=== PATIENT | female | born 1950 | race Caucasian/White ===

== ENCOUNTER 2016-03-03 14:35 | Inpatient (IN) | payer MEDICARE, OTHER ==
[~2016-03-03] VITALS: Ht 165.1 cm; Wt 52.2 kg
[~2016-03-03 14:35] MED LIST: ALLA266C2 TP; AMLO5TAB2 PO; APIX5TAB PO; ASPI81TA2 PO; ESCI10TA PO; FURO20TA4 PO; LOSA100T15 PO; OMEP20CA10 PO; OMEP20TA68 PO; PANT40TA4 PO; SUCR1ORA PO; SUCR1TAB PO
[2016-03-03] MEDS ORDERED: ASPIRIN 325 MG TABLET PO ONE (15:00)
[2016-03-03 15:13] LABS: BASOPHILS # (AUTO) 0.2 /CMM (0.0-0.2); BASOPHILS % (AUTO) 2.5 % (0.0-2.0); DIFF TOTAL % 100 %; EOSINOPHILS % (AUTO) 0.4 % (0.0-6.0); HEMATOCRIT 48 % (33-45); HEMOGLOBIN 15.7 g/dL (11.5-14.8); LYMPHOCYTES # (AUTO) 1.3 /CMM (0.8-4.8); LYMPHOCYTES % (AUTO) 17.4 % (20.0-44.0); MEAN CORPUSCULAR HEMOGLOBIN 30 PG (26.0-33.0); MEAN CORPUSCULAR HGB CONC 33 g/dl (31.0-36.0); MEAN CORPUSCULAR VOLUME 91 fL (82-100); MONOCYTES # (AUTO) 0.6 /CMM (0.1-1.30); MONOCYTES % (AUTO) 7.5 % (2.0-12.0); NEUTROPHILS # (AUTO) 5.7 /CMM (1.8-8.9); NEUTROPHILS % (AUTO) 72.2 % (43.0-81.0); PLATELET COUNT (AUTO) 430 /CMM (150-450); WHITE BLOOD COUNT (AUTO) 7.8 K/uL (4.3-11.0)
[2016-03-03 15:27] LABS: INR 1.77 (0.87-1.13); PROTHROMBIN TIME 18.6 SECS (9.5-12.7)
[2016-03-03] MEDS ORDERED: ASPIRIN 325 MG TABLET ONE (15:27)
[2016-03-03 15:33] LABS: TROPONIN I 0.058 ng/mL (0.00-0.056)
[2016-03-03] MEDS ORDERED: LOSA100T15 PO (15:48)
[2016-03-03] MEDS ORDERED: ESCI10TA PO (15:48)
[2016-03-03] MEDS ORDERED: APIX5TAB PO (15:48)
[2016-03-03] MEDS ORDERED: TRAZ-144 PO (15:48)
[2016-03-03] MEDS ORDERED: SUCR1ORA6 PO (15:48)
[2016-03-03] MEDS ORDERED: FLUT1BLS IH (15:48)
[2016-03-03] MEDS ORDERED: METO25TA6 PO (15:48)
[2016-03-03] MEDS ORDERED: PANT40TA4 PO (15:48)
[2016-03-03] MEDS ORDERED: MONT10TA22 PO (15:48)
[2016-03-03] MEDS ORDERED: FURO20TA4 PO (15:48)
[2016-03-03] MEDS ORDERED: IV NS 0.9% 1,000 ML BAG IV ONE (16:00)
[2016-03-03] MEDS ORDERED: POTASSIUM CHLORIDE 20 MEQ TAB.PRT.SR PO ONE ×2 (16:00→16:42)
[2016-03-03] MEDS ORDERED: POTASSIUM CL. PREMIX PERIPHER. 50 ML IV SCH (16:00)
[2016-03-03] MEDS ORDERED: IV SET PRIMARY PUMP SET 1 EA INFUS.SET MC ONE (16:42)
[2016-03-03] MEDS ORDERED: IV NS 0.9% 1,000 ML ONE (16:42)
[2016-03-03] MEDS ORDERED: POTASSIUM CL. PREMIX PERIPHER. 50 ML ONE (16:42)
[2016-03-03 16:54] LABS: KETONES,URINE Negative (NEGATIVE); LEUKOCYTE ESTERASE ,URINE Trace (NEGATIVE); PH,URINE 5.5 (5.0-8.0)
[2016-03-03 17:00] LABS: ADD UA MICROSCOPIC YES
[2016-03-03 17:13] LABS: ADD URINE CULTURE YES
[2016-03-03 18:00] VITALS: BP 128/84
[2016-03-03] MEDS ORDERED: ONDANSETRON HCL/PF 4 MG/2 ML VIAL IVP PRN (18:00)
[2016-03-03] MEDS: NITROGLYCERIN 30 GM TUBE TP SCH (18:00)
[2016-03-03] MEDS: POTASSIUM CL. PREMIX PERIPHER. 50 ML IV SCH ×3 (18:31→22:04)
[2016-03-03] MEDS: MAG HYDROX/AL HYDROX/SIMETH 30 ML UDC PO PRN (19:12)
[2016-03-03] MEDS: ACETAMINOPHEN 325 MG TABLET PO PRN ×2 (19:18→19:23)
[2016-03-03 20:00] VITALS: BP 100/69
[2016-03-03] MEDS: TRAZODONE 50 MG TABLET PO PRN (21:04)
[2016-03-03] MEDS: APIXABAN 2.5 MG TABLET PO SCH (21:04)
[2016-03-03 21:19] VITALS: BP 100/69
[2016-03-03] MEDS ORDERED: NITROGLYCERIN PACKET 1 GM PACKET ONE (23:44)
[2016-03-04] VITALS (7 sets, daily range): BP systolic 100–137; BP diastolic 53–87
[2016-03-04] MEDS: NITROGLYCERIN 30 GM TUBE TP SCH ×4 (00:02→17:33)
[2016-03-04] MEDS ORDERED: DILTIAZEM HCL 30 MG TABLET ONE ×2 (01:37→01:41)
[2016-03-04] MEDS ORDERED: METOPROLOL TARTRATE 50 MG TABLET ONE (01:38)
[2016-03-04] MEDS: DILTIAZEM HCL 30 MG TABLET PO PRN ×2 (01:45→09:23)
[2016-03-04] MEDS: METOPROLOL TARTRATE 50 MG TABLET PO SCH ×4 (01:51→21:01)
[2016-03-04 03:44] LABS: BASOPHILS % (AUTO) 0.4 % (0.0-2.0); DIFF TOTAL % 100 %; EOSINOPHILS % (AUTO) 0.5 % (0.0-6.0); HEMATOCRIT 38 % (33-45); HEMOGLOBIN 12.5 g/dL (11.5-14.8); LYMPHOCYTES # (AUTO) 2.2 /CMM (0.8-4.8); LYMPHOCYTES % (AUTO) 33.9 % (20.0-44.0); MEAN CORPUSCULAR HEMOGLOBIN 30 PG (26.0-33.0); MEAN CORPUSCULAR HGB CONC 33 g/dl (31.0-36.0); MEAN CORPUSCULAR VOLUME 91 fL (82-100); MONOCYTES # (AUTO) 0.6 /CMM (0.1-1.30); NEUTROPHILS # (AUTO) 3.6 /CMM (1.8-8.9); NEUTROPHILS % (AUTO) 55.2 % (43.0-81.0); PLATELET COUNT (AUTO) 251 /CMM (150-450); RED BLOOD CELL COUNT(AUTO) 4.19 MIL/uL (4.0-5.2); WHITE BLOOD COUNT (AUTO) 6.5 K/uL (4.3-11.0)
[2016-03-04 03:58] LABS: CALCIUM, SERUM 8.3 mg/dL (8.5-10.1); CREATININE 1.6 mg/dL (0.6-1.3); PHOSPHORUS 2.6 mg/dL (2.5-4.9); URIC ACID 5.3 mg/dL (2.6-7.2)
[2016-03-04 04:30] LABS: POTASSIUM 2.8 mmol/L (3.5-5.1)
[2016-03-04] MEDS ORDERED: METOPROLOL TARTRATE 50 MG TABLET PO SCH ×2 (06:00→15:00)
[2016-03-04] MEDS: IV NS W/30MEQ KCL 1L IV PRN ×2 (07:08)
[2016-03-04] MEDS: APIXABAN 2.5 MG TABLET PO SCH ×2 (08:39→16:39)
[2016-03-04] MEDS: PANTOPRAZOLE 40 MG TABLET.DR PO SCH (08:39)
[2016-03-04] MEDS: ASPIRIN 81 MG TAB.CHEW PO SCH (08:39)
[2016-03-04] MEDS ORDERED: POTASSIUM CHLORIDE 20 MEQ POWDER PACKET PO ONE (10:30)
[2016-03-04 10:50] LABS: CALCIUM, SERUM 8.4 mg/dL (8.5-10.1); CREATININE 1.6 mg/dL (0.6-1.3)
[2016-03-04] MEDS ORDERED: SECONDARY IV SET 1 EA INFUS.SET MC ONE ×2 (10:52→15:10)
[2016-03-04 10:53] LABS: POTASSIUM 2.5 mmol/L (3.5-5.1)
[2016-03-04] MEDS: Magnesium 1GM/D5W 100ML PREMIX 100 ML IV SCH ×4 (10:55→14:07)
[2016-03-04] MEDS ORDERED: IV SET PRIMARY PUMP SET 1 EA INFUS.SET MC ONE (11:03)
[2016-03-04] MEDS: POTASSIUM CL. PREMIX PERIPHER. 50 ML IV SCH ×3 (11:09→13:06)
[2016-03-04] MEDS: DILTIAZEM HCL CD 180 MG PO SCH (11:17)
[2016-03-04] MEDS: ACETAMINOPHEN 325 MG TABLET PO PRN (12:00)
[2016-03-04] MEDS ORDERED: LEVOFLOXACIN 500 MG /D5W 100ML 500 MG in PREMIX 1 EA IV ONE (13:00)
[2016-03-04] MEDS ORDERED: LEVOFLOXACIN 500 MG /D5W 100ML 500 MG in PREMIX 1 EA IV SCH (13:00)
[2016-03-04] MEDS ORDERED: TRAZODONE 50 MG TABLET PO SCH (22:00)
[2016-03-05] VITALS (9 sets, daily range): BP systolic 105–130; BP diastolic 61–90
[2016-03-05] MEDS: METOPROLOL TARTRATE 50 MG TABLET PO SCH ×4 (03:20→19:29)
[2016-03-05] MEDS: IV NS W/30MEQ KCL 1L IV PRN ×2 (04:57)
[2016-03-05] MEDS: NITROGLYCERIN 30 GM TUBE TP SCH ×4 (06:00→18:00)
[2016-03-05] MEDS: ASPIRIN 81 MG TAB.CHEW PO SCH (08:38)
[2016-03-05] MEDS: PANTOPRAZOLE 40 MG TABLET.DR PO SCH (08:38)
[2016-03-05] MEDS: APIXABAN 2.5 MG TABLET PO SCH ×2 (08:38→17:36)
[2016-03-05] MEDS: DILTIAZEM HCL CD 180 MG PO SCH ×2 (09:00→20:22)
[2016-03-05] MEDS ORDERED: Potassium Chloride 40 MEQ in IV NS 0.9% 1,000 ML IV PRN (10:05)
[2016-03-05] MEDS ORDERED: POTASSIUM CHLORIDE 20 MEQ TAB.PRT.SR PO ONE (10:30)
[2016-03-05 11:21] LABS: CALCIUM, SERUM 8.3 mg/dL (8.5-10.1); CREATININE 1.1 mg/dL (0.6-1.3); POTASSIUM 4.9 mmol/L (3.5-5.1)
[2016-03-05] MEDS ORDERED: SECONDARY IV SET 1 EA INFUS.SET MC ONE (12:19)
[2016-03-05] MEDS: LEVOFLOXACIN 250 MG /D5W 50 ML 250 MG in PREMIX 1 EA IV SCH (12:25)
[2016-03-05] MEDS: ACETAMINOPHEN 325 MG TABLET PO PRN ×2 (15:13→20:31)
[2016-03-05] MEDS: GUAIFENESIN/D-METHORPHAN HB 5 ML UDC PO PRN ×2 (15:16→21:17)
[2016-03-05] MEDS: TRAZODONE 50 MG TABLET PO SCH (21:18)
[2016-03-05] MEDS: MAG HYDROX/AL HYDROX/SIMETH 30 ML UDC PO PRN (23:14)
[2016-03-06] VITALS (7 sets, daily range): BP systolic 109–135; BP diastolic 50–84
[2016-03-06] MEDS: ACETAMINOPHEN 325 MG TABLET PO PRN ×2 (02:26→17:35)
[2016-03-06] MEDS: GUAIFENESIN/D-METHORPHAN HB 5 ML UDC PO PRN ×2 (03:35→21:44)
[2016-03-06] MEDS: NITROGLYCERIN 30 GM TUBE TP SCH ×4 (06:00→18:00)
[2016-03-06] MEDS: DILTIAZEM HCL CD 180 MG PO SCH (07:01)
[2016-03-06] MEDS: METOPROLOL TARTRATE 50 MG TABLET PO SCH ×2 (07:02→16:59)
[2016-03-06] MEDS: PANTOPRAZOLE 40 MG TABLET.DR PO SCH (08:48)
[2016-03-06] MEDS: ASPIRIN 81 MG TAB.CHEW PO SCH (08:48)
[2016-03-06] MEDS: APIXABAN 2.5 MG TABLET PO SCH ×2 (08:49→16:57)
[2016-03-06] MEDS ORDERED: METOPROLOL TARTRATE 25 MG TABLET PO ONE (11:30)
[2016-03-06] MEDS: LEVOFLOXACIN 250 MG /D5W 50 ML 250 MG in PREMIX 1 EA IV SCH (12:47)
[2016-03-06] MEDS: FUROSEMIDE 20 MG TABLET PO SCH (13:41)
[2016-03-06 13:59] LABS: BASOPHILS % (AUTO) 0.4 % (0.0-2.0); DIFF TOTAL % 100 %; EOSINOPHILS % (AUTO) 0.5 % (0.0-6.0); HEMATOCRIT 35 % (33-45); HEMOGLOBIN 11.4 g/dL (11.5-14.8); LYMPHOCYTES # (AUTO) 0.8 /CMM (0.8-4.8); LYMPHOCYTES % (AUTO) 21.4 % (20.0-44.0); MEAN CORPUSCULAR HEMOGLOBIN 30 PG (26.0-33.0); MEAN CORPUSCULAR HGB CONC 32 g/dl (31.0-36.0); MEAN CORPUSCULAR VOLUME 94 fL (82-100); MONOCYTES # (AUTO) 0.2 /CMM (0.1-1.30); MONOCYTES % (AUTO) 5.9 % (2.0-12.0); NEUTROPHILS # (AUTO) 2.7 /CMM (1.8-8.9); NEUTROPHILS % (AUTO) 71.8 % (43.0-81.0); PLATELET COUNT (AUTO) 165 /CMM (150-450); RED BLOOD CELL COUNT(AUTO) 3.76 MIL/uL (4.0-5.2); WHITE BLOOD COUNT (AUTO) 3.7 K/uL (4.3-11.0)
[2016-03-06 14:09] LABS: CALCIUM, SERUM 9.2 mg/dL (8.5-10.1); CREATININE 1.1 mg/dL (0.6-1.3); POTASSIUM 5.3 mmol/L (3.5-5.1)
[2016-03-06 18:42] LABS: BASOPHILS % (AUTO) 0.4 % (0.0-2.0); DIFF TOTAL % 100 %; EOSINOPHILS % (AUTO) 0.3 % (0.0-6.0); HEMATOCRIT 32 % (33-45); HEMOGLOBIN 10.4 g/dL (11.5-14.8); LYMPHOCYTES # (AUTO) 0.3 /CMM (0.8-4.8); LYMPHOCYTES % (AUTO) 10.8 % (20.0-44.0); MEAN CORPUSCULAR HEMOGLOBIN 30 PG (26.0-33.0); MEAN CORPUSCULAR HGB CONC 33 g/dl (31.0-36.0); MEAN CORPUSCULAR VOLUME 92 fL (82-100); MONOCYTES # (AUTO) 0.2 /CMM (0.1-1.30); MONOCYTES % (AUTO) 7.1 % (2.0-12.0); NEUTROPHILS # (AUTO) 2.1 /CMM (1.8-8.9); NEUTROPHILS % (AUTO) 81.4 % (43.0-81.0); PLATELET COUNT (AUTO) 172 /CMM (150-450); RED BLOOD CELL COUNT(AUTO) 3.46 MIL/uL (4.0-5.2); WHITE BLOOD COUNT (AUTO) 2.6 K/uL (4.3-11.0)
[2016-03-06 18:56] LABS: CALCIUM, SERUM 8.4 mg/dL (8.5-10.1); CREATININE 1.2 mg/dL (0.6-1.3); POTASSIUM 4.9 mmol/L (3.5-5.1)
[2016-03-06] MEDS ORDERED: LEVALBUTEROL HCL NEB 1.25 MG/0.5 ML VIAL.NEB NEB PRN (21:00)
[2016-03-06] MEDS ORDERED: ALBUTEROL FS 2.5 MG/0.5 ML VIAL.NEB NEB PRN (21:00)
[2016-03-06] MEDS: OSELTAMIVIR PHOSPHATE 75 MG CAPSULE PO SCH (21:44)
[2016-03-06] MEDS: TRAZODONE 50 MG TABLET PO SCH (22:00)
[2016-03-07] VITALS (9 sets, daily range): BP systolic 97–143; BP diastolic 61–76
[2016-03-07] MEDS: TRAZODONE 50 MG TABLET PO PRN (02:11)
[2016-03-07] MEDS: ACETAMINOPHEN 325 MG TABLET PO PRN (05:25)
[2016-03-07] MEDS: DILTIAZEM HCL CD 180 MG PO SCH (05:25)
[2016-03-07] MEDS: METOPROLOL TARTRATE 50 MG TABLET PO SCH ×2 (05:25→17:37)
[2016-03-07] MEDS: NITROGLYCERIN 30 GM TUBE TP SCH ×4 (06:00→17:36)
[2016-03-07] MEDS: FUROSEMIDE 20 MG TABLET PO SCH (09:00)
[2016-03-07] MEDS: PANTOPRAZOLE 40 MG TABLET.DR PO SCH (09:28)
[2016-03-07] MEDS: OSELTAMIVIR PHOSPHATE 75 MG CAPSULE PO SCH ×2 (09:28→17:36)
[2016-03-07] MEDS: APIXABAN 2.5 MG TABLET PO SCH ×2 (09:28→17:35)
[2016-03-07] MEDS: FUROSEMIDE 20 MG/2 ML VIAL IV SCH ×2 (11:18→17:34)
[2016-03-07] MEDS: LEVOFLOXACIN 250 MG /D5W 50 ML 250 MG in PREMIX 1 EA IV SCH (13:17)
[2016-03-07] MEDS: TRAZODONE 50 MG TABLET PO SCH (22:49)
[2016-03-08] MEDS: NITROGLYCERIN 30 GM TUBE TP SCH ×5 (06:00→17:01)
[2016-03-08 08:00] VITALS: BP 118/78
[2016-03-08] MEDS: APIXABAN 2.5 MG TABLET PO SCH ×2 (08:17→16:26)
[2016-03-08] MEDS: OSELTAMIVIR PHOSPHATE 75 MG CAPSULE PO SCH ×2 (08:20→16:26)
[2016-03-08] MEDS: DILTIAZEM HCL CD 180 MG PO SCH (08:20)
[2016-03-08] MEDS: PANTOPRAZOLE 40 MG TABLET.DR PO SCH (08:20)
[2016-03-08] MEDS: LEVOFLOXACIN (250MG) 250 MG TABLET PO SCH (08:20)
[2016-03-08] MEDS: FUROSEMIDE 20 MG/2 ML VIAL IV SCH ×2 (08:21→16:27)
[2016-03-08] MEDS: METOPROLOL TARTRATE 50 MG TABLET PO SCH ×2 (08:21→16:27)
[2016-03-08 16:00] VITALS: BP 90/70
[2016-03-08 20:00] VITALS: BP 79/43
[2016-03-08] MEDS: TRAZODONE 50 MG TABLET PO SCH (22:00)
[2016-03-09] MEDS: NITROGLYCERIN 30 GM TUBE TP SCH ×4 (06:41→18:00)
[2016-03-09 08:00] VITALS: BP 120/65
[2016-03-09] MEDS: OSELTAMIVIR PHOSPHATE 75 MG CAPSULE PO SCH ×2 (09:27→16:32)
[2016-03-09] MEDS: LEVOFLOXACIN (250MG) 250 MG TABLET PO SCH (09:27)
[2016-03-09] MEDS: APIXABAN 2.5 MG TABLET PO SCH ×2 (09:27→16:32)
[2016-03-09] MEDS: PANTOPRAZOLE 40 MG TABLET.DR PO SCH (09:27)
[2016-03-09 10:02] LABS: BASOPHILS % (AUTO) 0.4 % (0.0-2.0); DIFF TOTAL % 100 %; EOSINOPHILS # (AUTO) 0.1 /CMM (0.0-0.7); EOSINOPHILS % (AUTO) 5.3 % (0.0-6.0); HEMATOCRIT 34 % (33-45); HEMOGLOBIN 11.2 g/dL (11.5-14.8); LYMPHOCYTES # (AUTO) 0.7 /CMM (0.8-4.8); LYMPHOCYTES % (AUTO) 29.7 % (20.0-44.0); MEAN CORPUSCULAR HEMOGLOBIN 30 PG (26.0-33.0); MEAN CORPUSCULAR HGB CONC 33 g/dl (31.0-36.0); MEAN CORPUSCULAR VOLUME 92 fL (82-100); MONOCYTES # (AUTO) 0.2 /CMM (0.1-1.30); MONOCYTES % (AUTO) 6.5 % (2.0-12.0); NEUTROPHILS # (AUTO) 1.5 /CMM (1.8-8.9); NEUTROPHILS % (AUTO) 58.1 % (43.0-81.0); PLATELET COUNT (AUTO) 129 /CMM (150-450); RED BLOOD CELL COUNT(AUTO) 3.71 MIL/uL (4.0-5.2); WHITE BLOOD COUNT (AUTO) 2.5 K/uL (4.3-11.0)
[2016-03-09 10:14] LABS: CALCIUM, SERUM 8.6 mg/dL (8.5-10.1); POTASSIUM 3.3 mmol/L (3.5-5.1)
[2016-03-09 10:33] LABS: BILIRUBIN,TOTAL 0.4 mg/dL (0.2-1.0); PHOSPHORUS 2.8 mg/dL (2.5-4.9); TOTAL PROTEIN, SERUM 6.3 g/dL (6.4-8.2)
[2016-03-09 10:35] LABS: BAND % (MANUAL) 4 % (0.0-5.0); EOSINOPHILS % (MANUAL) 5 % (0-4); LYMPHOCYTES % (MANUAL) 31 % (16-48); PLATELET ESTIMATE DECREASED
[2016-03-09] MEDS: METOPROLOL TARTRATE 50 MG TABLET PO SCH ×2 (10:35→16:32)
[2016-03-09] MEDS ORDERED: POTASSIUM CHLORIDE 20 MEQ TAB.PRT.SR PO SCH (12:30)
[2016-03-09 16:00] VITALS: BP 114/81
[2016-03-09 20:00] VITALS: BP 107/87
[2016-03-09 22:00] VITALS: BP 107/87
[2016-03-09] MEDS: TRAZODONE 50 MG TABLET PO SCH (23:00)
[2016-03-09] MEDS: GUAIFENESIN/D-METHORPHAN HB 5 ML UDC PO PRN (23:02)
[2016-03-10 04:51] VITALS: BP 114/79
[2016-03-10] MEDS: NITROGLYCERIN 30 GM TUBE TP SCH ×4 (06:00→17:19)
[2016-03-10 08:00] VITALS: BP 102/70
[2016-03-10 08:27] LABS: CREATININE 0.9 mg/dL (0.6-1.3); POTASSIUM 4.6 mmol/L (3.5-5.1)
[2016-03-10 08:38] VITALS: BP 102/70
[2016-03-10] MEDS: PANTOPRAZOLE 40 MG TABLET.DR PO SCH (09:22)
[2016-03-10] MEDS: LEVOFLOXACIN (250MG) 250 MG TABLET PO SCH (09:22)
[2016-03-10] MEDS: OSELTAMIVIR PHOSPHATE 75 MG CAPSULE PO SCH ×2 (09:22→17:17)
[2016-03-10] MEDS: METOPROLOL TARTRATE 50 MG TABLET PO SCH ×2 (09:23→17:19)
[2016-03-10] MEDS: APIXABAN 2.5 MG TABLET PO SCH ×2 (11:37→17:17)
[2016-03-10] MEDS: GUAIFENESIN LA 600 MG TABLET.SA PO SCH ×2 (12:33→21:20)
[2016-03-10] MEDS: DILTIAZEM HCL CD 180 MG PO SCH (13:49)
[2016-03-10 16:00] VITALS: BP 126/83
[2016-03-10 20:00] VITALS: BP 122/66
[2016-03-10] MEDS: TRAZODONE 50 MG TABLET PO SCH (21:20)
[2016-03-11] MEDS: NITROGLYCERIN 30 GM TUBE TP SCH ×2 (05:49)
[2016-03-11 08:00] VITALS: BP 123/59
[2016-03-11] MEDS: OSELTAMIVIR PHOSPHATE 75 MG CAPSULE PO SCH (08:33)
[2016-03-11] MEDS: PANTOPRAZOLE 40 MG TABLET.DR PO SCH (08:33)
[2016-03-11] MEDS: APIXABAN 2.5 MG TABLET PO SCH (08:33)
[2016-03-11] MEDS: METOPROLOL TARTRATE 50 MG TABLET PO SCH (08:34)
[2016-03-11] MEDS: LEVOFLOXACIN (250MG) 250 MG TABLET PO SCH (08:34)
[2016-03-11] MEDS: GUAIFENESIN LA 600 MG TABLET.SA PO SCH (08:34)
[2016-03-11 08:35] VITALS: BP 123/59
[2016-03-11] MEDS: DILTIAZEM HCL CD 180 MG PO SCH (08:35)
== END 2016-03-11 13:58 | disposition home or self-care (01) | DRG 682 ==
LOC: MERGE 14:38 → ER 14:38 → TELE 17:06 → MED 03-07 08:55
PROVIDERS: ADMIT Legal Medicine; ATTEND Legal Medicine
DX: N17.0 Acute kidney failure with tubular necrosis (principal); I50.33 Acute on chronic diastolic (congestive) heart failure; N39.0 Urinary tract infection, site not specified; D68.59 Other primary thrombophilia; J44.1 Chronic obstructive pulmonary disease with (acute) exacerbation; I11.0 Hypertensive heart disease with heart failure; E87.6 Hypokalemia; J45.909 Unspecified asthma, uncomplicated; M81.0 Age-related osteoporosis without current pathological fracture; E86.0 Dehydration; I48.2 Chronic atrial fibrillation; K27.9 Peptic ulcer, site unspecified, unspecified as acute or chronic, without hemorrhage or perforation; E78.00 Pure hypercholesterolemia, unspecified; E78.1 Pure hyperglyceridemia; E86.1 Hypovolemia; G47.00 Insomnia, unspecified; Z87.891 Personal history of nicotine dependence; Z90.49 Acquired absence of other specified parts of digestive tract; R78.89 Finding of other specified substances, not normally found in blood; J11.1 Influenza due to unidentified influenza virus with other respiratory manifestations
CPT/HCPCS: 36415; 71010-TC; 80048-TC; 80053-TC; 80061-TC; 81000-TC; 83735-TC; 84100-TC; 84484-TC; 84550-TC; 85025-TC; 85730-TC; 87081-TC; 87086-TC; 87186-TC; 87400; 94799-TC; A4216; A4606; J1940; J1956; J2405; J3475; J3480; J7030; Z7610

== ENCOUNTER 2016-03-18 10:03 | Inpatient (IN) | payer MEDICARE, OTHER ==
[~2016-03-18] VITALS: Ht 160 cm; Wt 56.2 kg
[~2016-03-18 10:03] MED LIST changes: +FLUT1BLS IH; +METO25TA6 PO; +MONT10TA22 PO; +SUCR1ORA6 PO; +TRAZ-144 PO
[2016-03-18] MEDS ORDERED: IV NS 0.9% 1,000 ML ONE ×2 (11:27→12:23)
[2016-03-18] MEDS ORDERED: ONDANSETRON HCL/PF 4 MG/2 ML VIAL ONE (11:27)
[2016-03-18] MEDS ORDERED: IV SET PRIMARY PUMP SET 1 EA INFUS.SET MC ONE ×4 (11:27→14:36)
[2016-03-18] MEDS ORDERED: ONDANSETRON HCL/PF 4 MG/2 ML VIAL IVP ONE (11:30)
[2016-03-18] MEDS ORDERED: IV NS 0.9% 1,000 ML BAG IV ONE ×2 (11:30→12:30)
[2016-03-18 11:42] LABS: BASOPHILS # (AUTO) 0.1 /CMM (0.0-0.2); BASOPHILS % (AUTO) 0.7 % (0.0-2.0); DIFF TOTAL % 100 %; EOSINOPHILS # (AUTO) 0.1 /CMM (0.0-0.7); EOSINOPHILS % (AUTO) 0.7 % (0.0-6.0); HEMATOCRIT 49 % (33-45); HEMOGLOBIN 15.3 g/dL (11.5-14.8); LYMPHOCYTES # (AUTO) 2.8 /CMM (0.8-4.8); MEAN CORPUSCULAR HEMOGLOBIN 29 PG (26.0-33.0); MEAN CORPUSCULAR HGB CONC 31 g/dl (31.0-36.0); MEAN CORPUSCULAR VOLUME 94 fL (82-100); MONOCYTES # (AUTO) 0.4 /CMM (0.1-1.30); NEUTROPHILS # (AUTO) 7.5 /CMM (1.8-8.9); NEUTROPHILS % (AUTO) 68.6 % (43.0-81.0); PLATELET COUNT (AUTO) 507 /CMM (150-450); RED BLOOD CELL COUNT(AUTO) 5.21 MIL/uL (4.0-5.2); WHITE BLOOD COUNT (AUTO) 10.9 K/uL (4.3-11.0)
[2016-03-18] MEDS ORDERED: METO25TA6 PO (11:53)
[2016-03-18] MEDS ORDERED: DILT180C66 PO (11:53)
[2016-03-18 11:55] LABS: ANION GAP 20 (5-14); CALCIUM, SERUM 9.8 mg/dL (8.5-10.1); CARBON DIOXIDE 22 mmol/L (21-32); CHLORIDE 101 mmol/L (98-107); CREATININE 1.8 mg/dL (0.6-1.3); GFR 28 mL/min (>60); GLUCOSE 161 mg/dL (74-106); POTASSIUM 3.6 mmol/L (3.5-5.1); SODIUM SERUM 139 mmol/L (136-145); UREA NITROGEN, BLOOD 32 mg/dL (7-18)
[2016-03-18 11:59] LABS: INR 1.22 (0.87-1.13); PROTHROMBIN TIME 12.8 SECS (9.5-12.7)
[2016-03-18 12:01] LABS: ALANINE AMINOTRANSFERASE 20 U/L (12-78); ALBUMIN 4.3 g/dL (3.4-5.0); ASPARTATE AMINOTRANSFERASE 17 U/L (15-37); BILIRUBIN,DIRECT 0.2 mg/dL (0.0-0.2); INDIRECT BILIRUBIN 0.8 mg/dL (0.0-1.1); TOTAL PROTEIN, SERUM 8.5 g/dL (6.4-8.2)
[2016-03-18 12:03] LABS: TROPONIN I 0.021 ng/mL (0.00-0.056)
[2016-03-18 12:24] LABS: LACTIC ACID 5.1 mmol/L (0.4-2.0)
[2016-03-18] MEDS ORDERED: LEVOFLOXACIN 750 MG /D5W 150ML 150 ML IV ONE ×2 (12:29→12:30)
[2016-03-18 12:38] LABS: *LACTIC ACID REFLEX FLAG YES
[2016-03-18] MEDS ORDERED: IV NS 0.9% 1,000 ML IV PRN (14:00)
[2016-03-18] MEDS ORDERED: FEE PK DOSING 1 MIN EA MC ONE (14:28)
[2016-03-18 14:30] VITALS: BP 137/53
[2016-03-18] MEDS ORDERED: ONDANSETRON HCL/PF 4 MG/2 ML VIAL IV PRN (14:30)
[2016-03-18] MEDS ORDERED: SECONDARY IV SET 1 EA INFUS.SET MC ONE (14:37)
[2016-03-18 14:46] VITALS: BP 137/53
[2016-03-18] MEDS ORDERED: VANCOMYCIN 1 GM in IV D5W 250 ML IV SCH (15:00)
[2016-03-18] MEDS: DILTIAZEM HCL CD 180 MG PO SCH (15:14)
[2016-03-18 16:00] VITALS: BP 105/29
[2016-03-18] MEDS: METOPROLOL TARTRATE 25 MG TABLET PO SCH (17:37)
[2016-03-18] MEDS: APIXABAN 5 MG TABLET PO SCH (17:45)
[2016-03-18 20:00] VITALS: BP 100/49
[2016-03-18] MEDS: TRAZODONE 50 MG TABLET PO PRN (22:15)
[2016-03-18] MEDS ORDERED: TRAZODONE 50 MG TABLET PO PRN (23:30)
[2016-03-18] MEDS ORDERED: TRAZODONE 50 MG TABLET ONE (23:32)
[2016-03-19] VITALS (7 sets, daily range): BP systolic 91–112; BP diastolic 32–55
[2016-03-19 07:12] LABS: BASOPHILS % (AUTO) 0.6 % (0.0-2.0); DIFF TOTAL % 100 %; EOSINOPHILS # (AUTO) 0.1 /CMM (0.0-0.7); EOSINOPHILS % (AUTO) 1.6 % (0.0-6.0); HEMATOCRIT 34 % (33-45); HEMOGLOBIN 10.9 g/dL (11.5-14.8); LYMPHOCYTES # (AUTO) 1.5 /CMM (0.8-4.8); LYMPHOCYTES % (AUTO) 25.8 % (20.0-44.0); MEAN CORPUSCULAR HEMOGLOBIN 30 PG (26.0-33.0); MEAN CORPUSCULAR HGB CONC 33 g/dl (31.0-36.0); MEAN CORPUSCULAR VOLUME 93 fL (82-100); MONOCYTES # (AUTO) 0.5 /CMM (0.1-1.30); MONOCYTES % (AUTO) 7.8 % (2.0-12.0); NEUTROPHILS # (AUTO) 3.8 /CMM (1.8-8.9); NEUTROPHILS % (AUTO) 64.2 % (43.0-81.0); PLATELET COUNT (AUTO) 284 /CMM (150-450); RED BLOOD CELL COUNT(AUTO) 3.61 MIL/uL (4.0-5.2); WHITE BLOOD COUNT (AUTO) 5.9 K/uL (4.3-11.0)
[2016-03-19 07:20] LABS: CALCIUM, SERUM 8.5 mg/dL (8.5-10.1); CREATININE 1.1 mg/dL (0.6-1.3); PHOSPHORUS 3.1 mg/dL (2.5-4.9); POTASSIUM 3.9 mmol/L (3.5-5.1)
[2016-03-19] MEDS ORDERED: PANTOPRAZOLE 40 MG TABLET.DR PO SCH (07:30)
[2016-03-19] MEDS: DILTIAZEM HCL CD 180 MG PO SCH (08:04)
[2016-03-19] MEDS: APIXABAN 5 MG TABLET PO SCH (08:05)
[2016-03-19] MEDS: METOPROLOL TARTRATE 25 MG TABLET PO SCH ×2 (08:05→16:14)
[2016-03-19] MEDS ORDERED: SECONDARY IV SET 1 EA INFUS.SET MC ONE (09:11)
[2016-03-19] MEDS: Magnesium 1GM/D5W 100ML PREMIX 100 ML IV SCH ×5 (09:14→13:30)
[2016-03-19] MEDS: PANTOPRAZOLE 40 MG TABLET.DR PO SCH ×2 (13:08→21:30)
[2016-03-19] MEDS: VANCOMYCIN 1 GM in IV D5W 250 ML IV SCH (15:12)
[2016-03-19] MEDS: ELIQUIS 5MG PO SCH (16:14)
[2016-03-19] MEDS: ACETAMINOPHEN 325 MG TABLET PO PRN (19:25)
[2016-03-19] MEDS: TRAZODONE 50 MG TABLET PO PRN (22:22)
[2016-03-20] VITALS: BP 94/43
[2016-03-20 04:00] VITALS: BP 99/43
[2016-03-20 06:57] LABS: BASOPHILS % (AUTO) 0.3 % (0.0-2.0); DIFF TOTAL % 100 %; EOSINOPHILS # (AUTO) 0.1 /CMM (0.0-0.7); EOSINOPHILS % (AUTO) 1.3 % (0.0-6.0); HEMATOCRIT 35 % (33-45); HEMOGLOBIN 11.1 g/dL (11.5-14.8); LYMPHOCYTES # (AUTO) 1.3 /CMM (0.8-4.8); LYMPHOCYTES % (AUTO) 20.1 % (20.0-44.0); MEAN CORPUSCULAR HEMOGLOBIN 30 PG (26.0-33.0); MEAN CORPUSCULAR HGB CONC 32 g/dl (31.0-36.0); MEAN CORPUSCULAR VOLUME 94 fL (82-100); MONOCYTES # (AUTO) 0.5 /CMM (0.1-1.30); MONOCYTES % (AUTO) 7.9 % (2.0-12.0); NEUTROPHILS # (AUTO) 4.6 /CMM (1.8-8.9); NEUTROPHILS % (AUTO) 70.4 % (43.0-81.0); PLATELET COUNT (AUTO) 286 /CMM (150-450); RED BLOOD CELL COUNT(AUTO) 3.72 MIL/uL (4.0-5.2); WHITE BLOOD COUNT (AUTO) 6.6 K/uL (4.3-11.0)
[2016-03-20 07:18] LABS: CALCIUM, SERUM 8.7 mg/dL (8.5-10.1); POTASSIUM 3.8 mmol/L (3.5-5.1)
[2016-03-20 08:00] VITALS: BP 123/76
[2016-03-20] MEDS: VANCOMYCIN 1 GM in IV D5W 250 ML IV SCH (08:59)
[2016-03-20] MEDS: ELIQUIS 5MG PO SCH (08:59)
[2016-03-20] MEDS: METOPROLOL TARTRATE 25 MG TABLET PO SCH ×2 (09:00→17:42)
[2016-03-20] MEDS: DILTIAZEM HCL CD 180 MG PO SCH (09:00)
[2016-03-20] MEDS: PANTOPRAZOLE 40 MG TABLET.DR PO SCH ×2 (09:00→21:43)
[2016-03-20 12:00] VITALS: BP 105/61
[2016-03-20] MEDS ORDERED: SECONDARY IV SET 1 EA INFUS.SET MC ONE (12:43)
[2016-03-20] MEDS ORDERED: LEVOFLOXACIN 750 MG /D5W 150ML 750 MG in PREMIX 1 EA IV SCH (13:30)
[2016-03-20] MEDS: ACETAMINOPHEN 325 MG TABLET PO PRN (15:37)
[2016-03-20 16:00] VITALS: BP 118/84
[2016-03-20] MEDS: LACTOBACILLUS RHAMNOSUS GG 1 EACH CAP.SPRINK PO SCH (17:41)
[2016-03-20] MEDS: APIXABAN 2.5 MG TABLET PO SCH (18:05)
[2016-03-20 20:00] VITALS: BP 100/59
[2016-03-20] MEDS: TRAZODONE 50 MG TABLET PO PRN (21:44)
[2016-03-21] VITALS: BP 100/45
[2016-03-21] MEDS: VANCOMYCIN 1 GM in IV D5W 250 ML IV SCH (03:09)
[2016-03-21] MEDS ORDERED: IV SET PRIMARY PUMP SET 1 EA INFUS.SET MC ONE (03:09)
[2016-03-21 04:00] VITALS: BP_SYST 104; BP_SYST 109; BP_DIAS 41
[2016-03-21 07:32] LABS: BASOPHILS % (AUTO) 0.3 % (0.0-2.0); DIFF TOTAL % 100 %; EOSINOPHILS # (AUTO) 0.1 /CMM (0.0-0.7); EOSINOPHILS % (AUTO) 1.1 % (0.0-6.0); HEMATOCRIT 31 % (33-45); HEMOGLOBIN 10.3 g/dL (11.5-14.8); LYMPHOCYTES # (AUTO) 1.3 /CMM (0.8-4.8); LYMPHOCYTES % (AUTO) 18.4 % (20.0-44.0); MEAN CORPUSCULAR HEMOGLOBIN 31 PG (26.0-33.0); MEAN CORPUSCULAR HGB CONC 33 g/dl (31.0-36.0); MEAN CORPUSCULAR VOLUME 93 fL (82-100); MONOCYTES # (AUTO) 0.5 /CMM (0.1-1.30); MONOCYTES % (AUTO) 7.5 % (2.0-12.0); NEUTROPHILS % (AUTO) 72.7 % (43.0-81.0); PLATELET COUNT (AUTO) 206 /CMM (150-450); RED BLOOD CELL COUNT(AUTO) 3.36 MIL/uL (4.0-5.2); WHITE BLOOD COUNT (AUTO) 6.9 K/uL (4.3-11.0)
[2016-03-21 07:44] LABS: CALCIUM, SERUM 8.9 mg/dL (8.5-10.1); CREATININE 0.8 mg/dL (0.6-1.3); POTASSIUM 4.1 mmol/L (3.5-5.1)
[2016-03-21 08:00] VITALS: BP_SYST 109; BP_SYST 113; BP_DIAS 40; BP_DIAS 41
[2016-03-21] MEDS: PANTOPRAZOLE 40 MG TABLET.DR PO SCH (08:30)
[2016-03-21] MEDS: LACTOBACILLUS RHAMNOSUS GG 1 EACH CAP.SPRINK PO SCH (08:30)
[2016-03-21] MEDS: DILTIAZEM HCL CD 180 MG PO SCH (08:31)
[2016-03-21] MEDS: APIXABAN 2.5 MG TABLET PO SCH (08:36)
[2016-03-21] MEDS: METOPROLOL TARTRATE 25 MG TABLET PO SCH (08:36)
[2016-03-21 12:00] VITALS: BP 110/72
== END 2016-03-21 14:35 | disposition home or self-care (01) | DRG 871 ==
LOC: ER 10:07 → MEDSG2 12:43 → TELE-TD 12:55 → TELE1 03-19 10:26 → MEDSG1 03-21 10:34
PROVIDERS: ADMIT Legal Medicine; ATTEND Legal Medicine
DX: A41.9 Sepsis, unspecified organism (principal); I50.23 Acute on chronic systolic (congestive) heart failure; N17.0 Acute kidney failure with tubular necrosis; E87.2 Acidosis; E86.0 Dehydration; G89.4 Chronic pain syndrome; J44.9 Chronic obstructive pulmonary disease, unspecified; Z87.11 Personal history of peptic ulcer disease; Z87.891 Personal history of nicotine dependence; F41.9 Anxiety disorder, unspecified; I11.0 Hypertensive heart disease with heart failure; I48.2 Chronic atrial fibrillation; Z88.0 Allergy status to penicillin; Z88.2 Allergy status to sulfonamides; R65.20 Severe sepsis without septic shock
CPT/HCPCS: 36415; 71010-TC; 80048-TC; 80076-TC; 80202-TC; 83605-TC; 83735-TC; 84100-TC; 84484-TC; 85025-TC; 85730-TC; 87040-TC; 87081-TC; 97001-TC; 97116-TC; 97530-TC; A4216; A4606; J1956; J2405; J3370; J3475; J7030; J7060; Z7610

== ENCOUNTER 2016-04-01 11:25 | Outpatient (CLI) | payer MEDICARE, OTHER ==
[~2016-04-01 11:25] MED LIST changes: -ALLA266C2 TP; -AMLO5TAB2 PO; -ASPI81TA2 PO; +DILT180C66 PO; -ESCI10TA PO; -FLUT1BLS IH; -FURO20TA4 PO; -LOSA100T15 PO; -MONT10TA22 PO; -OMEP20CA10 PO; -OMEP20TA68 PO; -PANT40TA4 PO; -SUCR1ORA PO; -SUCR1ORA6 PO; -SUCR1TAB PO; -TRAZ-144 PO
[2016-04-01 13:15] LABS: CALCIUM, SERUM 9.3 mg/dL (8.5-10.1); CREATININE 1.4 mg/dL (0.6-1.3)
[2016-04-01 13:27] LABS: POTASSIUM 2.5 mmol/L (3.5-5.1)
== END 2016-04-01 23:59 | disposition home or self-care (01) ==
LOC: LAB 11:25
PROVIDERS: ATTEND Internal Medicine Interventional Cardiology
DX: E86.0 Dehydration (principal)
CPT/HCPCS: 36415; 80048-TC

== ENCOUNTER 2016-04-03 10:23 | Outpatient (CLI) | payer MEDICARE, OTHER ==
[2016-04-03 11:05] LABS: CALCIUM, SERUM 9.7 mg/dL (8.5-10.1); POTASSIUM 3.1 mmol/L (3.5-5.1)
== END 2016-04-03 23:59 | disposition home or self-care (01) ==
LOC: LAB 10:23
PROVIDERS: ATTEND Internal Medicine Interventional Cardiology
DX: I10 Essential (primary) hypertension (principal); R79.9 Abnormal finding of blood chemistry, unspecified
CPT/HCPCS: 36415; 80048-TC

== ENCOUNTER 2017-03-03 20:06 | Inpatient (IN) | payer MEDICARE, OTHER ==
[~2017-03-03] VITALS: Ht 175.3 cm; Wt 62.1 kg
--- NOTE | 2017-03-03 20:30 | NUR ---
67 YO FEMALE BB FAMILY. PATIENT IS A/O X 3, STATES SHE FEELS LIKE HER HEART IS RACING. PATIENT ASSISTED TO ER BED, SKIN WARM AND DRY, RESP EVEN AND UNLABORED. PATIENT STATES SHE HAS NOT TAKEN HER MEDICATION FOR A FIB TODAY. AWAITING ORDERS FROM PROVIDER, WILL CONTINUE TO MONITOR
--- NOTE | 2017-03-03 20:51 | NUR ---
18G LEFT AC IV STARTED, BLOOD SAMPLE OBTAINED AND SENT TO LAB
[2017-03-03 20:57] LABS: BASOPHILS % (AUTO) 0.3 % (0.0-2.0); EOSINOPHILS % (AUTO) 0.1 % (0.0-6.0); HEMATOCRIT 32 % (33-45); HEMOGLOBIN 10.6 g/dL (11.5-14.8); LYMPHOCYTES # (AUTO) 1.2 /CMM (0.8-4.8); MEAN CORPUSCULAR HEMOGLOBIN 33 PG (26.0-33.0); MEAN CORPUSCULAR HGB CONC 33 g/dl (31.0-36.0); MEAN CORPUSCULAR VOLUME 100 fL (82-100); MONOCYTES # (AUTO) 0.5 /CMM (0.1-1.30); MONOCYTES % (AUTO) 7.2 % (2.0-12.0); NEUTROPHILS # (AUTO) 5.2 /CMM (1.8-8.9); NEUTROPHILS % (AUTO) 75.4 % (43.0-81.0); PLATELET COUNT (AUTO) 244 /CMM (150-450); RDW COEFFICIENT OF VARIATION 15.6 (11.5-15.0); RED BLOOD CELL COUNT(AUTO) 3.21 MIL/uL (4.0-5.2); WHITE BLOOD COUNT (AUTO) 6.9 K/uL (4.3-11.0)
[2017-03-03 21:08] LABS: CALCIUM, SERUM 9.2 mg/dL (8.5-10.1); CREATININE 1.3 mg/dL (0.6-1.3); POTASSIUM 4.6 mmol/L (3.5-5.1)
--- NOTE | 2017-03-03 21:13 | NUR ---
CXR IN PROGRESS AT THE BEDSIDE.
[2017-03-03 21:16] LABS: TROPONIN I 0.02 ng/mL (0.00-0.056)
[2017-03-03 21:20] LABS: ALBUMIN 3.3 g/dL (3.4-5.0); BILIRUBIN,DIRECT 0.6 mg/dL (0.0-0.2); BILIRUBIN,TOTAL 1.7 mg/dL (0.2-1.0)
[2017-03-03 21:27] LABS: INR 2.09 (0.87-1.13); PROTHROMBIN TIME 21.7 SECS (9.5-12.7)
[2017-03-03] MEDS ORDERED: IV NS 0.9% 500 ML BAG IV ONE (21:30)
[2017-03-03] MEDS ORDERED: DILTIAZEM HCL 50 MG IV IV ONE ×3 (21:30→22:30)
[2017-03-03] MEDS ORDERED: DILTIAZEM HCL 25 MG IV ONE ×2 (21:34→22:27)
--- NOTE | 2017-03-03 21:36 | NUR ---
CALLED DR ANTON LEFT A VOICEMAIL.
--- NOTE | 2017-03-03 21:41 | NUR ---
CARDIZEM 10MG SLOW IVP GIVEN. HELD NS BOLUS AT THIS TIME PER DR BURNS'S ORDERS. ONGOING CARDIAC AND VS MONITORING.
[2017-03-03] MEDS ORDERED: FUROSEMIDE 20 MG/2 ML VIAL ONE (22:00)
[2017-03-03] MEDS ORDERED: FUROSEMIDE 20 MG/2 ML VIAL IV ONE (22:00)
[2017-03-04] VITALS (7 sets, daily range): BP systolic 110–142; BP diastolic 50–90
--- NOTE | 2017-03-04 00:09 | NUR ---
CALLED REPORT FOR ADMISSION, GRIFFIN JORDAN TOOK REPORT. PATIENT IS GOING TO TELE BED 114.2
--- NOTE | 2017-03-04 00:37 | NUR ---
TRANSPORTED PT TP TELE BED WITHOUT INCIDENT
[2017-03-04] MEDS ORDERED: ONDANSETRON HCL/PF 4 MG/2 ML VIAL IV PRN (01:00)
[2017-03-04] MEDS ORDERED: APIXABAN 5 MG TABLET PO SCH ×3 (01:00→17:00)
[2017-03-04] MEDS ORDERED: IV NS 0.9% 250 ML IV PRN (01:00)
--- NOTE | 2017-03-04 01:00 | NUR ---
RUPESH RN INITIAL NOTE PT RECEIVED VIA GURNEY AND TRANSFERRED SAFELY TO BED 114-2. A/O X4 AND ABLE TO VERBALIZE NEEDS. INFORMED BY PATIENT SHE WANTED TO BE DNI (DO NOT INTUBATE) BUT DOES WANT COMPRESSIONS. ON ROOM AIR AND SATURATING 92%. BREATHING REGULAR, EVEN AND UNLABORED. AUSCULTATED HEART AND LUNG SOUNDS. NO C/O PAIN OR DISCOMFORT NOTED. TELE- AFIB 137 UNCONTROLLED. IV LAC #18 CLEAN, PATENT AND FLUSHING WELL. BED COMMODE PROVIDED AT BEDSIDE. ALL ORDERS NOTED AND CARRIED OUT.
[2017-03-04] MEDS ORDERED: NITROGLYCERIN PACKET 1 GM PACKET ONE ×2 (01:39→05:54)
[2017-03-04] MEDS ORDERED: PANTOPRAZOLE 40 MG VIAL ONE (01:39)
[2017-03-04] MEDS ORDERED: DILTIAZEM HCL 25 MG IV ONE ×2 (01:40→02:48)
[2017-03-04] MEDS: NITROGLYCERIN PACKET 1 GM PACKET TOP SCH ×5 (01:49→23:45)
[2017-03-04] MEDS: PANTOPRAZOLE 40 MG VIAL IV SCH (01:49)
[2017-03-04] MEDS: DILTIAZEM HCL IV 125 MG in IV D5W 100 ML IV PRN ×2 (03:16→15:33)
--- NOTE | 2017-03-04 03:30 | NUR ---
RUPESH RN NOTE STARTED PT ON CARDIZEM 125MG/ 10MG/10ML DRIP. VITAL SIGNS TAKEN. TELE- AFIB 139. IV LAC #18 CLEAN AND PATENT.WILL CONTINUE TO MONITOR.
[2017-03-04] MEDS ORDERED: ACETAMINOPHEN 325 MG TABLET ONE (06:03)
[2017-03-04] MEDS: ACETAMINOPHEN 325 MG TABLET PO PRN ×2 (06:04→13:08)
--- NOTE | 2017-03-04 07:30 | NUR ---
TD RN OPENING RECEIVED PATIENT A/OX4 DENIES SOB, DIFFICULTY BREATHING. STATES HEADACHE WHICH TYLENOL WAS GIVEN AND HELPED. PATIENT NEEDS IN REACH. BED LOWERED AND LOCKED, RAILS UPX3 FOR SAFETY BED ALARM ON AND BSC NEAR BED. TELE UNCONTROLLED AFIB 115. PATIENT APPEARS STABLE AT THIS TIME. WILL ROUND PRN
--- NOTE | 2017-03-04 08:08 | NUR ---
RUPESH RN CLOSING NOTE PT REMAINED STABLE DURING SHIFT. NO ACUTE DISTRESS NOTED. CURRENTLY ON CARDIZEM DRIP AND TOLERATING WELL. TELE- AFIB 112 UNCONTROLLED. ALL NEEDS ATTENDED TO PROMPTLY. HOB ELEVATED. CALL LIGHT WITHIN REACH. WILL ENDORSE TO NEXT SHIFT FOR CONTINUITY OF CARE.
[2017-03-04] MEDS ORDERED: ESCI10TA PO (08:57)
[2017-03-04] MEDS ORDERED: FLUO-120 PO (08:57)
[2017-03-04] MEDS ORDERED: TRAM50TA2 PO (08:57)
[2017-03-04] MEDS ORDERED: BUSP5TAB3 PO (08:57)
[2017-03-04] MEDS ORDERED: OMEP20CA10 PO (08:57)
[2017-03-04] MEDS ORDERED: METO100T14 PO (08:57)
[2017-03-04] MEDS ORDERED: CHOL50002 PO (08:57)
[2017-03-04] MEDS ORDERED: BUDE10.22 INH (08:57)
[2017-03-04] MEDS ORDERED: POTA10TA15 PO (08:57)
[2017-03-04] MEDS ORDERED: FURO40TA5 PO (08:57)
--- NOTE | 2017-03-04 08:58 | NUR ---
TD RN NOTES DR ANTON AT BEDSIDE. PER MD DR GODDARD TO CONSULT
[2017-03-04] MEDS ORDERED: BUMETANIDE INJ 0.25 MG/ML VIAL IV SCH (09:00)
[2017-03-04] MEDS ORDERED: FUROSEMIDE 40 MG/4 ML VIAL IV SCH (10:00)
--- NOTE | 2017-03-04 10:22 | NUR ---
GERMAIN RN NOTES SPOKE WITH PARESH. PENDING ELIQUIS DELIVERY. WILL GIVE ONCE PROVIDED
[2017-03-04] MEDS ORDERED: LEVALBUTEROL HCL NEB 1.25 MG/0.5 ML VIAL.NEB NEB SCH (11:00)
[2017-03-04] MEDS ORDERED: busPIRone 5 MG TABLET PO PRN (11:00)
[2017-03-04 11:25] LABS: BILIRUBIN,TOTAL 1.4 mg/dL (0.2-1.0); CALCIUM, SERUM 8.6 mg/dL (8.5-10.1)
[2017-03-04 11:26] LABS: TOTAL PROTEIN, SERUM 6.2 g/dL (6.4-8.2)
[2017-03-04 11:27] LABS: TROPONIN I 0.043 ng/mL (0.00-0.056)
[2017-03-04] MEDS: APIXABAN 5 MG TABLET PO SCH ×2 (11:35→17:02)
[2017-03-04] MEDS: DILTIAZEM HCL CD 180 MG PO SCH (11:58)
[2017-03-04] MEDS: ESCITALOPRAM OXALATE (10 MG) 10 MG TABLET PO SCH (13:19)
[2017-03-04] MEDS: METOPROLOL TARTRATE 50 MG TABLET PO SCH ×2 (13:23→21:31)
[2017-03-04] MEDS: ALBUTEROL FS 2.5 MG/3 ML VIAL.NEB NEB SCH ×3 (13:30→23:43)
--- NOTE | 2017-03-04 15:38 | NUR ---
TD RN NOTES PER DR GODDARD ORDER TITRATED CARDIZEM DRIP TO 5MG/HOUR. NEW ORDER ADDED FOR TITRATABLE DOSE. PATIENT AFIB 88-95 CONTROLLED AT THIS TIME
[2017-03-04] MEDS ORDERED: DILTIAZEM HCL IV 125 MG in IV D5W 100 ML IV PRN (16:00)
[2017-03-04] MEDS: TRAMADOL HCL 50 MG TABLET PO PRN ×2 (16:10→23:42)
[2017-03-04] MEDS ORDERED: BUDESONIDE INH SCH (17:00)
[2017-03-04] MEDS ORDERED: FORMOTEROL FUMARATE INH SCH (17:00)
--- NOTE | 2017-03-04 19:01 | NUR ---
TD RN CLOSING PATIENT STABLE AT THIS TIME. CARDIZEM DRIP RUNNING ORDERED. TELE AFIB 96. PATIENT PAIN CONTROLLED WITH PRN MEDICATIONS AND NON PHARM MEASURES. ALL DUE MEDS GIVEN AND ALL NEEDS MET. BED LOWERED AND LOCKED, RAILS UPX3 FOR SAFETY AND WILL ENDORSE CARE TO RN FOR AYE
--- NOTE | 2017-03-04 19:30 | NUR ---
RUPESH RN INITIAL NOTE PT RECEIVED AWAKE AND ALERT IN BED. A/O X4 AND ABLE TO MAKE NEEDS KNOWN. ON 2L OF O2 AND SATURATING 93%. BREATHING EVEN AND UNLABORED. TELE- AFIB 74 CONTROLLED. IV LAC #18 INTACT AND PATENT WITH CARDIZEM DRIP INFUSING CURRENTLY. CALL LIGHT WITHIN REACH. WILL CONTINUE TO MONITOR.
[2017-03-04 20:22] LABS: BASOPHILS # (AUTO) 0.1 /CMM (0.0-0.2); BASOPHILS % (AUTO) 0.8 % (0.0-2.0); EOSINOPHILS % (AUTO) 0.1 % (0.0-6.0); HEMATOCRIT 29 % (33-45); HEMOGLOBIN 9.5 g/dL (11.5-14.8); LYMPHOCYTES # (AUTO) 1.2 /CMM (0.8-4.8); LYMPHOCYTES % (AUTO) 16.9 % (20.0-44.0); MEAN CORPUSCULAR HEMOGLOBIN 33 PG (26.0-33.0); MEAN CORPUSCULAR HGB CONC 33 g/dl (31.0-36.0); MEAN CORPUSCULAR VOLUME 98 fL (82-100); MONOCYTES # (AUTO) 0.5 /CMM (0.1-1.30); MONOCYTES % (AUTO) 6.5 % (2.0-12.0); NEUTROPHILS # (AUTO) 5.4 /CMM (1.8-8.9); NEUTROPHILS % (AUTO) 75.7 % (43.0-81.0); PLATELET COUNT (AUTO) 218 /CMM (150-450); RDW COEFFICIENT OF VARIATION 15.5 (11.5-15.0); WHITE BLOOD COUNT (AUTO) 7.2 K/uL (4.3-11.0)
[2017-03-05] VITALS: BP 124/68
[2017-03-05] MEDS: PANTOPRAZOLE 40 MG VIAL IV SCH (00:20)
[2017-03-05 04:00] VITALS: BP 138/67
[2017-03-05] MEDS: TRAMADOL HCL 50 MG TABLET PO PRN ×3 (05:48→20:01)
[2017-03-05] MEDS: NITROGLYCERIN PACKET 1 GM PACKET TOP SCH ×3 (05:50→17:02)
--- NOTE | 2017-03-05 07:25 | NUR ---
RUPESH RN CLOSING NOTE NO S/SX OF RESPIRATORY DISTRESS NOTED. ALL NEEDS ATTENDED TO PROMPTLY. ASSISTED TO THE BEDSIDE COMMODE AND SAFELY BACK TO BED. CALL LIGHT WITHIN REACH. WILL ENDORSE TO NEXT SHIFT FOR CONTINUITY OF CARE.
--- NOTE | 2017-03-05 07:37 | NUR ---
TD RN OPENING RECEIVED PATIENT A/OX4 SLEEPING. NO S/S SOB, DIFFICULTY BREATHING OR PAIN. PATIENT ON 2LPM NC. ROOM AIR LABILE 88-93% DEPENDING ON ACTIVITY. STABLE ON 1-2 LPM NC. PATIENT NEEDS IN REACH, BED LOWERED AND LOCKED, RAILS UPX3 FOR SAFETY BED ALARM ON. WILL ROUND PRN PER NEEDS Addendum: 03/05/17 at 0743 by ROB BAPTISTE RN [facility] AFIB 74-88 AT THIS TIME
[2017-03-05 08:00] VITALS: BP 122/50
[2017-03-05] MEDS: DILTIAZEM HCL CD 180 MG PO SCH (08:17)
[2017-03-05] MEDS: ESCITALOPRAM OXALATE (10 MG) 10 MG TABLET PO SCH (08:17)
[2017-03-05] MEDS: APIXABAN 5 MG TABLET PO SCH ×2 (08:18→16:36)
[2017-03-05] MEDS: METOPROLOL TARTRATE 50 MG TABLET PO SCH ×2 (08:18→20:01)
[2017-03-05 08:24] LABS: ALBUMIN 2.9 g/dL (3.4-5.0); BILIRUBIN,DIRECT 0.4 mg/dL (0.0-0.2); BILIRUBIN,TOTAL 1.1 mg/dL (0.2-1.0)
[2017-03-05 08:26] LABS: CALCIUM, SERUM 8.2 mg/dL (8.5-10.1); CREATININE 0.7 mg/dL (0.6-1.3); MAGNESIUM 1.8 mg/dL (1.8-2.4); POTASSIUM 3.4 mmol/L (3.5-5.1)
[2017-03-05] MEDS: ALBUTEROL FS 2.5 MG/3 ML VIAL.NEB NEB SCH ×3 (08:31→22:50)
[2017-03-05] MEDS ORDERED: METOPROLOL TARTRATE 50 MG TABLET PO SCH (09:00)
[2017-03-05] MEDS: ACETAMINOPHEN 325 MG TABLET PO PRN (10:12)
[2017-03-05] MEDS ORDERED: ERGOCALCIFEROL (VITAMIN D 2) 50,000 UNIT CAPSULE PO SCH (11:00)
[2017-03-05] MEDS ORDERED: POTASSIUM CHLORIDE 20 MEQ TAB.PRT.SR PO SCH (11:30)
[2017-03-05 12:00] VITALS: BP 123/46
[2017-03-05] MEDS: FUROSEMIDE 40 MG TABLET PO SCH (14:57)
[2017-03-05 16:00] VITALS: BP 113/47
--- NOTE | 2017-03-05 17:13 | NUR ---
TRACK HELPER NOTES PATIENT STABLE. ALL DUE MEDS GIVEN AND ALL NEEDS MET. TELE AFIB CONTROLLED 78-88. PATIENT NEEDS IN REACH, BED LOWERED AND LOCKED, RAILS UPX3 FOR SAFETY, BED ALARM ON, CALL LIGHT IN REACH. CARE ENDORSED TO GRIFFIN DALTON FOR AYE.
--- NOTE | 2017-03-05 17:15 | NUR ---
PRESERVATIVE FILLER MACHINE OPERATOR NOTE RECEIVED REPORT FROM GRIFFIN RIVAS. PATIENT IS STABLE AT THIS TIME, WILL CONTINUE CARE FOR PATIENT.
--- NOTE | 2017-03-05 18:42 | NUR ---
SENIOR SOFTWARE QUALITY ENGINEER CLOSING NOTE RECEIVED PATIENT A/OX4 AWAKE. NO S/S SOB, DIFFICULTY BREATHING OR PAIN. PATIENT ON 2LPM NC. ROOM AIR LABILE 88-93% DEPENDING ON ACTIVITY. STABLE ON 1-2 LPM NC. PATIENT NEEDS IN REACH, BED LOWERED AND LOCKED, RAILS UPX3 FOR SAFETY BED ALARM ON. ALL DUE MEDICATIONS GIVEN ORDERED. ALL NURSING CARE NEEDS ATTENDED TO NEEDED. WILL ENDORSE TO GENERATOR OPERATOR STRAIGHT BEVEL GEAR NURSE FOR AYE. TELE -AFIB 90.
[2017-03-05 21:37] VITALS: BP 121/64
[2017-03-06] VITALS: BP 112/47
--- NOTE | 2017-03-06 | NUR ---
REFINERY OPERATOR GAS PLANT NOTES REFUSED NITRO PATCH. OFFERED 3X. EXPLAINED RISKS AND BENEFITS. BLOOD PRESSURE WITHIN NORMAL LIMITS
[2017-03-06] MEDS: PANTOPRAZOLE 40 MG VIAL IV SCH (00:05)
[2017-03-06] MEDS ORDERED: TRAZODONE 50 MG TABLET ONE (00:28)
[2017-03-06] MEDS ORDERED: TRAZODONE 50 MG TABLET PO PRN ×2 (00:30→09:00)
[2017-03-06 04:00] VITALS: BP 132/64
[2017-03-06] MEDS: NITROGLYCERIN PACKET 1 GM PACKET TOP SCH ×2 (06:00)
--- NOTE | 2017-03-06 06:00 | NUR ---
VARYING EXCEPTIONALITIES TEACHER NOTES PATIENT REFUSED NITROBID PATCH AGAIN. OFFERED 3 TIMES, EXPLAINED RISKS AND BENEFITS AND STILL REFUSED. PATIENT VERBALIZED IT GIVES HER HEAD ACHES.
[2017-03-06] MEDS: ALBUTEROL FS 2.5 MG/3 ML VIAL.NEB NEB SCH ×3 (07:45→23:12)
[2017-03-06 08:00] VITALS: BP 115/68
--- NOTE | 2017-03-06 08:00 | NUR ---
FAMILY SERVICE COUNSELOR NOTES PATIENT IN BED RESTING NO SOB OR ACUTE DISTRESS NOTED. PATIENT ALERT, ORIENTED X3. PERIPHERAL IV INTACT PATENT. BED IN LOW LOCKED POSITION CALL LIGHT WITHIN REACH. PATIENT A-FIB ON TELE MONITOR. WILL CONTINUE TO MONITOR.
[2017-03-06] MEDS: FUROSEMIDE 40 MG TABLET PO SCH (09:34)
[2017-03-06] MEDS: METOPROLOL TARTRATE 50 MG TABLET PO SCH ×2 (09:34→21:00)
[2017-03-06] MEDS: APIXABAN 5 MG TABLET PO SCH ×2 (09:35→16:58)
[2017-03-06] MEDS: DILTIAZEM HCL CD 180 MG PO SCH (09:37)
[2017-03-06] MEDS: ESCITALOPRAM OXALATE (10 MG) 10 MG TABLET PO SCH (09:39)
[2017-03-06 10:00] LABS: CALCIUM, SERUM 8.6 mg/dL (8.5-10.1); POTASSIUM 3.1 mmol/L (3.5-5.1); TOTAL PROTEIN, SERUM 6.5 g/dL (6.4-8.2)
--- NOTE | 2017-03-06 10:00 | NUR ---
GORE SEAMER NOTES PATIENT SEEN AND EVALUATED BY DR. ANTON ORDERS NOTED AND CARRIED OUT.
[2017-03-06] MEDS: ACETAMINOPHEN 325 MG TABLET PO PRN (10:50)
[2017-03-06] MEDS ORDERED: POTASSIUM CHLORIDE 20 MEQ POWDER PACKET PO ONE (11:30)
[2017-03-06 12:00] VITALS: BP 110/54
[2017-03-06] MEDS: TRAMADOL HCL 50 MG TABLET PO PRN ×2 (15:32→23:23)
[2017-03-06 16:00] VITALS: BP 110/42
--- NOTE | 2017-03-06 18:28 | NUR ---
VENEER MATCHER NOTES PATIENT IN BED RESTING NO SOB OR ACUTE DISTRESS NOTED. ALL DUE MEDICATIONS ADMINISTERED. ALL NEEDS MET. PERIPHERAL IV INTACT PATENT. WILL ENDORSE [place] TO PM SHIFT.
--- NOTE | 2017-03-06 19:30 | NUR ---
Received patient in the bed.No unusual signs or symptoms observed or reported,except that that the HL was leaking.Made a mental note to change it later.
--- NOTE | 2017-03-06 23:00 | NUR ---
No problems,no unusual signs or symptoms observed or reported
--- NOTE | 2017-03-07 00:30 | NUR ---
Accounting Office Manager a new HL on patient left arm,tolerated well
--- NOTE | 2017-03-07 03:00 | NUR ---
Patient also received HS meds and pain medication,no at same time-no problems
[2017-03-07 04:00] VITALS: BP 113/45
--- NOTE | 2017-03-07 06:19 | NUR ---
still resting,no problems
[2017-03-07] MEDS: ALBUTEROL FS 2.5 MG/3 ML VIAL.NEB NEB SCH (07:34)
[2017-03-07 08:00] VITALS: BP 95/44
[2017-03-07] MEDS: APIXABAN 5 MG TABLET PO SCH (08:20)
[2017-03-07] MEDS: ESCITALOPRAM OXALATE (10 MG) 10 MG TABLET PO SCH (08:20)
[2017-03-07 08:25] VITALS: BP 95/44
[2017-03-07] MEDS: METOPROLOL TARTRATE 50 MG TABLET PO SCH (08:25)
[2017-03-07] MEDS: DILTIAZEM HCL CD 180 MG PO SCH (08:25)
[2017-03-07 09:08] LABS: BASOPHILS % (AUTO) 0.4 % (0.0-2.0); EOSINOPHILS # (AUTO) 0.1 /CMM (0.0-0.7); HEMATOCRIT 28 % (33-45); HEMOGLOBIN 9.5 g/dL (11.5-14.8); LYMPHOCYTES # (AUTO) 0.8 /CMM (0.8-4.8); LYMPHOCYTES % (AUTO) 23.5 % (20.0-44.0); MEAN CORPUSCULAR HEMOGLOBIN 33 PG (26.0-33.0); MEAN CORPUSCULAR HGB CONC 34 g/dl (31.0-36.0); MEAN CORPUSCULAR VOLUME 100 fL (82-100); MONOCYTES # (AUTO) 0.5 /CMM (0.1-1.30); MONOCYTES % (AUTO) 13.3 % (2.0-12.0); NEUTROPHILS # (AUTO) 2.1 /CMM (1.8-8.9); NEUTROPHILS % (AUTO) 59.8 % (43.0-81.0); PLATELET COUNT (AUTO) 116 /CMM (150-450); RDW COEFFICIENT OF VARIATION 16.3 (11.5-15.0); RED BLOOD CELL COUNT(AUTO) 2.83 MIL/uL (4.0-5.2); WHITE BLOOD COUNT (AUTO) 3.5 K/uL (4.3-11.0)
[2017-03-07 09:14] LABS: ALBUMIN 2.7 g/dL (3.4-5.0); BILIRUBIN,TOTAL 0.8 mg/dL (0.2-1.0); CALCIUM, SERUM 8.5 mg/dL (8.5-10.1); CREATININE 0.8 mg/dL (0.6-1.3); POTASSIUM 3.4 mmol/L (3.5-5.1)
--- NOTE | 2017-03-07 12:19 | NUR ---
PER DR. To TITRATED O2 NC TO ROOM AIR. ON ROOM AIR PATIENT SPO2 86%. PATIENT PUT ON NC @ 2 L SPO2 94%.
--- NOTE | 2017-03-07 14:53 | NUR ---
DO ALL OPERATOR NOTE PT DC HOME WITH DAUGHTER VIA PRIVATE CAR. PT STABLE EXIT CARE DONE. EDUCATED PT ON IMPORTANCE OF F/U APPT WITH BEADER. PT LEFT WITH O2. REMOVED IV AND ID BAND. ALL DC INSTRUCTIONS SIGNED AND GIVEN TO PT. ALL ORDERS CARRIED OUT. PT CLEAN AND DRY. SKIN INTACT NO PHOTOS TAKEN. PT WHEELED OUT BY KALLIE GARCAI.
[2017-03-08] MEDS ORDERED: FUROSEMIDE 40 MG TABLET PO SCH (09:00)
== END 2017-03-07 15:11 | disposition home or self-care (01) | DRG 441 ==
LOC: ER 20:07 → TELE1 03-04 00:09 → MEDSG1 03-04 00:19 → TELE1 03-04 00:35 → TELE-TD 03-04 00:37 → TELE1 03-05 11:41 → MEDSG1 03-07 10:39
PROVIDERS: ADMIT Legal Medicine; ATTEND Legal Medicine
DX: B17.9 Acute viral hepatitis, unspecified (principal); I50.43 Acute on chronic combined systolic (congestive) and diastolic (congestive) heart failure; I48.91 Unspecified atrial fibrillation; J44.9 Chronic obstructive pulmonary disease, unspecified; I11.0 Hypertensive heart disease with heart failure; Z79.01 Long term (current) use of anticoagulants; Z87.11 Personal history of peptic ulcer disease; Z87.891 Personal history of nicotine dependence; F41.9 Anxiety disorder, unspecified; Z88.1 Allergy status to other antibiotic agents; Z88.0 Allergy status to penicillin; Z88.2 Allergy status to sulfonamides; Z88.8 Allergy status to other drugs, medicaments and biological substances; K21.9 Gastro-esophageal reflux disease without esophagitis; M19.90 Unspecified osteoarthritis, unspecified site; G47.9 Sleep disorder, unspecified; Z79.899 Other long term (current) drug therapy
CPT/HCPCS: 36415; 71045-TC; 76705-TC; 80048-TC; 80053-TC; 80076-TC; 83735-TC; 83880; 84443-TC; 84484-TC; 85025-TC; 85730-TC; 87081-TC; 93307-TC; 94799-TC; A4606; C9113; J1940; J3490; J7040; J7050; J7060; Z7610

== ENCOUNTER 2017-03-13 10:00 | Inpatient (IN) | payer MEDICARE, OTHER ==
[2017-03-13] VITALS: BP 99/47
[~2017-03-13] VITALS: Ht 175.3 cm; Wt 60.9 kg
[~2017-03-13 10:00] MED LIST changes: +BUDE10.22 INH; +BUSP5TAB3 PO; +CHOL50002 PO; +ESCI10TA PO; +FLUO-120 PO; +FURO40TA5 PO; +METO100T14 PO; -METO25TA6 PO; +OMEP20CA10 PO; +POTA10TA15 PO; +TRAM50TA2 PO
--- NOTE | 2017-03-13 10:25 | NUR ---
PATIENT TO ED DT CHEST PALPITATION X 2 DAYS, FEELING WEAK AND DEHYDRATED. PT IS AAO4. APPEARS IN NO DISTRESS. HOWEVER PT IS TACHY ON TELE MONITOR. PATIENT IS AFEBRILE. OTHER VSS.
[2017-03-13] MEDS ORDERED: IV NS 0.9% 1,000 ML BAG IV ONE (11:00)
[2017-03-13 11:06] LABS: BASOPHILS % (AUTO) 0.5 % (0.0-2.0); EOSINOPHILS % (AUTO) 0.5 % (0.0-6.0); HEMATOCRIT 30 % (33-45); HEMOGLOBIN 9.9 g/dL (11.5-14.8); LYMPHOCYTES # (AUTO) 1.2 /CMM (0.8-4.8); LYMPHOCYTES % (AUTO) 22.6 % (20.0-44.0); MEAN CORPUSCULAR HEMOGLOBIN 33 PG (26.0-33.0); MEAN CORPUSCULAR HGB CONC 34 g/dl (31.0-36.0); MEAN CORPUSCULAR VOLUME 98 fL (82-100); MONOCYTES # (AUTO) 0.5 /CMM (0.1-1.30); MONOCYTES % (AUTO) 9.6 % (2.0-12.0); NEUTROPHILS # (AUTO) 3.7 /CMM (1.8-8.9); NEUTROPHILS % (AUTO) 66.8 % (43.0-81.0); RDW COEFFICIENT OF VARIATION 15.4 (11.5-15.0); RED BLOOD CELL COUNT(AUTO) 3.02 MIL/uL (4.0-5.2); WHITE BLOOD COUNT (AUTO) 5.4 K/uL (4.3-11.0)
[2017-03-13] MEDS ORDERED: ACETAMINOPHEN 325 MG TABLET ONE ×2 (11:06→12:47)
[2017-03-13] MEDS ORDERED: IBUPROFEN 400 MG TABLET ONE (11:06)
[2017-03-13 11:08] LABS: PLATELET COUNT (AUTO) 229 /CMM (150-450)
[2017-03-13 11:09] LABS: CARBON DIOXIDE 24 mmol/L (21-32); CHLORIDE 103 mmol/L (98-107); CREATININE 1.1 mg/dL (0.6-1.3); GLUCOSE 125 mg/dL (74-106); POTASSIUM 3.9 mmol/L (3.5-5.1); SODIUM SERUM 137 mmol/L (136-145); UREA NITROGEN, BLOOD 17 mg/dL (7-18)
[2017-03-13 11:14] LABS: INR 1.46 (0.87-1.13)
[2017-03-13 11:17] LABS: TROPONIN I < 0.017 ng/mL (0.00-0.056)
[2017-03-13 11:22] LABS: ALANINE AMINOTRANSFERASE 76 U/L (12-78); ALBUMIN 3.4 g/dL (3.4-5.0); ALKALINE PHOSPHATASE 122 U/L (46-116); ASPARTATE AMINOTRANSFERASE 27 U/L (15-37); B-TYPE NATRIURETIC PEPTIDE 26309 PG/ML (0-125); BILIRUBIN,DIRECT 0.5 mg/dL (0.0-0.2); BILIRUBIN,TOTAL 1.5 mg/dL (0.2-1.0); TOTAL PROTEIN, SERUM 7.1 g/dL (6.4-8.2)
[2017-03-13] MEDS ORDERED: METOPROLOL TARTRATE INJ 5 MG/5 ML AMPUL ONE ×2 (11:23→12:10)
[2017-03-13] MEDS ORDERED: METOPROLOL TARTRATE INJ 5 MG/5 ML AMPUL IVP ONE ×2 (11:30→12:30)
[2017-03-13] MEDS ORDERED: NS 0.9% IV ONE (11:33)
--- NOTE | 2017-03-13 11:57 | NUR ---
PAGED DR CHIOMA ANTON
--- NOTE | 2017-03-13 12:21 | NUR ---
REPAGED DR CHIOMA ANTON
--- NOTE | 2017-03-13 12:41 | NUR ---
ON THE PHONE WITH PSYCHOLOGICAL ASSISTANT DR MERLOS
[2017-03-13] MEDS ORDERED: ONDANSETRON HCL/PF 4 MG/2 ML VIAL ONE (12:47)
[2017-03-13] MEDS ORDERED: ONDANSETRON HCL/PF - ER 4 MG/2 ML VIAL IV ONE (13:00)
[2017-03-13] MEDS ORDERED: DILTIAZEM HCL IV 125 MG in IV D5W 100 ML IV ONE (13:00)
[2017-03-13] MEDS ORDERED: ACETAMINOPHEN 325 MG TABLET PO ONE (13:00)
--- NOTE | 2017-03-13 13:26 | NUR ---
DR. BUNDY AT BEDSIDE
--- NOTE | 2017-03-13 13:32 | NUR ---
PATIENT ASSIGNED TO RUPESH 116-2, DX RAPID AFIB ADMITTING PHYSICIAN DR ANTON
--- NOTE | 2017-03-13 13:40 | NUR ---
REPORT GIVEN TO GRIFFIN KINGSTON FOR AYE
--- NOTE | 2017-03-13 13:56 | NUR ---
PT TRANSPORTE TO RUPESH. VSS
--- NOTE | 2017-03-13 14:02 | NUR ---
CRITICAL LAB RESULT GIVEN BY KATHRYN, LACTIC ACID 3.2. NOTIFIED
[2017-03-13] MEDS ORDERED: LEVOFLOXACIN 500 MG /D5W 100ML 500 MG in PREMIX 1 EA IV SCH (14:30)
[2017-03-13] MEDS ORDERED: TRAZODONE 50 MG TABLET PO SCH (14:30)
[2017-03-13] MEDS ORDERED: LEVOFLOXACIN 500 MG /D5W 100ML 500 MG in PREMIX 1 EA IV ONE (15:00)
[2017-03-13] MEDS ORDERED: busPIRone 5 MG TABLET PO PRN (15:00)
[2017-03-13] MEDS ORDERED: APIXABAN 5 MG TABLET PO ONE (15:00)
[2017-03-13] MEDS ORDERED: ONDANSETRON HCL/PF 4 MG/2 ML VIAL IVP PRN (15:30)
--- NOTE | 2017-03-13 15:30 | NUR ---
RN INITIAL NOTE PATIENT RECEIVED ALERT AND ORIENTATED COMPLAINING OF INTENSE HEADACHE CURRENTLY ON A CARDIZEM DRIP GOING AT 10MG/HR PATIENT VITALS WITHIN NORMAL LIMITS PATIENT ABLE TO MAKE NEEDS KNOWN AND PATIENT ORIENTED TO THE UNIT PATIENT PICTURES TAKEN AND PLACED IN PATIENT CHART RN WILL CONTINUE TO FOLLOW
[2017-03-13] MEDS: ACETAMINOPHEN 325 MG TABLET PO PRN (15:43)
[2017-03-13] MEDS ORDERED: Budesonide/Formoterol Fumarate (Symbicort 80-4.5 Mcg Inh INH SCH (17:00)
[2017-03-13] MEDS ORDERED: APIXABAN 5 MG TABLET PO SCH (17:00)
[2017-03-13] MEDS: FUROSEMIDE 20 MG/2 ML VIAL IV SCH (17:35)
[2017-03-13] MEDS: DILTIAZEM HCL CD 180 MG PO SCH (17:36)
[2017-03-13] MEDS: METOPROLOL TARTRATE 50 MG TABLET PO SCH (17:36)
[2017-03-13] MEDS: ESCITALOPRAM OXALATE (10 MG) 10 MG TABLET PO SCH (17:36)
[2017-03-13] MEDS: POTASSIUM CHLORIDE 10 MEQ TABLET.SA PO SCH (17:36)
[2017-03-13] MEDS: TRAMADOL HCL 50 MG TABLET PO PRN (17:39)
[2017-03-13] MEDS: NITROGLYCERIN 30 GM TUBE TP SCH (18:00)
--- NOTE | 2017-03-13 19:07 | NUR ---
RN CLOSING NOTE PATIENT STABLE AT THIS TIME, PATIENT GIVEN MEDICATION FOR STATED HEADACHE PATIENT IN BED ORIENTED TO THE ROOM , PATIENT STABLE NO ISSUES PRESENT RN WILL ENDORSE CONTINUED CARE TO PM RN , RN INFORMED PER CHARGE NURSE TO ORDER CARDAIC DIET FOR THE PATIENT FOR PM SHIFT PATIENT STATES HUNGER. AND HEADACHE
[2017-03-13] MEDS: ELIQUIS 5 MG PO SCH (19:54)
[2017-03-13 20:00] VITALS: BP 97/51
--- NOTE | 2017-03-13 20:00 | NUR ---
RN INITIAL NOTE PATIENT RECEIVED ALERT AND ORIENTATED. COMPLAINING OF N & V. PATIENT ABLE TO MAKE NEEDS KNOWN. BED IN THE LOWEST AND LOCK POSITION. CALL LIGHT WITHIN REACH. WILL CONTINUE TO MONITOR.
[2017-03-13] MEDS: TRAZODONE 50 MG TABLET PO SCH (21:16)
[2017-03-14] VITALS: BP 99/47
[2017-03-14 04:00] VITALS: BP 112/68
[2017-03-14] MEDS: NITROGLYCERIN 30 GM TUBE TP SCH ×5 (06:00→23:17)
--- NOTE | 2017-03-14 06:00 | NUR ---
RN NOTES PT REFUSED NITROL OINTMENT X2, PT STATES IT GIVES HER A HEAD ACH
[2017-03-14 06:09] LABS: APPEARANCE,URINE CLEAR (CLEAR); BILIRUBIN,URINE NEGATIVE (NEGATIVE); BLOOD, URINE TRACE-INTA Ery/uL (NEGATIVE); COLOR,URINE YELLOW (YELLOW); KETONES,URINE NEGATIVE (NEGATIVE); LEUKOCYTE ESTERASE ,URINE TRACE (NEGATIVE); NITRITE, URINE NEGATIVE (NEGATIVE); PH,URINE 5.5 (5.0-8.0); PROTEIN,URINE NEGATIVE (NEGATIVE); UGLUCOSE NEGATIVE (NEGATIVE); UROBILINOGEN,URINE 0.2 EU/dL (0.2)
--- NOTE | 2017-03-14 06:30 | NUR ---
RN CLOSING NOTE PATIENT ALERT AND ORIENTATED. PATIENT ABLE TO MAKE NEEDS KNOWN. ALL NEEDS ATTENDED. BED IN THE LOWEST AND LOCK POSITION. CALL LIGHT WITHIN REACH.ALL MEDS GIVEN, WILL ENDORSE TO AM RN.
--- NOTE | 2017-03-14 07:15 | NUR ---
RN NOTES RECEIVED PT ON BED, A/Ox3, RESPIRATION EVEN AND UNLABORED, ON 02 2L N/C, NO SOB NOTED, AB ANY DISTRESS , ON TELE CONTROLLED A.FIB, R ARM IV SITE G 20 CDI, SR UPx3, CALL LIGHTS WITHIN EASY REACH, BED LOCKED AND IN LOWEST POSITION , CONTINUE TO MONITOR PT CLSOELY
[2017-03-14 08:00] VITALS: BP 128/57
[2017-03-14] MEDS: ESCITALOPRAM OXALATE (10 MG) 10 MG TABLET PO SCH (08:52)
[2017-03-14] MEDS: POTASSIUM CHLORIDE 10 MEQ TABLET.SA PO SCH (08:52)
[2017-03-14] MEDS: METOPROLOL TARTRATE 50 MG TABLET PO SCH ×2 (08:53→21:06)
[2017-03-14] MEDS: FLUTICASONE/VILANTEROL 1 EACH BLST.W.DEV IH SCH (08:53)
[2017-03-14] MEDS: PANTOPRAZOLE 40 MG TABLET.DR PO SCH (08:53)
[2017-03-14] MEDS: ELIQUIS 5 MG PO SCH ×2 (08:53→16:47)
[2017-03-14] MEDS: FUROSEMIDE 20 MG/2 ML VIAL IV SCH (08:53)
[2017-03-14] MEDS: DILTIAZEM HCL CD 180 MG PO SCH (08:56)
[2017-03-14] MEDS ORDERED: APIXABAN 5 MG TABLET PO SCH (09:00)
[2017-03-14 09:43] LABS: BACTERIA,URINE None seen /HPF (None Seen); RBC,URINE 0-2 /HPF (0-2); SQUAMOUS EPITHELIAL CELL,UR Few /HPF (None Seen)
[2017-03-14] MEDS: FUROSEMIDE 40 MG/4 ML VIAL IV SCH ×3 (10:35→17:42)
--- NOTE | 2017-03-14 12:00 | NUR ---
RN NOTES PT STABLE , VSS STABLE , CONTINUE TO MONITOR
[2017-03-14] MEDS: LEVOFLOXACIN 250 MG /D5W 50 ML 250 MG in PREMIX 1 EA IV SCH (14:04)
[2017-03-14 16:00] VITALS: BP 111/57
[2017-03-14] MEDS: TRAMADOL HCL 50 MG TABLET PO PRN (16:47)
--- NOTE | 2017-03-14 18:50 | NUR ---
RN NOTES PT RESTING WELL ,VSS STABLE , RESPIRATION EVEN AND UNLABORED, SR UP x3, CALL LIGHTS WITHIN EASY REACH, WILL ENDORSE TO ROOM SERVICE WAITER NURSE FOR AYE.
[2017-03-14 20:00] VITALS: BP 109/71
--- NOTE | 2017-03-14 20:00 | NUR ---
RN INITIAL NOTES RECEIVED PT RESTING WELL ,VSS STABLE , RESPIRATION EVEN AND UNLABORED, SR UP x3, CALL LIGHTS WITHIN EASY REACH, WILL CONT TO MONITOR.
[2017-03-14] MEDS: TRAZODONE 50 MG TABLET PO SCH (21:07)
[2017-03-15] VITALS: BP 107/71
[2017-03-15 04:00] VITALS: BP 93/64
[2017-03-15] MEDS: NITROGLYCERIN 30 GM TUBE TP SCH ×3 (05:22→17:11)
--- NOTE | 2017-03-15 06:57 | NUR ---
RN CLOSING NOTES PT RESTING WELL ,VSS STABLE , RESPIRATION EVEN AND UNLABORED, SR UP x3, CALL LIGHTS WITHIN EASY REACH,PT REFUSED NITROL OINTMENT X2 PT STATES IT GIVES HER A HEAD ACH. WILL ENDORSE TO AM RN.
--- NOTE | 2017-03-15 07:30 | NUR ---
ms rn initial notes received patient in bed, awake, head of bed elevated, no SOB or distress noted, on room air tolerated well, 02 sat of 98%. No complaint of pain or discomfort at this time, nor chest pain. IV in placed and intact, patent. On a strict I and O. Kept patient clean and comfortable in bed, call light with in patient reach, will continue to monitor accordingly.
[2017-03-15 07:40] LABS: BASOPHILS % (AUTO) 0.2 % (0.0-2.0); EOSINOPHILS # (AUTO) 0.1 /CMM (0.0-0.7); EOSINOPHILS % (AUTO) 1.4 % (0.0-6.0); HEMATOCRIT 28 % (33-45); HEMOGLOBIN 9.2 g/dL (11.5-14.8); LYMPHOCYTES # (AUTO) 1.2 /CMM (0.8-4.8); LYMPHOCYTES % (AUTO) 25.8 % (20.0-44.0); MEAN CORPUSCULAR HEMOGLOBIN 32 PG (26.0-33.0); MEAN CORPUSCULAR HGB CONC 33 g/dl (31.0-36.0); MEAN CORPUSCULAR VOLUME 98 fL (82-100); MONOCYTES # (AUTO) 0.6 /CMM (0.1-1.30); MONOCYTES % (AUTO) 13.8 % (2.0-12.0); NEUTROPHILS # (AUTO) 2.6 /CMM (1.8-8.9); NEUTROPHILS % (AUTO) 58.8 % (43.0-81.0); PLATELET COUNT (AUTO) 178 /CMM (150-450); RDW COEFFICIENT OF VARIATION 15.6 (11.5-15.0); RED BLOOD CELL COUNT(AUTO) 2.84 MIL/uL (4.0-5.2); WHITE BLOOD COUNT (AUTO) 4.5 K/uL (4.3-11.0)
[2017-03-15 07:52] LABS: ALBUMIN 2.7 g/dL (3.4-5.0); BILIRUBIN,TOTAL 0.6 mg/dL (0.2-1.0); CALCIUM, SERUM 8.7 mg/dL (8.5-10.1); CREATININE 1.1 mg/dL (0.6-1.3); MAGNESIUM 1.8 mg/dL (1.8-2.4); PHOSPHORUS 3.3 mg/dL (2.5-4.9); POTASSIUM 3.6 mmol/L (3.5-5.1)
[2017-03-15 08:00] VITALS: BP 129/51
[2017-03-15] MEDS: ESCITALOPRAM OXALATE (10 MG) 10 MG TABLET PO SCH (08:44)
[2017-03-15] MEDS: PANTOPRAZOLE 40 MG TABLET.DR PO SCH (08:44)
[2017-03-15] MEDS: DILTIAZEM HCL CD 180 MG PO SCH (08:44)
[2017-03-15] MEDS: POTASSIUM CHLORIDE 10 MEQ TABLET.SA PO SCH (08:44)
[2017-03-15] MEDS: METOPROLOL TARTRATE 50 MG TABLET PO SCH ×2 (08:45→21:40)
[2017-03-15] MEDS: ELIQUIS 5 MG PO SCH ×2 (08:48→16:16)
[2017-03-15] MEDS: FLUTICASONE/VILANTEROL 1 EACH BLST.W.DEV IH SCH (08:48)
[2017-03-15] MEDS: TRAMADOL HCL 50 MG TABLET PO PRN (10:47)
--- NOTE | 2017-03-15 12:27 | NUR ---
MS RN NOTES Patient refused nitro per patient she is not in pain. Explained the risk and benefits x 3, and still refused. Informed MD and made aware.
[2017-03-15] MEDS: LEVOFLOXACIN 250 MG /D5W 50 ML 250 MG in PREMIX 1 EA IV SCH (14:48)
[2017-03-15 16:00] VITALS: BP 100/36
[2017-03-15] MEDS: ACETAMINOPHEN 325 MG TABLET PO PRN (16:23)
--- NOTE | 2017-03-15 19:15 | NUR ---
ms rn closing notes All needs provided, attended, and anticipated. Kept patient clean and comfortable in bed, call light with in patient reach, endorsed to next shift RN to continue care.
--- NOTE | 2017-03-15 19:30 | NUR ---
ms rn initial notes received patient in bed, awake, head of bed elevated, no SOB or distress noted, on room air tolerated well, 02 sat of 97%. No complaint of pain or discomfort at this time, nor chest pain. IV in place and intact, patent. On a strict I and O. Kept patient clean and comfortable in bed, call light with in patient reach, will continue to monitor accordingly.
[2017-03-15 20:00] VITALS: BP 129/51
[2017-03-15] MEDS: TRAZODONE 50 MG TABLET PO SCH (21:40)
[2017-03-16] MEDS: NITROGLYCERIN 30 GM TUBE TP SCH ×4 (06:00→17:30)
--- NOTE | 2017-03-16 06:27 | NUR ---
RN CLOSING NOTES PT RESTING WELL ,VSS STABLE , RESPIRATION EVEN AND UNLABORED, SR UP x3, CALL LIGHTS WITHIN EASY REACH, WILL ENDORSE TO AM RN.
--- NOTE | 2017-03-16 07:20 | NUR ---
RN OPENING NOTES RECEIVED PATIENT IN BED, AWAKE, A/OX4. NO ACUTE DISTRESS, NO SOB NOTED. DENIES PAIN OR DISCOMFORT. IV SITE INTACT AND PATENT. ON STRICT I & O. KEPT PATIENT CLEAN AND COMFORTABLE. BED IN LOCKED LOW POSITION, SIDERAILS UP X2, CALL LIGHT IN REACH. WILL CONTINUE TO MONITOR ACCORDINGLY.
[2017-03-16 07:58] VITALS: BP 106/53
[2017-03-16 08:00] VITALS: BP 106/53
[2017-03-16] MEDS: PANTOPRAZOLE 40 MG TABLET.DR PO SCH (08:44)
[2017-03-16] MEDS: ESCITALOPRAM OXALATE (10 MG) 10 MG TABLET PO SCH (08:44)
[2017-03-16] MEDS: ELIQUIS 5 MG PO SCH ×2 (08:44→17:29)
[2017-03-16] MEDS: FLUTICASONE/VILANTEROL 1 EACH BLST.W.DEV IH SCH (08:46)
[2017-03-16] MEDS: METOPROLOL TARTRATE 50 MG TABLET PO SCH ×2 (08:49→20:47)
[2017-03-16] MEDS: DILTIAZEM HCL CD 180 MG PO SCH (08:50)
--- NOTE | 2017-03-16 12:00 | NUR ---
MS RN NOTES PATIENT REFUSED NITRO, PER PATIENT, SHE IS NOT IN PAIN AND IT GIVES HER HEADACHE. EXPLAINED THE RISK AND BENEFITS X3, AND STILL REFUSED. WILL INFORM MD.
[2017-03-16] MEDS: LEVOFLOXACIN 250 MG /D5W 50 ML 250 MG in PREMIX 1 EA IV SCH (15:17)
[2017-03-16] MEDS: ACETAMINOPHEN 325 MG TABLET PO PRN (15:19)
[2017-03-16 16:00] VITALS: BP 105/74
--- NOTE | 2017-03-16 16:00 | NUR ---
RN NOTES NO=[id number], NOTIFIED DR ANTON. WAITING FOR MD'S RESPONSE. WILL MONITOR ACCORDINGLY.
--- NOTE | 2017-03-16 16:45 | NUR ---
RN NOTES STILL WAITING FOR MD'S RESPONSE REGARDING INCREASE HR. MG=557 NOW. WILL MONITOR ACCORDINGLY.
--- NOTE | 2017-03-16 17:30 | NUR ---
RN NOTES HR=91
--- NOTE | 2017-03-16 19:20 | NUR ---
RN CLOSING NOTES PATIENT IN BED RESTING. NO ACUTE DISTRESS, NO SOB NOTED. ALL NEEDS ATTENDED AND PROVIDED. KEPT PATIENT CLEAN AND COMFORTABLE IN BED. SAFETY MEASURES IN PLACE. BED IN LOW LOCKED POSITION, SIDERAILS UPX2, CALL LIGHT IN REACH. ENDORSED TO NIGHT RN FOR AYE.
--- NOTE | 2017-03-16 19:30 | NUR ---
MS RN OPENING NOTES: PATIENT IN BED, AOX4, ON O2 AT 2 LPM VIA NC, BREATHING EVEN AND UNLABORED, BREATH SOUNDS CLEAR TO AUSCULTATION. PATIENT APPEARS CALM AND IN NO DISTRESS, DENIES SOB OR CHEST PAIN, BUT DOES COMPLAIN OF WORSENING HEADACHE SCALED AT 6/10. PIV OVER RFA G 20 INTACT AND PATENT. APICAL HEART RATE CHECKED AT 93 BPM, LEFT BRACHIAL PULSE CHECKED AT 91 BPM. PROVIDED FOR COMFORT AND SAFETY. BED IN LOWEST AND LOCKED POSITION, SIDERAILS UP X 2. WILL CONT TO MONITOR.
[2017-03-16 20:00] VITALS: BP 136/91
[2017-03-16] MEDS: TRAMADOL HCL 50 MG TABLET PO PRN (20:26)
--- NOTE | 2017-03-16 20:34 | NUR ---
RN NOTES: PATIENT COMPLAINED OF HEADACHE 08/02. ADMINISTERED TRAMADOL 50 MG PO FOR NOW. WILL CONT TO MONITOR.
--- NOTE | 2017-03-16 21:50 | NUR ---
RN NOTES: EKG TAKEN, AFIB WITH RVR RATE OF 130 BPM. PATIENT DENIES SOB, PALPITATIONS OR CHEST PAIN. CALLED DR ANTON, WAITING FOR CALL BACK. ATTACHED TO RN OR LVN.
--- NOTE | 2017-03-16 22:23 | NUR ---
RN NOTES: PAGED DR ANTON AGAIN, WAITING FOR CALL BACK.
--- NOTE | 2017-03-16 22:24 | NUR ---
RN NOTES: TELE MONITOR READING NOW AFIB AT 105. PATIENT DENIES CHEST PAIN/ SOB/ PALPITATIONS.
[2017-03-16] MEDS: TRAZODONE 50 MG TABLET PO SCH (22:27)
[2017-03-16 23:00] VITALS: BP 107/71
--- NOTE | 2017-03-17 00:05 | NUR ---
RN NOTES: PATIENT'S BP IS DECREASED AT 107/71. PATIENT ALSO REFUSING MEDICATION, SAYING IT IS GIVING HER HEADACHES.
[2017-03-17 04:00] VITALS: BP 121/75
--- NOTE | 2017-03-17 05:00 | NUR ---
RN NOTES: PATIENT ABLE TO SLEEP WELL AFTER MIDNIGHT, RECHECKED VS, STABLE, HR NOW AT 90S. PATIENT DENIES CHEST PAIN/ PALPITATIONS/ SOB. NO CHANGES IN LOC.
[2017-03-17] MEDS: NITROGLYCERIN 30 GM TUBE TP SCH ×4 (06:00→18:00)
[2017-03-17] MEDS: ACETAMINOPHEN 325 MG TABLET PO PRN ×2 (06:09→19:51)
--- NOTE | 2017-03-17 06:15 | NUR ---
RN NOTES: CALLED DR AU TO INFORM RE PATIENT'S AFIB WITH RVR AT RATE OF 130S LAST NIGHT, BUT HAS THEN TRENDED DOWN, NOW AT AFIB 90S. NO NEW ORDER GIVEN. DR AU ONLY INSTRUCTED FOR NURSING METAL CUT OFF SAW OPERATOR TO BE CALLED REGARDING THIS SITUATION. NURSING SUP, HEATHER, INFORMED.
--- NOTE | 2017-03-17 06:38 | NUR ---
RN NOTES: CALLED XRAY FOR STAT CXR ORDERED BY .
--- NOTE | 2017-03-17 06:44 | NUR ---
MS RN CLOSING NOTES: PATIENT IN BED, AOX4, ON O2 AT 2 LPM VIA NC, BREATHING EVEN AND UNLABORED. APPEARS CALM AND IN NO DISTRESS. DENIES CHEST PAIN OR SOB AT THIS TIME. STATES HEADACHE FEELS BETTER. PIV OVER RFA G 20 INTACT AND PATENT TO FLUSH. DUE MEDS GIVEN. HR MONITORED THROUGH NIGHT, NOW AT RATE OF 90S. PROVIDED FOR COMFORT AND SAFETY. BED IN LOWEST AND LOCKED POSITION, SIDERAILS UP X 2. WILL ENDORSE TO AM RN FOR AYE.
[2017-03-17 07:16] LABS: BASOPHILS % (AUTO) 0.3 % (0.0-2.0); EOSINOPHILS # (AUTO) 0.1 /CMM (0.0-0.7); HEMATOCRIT 30 % (33-45); HEMOGLOBIN 9.7 g/dL (11.5-14.8); LYMPHOCYTES # (AUTO) 1.1 /CMM (0.8-4.8); LYMPHOCYTES % (AUTO) 23.8 % (20.0-44.0); MEAN CORPUSCULAR HEMOGLOBIN 32 PG (26.0-33.0); MEAN CORPUSCULAR HGB CONC 33 g/dl (31.0-36.0); MEAN CORPUSCULAR VOLUME 99 fL (82-100); MONOCYTES # (AUTO) 0.5 /CMM (0.1-1.30); MONOCYTES % (AUTO) 10.6 % (2.0-12.0); NEUTROPHILS % (AUTO) 63.3 % (43.0-81.0); PLATELET COUNT (AUTO) 191 /CMM (150-450); RDW COEFFICIENT OF VARIATION 16.2 (11.5-15.0); RED BLOOD CELL COUNT(AUTO) 3.01 MIL/uL (4.0-5.2); WHITE BLOOD COUNT (AUTO) 4.8 K/uL (4.3-11.0)
--- NOTE | 2017-03-17 07:30 | NUR ---
PT RECEIVED RESTING COMFORTABLY IN BED WITH EYES CLOSED. NO S/S OR C/O PAIN OR DISTRESS NOTED. SIDE RAILS UP X2, CALL LIGHT LEFT WITHIN REACH. WILL CONTINUE PLAN OF CARE.
[2017-03-17 07:34] LABS: CALCIUM, SERUM 8.4 mg/dL (8.5-10.1); CREATININE 0.8 mg/dL (0.6-1.3); MAGNESIUM 2.1 mg/dL (1.8-2.4); POTASSIUM 4.2 mmol/L (3.5-5.1)
[2017-03-17 08:00] VITALS: BP 103/38
[2017-03-17] MEDS: ESCITALOPRAM OXALATE (10 MG) 10 MG TABLET PO SCH (10:09)
[2017-03-17] MEDS: DILTIAZEM HCL CD 180 MG PO SCH (10:10)
[2017-03-17] MEDS: PANTOPRAZOLE 40 MG TABLET.DR PO SCH (10:10)
[2017-03-17] MEDS: METOPROLOL TARTRATE 50 MG TABLET PO SCH ×2 (10:10→21:42)
[2017-03-17] MEDS: ELIQUIS 5 MG PO SCH ×2 (10:11→18:38)
[2017-03-17] MEDS: IPRATROPIUM NEB FS 0.5 MG/2.5 ML AMPUL.NEB NEB SCH ×4 (10:30→19:39)
[2017-03-17 12:00] VITALS: BP 105/60
[2017-03-17] MEDS: LEVOFLOXACIN 750 MG /D5W 150ML 150 ML IV SCH (13:23)
[2017-03-17] MEDS: TRAMADOL HCL 50 MG TABLET PO PRN (13:30)
--- NOTE | 2017-03-17 15:57 | NUR ---
RT NOTE TXS NOT GIVEN RT NOT MADE AWARE, PT STABLE NO SOB NOTED WILL MONITOR
[2017-03-17 16:00] VITALS: BP 95/30
--- NOTE | 2017-03-17 18:25 | NUR ---
CHANGE OF SHIFT REPORT PT RESTING COMFORTABLY IN BED. NO S/S OR C/O PAIN OR DISTRESS NOTED. SIDE RAILS UP X2, CALL LIGHT LEFT WITHIN REACH. PT KEPT CLEAN, DRY, AND COMFORTABLE. NO SIGNIFICANT CHANGES SINCE PREVIOUS SHIFT. WILL GIVE REPORT TO BALJEET MOYA.
--- NOTE | 2017-03-17 20:00 | NUR ---
MS CORRECTIONAL SUBSTANCE ABUSE COUNSELOR INITIAL NOTES SEEN PT IN BED WHILE WE GETTING REPORT FROM AM NURSE, AWAKE AND ALERT ORIENTED ABLE TO USED THE BEDSIDE COMMODE BY HERSELF. NO SOB NOTED AT THIS TIME. SHE 'S COMPLAINING OF HEADACHE AT THIS TIME, NO N/V NOTED. KEPT HER WARM AND COMFORTABLE AT ALL TIMES. SAFETY PRECAUTION IMPLEMENTED AND OBSERVED. PLACE CALL LIGHT AT REACH. WILL CONTINUE TO MONITOR.
[2017-03-17] MEDS: TRAZODONE 50 MG TABLET PO SCH (21:41)
[2017-03-18] MEDS: IPRATROPIUM NEB FS 0.5 MG/2.5 ML AMPUL.NEB NEB SCH ×4 (00:33→19:52)
--- NOTE | 2017-03-18 01:00 | NUR ---
MS WOLF HUNTER NOTES PT SLEEPING COMFORTABLY IN BED WITHOUT DUSTIN ACUTE DISTRESS NOTED. RESPIRATION EVEN AND NONLABORED. KEPT HER WARM AND COMFORTABLE AT ALL TIMES. PLACE CALL LIGHT AT REACH. WILL CONTINUE TO MONITOR
[2017-03-18] MEDS: NITROGLYCERIN 30 GM TUBE TP SCH ×4 (06:00→17:28)
--- NOTE | 2017-03-18 06:52 | NUR ---
MS MANGLE PRESS CATCHER CLOSING NOTES' PT REMAINS SLEEPING , BUT AROUSES TO TOUCH, DENIES ANY PAIN OR ANY DISCOMFORT. RESPIRATION EVEN AND NON-LABORED, STABLE EDIN THE NIGHT AND SLEPT WELL. ALL DUE MEDS GIVEN AND ALL NEEDS MET. KEPT HER WARM AND COMFORTABLE AT ALL TIMES. ON SEMI FOWLERS POSITION WITH SIDE RAILS X3 UP AND BED IN LOW AND LOCK IN POSITION. PLACE CALL LIGHT AT REACH. BED ALARM SET FOR SAFETY. WILL ENDORSE TO AM NURSE FOR CONTINUITY OF CARE.
--- NOTE | 2017-03-18 07:15 | NUR ---
RN INITIAL NOTES: REC'D PT AWAKE ON BED, A/O X 3, NOT IN ANY DISTRESS, ABLE TO MAKE NEEDS KNOWN, DENIES ANY PAIN/DISCOMFORT AT THIS TIME. ON O2 AT 2LPM/NC, NO SOB. HAS LFA G22, SL, PATENT & INTACT W/ NO S/SX OF INFECTION/INFILTRATION NOTED. PROVIDED COMFORT & SAFETY MEASURES. BED KEPT LOW & IN LOCKED POS. CALL LIGHT PLACED W/IN REACH. WILL CONTINUE TO MONITOR & ATTEND PT NEEDS.
[2017-03-18 08:00] VITALS: BP 95/63
[2017-03-18] MEDS: DILTIAZEM HCL CD 180 MG PO SCH (08:57)
[2017-03-18] MEDS: METOPROLOL TARTRATE 50 MG TABLET PO SCH ×2 (08:58→21:15)
[2017-03-18] MEDS: ESCITALOPRAM OXALATE (10 MG) 10 MG TABLET PO SCH (08:59)
[2017-03-18] MEDS: ELIQUIS 5 MG PO SCH ×2 (08:59→16:04)
[2017-03-18] MEDS: PANTOPRAZOLE 40 MG TABLET.DR PO SCH (09:04)
[2017-03-18] MEDS: TRAMADOL HCL 50 MG TABLET PO PRN ×2 (09:53→16:04)
[2017-03-18] MEDS: LEVOFLOXACIN 750 MG /D5W 150ML 150 ML IV SCH (11:31)
[2017-03-18 16:00] VITALS: BP 125/67
--- NOTE | 2017-03-18 19:00 | NUR ---
RN CLOSING NOTES: NO ACUTE CHANGES NOTED W/IN SHIFT. PT TOLERATED ROOM AIR, NO SOB, SATING AT 95%. LFA G22, SL, KEPT PATENT & INTACT W/ NO S/SX OF INFECTION/INFILTRATION NOTED. KEPT WELL RESTED. NEEDS ATTENDED. BED KEPT LOW & IN LOCKED POS. CALL LIGHT PLACED W/IN REACH. ENDORSED TO PM RN FOR AYE.
--- NOTE | 2017-03-18 19:10 | NUR ---
RN NOTES RECEIVED PT AWAKE, ALERT AND ORIENTED X4. HOB ELEVATED, ON 2LPM O2 VIA NC AND TOLERATED WELL. PT DENIES ANY PAIN AND DISCOMFORT. IV ACCESS ON LEFT UPPER ARM PATENT AND INTACT. SAFETY MEASURES AND FALL PRECAUTION OBSERVED. PLAN OF CARE DISCUSSED WITH THE PT. WILL CONTINUE TO MONITOR.
[2017-03-18] MEDS: TRAZODONE 50 MG TABLET PO SCH (21:15)
[2017-03-19] VITALS: BP 107/71
[2017-03-19] MEDS: IPRATROPIUM NEB FS 0.5 MG/2.5 ML AMPUL.NEB NEB SCH ×4 (01:35→20:23)
[2017-03-19] MEDS: NITROGLYCERIN 30 GM TUBE TP SCH ×4 (06:00→17:05)
--- NOTE | 2017-03-19 07:25 | NUR ---
MS RN OPENING NOTES RECEIVED PT FROM NIGHTSHIFT NURSE IN STABLE CONDITION. PT IS A/O X4. NO SOB OR SIGNS OF DISTRESS NOTED. BREATHING IS EVEN AND UNLABORED. PT DENIES ANY CHEST PAIN AT THIS TIME. STATES SHE HAS A HEADACHE RATED 8/10. WILL ADMINISTER PRN PAIN MEDICATION. IV NOTED TO BE PATENT AND INTACT. NO REDNESS OR SIGNS OF INFILTRATION NOTED. BED IN LOW LOCKED POSITION, SIDE RAILS UP X2, CALL LIGHT WITHIN REACH. WILL CONTINUE TO MONITOR
--- NOTE | 2017-03-19 07:28 | NUR ---
RN NOTES PT SLEPT WELL OVERNIGHT, DENIES ANY PAIN AND DISCOMFORT. VITAL SIGNS STABLE, WITH FLUCTUATING HEART RATE NOTED. NO EPISODE OF NAUSEA AND VOMITING. VOIDING WELL, ABLE TO TRANSFER FROM BED TO COMMODE SAFELY. ALL NEEDS ATTENDED. FALL PRECAUTION OBSERVED. ENDORSED TO MORNING RN FOR CONTINUITY OF CARE.
[2017-03-19 08:00] VITALS: BP 121/88
[2017-03-19] MEDS: ACETAMINOPHEN 325 MG TABLET PO PRN (08:41)
[2017-03-19] MEDS: DILTIAZEM HCL CD 180 MG PO SCH (08:42)
[2017-03-19] MEDS: PANTOPRAZOLE 40 MG TABLET.DR PO SCH (08:43)
[2017-03-19] MEDS: METOPROLOL TARTRATE 50 MG TABLET PO SCH ×2 (08:43→22:03)
[2017-03-19] MEDS: ESCITALOPRAM OXALATE (10 MG) 10 MG TABLET PO SCH (08:43)
[2017-03-19] MEDS: ELIQUIS 5 MG PO SCH ×2 (08:44→17:05)
[2017-03-19] MEDS ORDERED: ERGOCALCIFEROL (VITAMIN D 2) 50,000 UNIT CAPSULE PO SCH (09:00)
[2017-03-19] MEDS: LEVOFLOXACIN 750 MG /D5W 150ML 150 ML IV SCH (11:40)
[2017-03-19 16:00] VITALS: BP 102/69
[2017-03-19] MEDS: TRAMADOL HCL 50 MG TABLET PO PRN (17:05)
--- NOTE | 2017-03-19 18:40 | NUR ---
MS CLOSING NOTES PT REMAINS STABLE. NO SCUTE CHANGES IN CONDITION DURING SHIFT. ALL NEEDS MET AND CARRIED OUT ACCORDINGLY. ALL DUE MEDS GIVEN. WILL ENDORSE TO NIGHTSHIFT NURSE FOR AYE
--- NOTE | 2017-03-19 20:00 | NUR ---
RN NOTES RECEIVED PATIENT AWAKE IN BED WITH DISTRESS NOTED. BREATHING EVEN AND UNLABORED. NO PHYSICAL MANIFESTATION OF PAIN OR DISCOMFORT. VITAL SIGNS WNL. ALERT AND RESPONSIVE WITH CONFUSION. VERBALLY ABLE TO COMMUNICATE NEEDS. KEPT CLEAN AND DRY.
[2017-03-19] MEDS: TRAZODONE 50 MG TABLET PO SCH (21:40)
[2017-03-20] MEDS: IPRATROPIUM NEB FS 0.5 MG/2.5 ML AMPUL.NEB NEB SCH ×4 (03:07→19:30)
[2017-03-20 04:00] VITALS: BP 104/46
[2017-03-20] MEDS: NITROGLYCERIN 30 GM TUBE TP SCH ×4 (06:00→18:00)
--- NOTE | 2017-03-20 06:41 | NUR ---
RN CLOSING NOTES PATIENT IN NO DISTRESS, BREATHING EVEN AND UNLABORED. NO COMPLAINT OF PAIN OR DISCOMFORT. NO SIGNIFICANT CHANGE OF CONDITION. WILL ENDORSE TO AM SHIFT FOR CONTINUITY OF CARE
--- NOTE | 2017-03-20 07:20 | NUR ---
RN OPENING NOTES RECEIVED PT. IN BED A&OX4. BREATHING UNLABORED, AND EVENLY ON OXYGEN AT 2L/MIN VIA NASAL CANNULA. NO S/S OF ACUTE DISTRESS. BED IS IN LOWEST, AND LOCKED POSITION. 2 SIDE RAILS UP, AND INSTRUCTED PT. TO USE CALL LIGHT FOR ASSISTANCE. ALL NEEDS MET. WILL CONTINUE TO ASSESS AND MONITOR.
[2017-03-20 07:30] LABS: BASOPHILS % (AUTO) 0.4 % (0.0-2.0); EOSINOPHILS # (AUTO) 0.1 /CMM (0.0-0.7); EOSINOPHILS % (AUTO) 1.7 % (0.0-6.0); HEMATOCRIT 27 % (33-45); HEMOGLOBIN 9.1 g/dL (11.5-14.8); LYMPHOCYTES % (AUTO) 25.9 % (20.0-44.0); MEAN CORPUSCULAR HEMOGLOBIN 32 PG (26.0-33.0); MEAN CORPUSCULAR HGB CONC 33 g/dl (31.0-36.0); MEAN CORPUSCULAR VOLUME 97 fL (82-100); MONOCYTES # (AUTO) 0.5 /CMM (0.1-1.30); NEUTROPHILS # (AUTO) 2.4 /CMM (1.8-8.9); PLATELET COUNT (AUTO) 140 /CMM (150-450); RDW COEFFICIENT OF VARIATION 16.2 (11.5-15.0); RED BLOOD CELL COUNT(AUTO) 2.82 MIL/uL (4.0-5.2)
[2017-03-20 07:33] LABS: CALCIUM, SERUM 8.4 mg/dL (8.5-10.1); CREATININE 0.9 mg/dL (0.6-1.3); MAGNESIUM 2.2 mg/dL (1.8-2.4); POTASSIUM 4.5 mmol/L (3.5-5.1)
[2017-03-20 08:00] VITALS: BP 105/61
[2017-03-20] MEDS: PANTOPRAZOLE 40 MG TABLET.DR PO SCH (08:28)
[2017-03-20] MEDS: ESCITALOPRAM OXALATE (10 MG) 10 MG TABLET PO SCH (08:28)
[2017-03-20] MEDS: ELIQUIS 5 MG PO SCH ×2 (08:30→16:06)
[2017-03-20] MEDS: DILTIAZEM HCL CD 240 MG PO SCH (08:30)
[2017-03-20] MEDS: METOPROLOL TARTRATE 50 MG TABLET PO SCH ×2 (08:30→20:48)
[2017-03-20] MEDS: LEVOFLOXACIN (750 MG) 750 MG TABLET PO SCH (11:13)
[2017-03-20 12:00] VITALS: BP 123/62
[2017-03-20 16:00] VITALS: BP 99/53
[2017-03-20] MEDS: ACETAMINOPHEN 325 MG TABLET PO PRN (18:56)
--- NOTE | 2017-03-20 19:18 | NUR ---
RN CLOSING NOTES PT. IN BED A&OX4. BREATHING UNLABORED, AND EVENLY ON OXYGEN AT 2L/MIN VIA NASAL CANNULA. NO S/S OF ACUTE DISTRESS. IV ON LEFT FOREARM IS INTACT AND PATENT. BED IS IN LOWEST, AND LOCKED POSITION. 2 SIDE RAILS UP, AND INSTRUCTED PT. TO USE CALL LIGHT FOR ASSISTANCE. ALL NEEDS MET. WILL ENDORSE REPORT TO NURSE.
--- NOTE | 2017-03-20 19:30 | NUR ---
RN/ MS NOTES: RECEIVED PT. IN BED A&OX4. W/ O2 @ 2LPM VIA N/C SAT. 96%. NO S/S OF RESPIRATORY DISTRESS NOTED. CONTINENT OF B/B . HAS A BEDSIDE COMMODE. INSTRUCTED TO CALL USING THE CALL LIGHT FOR STAND BY ASSIST. DENIES ANY C/O SOB OR CHEST PAIN AT THIS TIME. BED IS IN LOWEST, AND LOCKED POSITION. 2 SIDE RAILS UP. ALL NEEDS MEET AND ATTENDED. CALL LIGHT W/ REACH. WILL CONTINUE TO ASSESS AND MONITOR.
[2017-03-20 20:00] VITALS: BP 103/52
[2017-03-20] MEDS: TRAZODONE 50 MG TABLET PO SCH (21:14)
--- NOTE | 2017-03-21 00:12 | NUR ---
RN/MS NOTES: PT. REFUSED NITRO STATED THAT SHE GETS HEADACHES.
[2017-03-21] MEDS: IPRATROPIUM NEB FS 0.5 MG/2.5 ML AMPUL.NEB NEB SCH ×3 (01:40→13:30)
[2017-03-21 04:00] VITALS: BP 107/42
[2017-03-21] MEDS: NITROGLYCERIN 30 GM TUBE TP SCH ×3 (05:01→12:00)
--- NOTE | 2017-03-21 07:14 | NUR ---
RN/MS NOTES: NO ACUTE DISTRESS NOTED DURING THIS SHIFT. REPORT GIVEN TO AM SHIFT NURSE FOR AYE.
--- NOTE | 2017-03-21 07:21 | NUR ---
RN NOTES: PATIENT RESTING IN BED, NONLABORED BREATHING ON ROOM AIR. PATIENT AOX4, DENIES PAIN. IV ON LEFT FOREARM PATENT AND INTACT. BED IN LOWEST LOCKED POSITION. CALL LIGHT WITHIN REACH. WILL CONTINUE TO MONITOR
[2017-03-21 08:00] VITALS: BP_SYST 109; BP_SYST 98; BP_DIAS 35; BP_DIAS 49
--- NOTE | 2017-03-21 08:16 | NUR ---
RN NOTES: BP NOTED TO BE 109/49, PATIENT DENIES DIZZINESS, IS PERRLA, DENIES PAIN, STATES SHE WANTS TO REST AND WILL TAKE HER MEDICATIONS LATER. PATIENT REEDUCATED REAL ESTATE TRANSACTION COORDINATOR LIGHT USAGE. BED IN LOWEST LOCKED POSITION. CALL LIGHT WITHIN REACH, ALARM ON
[2017-03-21] MEDS: DILTIAZEM HCL CD 240 MG PO SCH (09:00)
[2017-03-21] MEDS: METOPROLOL TARTRATE 50 MG TABLET PO SCH (09:00)
[2017-03-21] MEDS: ESCITALOPRAM OXALATE (10 MG) 10 MG TABLET PO SCH (09:34)
[2017-03-21] MEDS: PANTOPRAZOLE 40 MG TABLET.DR PO SCH (09:34)
[2017-03-21] MEDS: ELIQUIS 5 MG PO SCH (09:36)
[2017-03-21 12:00] VITALS: BP 124/66
[2017-03-21] MEDS: LEVOFLOXACIN (750 MG) 750 MG TABLET PO SCH ×2 (12:00→13:17)
--- NOTE | 2017-03-21 12:32 | NUR ---
RN NOTES: LEVAQUIN DISCONTINUED PER DR ANTON. PATIENT TO LEAVE TO HOME TODAY. PATIENT REFUSING NITRO, BENEFITS AND RISKS EXPLAINED MULITPLE TIMES. BP WNL SPO2 AT 97% ON ROOM AIR
--- NOTE | 2017-03-21 13:18 | NUR ---
RN NOTES: CLARIFIED LEVAQUIN ORDER WITH DR ANTON. LAST DOSE TO BE GIVEN BEFORE DISCHARGE HOME
--- NOTE | 2017-03-21 15:15 | NUR ---
RN NOTES PATIENT DISCHARGED HOME PER MD ORDERS. PATIENT STABLE. VS WNL. PATIENT DENIES PAIN. PATIENT EDUCATED ON EXISTCARE, GIVEN PRESCRIPTION, PATIENT VERBALIZED UNDERSTANDING. PATIENT REFUSED SKIN PICTURES WELL VACCINES. BENEFITS AND RISKS EXPLINED MULTIPLE TIMES. PATIENT LEFT WITH DAUGHTER, ACCOMPNIED WITH INTERNATIONAL STUDENT COUNSELOR TO CAR. \ ALL VALUABLES GIVEN TO PATIENT
--- NOTE | 2017-03-21 15:16 | NUR ---
RN NOTES IV LINE REMOVED WELL
== END 2017-03-21 15:53 | disposition home or self-care (01) | DRG 193 ==
LOC: ER 10:03 → TELE-TD 13:35 → MEDSG1 03-14 11:08
PROVIDERS: ADMIT Legal Medicine; ATTEND Legal Medicine
DX: J15.9 Unspecified bacterial pneumonia (principal); I50.23 Acute on chronic systolic (congestive) heart failure; E46 Unspecified protein-calorie malnutrition; E87.2 Acidosis; I48.91 Unspecified atrial fibrillation; K57.92 Diverticulitis of intestine, part unspecified, without perforation or abscess without bleeding; I08.1 Rheumatic disorders of both mitral and tricuspid valves; J20.9 Acute bronchitis, unspecified; F41.9 Anxiety disorder, unspecified; I11.0 Hypertensive heart disease with heart failure; Z79.01 Long term (current) use of anticoagulants; Z79.51 Long term (current) use of inhaled steroids; Z79.899 Other long term (current) drug therapy; Z87.11 Personal history of peptic ulcer disease; Z88.0 Allergy status to penicillin; Z88.1 Allergy status to other antibiotic agents; Z88.2 Allergy status to sulfonamides; Z88.8 Allergy status to other drugs, medicaments and biological substances; Z87.891 Personal history of nicotine dependence; Z87.01 Personal history of pneumonia (recurrent); Y95 Nosocomial condition; K21.9 Gastro-esophageal reflux disease without esophagitis
CPT/HCPCS: 36415; 71045-TC; 80048-TC; 80053-TC; 80076-TC; 81000-TC; 83605-TC; 83735-TC; 83880; 84100-TC; 84484-TC; 85025-TC; 85730-TC; 87040-TC; 87081-TC; 87086-TC; 94799-TC; A4216; A4606; J1940; J1956; J2405; J3490; J7050; J7060; Z7610

== ENCOUNTER 2017-11-27 13:30 | Inpatient (IN) | payer MEDICARE, OTHER ==
[~2017-11-27] VITALS: Ht 170.2 cm; Wt 57.6 kg
[~2017-11-27 13:30] MED LIST changes: -BUDE10.22 INH; -CHOL50002 PO; -DILT180C66 PO; +DILT240C88 PO; -METO100T14 PO; +METO50TA16 PO; -TRAM50TA2 PO
[2017-11-27 15:16] LABS: BASOPHILS # (AUTO) 0.1 /CMM (0.0-0.2); BASOPHILS % (AUTO) 2.4 % (0.0-2.0); EOSINOPHILS % (AUTO) 1.2 % (0.0-6.0); HEMATOCRIT 37 % (33-45); HEMOGLOBIN 12.1 g/dL (11.5-14.8); LYMPHOCYTES # (AUTO) 0.9 /CMM (0.8-4.8); LYMPHOCYTES % (AUTO) 16.3 % (20.0-44.0); MEAN CORPUSCULAR HGB CONC 33 g/dl (31.0-36.0); MEAN CORPUSCULAR VOLUME 101 fL (82-100); MONOCYTES # (AUTO) 0.4 /CMM (0.1-1.30); MONOCYTES % (AUTO) 6.9 % (2.0-12.0); NEUTROPHILS # (AUTO) 4.1 /CMM (1.8-8.9); NEUTROPHILS % (AUTO) 73.2 % (43.0-81.0); PLATELET COUNT (AUTO) 199 /CMM (150-450); RDW COEFFICIENT OF VARIATION 13.4 (11.5-15.0); RED BLOOD CELL COUNT(AUTO) 3.63 MIL/uL (4.0-5.2); WHITE BLOOD COUNT (AUTO) 5.6 K/uL (4.3-11.0)
[2017-11-27 15:26] LABS: CALCIUM, SERUM 9.1 mg/dL (8.5-10.1); CARBON DIOXIDE 30 mmol/L (21-32); CHLORIDE 105 mmol/L (98-107); CREATININE 0.9 mg/dL (0.6-1.3); GLUCOSE 108 mg/dL (74-106); SODIUM SERUM 142 mmol/L (136-145); UREA NITROGEN, BLOOD 8 mg/dL (7-18)
--- NOTE | 2017-11-27 15:29 | NUR ---
REPORT RECEIVED FROM MANASA RN. CARE OF PT ASSUMED BY THIS RN. PT WHEELED TO RESTROOM. URINE CUP PROVIDED. PT STATES SHE HAS A HX OF HYPERTENSION AND COPD. PT IS SATTING 85 ON RA. STATES SHE WAS HYPERTENSIVE THIS AM CALLED HER DR AND WAS TOLD TO TAKE HER MEDICATION IF IT DIDNT IMPROVE TO GO TO THE ED. DENIES VISUAL CHANGES, HARLEY DENSON, HER ONLY SYMPOTOM IS SOB.
[2017-11-27 15:30] LABS: INR 1.28 (0.85-1.15)
[2017-11-27 15:31] LABS: ALANINE AMINOTRANSFERASE 20 U/L (12-78); ALBUMIN 3.4 g/dL (3.4-5.0); ALKALINE PHOSPHATASE 138 U/L (46-116); ASPARTATE AMINOTRANSFERASE 25 U/L (15-37); BILIRUBIN,DIRECT 0.1 mg/dL (0.0-0.2); BILIRUBIN,TOTAL 0.8 mg/dL (0.2-1.0); TOTAL PROTEIN, SERUM 6.8 g/dL (6.4-8.2)
--- NOTE | 2017-11-27 15:33 | NUR ---
PT RETURNED TO HER ROOM AND PLACED ON 2LNC. ON MONITOR. DAUGHTER AT BEDSIDE.
[2017-11-27 15:34] LABS: TROPONIN I < 0.017 ng/mL (0.00-0.056)
[2017-11-27] MEDS ORDERED: TRAZ-213 PO (15:52)
--- NOTE | 2017-11-27 16:00 | NUR ---
PT STATES SHE IS FEELING BETTER. DAUGHTER LEFT.
[2017-11-27] MEDS ORDERED: FUROSEMIDE 40 MG/4 ML VIAL IV ONE (16:30)
--- NOTE | 2017-11-27 17:00 | NUR ---
ASSISTANCE OFFERED TO PT. NO NEEDS AT THIS TIME. EDUCATED PT ON USE OF HER HOME O2. VERBALIZED UNDERSTANDING.
[2017-11-27] MEDS ORDERED: FUROSEMIDE 40 MG/4 ML VIAL ONE (17:05)
--- NOTE | 2017-11-27 17:20 | NUR ---
REPORT CALLED TO JUANITA MOYA.
[2017-11-27] MEDS ORDERED: Z GUARD REMEDY 2 OZ OINT TP PRN (17:30)
[2017-11-27] MEDS ORDERED: MAGNESIUM HYDROXIDE 30 ML UDC PO PRN (17:30)
[2017-11-27] MEDS ORDERED: ZOLPIDEM TARTRATE 5 MG TABLET PO PRN (17:30)
[2017-11-27] MEDS ORDERED: ONDANSETRON HCL/PF 4 MG/2 ML VIAL IVP PRN (17:30)
--- NOTE | 2017-11-27 17:39 | NUR ---
TRANSFERRED TO [facility]- WITH GALILEO EMT,MONITORED, MET BY DR ALVARADO AT BEDSIDE FOR EVAL
[2017-11-27] MEDS ORDERED: busPIRone 5 MG TABLET PO PRN (19:00)
--- NOTE | 2017-11-27 19:20 | NUR ---
A&P TECHNICIAN NOTE RECEIVED PATIENT FROM DAY SHIFT, PATIENT IS ALERT AND ORIENTEDX4, NO S/S OF RESPIRATORY DISTRESS AND DENIES PAIN AT THIS TIME. IV ON LEFT WRIST IS PATENT AND INTACT, SL ONLY. TELE AFIB 69. SRX2, BED IN LOW POSITION, CALL LIGHT WITHIN REACH, WILL CONTINUE TO MONITOR PATIENT.
[2017-11-27] MEDS: ACETAMINOPHEN 325 MG TABLET PO PRN (19:49)
[2017-11-27 20:00] VITALS: BP 111/50
[2017-11-27] MEDS: APIXABAN 5 MG TABLET PO SCH (21:30)
[2017-11-27] MEDS: HYDROCODONE/APAP 5/325MG 1 EACH TABLET PO PRN (22:29)
[2017-11-27 22:37] LABS: TROPONIN I < 0.017 ng/mL (0.00-0.056)
[2017-11-27 22:42] LABS: B-TYPE NATRIURETIC PEPTIDE 12518 PG/ML (0-125)
[2017-11-28] VITALS (8 sets, daily range): BP systolic 102–121; BP diastolic 47–71
[2017-11-28] MEDS: ACETAMINOPHEN 325 MG TABLET PO PRN ×2 (01:54→09:36)
[2017-11-28] MEDS: TRAZODONE 50 MG TABLET PO PRN (02:00)
--- NOTE | 2017-11-28 06:53 | NUR ---
MATERIAL PREPARATION WORKER NOTE PATIENT IS RESTING IN BED COMFORTABLY, NO ACUTE DISTRESS NOTED THROUGHOUT THE SHIFT. IV ON LEFT WRIST IS PATENT AND INTACT, SL ONLY. TELE AFIB 62. WILL ENDORSE TO DAY SHIFT NURSE FOR AYE.
--- NOTE | 2017-11-28 07:00 | NUR ---
EMERGENCY VETERINARIAN OPENING NOTE RECEIVED PT IN BED SLEEPING. BREATHING IS EVEN AND UNLABORED ON 2L NC, NO SIGNS OF ACUTE DISTRESS NOTED AT THIS TIME. PT IS ON ADAPTED PHYSICAL EDUCATION AIDE WITH A-FIB, HR: 60. L WRIST 20g IV IS SALINE LOCKED, CLEAN, DRY AND INTACT. BED IS LOCKED AND IN LOWEST POSITION, SIDE RAILS UP X2, BED ALARM IS ON, CALL LIGHT IS WITHIN REACH.
[2017-11-28 07:28] LABS: BASOPHILS % (AUTO) 0.5 % (0.0-2.0); EOSINOPHILS % (AUTO) 1.4 % (0.0-6.0); HEMATOCRIT 33 % (33-45); HEMOGLOBIN 10.6 g/dL (11.5-14.8); LYMPHOCYTES # (AUTO) 1.2 /CMM (0.8-4.8); MEAN CORPUSCULAR HGB CONC 33 g/dl (31.0-36.0); MEAN CORPUSCULAR VOLUME 103 fL (82-100); MONOCYTES # (AUTO) 0.4 /CMM (0.1-1.30); MONOCYTES % (AUTO) 9.6 % (2.0-12.0); NEUTROPHILS # (AUTO) 2.5 /CMM (1.8-8.9); NEUTROPHILS % (AUTO) 60.5 % (43.0-81.0); PLATELET COUNT (AUTO) 164 /CMM (150-450); RDW COEFFICIENT OF VARIATION 13.8 (11.5-15.0); RED BLOOD CELL COUNT(AUTO) 3.17 MIL/uL (4.0-5.2); WHITE BLOOD COUNT (AUTO) 4.2 K/uL (4.3-11.0)
[2017-11-28 07:49] LABS: CALCIUM, SERUM 8.5 mg/dL (8.5-10.1); CREATININE 0.9 mg/dL (0.6-1.3); MAGNESIUM 1.8 mg/dL (1.8-2.4); PHOSPHORUS 4.6 mg/dL (2.5-4.9); POTASSIUM 2.9 mmol/L (3.5-5.1)
[2017-11-28] MEDS ORDERED: FUROSEMIDE 40 MG/4 ML VIAL IV SCH (09:00)
[2017-11-28] MEDS: APIXABAN 5 MG TABLET PO SCH ×2 (09:13→17:07)
[2017-11-28] MEDS: ESCITALOPRAM OXALATE (10 MG) 10 MG TABLET PO SCH (09:14)
[2017-11-28] MEDS: FLUOXETINE HCL 20 MG CAPSULE PO SCH (09:14)
[2017-11-28] MEDS: DILTIAZEM HCL CD 240 MG PO SCH (09:14)
[2017-11-28] MEDS: METOPROLOL TARTRATE 50 MG TABLET PO SCH ×2 (09:57→17:00)
[2017-11-28] MEDS ORDERED: POTASSIUM CHLORIDE 20 MEQ TAB.PRT.SR PO SCH (10:30)
[2017-11-28] MEDS ORDERED: POTASSIUM CHLORIDE 20 MEQ TAB.PRT.SR PO ONE (10:30)
[2017-11-28] MEDS: MAG HYDROX/AL HYDROX/SIMETH 30 ML UDC PO PRN ×2 (11:26→17:53)
[2017-11-28] MEDS: HYDROCODONE/APAP 5/325MG 1 EACH TABLET PO PRN ×2 (11:27→17:07)
--- NOTE | 2017-11-28 18:01 | NUR ---
MS RN CLOSING NOTE PT IN BED, ALERT AND ORIENTED X 4, DENIES N/V, CHEST PAIN, SOB. BREATHING IS EVEN AND UNLABORED ON 2 LC NC. L WRIST 20G IV IS SALINE LOCKED, CLEAN, DRY AND INTACT. PT ASSISTED TO TURN AND REPOSITION Q2H DURING THE SHIFT, ENCOURAGED FLUID INTAKE. ALL NEEDS ATTENDED TO. BED IS LOCKED AND IN LOWEST POSITION, SIDE RAILS UP X2, CALL LIGHT IS WITHIN REACH. WILL ENDORSE TO FOLLOW UP CLERK FOR FOR CONTINUITY OF CARE
--- NOTE | 2017-11-28 19:30 | NUR ---
MS RN OPENING NOTES: RECEIVED PT 2LPM VIA NC AND IS TOLERATING WELL. PT IS SITTING UP IN BED AT THIS TIME WATCHING TELEVISION. NO SOB NOTED. NO S/S OF DISTRESS. PT HAS IV ON L WRIST #20G AND IS PATENT AND INTACT. CURRENTLY H/LC. CALL LIGHT WITHIN PT'S REACH. BED KEPT IN LOW, LOCKED POSITION, AND SIDE RAILS X 2UP. INSTRUCTED PT TO USE CALL LIGHT FOR ASSISTANCE. WILL CONTINUE TO MONITOR PT.
[2017-11-29] MEDS: ACETAMINOPHEN 325 MG TABLET PO PRN ×2 (00:42→15:48)
[2017-11-29] MEDS: TRAZODONE 50 MG TABLET PO PRN (00:42)
--- NOTE | 2017-11-29 02:17 | NUR ---
MS RN NOTES: PT ANXIOUS THAT SHE IS NOT ABLE TO GO TO SLEEP. PT WAS ADMINISTERED BUSPAR 5MG PO. WILL CONTINUE TO MONITOR PT.
--- NOTE | 2017-11-29 06:41 | NUR ---
MS RN CLOSING NOTES: ALL NEEDS WERE ATTENDED AND ANTICIPATED FOR. PT REMAINS ON 2LPM VIA NC AND IS TOLERATING WELL. PT IN SEMI-HOLGUIN'S POSITION. PT HAS IV ON L WRIST AND REMAINS PATENT AND INTACT. CURRENTLY H/L. INSTRUCTED PT TO USE CALL LIGHT FOR ASSISTANCE. CALL LIGHT WITHIN PT'S REACH. BED KEPT IN LOW, LOCKED POSITION, AND SIDE RAILS X 2UP. WILL ENDORSE TO AM NURSE FOR AYE.
--- NOTE | 2017-11-29 07:14 | NUR ---
MS RN OPENING NOTES PATIENT RECEIVED ASLEEP IN BED. EASILY AROUSABLE. HOB ELEVATED. ON O2 VIA N/C @ 2LPM, TOLERATING WELL WITH NO SOB NOTED. IV ACCESS ON LEFT WRIST INTACT AND PATENT, SL ONLY AND FLUSHES EASILY. SAFETY MEASURES IN PLACE. BED IN LOW LOCKED POSITION WITH SR UP X2. CALL LIGHTS WITHIN REACH. WILL CONTINUE TO MONITOR PT ACCORDINGLY.
[2017-11-29 07:17] LABS: BASOPHILS % (AUTO) 0.6 % (0.0-2.0); EOSINOPHILS % (AUTO) 1.6 % (0.0-6.0); HEMATOCRIT 34 % (33-45); HEMOGLOBIN 10.9 g/dL (11.5-14.8); LYMPHOCYTES # (AUTO) 1.1 /CMM (0.8-4.8); LYMPHOCYTES % (AUTO) 28.7 % (20.0-44.0); MEAN CORPUSCULAR HGB CONC 32 g/dl (31.0-36.0); MEAN CORPUSCULAR VOLUME 104 fL (82-100); MONOCYTES # (AUTO) 0.4 /CMM (0.1-1.30); MONOCYTES % (AUTO) 9.9 % (2.0-12.0); NEUTROPHILS # (AUTO) 2.3 /CMM (1.8-8.9); NEUTROPHILS % (AUTO) 59.2 % (43.0-81.0); PLATELET COUNT (AUTO) 165 /CMM (150-450); RDW COEFFICIENT OF VARIATION 14.6 (11.5-15.0); WHITE BLOOD COUNT (AUTO) 3.9 K/uL (4.3-11.0)
[2017-11-29 07:33] LABS: CALCIUM, SERUM 8.8 mg/dL (8.5-10.1); CREATININE 0.8 mg/dL (0.6-1.3); PHOSPHORUS 3.4 mg/dL (2.5-4.9); POTASSIUM 4.4 mmol/L (3.5-5.1)
[2017-11-29 08:00] VITALS: BP 99/59
[2017-11-29] MEDS: FLUOXETINE HCL 20 MG CAPSULE PO SCH (08:22)
[2017-11-29] MEDS: ESCITALOPRAM OXALATE (10 MG) 10 MG TABLET PO SCH (08:22)
[2017-11-29] MEDS: APIXABAN 5 MG TABLET PO SCH ×2 (08:22→16:31)
[2017-11-29] MEDS: DILTIAZEM HCL CD 240 MG PO SCH (08:23)
[2017-11-29] MEDS: METOPROLOL TARTRATE 50 MG TABLET PO SCH ×2 (08:23→16:31)
[2017-11-29] MEDS ORDERED: FUROSEMIDE 40 MG TABLET PO SCH (09:00)
--- NOTE | 2017-11-29 09:33 | NUR ---
RN NOTES/PNA VACCINE PATIENT SEEN BY DR ALVARADO WITH ORDER TO DISCHARGE PT TODAY. PATIENT WANTS TO RECEIVE PNEUMOCOCCAL VACCINE. INFORMED DR CHRISTIANO PEREZ SAID IT'S OK.
[2017-11-29] MEDS ORDERED: FURO40TA5 PO (09:49)
--- NOTE | 2017-11-29 11:15 | NUR ---
RN NOTES PNEUMOVAX 23 0.5ML ADMINISTERED SUB Q TO PT'S RIGHT DELTOID. WILL MONITOR FOR ANY SIDE-EFFECTS OR ADVERSE REACTIONS.
[2017-11-29] MEDS ORDERED: PNEUMOCOCCAL 23-VAL P-SAC VAC 0.5 ML VIAL SQ ONE (12:00)
--- NOTE | 2017-11-29 15:49 | NUR ---
RN NOTES / PAIN MANAGEMENT PATIENT COMPLAINED OF MILD HEADACHE AND REQUESTED FOR TYLENOL. PRN TYLENOL 650MG PO GIVEN ORDERED. WILL CONTINUE TO MONITOR.
[2017-11-29 16:00] VITALS: BP 120/75
[2017-11-29 16:31] VITALS: BP 120/75
--- NOTE | 2017-11-29 18:28 | NUR ---
RN DISCHARGED NOTES PATIENT DISCHARGED HOME IN STABLE CONDITION. A/O X4, SAME ABLE TO MAKE NEEDS KNOWN. ALL NEEDS AND CARE ATTENDED WELL. V/S TAKEN AND RECORDED. PHOTOS OF SKIN TAKEN AND FILED ON CHART. IV ACCESS REMOVED WITH NO BLEEDING NOTED. BELONGINGS CHECKED, COUNTED AND SIGNED FORM. HEALTH TEACHINGS/DISCHARGED INSTRUCTIONS GIVEN TO PT AND VERBALIZED UNDERSTANDING. PNEUMOCOCCAL VACCINE GIVEN BUT REFUSED THE FLU VACCINE STATED THAT SHE GOT SICK AND WAS HOSPITALIZED AFTER GETTING THE FLU VAC BEFORE. PRESCRIPTION FOR LASIX 40MG TAB HANDED TO PT. PT LEFT UNIT @ 1820 VIA WHEELCHAIR IN NO ACUTE SIGNS OF DISTRESS ACCOMPANIED BY LIGHTING DIRECTOR AND PT'S DAUGHTER RUKHSANA . MD AND CHARGE NURSE AWARE OF PT'S DISCHARGE.
[2017-11-30] MEDS ORDERED: POTASSIUM CHLORIDE 10 MEQ TABLET.SA PO SCH (09:00)
== END 2017-11-29 19:00 | disposition home health service (06) | DRG 291 ==
LOC: ER 13:36 → TELE 16:49 → MED 11-28 08:59
PROVIDERS: ADMIT Student in an Organized Health Care Education/Training Program; ATTEND Student in an Organized Health Care Education/Training Program
DX: I11.0 Hypertensive heart disease with heart failure (principal); J96.00 Acute respiratory failure, unspecified whether with hypoxia or hypercapnia; I48.91 Unspecified atrial fibrillation; I50.33 Acute on chronic diastolic (congestive) heart failure; I27.20 Pulmonary hypertension, unspecified; I25.10 Atherosclerotic heart disease of native coronary artery without angina pectoris; E87.6 Hypokalemia; K21.9 Gastro-esophageal reflux disease without esophagitis; Z87.11 Personal history of peptic ulcer disease; Z79.01 Long term (current) use of anticoagulants; Z87.891 Personal history of nicotine dependence; Z99.81 Dependence on supplemental oxygen; F41.9 Anxiety disorder, unspecified; I05.9 Rheumatic mitral valve disease, unspecified; I35.1 Nonrheumatic aortic (valve) insufficiency
CPT/HCPCS: 36415; 71045-TC; 80048-TC; 80061-TC; 80076-TC; 83735-TC; 83880; 84100-TC; 84484-TC; 85025-TC; 85730-TC; 87081-TC; 90732; 93307-TC; A4606; J1940; Z7610

== ENCOUNTER 2018-04-19 10:58 | Inpatient (IN) | payer MEDICARE, OTHER ==
[~2018-04-19] VITALS: Ht 175.3 cm; Wt 61.2 kg
[~2018-04-19 10:58] MED LIST changes: +FURO-145 PO; -FURO40TA5 PO; +Levofloxacin (250MG) PO; +TRAZ-213 PO
--- NOTE | 2018-04-19 11:30 | NUR ---
patient presented to the ER via ambulatory, accompanied by daughter, c/o sob. patient is alert and oriented x 4, verbally responsive and able to make needs known. on 02 @ 2lpm via nc, connected to the monitor and pulse ox. Denies any pain at this time. Kept comfortable, will continue to monitor accordingly.
[2018-04-19 11:35] LABS: BASOPHILS % (AUTO) 0.7 % (0.0-2.0); EOSINOPHILS % (AUTO) 2.1 % (0.0-6.0); HEMATOCRIT 31 % (33-45); HEMOGLOBIN 9.6 g/dL (11.5-14.8); LYMPHOCYTES # (AUTO) 0.9 /CMM (0.8-4.8); LYMPHOCYTES % (AUTO) 19.6 % (20.0-44.0); MEAN CORPUSCULAR HGB CONC 31 g/dl (31.0-36.0); MEAN CORPUSCULAR VOLUME 101 fL (82-100); MONOCYTES # (AUTO) 0.3 /CMM (0.1-1.30); MONOCYTES % (AUTO) 6.4 % (2.0-12.0); NEUTROPHILS # (AUTO) 3.1 /CMM (1.8-8.9); NEUTROPHILS % (AUTO) 71.2 % (43.0-81.0); PLATELET COUNT (AUTO) 247 /CMM (150-450); RED BLOOD CELL COUNT(AUTO) 3.08 MIL/uL (4.0-5.2); WHITE BLOOD COUNT (AUTO) 4.4 K/uL (4.3-11.0)
[2018-04-19 11:47] LABS: CALCIUM, SERUM 8.8 mg/dL (8.5-10.1); CARBON DIOXIDE 25 mmol/L (21-32); CHLORIDE 107 mmol/L (98-107); CREATININE 0.9 mg/dL (0.6-1.3); GLUCOSE 132 mg/dL (74-106); POTASSIUM 4.1 mmol/L (3.5-5.1); SODIUM SERUM 141 mmol/L (136-145); UREA NITROGEN, BLOOD 21 mg/dL (7-18)
[2018-04-19 12:00] LABS: ALANINE AMINOTRANSFERASE 16 U/L (12-78); ALBUMIN 3.2 g/dL (3.4-5.0); ALKALINE PHOSPHATASE 127 U/L (46-116); ASPARTATE AMINOTRANSFERASE 19 U/L (15-37); B-TYPE NATRIURETIC PEPTIDE 6111 PG/ML (0-125); BILIRUBIN,DIRECT 0.1 mg/dL (0.0-0.2); BILIRUBIN,TOTAL 0.5 mg/dL (0.2-1.0); TOTAL PROTEIN, SERUM 7.2 g/dL (6.4-8.2)
[2018-04-19] MEDS ORDERED: FURO-145 PO (12:19)
[2018-04-19] MEDS ORDERED: NITROGLYCERIN PACKET 1 GM PACKET TD ONE (12:30)
[2018-04-19] MEDS ORDERED: FUROSEMIDE 40 MG/4 ML VIAL IV ONE (12:30)
[2018-04-19] MEDS ORDERED: FUROSEMIDE 20 MG/2 ML VIAL ONE ×2 (12:48→22:59)
[2018-04-19] MEDS ORDERED: NITROGLYCERIN PACKET 1 GM PACKET ONE (12:48)
[2018-04-19] MEDS ORDERED: TRAZODONE 50 MG TABLET PO PRN (13:00)
[2018-04-19] MEDS ORDERED: busPIRone 5 MG TABLET PO PRN (13:00)
--- NOTE | 2018-04-19 14:00 | NUR ---
transferred to [facility] via acls protocol in no aparent distress.
[2018-04-19] MEDS ORDERED: ONDANSETRON HCL/PF 4 MG/2 ML VIAL IVP PRN (14:30)
[2018-04-19] MEDS ORDERED: FUROSEMIDE 20 MG/2 ML VIAL IV SCH (14:30)
--- NOTE | 2018-04-19 14:30 | NUR ---
Received patient in stable condition from ED via gurney. Vital signs stable.
[2018-04-19 15:00] VITALS: BP 131/85
--- NOTE | 2018-04-19 15:00 | NUR ---
MS child advocate Notes Patient awake, resting in bed. Alert and oriented x4, able to verbalize needs. No complaints of shortness of breath or pain at this time. Respirations even and unlabored on 2 L oxygen vai nasal cannula, no acute distress noted. Peripheral IV to the right AC 20 gauge, intact, patent and saline locked. Patient ambulates with steady gait and standby assist to bedside commode. Skin assessment completed, no skin issues noted. Orders received and placed per Dr. Sanon, medications faxed to pharmacy. Personal belongings accounted for upon arrival on unit, verified via form and placed in chart. Updated patient on current plan of care and safety measures. Patient verbalized understanding. Oriented patient to unit and room features, returned demonstration. Safety and fall precautions in place: bed in lowest and locked position, side rails up x2, bed alarm on, call light and personal possessions within reach. Patient verbalized understanding. Will continue to monitor and intervene as needed. Addendum: 04/19/18 at 2046 by BRITTANY ROGERS RN Correction: Jared MOYA Addendum: 04/19/18 at 2048 by BRITTANY ROGERS RN External spinning frame tender in place, rhythm uncontrolled a-fib at 101 bpm.
[2018-04-19 16:00] VITALS: BP 123/56
--- NOTE | 2018-04-19 18:00 | NUR ---
Dr. Cruz at bedside for evaluation of patient. Adjusted Lasix and other cardiac medications per plan of care. Verified with pharmacy. See physician note.
--- NOTE | 2018-04-19 19:00 | NUR ---
twisting department end finder Closing Notes Patient awake, resting in bed. Alert and oriented x4, able to verbalize needs. No complaints of shortness of breath or pain at this time. Respirations even and unlabored on 2 L oxygen vai nasal cannula, no acute distress noted. Peripheral IV to the right AC 20 gauge, intact, patent and saline locked. Patient ambulates with steady gait and standby assist to bedside commode. Updated patient on current plan of care and safety measures. Patient verbalized understanding. Safety and fall precautions in place: bed in lowest and locked position, side rails up x2, bed alarm on, call light and personal possessions within reach. Patient verbalized understanding. Will endorse to steward/stewardess night RN for continuity of care. Addendum: 04/19/18 at 2048 by BRITTANY ROGERS RN External cardiac nurse specialist in place, rhythm uncontrolled a-fib at 95 bpm.
--- NOTE | 2018-04-19 19:15 | NUR ---
TELE/RN NOTES RECEIVED PT. LYING IN BED. PT. IS AWAKE, ALERT AND ORIENTED X4. BREATHING EVEN AND UNLABORED ON 2LPM O2 VIA NC. NO SOB, RESPIRATORY DISTRESS OR COMPLAINTS OF PAIN NOTED AT THIS TIME. PT. WITH EXTERNAL OIL EXPLORATION ENGINEER PRESENT AND INTACT. CURRENT RHYTHM = AFIB HR 123. PT. WITH RIGHT AC 20 GAUGE IV SALINE LOCK PRESENT, PATENT AND INTACT. BED LOCKED AND IN LOWEST POSITION, SIDE RAILS UP X2, BED ALARM ON, CALL LIGHT WITHIN REACH, WILL CONTINUE TO MONITOR.
[2018-04-19 20:00] VITALS: BP 135/73
[2018-04-19] MEDS ORDERED: FUROSEMIDE 20 MG/2 ML VIAL IV ONE (20:00)
[2018-04-19] MEDS: METOPROLOL TARTRATE 50 MG TABLET PO SCH (20:57)
[2018-04-19] MEDS: APIXABAN 5 MG TABLET PO SCH (21:05)
[2018-04-19] MEDS: ACETAMINOPHEN 325 MG TABLET PO PRN (23:44)
[2018-04-20 04:00] VITALS: BP 123/54
--- NOTE | 2018-04-20 06:06 | NUR ---
TELE/RN NOTES PT. IS LYING IN BED RESTING. BREATHING EVEN AND UNLABORED ON 2LPM O2 VIA NC. NO SOB, RESPIRATORY DISTRESS OR COMPLAINTS OF PAIN NOTED AT THIS TIME. PT. WITH EXTERNAL STRAIGHT EDGER PRESENT AND INTACT. CURRENT RHYTHM = AFIB HR 103. PT. WITH RIGHT AC 20 GAUGE IV SALINE LOCK PRESENT, PATENT AND INTACT. ALL PT. NEEDS MET. BED LOCKED AND IN LOWEST POSITION, SIDE RAILS UP X2, BED ALARM ON, CALL LIGHT WITHIN REACH, WILL ENDORSE TO DAYSHIFT NURSE FOR CONTINUITY OF CARE.
[2018-04-20 07:33] LABS: BASOPHILS % (AUTO) 0.6 % (0.0-2.0); EOSINOPHILS % (AUTO) 1.7 % (0.0-6.0); HEMATOCRIT 30 % (33-45); HEMOGLOBIN 9.7 g/dL (11.5-14.8); LYMPHOCYTES # (AUTO) 1.2 /CMM (0.8-4.8); LYMPHOCYTES % (AUTO) 25.1 % (20.0-44.0); MEAN CORPUSCULAR HGB CONC 32 g/dl (31.0-36.0); MEAN CORPUSCULAR VOLUME 97 fL (82-100); MONOCYTES # (AUTO) 0.4 /CMM (0.1-1.30); MONOCYTES % (AUTO) 8.3 % (2.0-12.0); NEUTROPHILS # (AUTO) 2.9 /CMM (1.8-8.9); NEUTROPHILS % (AUTO) 64.3 % (43.0-81.0); PLATELET COUNT (AUTO) 242 /CMM (150-450); RED BLOOD CELL COUNT(AUTO) 3.13 MIL/uL (4.0-5.2); WHITE BLOOD COUNT (AUTO) 4.6 K/uL (4.3-11.0)
--- NOTE | 2018-04-20 07:52 | NUR ---
TELE/RN OPENING NOTE PATIENT IN BED IN STABLE CONDITION. A/O X 4. NO SIGNS OF ACUTE DISTRESS. NO COMPLAIN OF PAIN OR DISCOMFORT. ON TELE MONITOR NOTED WITH SINUS TACHY 105. ALL NEEDS ATTENDED TO. CALL LIGHT WITHIN REACH. WILL CONTINUE TO MONITOR TO ENSURE SAFETY.
[2018-04-20 07:56] LABS: CALCIUM, SERUM 8.9 mg/dL (8.5-10.1); CREATININE 0.9 mg/dL (0.6-1.3); MAGNESIUM 1.9 mg/dL (1.8-2.4); POTASSIUM 3.8 mmol/L (3.5-5.1)
[2018-04-20 08:00] VITALS: BP 113/73
[2018-04-20] MEDS: ESCITALOPRAM OXALATE (10 MG) 10 MG TABLET PO SCH (08:55)
[2018-04-20] MEDS: PANTOPRAZOLE 40 MG TABLET.DR PO SCH (08:55)
[2018-04-20] MEDS: POTASSIUM CHLORIDE 10 MEQ TABLET.SA PO SCH (08:55)
[2018-04-20] MEDS: METOPROLOL TARTRATE 50 MG TABLET PO SCH ×2 (08:55→16:43)
[2018-04-20] MEDS: DILTIAZEM HCL CD 240 MG PO SCH (08:56)
[2018-04-20] MEDS ORDERED: FUROSEMIDE 20 MG TABLET PO SCH (09:00)
--- NOTE | 2018-04-20 09:00 | NUR ---
TELE/RN SPOKE WITH KATEY FROM PHARM AND MADE AWARE PATIENT'S ELIQUIS DUE AT 9AM AND NOT AVAILABLE IN [place] PER KATEY THEY WILL SEND IT.
--- NOTE | 2018-04-20 10:20 | NUR ---
MS/RN SPOKE WITH KEN FROM PHARM AND NOTIFIED PATIENT'S ELIQUIS STILL NOT AVAILABLE AND SPOKE WITH KATEY EARLIER. PER KEN WILL SEND IT UP.
[2018-04-20] MEDS: APIXABAN 5 MG TABLET PO SCH ×2 (10:28→16:43)
[2018-04-20] MEDS: ACETAMINOPHEN 325 MG TABLET PO PRN (12:28)
[2018-04-20 16:00] VITALS: BP 114/74
--- NOTE | 2018-04-20 18:25 | NUR ---
MS/RN CLOSING NOTE PATIENT IN BED IN STABLE CONDITION. A/O X 4. NO SIGNS OF ACUTE DISTRESS. NO COMPLAIN OF PAIN OR DISCOMFORT. ON TELE MONITOR NOTED WITH AFIB 109. ALL NEEDS ATTENDED TO. CALL LIGHT WITHIN REACH. WILL ENDORSE TO NEXT SHIFT FOR CONTINUITY OF CARE.
--- NOTE | 2018-04-20 19:10 | NUR ---
TELE/MS RN NOTE RECEIVED PT IN BED IN STABLE CONDITION. PT IS A/O X 4. BREATHING EVEN AND UNLABORED WITH NO SIGNS OF ACUTE DISTRESS OR SOB NOTED. NO COMPLAINTS OF PAIN OR DISCOMFORT AT THIS TIME. PT ON TELE MONITOR NOTED WITH AFIB 100. CALL LIGHT WITHIN REACH. WILL CONTINUE TO MONITOR.
[2018-04-20 20:00] VITALS: BP 95/53
--- NOTE | 2018-04-20 21:15 | NUR ---
TELE/MS RN NOTE CALLED DR. ANTON'S OFF TO INFORM ABOUT PATIENT'S BLOOD CULTURE RESULT GRAM + COCCI , AND LEFT MESSAGE. AWAITING CALL BACK FROM
[2018-04-21] VITALS: BP 105/60
[2018-04-21 04:00] VITALS: BP 111/69
--- NOTE | 2018-04-21 06:23 | NUR ---
TELE/MS RN NOTE PT IN BED IN STABLE CONDITION WITH BREATHING EVEN AND UNLABORED WITH NO S/S OF ACUTE DISTRESS OR SOB NOTED. PT IS A/O X 4 AND ABLE TO MAKE NEEDS KNOWN. NO COMPLAINTS OF PAIN OR DISCOMFORT AT THIS TIME. PT ON TELE MONITOR NOTED WITH AFIB 108. POSSIBLE D/C HOME IF HR OK PER DR. GODDARD. CALL LIGHT WITHIN REACH. WILL ENDORSE TO ON COMING NURSE FOR CONTINUATION OF CARE.
[2018-04-21 06:25] LABS: BASOPHILS % (AUTO) 0.7 % (0.0-2.0); EOSINOPHILS % (AUTO) 1.2 % (0.0-6.0); HEMATOCRIT 30 % (33-45); HEMOGLOBIN 9.8 g/dL (11.5-14.8); LYMPHOCYTES # (AUTO) 1.1 /CMM (0.8-4.8); LYMPHOCYTES % (AUTO) 25.4 % (20.0-44.0); MEAN CORPUSCULAR HGB CONC 32 g/dl (31.0-36.0); MEAN CORPUSCULAR VOLUME 97 fL (82-100); MONOCYTES # (AUTO) 0.5 /CMM (0.1-1.30); MONOCYTES % (AUTO) 11.9 % (2.0-12.0); NEUTROPHILS # (AUTO) 2.6 /CMM (1.8-8.9); NEUTROPHILS % (AUTO) 60.8 % (43.0-81.0); PLATELET COUNT (AUTO) 213 /CMM (150-450); RED BLOOD CELL COUNT(AUTO) 3.13 MIL/uL (4.0-5.2); WHITE BLOOD COUNT (AUTO) 4.2 K/uL (4.3-11.0)
[2018-04-21 06:46] LABS: CALCIUM, SERUM 9.2 mg/dL (8.5-10.1); CREATININE 0.9 mg/dL (0.6-1.3); POTASSIUM 3.8 mmol/L (3.5-5.1)
--- NOTE | 2018-04-21 07:48 | NUR ---
SHELLFISH HARVESTER OPENING NOTES RECEIVED PATIENT IN STABLE CONDITION. IN NO APPARENT DISTRESS. BEDSIDE RAILS ARE UPX2. BED IS LOCKED AND LOWERED. CALL LIGHT IS WITHIN REACH. IV LINE IS INTACT AND PATENT. WILL CONTINUE TO MONITOR PATIENT.
[2018-04-21] MEDS: PANTOPRAZOLE 40 MG TABLET.DR PO SCH (08:10)
[2018-04-21] MEDS: POTASSIUM CHLORIDE 10 MEQ TABLET.SA PO SCH (08:10)
[2018-04-21] MEDS: ESCITALOPRAM OXALATE (10 MG) 10 MG TABLET PO SCH (08:11)
[2018-04-21] MEDS: DILTIAZEM HCL CD 240 MG PO SCH (08:11)
[2018-04-21] MEDS: METOPROLOL TARTRATE 50 MG TABLET PO SCH ×2 (08:11→16:36)
[2018-04-21] MEDS: APIXABAN 5 MG TABLET PO SCH ×2 (08:13→16:31)
[2018-04-21 08:31] VITALS: BP 113/56
[2018-04-21 12:00] VITALS: BP 102/53
--- NOTE | 2018-04-21 12:55 | NUR ---
INFORMED DR. ANTON THAT PATIENT'S BLOOD CULTURE CAME BACK WITH GRAM POSITIVE COCCI. AWAITING ORDERS.
[2018-04-21] MEDS ORDERED: FEE PK DOSING 1 MIN EA MC ONE (13:29)
[2018-04-21] MEDS: VANCOMYCIN 0.75 GM in IV D5W 250 ML IV SCH (14:21)
[2018-04-21] MEDS: ACETAMINOPHEN 325 MG TABLET PO PRN ×2 (14:28→23:15)
[2018-04-21 16:00] VITALS: BP 103/68
--- NOTE | 2018-04-21 18:41 | NUR ---
MS RN CLOSING NOTES PATIENT IS IN STABLE CONDITION. IN NO APPARENT DISTRESS. BEDSIDE RAILS ARE UPX2. BED IS LOCKED AND LOWERED. CALL LIGHT IS WITHIN REACH. IV LINE IS INTACT AND PATENT. ALL NEEDS WERE MET. WILL ENDORSE CARE TO HOSPITAL PLAN ADMINISTRATOR NURSE FOR AYE.
--- NOTE | 2018-04-21 19:10 | NUR ---
TELE/MS RN NOTE RECEIVED PT IN BED IN STABLE CONDITION. PT IS A/O X 4 AND ABLE TO MAKE NEEDS KNOWN. BREATHING EVEN AND UNLABORED WITH NO SIGNS OF ACUTE DISTRESS OR SOB NOTED. NO COMPLAINTS OF PAIN OR DISCOMFORT AT THIS TIME. RAC #20G PATENT AND INTACT. CALL LIGHT WITHIN REACH. WILL CONTINUE TO MONITOR.
[2018-04-21 20:00] VITALS: BP 114/53
[2018-04-22] MEDS: VANCOMYCIN 0.75 GM in IV D5W 250 ML IV SCH ×2 (01:26→15:18)
--- NOTE | 2018-04-22 07:01 | NUR ---
MS RN NOTE PT IN BED SLEEPING, IN STABLE CONDITION, EASILY AWOKEN VERBALLY OR BY TOUCH. PT IS A/O X 4 AND ABLE TO MAKE NEEDS KNOWN. BREATHING EVEN AND UNLABORED WITH NO SIGNS OF ACUTE DISTRESS OR SOB NOTED. NO COMPLAINTS OF PAIN OR DISCOMFORT AT THIS TIME. CALL LIGHT WITHIN REACH. WILL ENDORSE TO ONCOMING NURSE FOR CONTINUATION OF CARE.
[2018-04-22 07:05] LABS: BASOPHILS % (AUTO) 0.5 % (0.0-2.0); EOSINOPHILS % (AUTO) 1.8 % (0.0-6.0); HEMATOCRIT 29 % (33-45); HEMOGLOBIN 9.1 g/dL (11.5-14.8); LYMPHOCYTES # (AUTO) 1.1 /CMM (0.8-4.8); LYMPHOCYTES % (AUTO) 28.3 % (20.0-44.0); MEAN CORPUSCULAR HGB CONC 32 g/dl (31.0-36.0); MEAN CORPUSCULAR VOLUME 98 fL (82-100); MONOCYTES # (AUTO) 0.5 /CMM (0.1-1.30); MONOCYTES % (AUTO) 12.5 % (2.0-12.0); NEUTROPHILS # (AUTO) 2.3 /CMM (1.8-8.9); NEUTROPHILS % (AUTO) 56.9 % (43.0-81.0); PLATELET COUNT (AUTO) 208 /CMM (150-450); RED BLOOD CELL COUNT(AUTO) 2.92 MIL/uL (4.0-5.2)
[2018-04-22 07:11] LABS: CALCIUM, SERUM 8.7 mg/dL (8.5-10.1); CREATININE 1.1 mg/dL (0.6-1.3); MAGNESIUM 2.1 mg/dL (1.8-2.4)
--- NOTE | 2018-04-22 07:20 | NUR ---
rn opening notes patient in stable condition. not in any form of distress, no sob. denied pain or discomfort at this time. kept patient safe and comfortable. bed in low/locked position, siderails upx2, call light inreach. will continue to monitor accordingly
[2018-04-22 08:00] VITALS: BP 121/64
[2018-04-22] MEDS: METOPROLOL TARTRATE 50 MG TABLET PO SCH ×2 (08:35→17:00)
[2018-04-22] MEDS: POTASSIUM CHLORIDE 10 MEQ TABLET.SA PO SCH (08:36)
[2018-04-22] MEDS: DILTIAZEM HCL CD 240 MG PO SCH (08:36)
[2018-04-22] MEDS: ESCITALOPRAM OXALATE (10 MG) 10 MG TABLET PO SCH (08:36)
[2018-04-22] MEDS: APIXABAN 5 MG TABLET PO SCH ×2 (08:37→17:58)
[2018-04-22] MEDS: PANTOPRAZOLE 40 MG TABLET.DR PO SCH (08:43)
[2018-04-22] MEDS: ACETAMINOPHEN ES 500 MG TABLET PO PRN ×2 (15:55→22:20)
[2018-04-22 16:00] VITALS: BP 114/46
--- NOTE | 2018-04-22 19:20 | NUR ---
rn closing notes patient in stable condition. all needs attended and provided. all due medications administered as ordered. kept patient safe and comfortable. bed in low/locked position, siderails upx2, hob elevated, call light in reach. endorsed to night rn for mesha.
--- NOTE | 2018-04-22 19:30 | NUR ---
MS ANDREW INITIAL NOTES RECEIVED PT IN BED AWAKE AND ALERT WATCHING TV AT THIS TIME WITHOUT ANY ACUTE DISTRESS NOTED. SKIN WARM AND DRY TO TOUCH. DENIES ANY PAIN OR ANY DISCOMFORT AT THIS TIME AND AWARE THAT SHE WILL GOING TOMORROW. KEPT HER WARM AND COMFORTABLE AT ALL TIMES. PLACE CALL LIGHT AT REACH. WILL CONTINUE MONITORING.
[2018-04-22 20:05] VITALS: BP 111/60
--- NOTE | 2018-04-22 22:20 | NUR ---
MS ANDREW NOTES' PT CALLED AND COMPLAINING OF HEADACHE AND ASKING FOR TYLENOL . TYLENOL 500 MG PO GIVEN ORDERED. SNACKS ALSO SERVED. WILL CONTINUE MONITORING. PLACE CALL LIGHT AT REACH,
[2018-04-22] MEDS ORDERED: MAG HYDROX/AL HYDROX/SIMETH 30 ML UDC PO PRN (23:00)
--- NOTE | 2018-04-22 23:05 | NUR ---
MS ANDREW NOTES PT COMPLAINING OF UPSET STOMACH , MAALOX PO GIVEN ORDERED. HEADACHE RELIEVED BY TYLENOL PER STATED. WILL CONTINUE MONITORING.
--- NOTE | 2018-04-23 01:26 | NUR ---
MS AIDS SOCIAL WORKER NOTES PT SLEEPING COMFORTABLY IN BED , RESPIRATION EVEN AND NON-LABORED NOT IN ANY ACUTE DISTRESS NOTED. KEPT HER WARM AND COMFORTABLE AT ALL TIMES. PLACE CALL LIGHT AT REACH.
[2018-04-23] MEDS: VANCOMYCIN 0.75 GM in IV D5W 250 ML IV SCH (02:10)
--- NOTE | 2018-04-23 02:19 | NUR ---
Covering Marci, Primary nurse for IV antibiotic.
[2018-04-23 06:35] LABS: CALCIUM, SERUM 8.7 mg/dL (8.5-10.1); CREATININE 0.9 mg/dL (0.6-1.3); POTASSIUM 4.4 mmol/L (3.5-5.1)
--- NOTE | 2018-04-23 07:23 | NUR ---
MS ASSET ADMINISTRATOR CLOSING NOTES PT BACK TO REST. STABLE EDIN THE NIGHT AND NO SIGNS OF ANY ACUTE DISTRESS NOTED. ALL DUE MEDS GIVEN AND ALL NEEDS MET. KEPT HER WARM AND COMFORTABLE AT ALL TIMES. ON SEMI FOWLERS POSITION WITH SIDE RAILS X3 UP. BED IN LOW AND LOCK IN POSITION . ENDORSE TO AM NURSE FOR CONTINUITY OF CARE. PLACE CALL LIGHT AT REACH.
[2018-04-23 08:00] VITALS: BP 122/63
--- NOTE | 2018-04-23 08:00 | NUR ---
m/s water/wastewater project manager: initial assessment received pt in bed awake, a/ox4; ambulatory. pt verbalized wanting to go home today. pt feeling much better. instructed to call for assistance. will continue to monitor.
[2018-04-23 08:10] VITALS: BP 122/63
[2018-04-23] MEDS: DILTIAZEM HCL CD 240 MG PO SCH (08:19)
[2018-04-23 08:20] VITALS: BP 122/63
[2018-04-23] MEDS: PANTOPRAZOLE 40 MG TABLET.DR PO SCH (08:20)
[2018-04-23] MEDS: APIXABAN 5 MG TABLET PO SCH (08:20)
[2018-04-23] MEDS: ESCITALOPRAM OXALATE (10 MG) 10 MG TABLET PO SCH (08:20)
[2018-04-23] MEDS: POTASSIUM CHLORIDE 10 MEQ TABLET.SA PO SCH (08:20)
[2018-04-23] MEDS: METOPROLOL TARTRATE 50 MG TABLET PO SCH (08:20)
[2018-04-23] MEDS ORDERED: FUROSEMIDE 20 MG TABLET PO ONE (09:30)
--- NOTE | 2018-04-23 10:00 | NUR ---
m/s measurement operator: cardio seen by dr. paez with order. order acknowledged. pt still wants to go home today, awaiting for dr. camacho.
--- NOTE | 2018-04-23 12:00 | NUR ---
M/S SEWER PIPE PRESS OPERATOR: NOTES IV GOT DISLODGED PER PT, NO BLEEDING NOTED. PT STILL WANTS TO GO HOME TODAY, AWAITING FOR DR. ANTON.
--- NOTE | 2018-04-23 13:00 | NUR ---
m/s senior market research analyst: md visit seen by dr. camacho with order to d'c home. order acknowledged.
--- NOTE | 2018-04-23 13:20 | NUR ---
m/s nurse staff industrial: notes discharged instructions given to pt and verbalized understanding. daughter notified and made aware and will pick her up within 30mins. pt made aware. pt getting ready.
--- NOTE | 2018-04-23 14:05 | NUR ---
m/s rd manager: discharged discharged home accompanied by daughter via private car in stable condition with all valuables/belongings.
== END 2018-04-23 14:00 | disposition home or self-care (01) | DRG 292 ==
LOC: ER 11:10 → TELE 13:36 → MED 04-21 15:34
PROVIDERS: ADMIT Legal Medicine; ATTEND Legal Medicine
DX: I11.0 Hypertensive heart disease with heart failure (principal); D68.59 Other primary thrombophilia; I50.33 Acute on chronic diastolic (congestive) heart failure; J44.9 Chronic obstructive pulmonary disease, unspecified; Z87.11 Personal history of peptic ulcer disease; Z79.899 Other long term (current) drug therapy; Z87.891 Personal history of nicotine dependence; Z79.01 Long term (current) use of anticoagulants; Z90.49 Acquired absence of other specified parts of digestive tract; Z88.1 Allergy status to other antibiotic agents; Z88.0 Allergy status to penicillin; Z88.8 Allergy status to other drugs, medicaments and biological substances; F41.9 Anxiety disorder, unspecified; I48.2 Chronic atrial fibrillation
CPT/HCPCS: 36415; 71045-TC; 80048-TC; 80076-TC; 83605-TC; 83735-TC; 83880; 84484-TC; 85025-TC; 85730-TC; 87040-TC; 87081-TC; G0378; J1940; J3370; J7050; J7060

== ENCOUNTER 2018-05-06 11:01 | Emergency (ER) | payer MEDICARE, OTHER ==
[~2018-05-06] VITALS: Ht 175.3 cm; Wt 58.5 kg
[~2018-05-06 11:01] MED LIST changes: -Levofloxacin (250MG) PO
--- NOTE | 2018-05-06 11:15 | NUR ---
ASSUMED CARE FOR THIS PT; PT C/O LT WRIST PAIN S/P GLF; PT AAOX4, PT ON MONITOR, VSS, NAD NOTED, MD AT BEDSIDE FOR EVAL
[2018-05-06 11:37] LABS: BASOPHILS % (AUTO) 0.5 % (0.0-2.0); EOSINOPHILS % (AUTO) 0.6 % (0.0-6.0); HEMATOCRIT 34 % (33-45); HEMOGLOBIN 10.9 g/dL (11.5-14.8); MEAN CORPUSCULAR HGB CONC 32 g/dl (31.0-36.0); MEAN CORPUSCULAR VOLUME 96 fL (82-100); MONOCYTES # (AUTO) 0.6 /CMM (0.1-1.30); MONOCYTES % (AUTO) 7.2 % (2.0-12.0); NEUTROPHILS # (AUTO) 6.6 /CMM (1.8-8.9); NEUTROPHILS % (AUTO) 79.7 % (43.0-81.0); PLATELET COUNT (AUTO) 232 /CMM (150-450); RED BLOOD CELL COUNT(AUTO) 3.54 MIL/uL (4.0-5.2); WHITE BLOOD COUNT (AUTO) 8.2 K/uL (4.3-11.0)
[2018-05-06 11:50] LABS: CALCIUM, SERUM 9.3 mg/dL (8.5-10.1); CREATININE 1.7 mg/dL (0.6-1.3); POTASSIUM 3.5 mmol/L (3.5-5.1)
[2018-05-06] MEDS ORDERED: IV NS 0.9% 1,000 ML BAG IV ONE (13:30)
[2018-05-06 14:52] VITALS: BP 110/65
--- NOTE | 2018-05-06 14:54 | NUR ---
PT OK TO D/C HOME; PT AWAKE, ALERT, DENIES PAIN. PT SIGNED D/C INSTRUCTIONS, VERBALIZES UNDERSTANDING. PT TO BE PICKED UP BY DAUGHTER. ETA 20MINS
== END 2018-05-06 15:17 | disposition home or self-care (01) ==
LOC: ER 11:05
DX: S62.102A Fracture of unspecified carpal bone, left wrist, initial encounter for closed fracture (principal); S00.83XA Contusion of other part of head, initial encounter; D64.9 Anemia, unspecified; N17.9 Acute kidney failure, unspecified; I10 Essential (primary) hypertension; I48.91 Unspecified atrial fibrillation; F41.9 Anxiety disorder, unspecified; Z98.890 Other specified postprocedural states; Z90.49 Acquired absence of other specified parts of digestive tract; Z88.0 Allergy status to penicillin; Z88.2 Allergy status to sulfonamides; Z88.8 Allergy status to other drugs, medicaments and biological substances; Z88.1 Allergy status to other antibiotic agents; W18.39XA Other fall on same level, initial encounter; Y93.89 Activity, other specified; Y92.89 Other specified places as the place of occurrence of the external cause; Y99.8 Other external cause status
CPT/HCPCS: 29125; 36415; 70450; 71045; 72125; 73110; 80048; 82550; 85025; 85730; 99284; A4606; J7030

== ENCOUNTER 2018-05-10 09:53 | Inpatient (IN) | payer MEDICARE, OTHER ==
[~2018-05-10] VITALS: Ht 176.5 cm; Wt 58.8 kg
--- NOTE | 2018-05-10 10:00 | NUR ---
BIB DAUGHTER, C/O DIARRHEA x 2 DAYS, x 3 THIS MORNING, to er bed 4, hooked to monitor, changed to [place], awaiting md barnes
--- NOTE | 2018-05-10 10:04 | NUR ---
DR FREIRE AT BEDSIDE FOR EVAL.
[2018-05-10] MEDS ORDERED: IV NS 0.9% 1,000 ML BAG IV ONE (10:30)
[2018-05-10 10:34] LABS: BASOPHILS # (AUTO) 0.1 /CMM (0.0-0.2); BASOPHILS % (AUTO) 0.6 % (0.0-2.0); EOSINOPHILS % (AUTO) 1.3 % (0.0-6.0); HEMATOCRIT 34 % (33-45); HEMOGLOBIN 10.4 g/dL (11.5-14.8); LYMPHOCYTES # (AUTO) 1.2 /CMM (0.8-4.8); LYMPHOCYTES % (AUTO) 15.3 % (20.0-44.0); MEAN CORPUSCULAR HGB CONC 31 g/dl (31.0-36.0); MEAN CORPUSCULAR VOLUME 98 fL (82-100); MONOCYTES # (AUTO) 0.5 /CMM (0.1-1.30); NEUTROPHILS # (AUTO) 6.1 /CMM (1.8-8.9); NEUTROPHILS % (AUTO) 76.8 % (43.0-81.0); PLATELET COUNT (AUTO) 213 /CMM (150-450); RED BLOOD CELL COUNT(AUTO) 3.44 MIL/uL (4.0-5.2)
[2018-05-10] MEDS ORDERED: DILT180C66 PO (10:44)
[2018-05-10] MEDS ORDERED: TRAM50TA2 PO (10:44)
[2018-05-10] MEDS ORDERED: LOSA50TA39 PO (10:44)
[2018-05-10] MEDS ORDERED: ERGO500014 PO (10:44)
[2018-05-10 10:55] LABS: CREATININE 1.7 mg/dL (0.6-1.3); POTASSIUM 3.6 mmol/L (3.5-5.1)
[2018-05-10 11:03] LABS: ALBUMIN 3.4 g/dL (3.4-5.0); BILIRUBIN,DIRECT 0.1 mg/dL (0.0-0.2); BILIRUBIN,TOTAL 0.4 mg/dL (0.2-1.0); TOTAL PROTEIN, SERUM 7.1 g/dL (6.4-8.2)
--- NOTE | 2018-05-10 11:03 | NUR ---
CALLED DR ANTON'S OFFICE, HE WILL CALL BACK
--- NOTE | 2018-05-10 11:10 | NUR ---
URINE SAMPLE SENT TO LAB
[2018-05-10 11:12] LABS: APPEARANCE,URINE Clear (CLEAR); BILIRUBIN,URINE Negative (NEGATIVE); BLOOD, URINE Trace-lysed Ery/uL (NEGATIVE); COLOR,URINE Yellow (YELLOW); KETONES,URINE Negative (NEGATIVE); LEUKOCYTE ESTERASE ,URINE Negative (NEGATIVE); NITRITE, URINE Negative (NEGATIVE); PROTEIN,URINE Negative (NEGATIVE); UGLUCOSE Negative (NEGATIVE); UROBILINOGEN,URINE 0.2 EU/dL (0.2)
--- NOTE | 2018-05-10 11:15 | NUR ---
FECAL SAMPLE SENT TO LAB
[2018-05-10 11:16] LABS: BACTERIA,URINE None seen /HPF (None Seen); RBC,URINE 0-2 /HPF (0-2); SQUAMOUS EPITHELIAL CELL,UR Few /HPF (None Seen); WBC,URINE 0-2 /HPF (0-3)
--- NOTE | 2018-05-10 11:16 | NUR ---
KARL FLOYD CALLED FOR MED SURG BED
--- NOTE | 2018-05-10 11:38 | NUR ---
MS BED GIVEN 325-1
--- NOTE | 2018-05-10 11:51 | NUR ---
REPORT GIVEN TO STEPH MOYA OF MED-SURG UNIT
--- NOTE | 2018-05-10 12:30 | NUR ---
MS INFORMATION SYSTEMS ARCHITECT NOTE RECEIVED PATIENT FROM ER VIA [place]. PATIENT IS ALERT ORIENTED X4. ON ROOM AIR, TOLERATING WELL. IN NO APPARENT DISTRESS OR DISCOMFORT AT THIS TIME. RESPIRATIONS EVEN AND UNLABORED. DENIES PAIN AND SOB. PATIENT IS STABLE. VITAL SIGNS STABLE. ADMITTED BY DR. ANTON FOR DEHYDRATION/DIARRHEA. PATIENT IS ABLE TO COMMUNICATE NEEDS. PHYSICAL ASSESSMENT PERFORMED, HISTORY OBTAINED FROM PATIENT. SKIN ASSESSED, PHOTOS TAKEN PLACED IN CHART. LEFT FA 20G IVC SL, PATENT AND INTACT. BELONGING CHECKED AND RECORDER IN THE CHART. PATIENT WAS MADE COMFORTABLE IN BED. SAFETY MEASURES APPLIED, BED IN LOW LOCKED POSITION, SIDE RAILS UP X2, CALL LIGHT WITHIN EASY REACH. ORIENTED TO USE OF CALL LIGHT AND TO THE ROOM. WILL CARRY OUT ADMISSION ORDER AND CONTINUE TO MONITOR.
[2018-05-10] MEDS ORDERED: ONDANSETRON HCL/PF 4 MG/2 ML VIAL IV PRN (14:00)
--- NOTE | 2018-05-10 14:00 | NUR ---
ALL ORDERS PLACED BY DR. ANTON IN THE CHART WAS IMPUTED IN THE SYSTEM. NOTED AND CARRIED OUT.
[2018-05-10] MEDS: TRAMADOL HCL 50 MG TABLET PO PRN ×2 (14:11→20:36)
[2018-05-10 15:00] VITALS: BP 103/63
[2018-05-10] MEDS: DILTIAZEM HCL CD 240 MG PO SCH (15:00)
[2018-05-10 16:00] VITALS: BP 90/65
[2018-05-10] MEDS: METOPROLOL TARTRATE 50 MG TABLET PO SCH (16:56)
[2018-05-10] MEDS: APIXABAN 5 MG TABLET PO SCH (16:56)
[2018-05-10] MEDS ORDERED: METOPROLOL TARTRATE 50 MG TABLET PO SCH (17:00)
--- NOTE | 2018-05-10 18:36 | NUR ---
MS RN CLOSING NOTE PATIENT IN BED. SLEEPING, EASILY AROUSED WITH VERBAL STIMULI. ORIENTED X4. ON ROOM AIR, TOLERATING WELL. IN NO APPARENT DISTRESS OR DISCOMFORT AT THIS TIME. RESPIRATIONS EVEN AND UNLABORED. DENIES PAIN AND SOB. PATIENT IS ABLE TO COMMUNICATE NEEDS. RIGHT FA 20G IVC WITH FLUIDS RUNNING AT 70ML/HR. PATIENT KEPT CLEAN AND COMFORTABLE. ALL NEEDS ATTENDED, ORDERS RENDERED. SAFETY MEASURES IN PLACE, BED IN LOW LOCKED POSITION, SIDE RAILS UP X2, CALL LIGHT WITHIN EASY REACH. WILL ENDORSE TO PM NURSE FOR AYE.
[2018-05-10 20:00] VITALS: BP 95/35
--- NOTE | 2018-05-10 20:15 | NUR ---
RECIEVED ALERT AND ORIENTATED WAETING HER DINNER LEFT ARM BIAS WRAPPED SPLINT ELEVATED
[2018-05-10] MEDS: ACETAMINOPHEN 325 MG TABLET PO PRN (23:33)
--- NOTE | 2018-05-11 02:30 | NUR ---
RN MS NOTES RECEIVED AYE FROM GRIFFIN ROUSSEAU. PATIENT IN BED. IN STABLE CONDITION. BREATHING EVEN AND UNLABORED. NO COMPLAINTS OF PAIN OR DISCOMFORT. NO FACIAL GRIMACING. IV ON RIGHT FA INTACT AND PATENT. DRESSING ON LEFT ARM INTACT AND DRY. ALL OTHER NEEDS ATTENDED TO. SAFETY MEASURES IN PLACE. CALL LIGHT WITHIN REACH. WILL CONTINUE TO MONITOR.
[2018-05-11] MEDS: TRAMADOL HCL 50 MG TABLET PO PRN ×3 (02:45→21:33)
[2018-05-11] MEDS: ACETAMINOPHEN 325 MG TABLET PO PRN ×2 (06:42→13:29)
--- NOTE | 2018-05-11 06:59 | NUR ---
RN MS CLOSING NOTES PATIENT RESTING IN BED. NO ACUTE CHANGES. NO DISTRESS. BREATHING EVEN AND UNLABORED. NO SOB NOTED. TOLERATING ROOM AIR. WITH COMPLAINTS OF GENERALIZED PAIN - TYLENOL 650MG PO GIVEN AT 0642. IV ON RIGHT FA INTACT AND PATENT. SKIN DRY AND WARM TO TOUCH. AFEBRILE. DRESSING ON LEFT ARM INTACT. ALL OTHER NEEDS ATTENDED TO. KEPT CLEAN DRY AND COMFORTABLE. SAFETY MEASURES IN PLACE. CALL LIGHT WITHIN REACH. WILL ENDORSE TO ONCOMING NURSE FOR AYE.
[2018-05-11 08:00] VITALS: BP 107/43
--- NOTE | 2018-05-11 08:26 | NUR ---
MS RN OPENING NOTES RECEIVED PT RESTING IN BED. AWAKE, A/O X4. TOLERATING RA, WITHOUT ANY SIGNS OF ACUTE DISTRESS NOTED. IVF OF D5 NS 70 ML/HR TO RFA G20, INTACT AND PATENT. PT STATED CONCERN IF SHE COULD TAKE OFF THE BANDAGE ON HER LEFT ARM. RN ANSWERED THAT MD WILL DO THEIR ROUNDS FIRST AND WILL UPDATE PT WITH THE PLAN. PT DENIES ANY PAIN AT THIS MOMENT. PT UNDERSTOOD AND DENIES OTHER QUESTIONS AT THIS MOMENT. BED KEPT IN LOWEST, LOCKED POSITION. CALL LIGHT KEPT WITHIN REACH. WILL CONTINUE PLAN OF CARE.
[2018-05-11] MEDS: PANTOPRAZOLE 40 MG TABLET.DR PO SCH (08:32)
[2018-05-11] MEDS ORDERED: PANTOPRAZOLE 40 MG TABLET.DR PO SCH (09:00)
[2018-05-11] MEDS: METOPROLOL TARTRATE 50 MG TABLET PO SCH ×2 (09:00→17:04)
[2018-05-11] MEDS ORDERED: LOSARTAN POTASSIUM 50 MG TABLET PO SCH (09:00)
[2018-05-11] MEDS: DILTIAZEM HCL CD 240 MG PO SCH (09:00)
[2018-05-11] MEDS ORDERED: DILTIAZEM HCL CD 180 MG PO SCH (09:00)
[2018-05-11 09:05] LABS: BASOPHILS % (AUTO) 0.7 % (0.0-2.0); EOSINOPHILS % (AUTO) 0.7 % (0.0-6.0); HEMATOCRIT 28 % (33-45); HEMOGLOBIN 9.1 g/dL (11.5-14.8); LYMPHOCYTES # (AUTO) 1.2 /CMM (0.8-4.8); LYMPHOCYTES % (AUTO) 23.2 % (20.0-44.0); MEAN CORPUSCULAR HGB CONC 33 g/dl (31.0-36.0); MEAN CORPUSCULAR VOLUME 95 fL (82-100); MONOCYTES # (AUTO) 0.4 /CMM (0.1-1.30); MONOCYTES % (AUTO) 7.3 % (2.0-12.0); NEUTROPHILS # (AUTO) 3.5 /CMM (1.8-8.9); NEUTROPHILS % (AUTO) 68.1 % (43.0-81.0); PLATELET COUNT (AUTO) 140 /CMM (150-450); RED BLOOD CELL COUNT(AUTO) 2.96 MIL/uL (4.0-5.2); WHITE BLOOD COUNT (AUTO) 5.1 K/uL (4.3-11.0)
[2018-05-11] MEDS: IV D5/ 0.9% NACL 1,000 ML IV PRN (09:10)
[2018-05-11 09:11] LABS: CALCIUM, SERUM 8.4 mg/dL (8.5-10.1); CREATININE 1.2 mg/dL (0.6-1.3); POTASSIUM 2.9 mmol/L (3.5-5.1)
[2018-05-11 09:18] LABS: ALBUMIN 2.9 g/dL (3.4-5.0); BILIRUBIN,TOTAL 0.3 mg/dL (0.2-1.0)
[2018-05-11] MEDS: ESCITALOPRAM OXALATE (10 MG) 10 MG TABLET PO SCH (09:31)
[2018-05-11] MEDS: APIXABAN 5 MG TABLET PO SCH ×2 (09:31→17:03)
[2018-05-11] MEDS ORDERED: POTASSIUM CHLORIDE 20 MEQ POWDER PACKET GT ONE (10:00)
[2018-05-11] MEDS: POTASSIUM CL. PREMIX PERIPHER. 50 ML IV SCH ×4 (10:08→12:30)
[2018-05-11] MEDS ORDERED: POTASSIUM CHLORIDE 20 MEQ TAB.PRT.SR PO ONE ×2 (14:00→14:30)
--- NOTE | 2018-05-11 14:01 | NUR ---
MS RN NOTES PT HAS POTASSIUM OF 2.9 THIS MORNING. REPLACED WITH POTASSIUM IV 10MEQS X4 BAGS. PT COMPLAINED OF BURNING SENSATION IN BETWEEN OF THE 3RD BAG AND REFUSED TO HAVE IT. PT GAVE A LITTLE TIME TO REST AND TRIED A NEW PIV LINE. 3RD BAG OF K+ STILL BURNING PER PT. SHE REQUESTED FOR PILL INSTEAD. PHARMACY MADE AWARE AND RN PLACED NEW ORDER FOR PO. RETURNED 4TH BAG OF POTASSIUM IV 10MEQ TO PHARMACY.
[2018-05-11 16:00] VITALS: BP 115/65
--- NOTE | 2018-05-11 18:40 | NUR ---
MS RN CLOSING NOTES PT RESTING IN BED. A/O X4. TOLERATING RA, BREATHING EVEN AND UNLABORED. DENIES PAIN AT THIS MOMENT. ABLE TO MAKE NEEDS KNOWN. IVF OF D5 NS AT 70ML/HR TO RFA G22, TOLERATING WELL. PAIN MANAGEMENT OF ULTRAM AT 1119 AND TYLENOL AT 1329 FOR GENERALIZED PAIN EARLIER AND VERBALIZED EFFECTIVENESS. PT MADE AWARE REGARDING ORTHO MD CONSULT FOR TONIGHT WITH DR HSU. ALL NEEDS ATTENDED. BED IN LOWEST, LOCKED POSITION WITH SR X2. CALL LIGHT WITHIN REACH. WILL ENDORSE TO NEXT SHIFT NURSE FOR AYE.
[2018-05-11 20:00] VITALS: BP 100/58
--- NOTE | 2018-05-11 20:00 | NUR ---
MS RN NOTES RECEIVED PATIENT AWAKE IN BED AND WATCHING TV WITH NO DISTRESS NOTED. CALL LIGHT WITHIN REACH. PERIPHERAL LINE INTACT AND PATENT. SOFT CAST ON LEFT ARM INTACT AND NOTED WITH GOOD CIRCULATION. NO C/O PAIN OR DISCOMFORT. ENCOURAGED USE OF CALL LIGHT FOR ASSISTANCE AND VERBALIZED GOOD UNDERSTANDING. BED IN LOW LOCK SETTING. ALL BELONGINGS KEPT NEAR BEDSIDE. WILL CONTINUE TO MONITOR.
[2018-05-12] MEDS: IV D5/ 0.9% NACL 1,000 ML IV PRN (02:57)
[2018-05-12] MEDS: ACETAMINOPHEN 325 MG TABLET PO PRN ×3 (03:00→22:06)
[2018-05-12] MEDS: TRAMADOL HCL 50 MG TABLET PO PRN ×4 (04:25→20:15)
[2018-05-12 06:39] LABS: BASOPHILS % (AUTO) 0.5 % (0.0-2.0); EOSINOPHILS % (AUTO) 1.4 % (0.0-6.0); HEMATOCRIT 27 % (33-45); HEMOGLOBIN 8.6 g/dL (11.5-14.8); LYMPHOCYTES % (AUTO) 25.7 % (20.0-44.0); MEAN CORPUSCULAR HGB CONC 33 g/dl (31.0-36.0); MEAN CORPUSCULAR VOLUME 96 fL (82-100); MONOCYTES # (AUTO) 0.4 /CMM (0.1-1.30); MONOCYTES % (AUTO) 11.1 % (2.0-12.0); NEUTROPHILS # (AUTO) 2.3 /CMM (1.8-8.9); NEUTROPHILS % (AUTO) 61.3 % (43.0-81.0); PLATELET COUNT (AUTO) 111 /CMM (150-450); RED BLOOD CELL COUNT(AUTO) 2.77 MIL/uL (4.0-5.2); WHITE BLOOD COUNT (AUTO) 3.8 K/uL (4.3-11.0)
--- NOTE | 2018-05-12 06:41 | NUR ---
MS RN NOTES PATIENT ASLEEP IN BED WITH NO DISTRESS NOTED. CALL LIGHT WITHIN REACH. NO FURTHER C/O PAIN OR DISCOMFORT. PERIPHERAL LINE INTACT AND PATENT. PATIENT S/E BY DR. HSU WITH ORDER FOR LEFT WRIST XR. PATIENT REFUSES TO WEAR LEFT ARM SLING DESPITE CONTINUED ENCOURAGEMENT AND EXPLANATION OF RISKS/BENEFITS X3. BED IN LOW LOCK SETTING. ALL BELONGINGS KEPT NEAR BEDSIDE. WILL ENDORSE TO ONCOMING SHIFT.
[2018-05-12 07:00] LABS: CALCIUM, SERUM 8.5 mg/dL (8.5-10.1); CREATININE 0.8 mg/dL (0.6-1.3); MAGNESIUM 1.5 mg/dL (1.8-2.4); POTASSIUM 3.9 mmol/L (3.5-5.1)
[2018-05-12 08:00] VITALS: BP_SYST 101; BP_SYST 111; BP_DIAS 57; BP_DIAS 66
--- NOTE | 2018-05-12 08:00 | NUR ---
RN Notes Received patient in the bed a/o x4, no acute respiratory distress, patient was complaining of pain generalized 5/10, v/s taken stable, administered scheduled medication. infusing D51/2 ns at 70 ml/hr on right FA intact. Needs attended and rendered. patient using diaper. call light within to reach. Safety precaution maintained all the time.
[2018-05-12] MEDS: APIXABAN 5 MG TABLET PO SCH ×2 (08:10→17:19)
[2018-05-12] MEDS: PANTOPRAZOLE 40 MG TABLET.DR PO SCH (08:10)
[2018-05-12] MEDS: ESCITALOPRAM OXALATE (10 MG) 10 MG TABLET PO SCH (08:13)
[2018-05-12] MEDS: METOPROLOL TARTRATE 50 MG TABLET PO SCH ×2 (08:15→17:00)
--- NOTE | 2018-05-12 08:20 | NUR ---
RN NOTES Administered Tramadol 50mg PO PRN for left arm pain per Patients request. VS taken. BP - 111/66. HR - 105. Will continue to monitor.
[2018-05-12] MEDS: DILTIAZEM HCL CD 240 MG PO SCH (08:21)
[2018-05-12] MEDS: Magnesium 1GM/D5W 100ML PREMIX 100 ML IV SCH ×3 (10:08→12:39)
--- NOTE | 2018-05-12 11:44 | NUR ---
RN NOTES PATIENT WITH PT AT TIS TIME WALKING IN THE HALLWAY, PATIENT USING WALKER. SAFETY PRECAUTION MAINTAINED ALL THE TIME.
--- NOTE | 2018-05-12 12:34 | NUR ---
RN NOTES Administered Tylenol 650mg PO d/t pain level of 5/10 on right arm. VS stable with no acute distress. Patient in bed watching TV. Will continue to monitor.
--- NOTE | 2018-05-12 14:12 | NUR ---
rn notes ADMINISTERED ULTRAM 50 MG PO PRN FOR GENERALIZED PAIN 5/10 PER PATIENT REQUEST, CONTINUED MONITORING.
[2018-05-12 16:00] VITALS: BP 99/50
--- NOTE | 2018-05-12 16:18 | NUR ---
RN NOTES Notified Dr. Sanon of LEFT WRIST XRAY RESULTS. Awaiting new orders. Will continue to monitor.
--- NOTE | 2018-05-12 17:08 | NUR ---
RN NOTES Per MD, no new orders in regards to left wrist xray results.
--- NOTE | 2018-05-12 19:10 | NUR ---
RN CLOSING NOTES Patient comfortable in bed with no acute distress. A/O x 4. VS stable and refuses pain. IV site patent, clean, dry and intact on back of right hand 22g. Call light within reach. Endorsed plan of care to night nurse.
--- NOTE | 2018-05-12 19:50 | NUR ---
RN NOTES RECEIVED PATIENT COMFORTABLE IN BED WITH NO SIGNS OF RESPIRATORY DISTRESS. DENIES SHORTNESS OF BREATH. A/O X 4. IV SITES PATENT. PATIENTS COMPLAINS OF PAIN 5/10. SAFETY PRECAUTIONS IMPLEMENTED: CALL LIGHT WITHIN REACH, BED LOW, SIDE RAILS UP X2, BED LOCKED. WILL CONTINUE TO MONITOR PATIENT THROUGHOUT THE SHIFT.
[2018-05-12 20:00] VITALS: BP 100/54
--- NOTE | 2018-05-12 20:15 | NUR ---
PRN ULTRAM: PT C/O 07/02 RIGHT SHOULDER PAIN REQUESTING FOR ULTRAM, PRN ULTRAM 50MG TAB ADMINISTERED AT THIS TIME, WILL CONTINUE TO MONITOR AND REASSESS
--- NOTE | 2018-05-12 22:06 | NUR ---
PRN TYLENOL: PT C/O BACK PAIN 05/02 REQUESTING FOR TYLENOL, PRN TYLENOL 650 MG TAB PO ADMINISTERED AT THIS TIME
--- NOTE | 2018-05-13 00:38 | NUR ---
RN NOTES: PT REQUESTING FOR SLEEPING PILL, NO PRN MEDS ORDER, PAGED MD AWAITING FOR CALL BACK
[2018-05-13] MEDS: busPIRone 5 MG TABLET PO PRN ×2 (01:01→21:32)
--- NOTE | 2018-05-13 01:02 | NUR ---
PRN BUSPAR: PT REQUESTED ANXIETY PILL, PRN BUSPAR 5MG TAB ADMINISTERED AT THIS TIME,
--- NOTE | 2018-05-13 06:52 | NUR ---
RN CLOSING NOTES: PT REMAINS WITH LEFT ARM CAST/SPLINT IN PLACED, ABLE TO MOVE AND WIGGLE ARMS AND HANDS, WITH GOOD CAPILLARY REFILL NOTED, DENIES ANY NUMBNESS OR TINGLING SENSATION ON ARM. IV ACCESS REMAINS PATENT AND FLUSHING WELL, ON HL. VS REMAINS STABLE, NEEDS ATTENDED. SAFETY PRECAUTIONS FOR FALL REMAINS ENGAGED, CALL LIGHT IN REACH, WILL ENDORSE TO DAY RN FOR CONTINUITY OF CARE.
[2018-05-13 07:00] VITALS: BP 129/72
[2018-05-13 07:19] LABS: BASOPHILS % (AUTO) 0.4 % (0.0-2.0); EOSINOPHILS % (AUTO) 2.7 % (0.0-6.0); HEMATOCRIT 27 % (33-45); HEMOGLOBIN 8.7 g/dL (11.5-14.8); LYMPHOCYTES # (AUTO) 0.9 /CMM (0.8-4.8); MEAN CORPUSCULAR HGB CONC 33 g/dl (31.0-36.0); MEAN CORPUSCULAR VOLUME 96 fL (82-100); MONOCYTES # (AUTO) 0.3 /CMM (0.1-1.30); MONOCYTES % (AUTO) 8.8 % (2.0-12.0); NEUTROPHILS # (AUTO) 2.6 /CMM (1.8-8.9); NEUTROPHILS % (AUTO) 66.1 % (43.0-81.0); PLATELET COUNT (AUTO) 109 /CMM (150-450); RED BLOOD CELL COUNT(AUTO) 2.81 MIL/uL (4.0-5.2); WHITE BLOOD COUNT (AUTO) 3.9 K/uL (4.3-11.0)
[2018-05-13 07:22] LABS: CALCIUM, SERUM 8.3 mg/dL (8.5-10.1); CREATININE 0.8 mg/dL (0.6-1.3); MAGNESIUM 2.1 mg/dL (1.8-2.4)
[2018-05-13 08:00] VITALS: BP 129/72
[2018-05-13] MEDS: PANTOPRAZOLE 40 MG TABLET.DR PO SCH (08:29)
[2018-05-13] MEDS: ESCITALOPRAM OXALATE (10 MG) 10 MG TABLET PO SCH (08:29)
[2018-05-13] MEDS: METOPROLOL TARTRATE 50 MG TABLET PO SCH ×2 (08:30→16:23)
[2018-05-13] MEDS: DILTIAZEM HCL CD 240 MG PO SCH (08:40)
[2018-05-13] MEDS: APIXABAN 5 MG TABLET PO SCH ×2 (08:41→16:22)
[2018-05-13] MEDS: TRAMADOL HCL 50 MG TABLET PO PRN ×3 (09:37→22:45)
[2018-05-13] MEDS: ACETAMINOPHEN 325 MG TABLET PO PRN (13:27)
[2018-05-13] MEDS ORDERED: CEFTRIAXONE 1 G in IV D5W 50 ML IV SCH (14:30)
[2018-05-13 16:00] VITALS: BP 112/56
[2018-05-13] MEDS ORDERED: LEVOFLOXACIN 500 MG /D5W 100ML 500 MG in PREMIX 1 EA IV SCH (17:00)
--- NOTE | 2018-05-13 19:57 | NUR ---
PATIENT IN BED, A/OX4.LEFT ARM CAST/SPLINT IN PLACED, ABLE TO MOVE FINGERS, WITH GOOD CAPILLARY REFILL NOTED, DENIES ANY NUMBNESS. IV ACCESS PATENT AND FLUSHING WELL, ON HL. VS REMAINS STABLE, NEEDS ATTENDED. SAFETY PRECAUTIONS N PLACE , CALL LIGHT IN REACH, WILL ENDORSE TO NEXT SHIFT FOR CONTINUITY OF CARE.
[2018-05-13 20:00] VITALS: BP 108/61
--- NOTE | 2018-05-13 20:00 | NUR ---
MS/RN OPENINGN OTES PT RECEIVED AWAKE, WATCHING TV. ON ROOM AIR, BREATHING EVEN AND UNLABORED. DENIES SOB, PAIN TO RIGHT SHOULDER AND LEFT WRIST TOLERABLE LEVEL 5/10. IN NO ACUTE DISTRESS. IV TO RIGHT HAND PATENT AND INTACT. LEFT WRIST CAST IN PLACE. BED IN LOW/LOCKED POSITION WITH CALL LIGHT IN REACH, BILATERAL UPPER SIDE RAILS IN PLACE AND HOB ELEVATED. WILL CONTINUE TO MONITOR
--- NOTE | 2018-05-13 22:46 | NUR ---
MS/RN NOTES PT WITH C/O RIGHT SHOULDER AND LEFT WRIST 09/01 PAIN. REQUESTING TRAMADOL. ADMINISTERED ORDERED. BP 108/64, HR 116, SPO2 95% ON RA. WILL MONITOR FOR EFFECTIVENESS
--- NOTE | 2018-05-14 00:42 | NUR ---
MS/RN NOTES PT AWAKE, PAIN WITH RIGHT SHOULDER IMPROVED TO 5/10. PT DOES NOT VERBALIZE ANY NEEDS AT THIS TIME.
--- NOTE | 2018-05-14 04:37 | NUR ---
MS/RN NOTES DIAPER CHANGE PROVIDED. FREQUENTLY ENCOURAGED PT TO EMPTY BLADDER. REPOSITIONED. ALL NEEDS MET AT THIS TIME.
[2018-05-14] MEDS: TRAMADOL HCL 50 MG TABLET PO PRN ×2 (04:48→13:20)
[2018-05-14] MEDS: PANTOPRAZOLE 40 MG TABLET.DR PO SCH (06:39)
--- NOTE | 2018-05-14 06:57 | NUR ---
MS/RN CLOSING NOTES PT AWAKE, RESTING COMFORTABLY IN BED. ON ROOM AIR, BREATHING EVEN AND UNLABORED. DENIES SOB AND PAIN AT THIS TIME. IN NO ACUTE DISTRESS. LEFT WRIST CAST IN PLACE. IV TO RIGHT HAND PATENT AND INTACT. NO SIGNIFICANT CHANGES OVERNIGHT. ALL NEEDS MET. BED REMAINS IN LOW/LOCKED POSITION WITH CALL LIGHT IN REACH, UPPER SIDE RAILS IN PLACE AND IN SEMI FOWLERS POSITION. WILL ENDORSE TO DAY SHIFT RN AYE
--- NOTE | 2018-05-14 07:00 | NUR ---
RECEIVED PATIENT IN STABLE CONDITION. WILL CONTINUE TO MONITOR
[2018-05-14 08:00] VITALS: BP_SYST 106; BP_DIAS 67; BP_DIAS 72
[2018-05-14] MEDS: DILTIAZEM HCL CD 240 MG PO SCH (09:00)
[2018-05-14] MEDS: APIXABAN 5 MG TABLET PO SCH (10:05)
[2018-05-14] MEDS: ACETAMINOPHEN 325 MG TABLET PO PRN (10:05)
[2018-05-14] MEDS: METOPROLOL TARTRATE 50 MG TABLET PO SCH (10:06)
[2018-05-14] MEDS: ESCITALOPRAM OXALATE (10 MG) 10 MG TABLET PO SCH (10:07)
--- NOTE | 2018-05-14 15:55 | NUR ---
[facility]. REPORT GIVEN TO GRIFFIN FLANNERY
[2018-05-14 16:00] VITALS: BP 108/56
--- NOTE | 2018-05-14 16:30 | NUR ---
PATIENT CLEARED FOR TRANSFER TO [facility] BY . PATIENT ALERT AND ORIENTED X4, AMBULATORY WITH ASSISTANCE. VS ARE STABLE AND AT THE PATEIN'S BASELINE, ON ROOM AIR TOLERATING WELL. PATIENT HAS BRUISES ON LEFT ARM ,REDNESS ON SACRUM. PATIENT REFUSED TO TAKE PICTURES, RISK AND BENEFITS EXPLAINED. PATIENT STEEL STRONGLY REFUSING. DISCHARGE INSTRUCTIONS PROVIDED TO PATIENT AND HER DAUGHTER; BOTH VERBALIZED UNDERSTANDING.MED RECON PROVIDED. ALL BELONGINGS CHECKED AND VALUABLE FORM SIGHED BY PATIENT WELL D/C INSTRUCTION FORM. IV LINE REMOVED, NO BLEEDING AT THE SITE. ID WRIST BAND REMOVED.PATIENT PICKED UP BY AMBULANCE AND LEFT MS UNIT VIA GURNEY ACCOMPANIED BY DAUGHTER.
== END 2018-05-14 16:30 | DRG 689 ==
LOC: ER 09:59 → MED 11:28 → MEDSG2 05-13 17:44
PROVIDERS: ADMIT Legal Medicine; ATTEND Legal Medicine
DX: N39.0 Urinary tract infection, site not specified (principal); N17.0 Acute kidney failure with tubular necrosis; I50.22 Chronic systolic (congestive) heart failure; I11.0 Hypertensive heart disease with heart failure; J44.9 Chronic obstructive pulmonary disease, unspecified; I48.2 Chronic atrial fibrillation; Z87.11 Personal history of peptic ulcer disease; Z79.01 Long term (current) use of anticoagulants; Z87.891 Personal history of nicotine dependence; Z79.899 Other long term (current) drug therapy; R29.6 Repeated falls; F41.9 Anxiety disorder, unspecified; Z88.1 Allergy status to other antibiotic agents; Z88.0 Allergy status to penicillin; Z88.2 Allergy status to sulfonamides; Z88.8 Allergy status to other drugs, medicaments and biological substances; S59.202D Unspecified physeal fracture of lower end of radius, left arm, subsequent encounter for fracture with routine healing; W18.30XD Fall on same level, unspecified, subsequent encounter; Z90.49 Acquired absence of other specified parts of digestive tract; E86.0 Dehydration; F32.9 Major depressive disorder, single episode, unspecified; M81.0 Age-related osteoporosis without current pathological fracture
CPT/HCPCS: 36415; 71045-TC; 73110; 80048-TC; 80053-TC; 80076-TC; 81000-TC; 83605-TC; 83735-TC; 85025-TC; 87040-TC; 87081-TC; 87086-TC; 87186-TC; 97110-TC; 97112-TC; 97116-TC; 97530-TC; A4216; G0378; J0696; J1956; J3475; J3480; J7030; J7042; J7060

== ENCOUNTER 2019-01-21 16:13 | Inpatient (IN) | payer MEDICARE, OTHER ==
[~2019-01-21] VITALS: Ht 180.3 cm; Wt 60.8 kg
[~2019-01-21 16:13] MED LIST changes: +DILT180C66 PO; -DILT240C88 PO; +ERGO500014 PO; -FLUO-120 PO; +LOSA50TA39 PO; -OMEP20CA10 PO; +OMEP20CA15 PO; -POTA10TA15 PO; +TRAM50TA2 PO; -TRAZ-213 PO
--- NOTE | 2019-01-21 16:20 | NUR ---
"BIB CG "NOT Feeling well, abdominal pain,nausea/vomiting, weak/diarrhea" PT AWAKE, ALERT, PT ON ONITOR, VSS ,NAD NOTED, TUAN ANNE
[2019-01-21] MEDS ORDERED: IV NS 0.9% 500 ML BAG IV ONE (17:00)
[2019-01-21] MEDS ORDERED: ONDANSETRON HCL/PF 4 MG/2 ML VIAL IVP ONE (17:00)
[2019-01-21 17:19] LABS: HEMOGLOBIN 12.2 g/dL (11.5-14.8); MEAN CORPUSCULAR HGB CONC 31 g/dl (31.0-36.0); MONOCYTES # (AUTO) 0.5 /CMM (0.1-1.30); MONOCYTES % (AUTO) 4.6 % (2.0-12.0)
[2019-01-21 17:21] LABS: BASOPHILS % (AUTO) 0.3 % (0.0-2.0); EOSINOPHILS % (AUTO) 0.1 % (0.0-6.0); HEMATOCRIT 39 % (33-45); LYMPHOCYTES % (AUTO) 8.7 % (20.0-44.0); MEAN CORPUSCULAR VOLUME 104 fL (82-100); NEUTROPHILS # (AUTO) 10.1 /CMM (1.8-8.9); NEUTROPHILS % (AUTO) 86.3 % (43.0-81.0); PLATELET COUNT (AUTO) 249 /CMM (150-450); RED BLOOD CELL COUNT(AUTO) 3.76 MIL/uL (4.0-5.2); WHITE BLOOD COUNT (AUTO) 11.7 K/uL (4.3-11.0)
[2019-01-21 17:29] LABS: CALCIUM, SERUM 9.3 mg/dL (8.5-10.1); CARBON DIOXIDE 22 mmol/L (21-32); CHLORIDE 109 mmol/L (98-107); CREATININE 1.8 mg/dL (0.6-1.3); GLUCOSE 114 mg/dL (74-106); POTASSIUM 5.4 mmol/L (3.5-5.1); SODIUM SERUM 146 mmol/L (136-145); UREA NITROGEN, BLOOD 34 mg/dL (7-18)
[2019-01-21 17:42] LABS: ALANINE AMINOTRANSFERASE 23 U/L (12-78); ALBUMIN 3.3 g/dL (3.4-5.0); ALKALINE PHOSPHATASE 109 U/L (46-116); ASPARTATE AMINOTRANSFERASE 67 U/L (15-37); BILIRUBIN,DIRECT 0.1 mg/dL (0.0-0.2); BILIRUBIN,TOTAL 0.3 mg/dL (0.2-1.0); TOTAL PROTEIN, SERUM 7.1 g/dL (6.4-8.2)
[2019-01-21] MEDS ORDERED: ONDANSETRON HCL/PF 4 MG/2 ML VIAL ONE (17:57)
[2019-01-21 18:27] LABS: APPEARANCE,URINE Slightly Cloudy (CLEAR); BILIRUBIN,URINE MODERATE (NEGATIVE); BLOOD, URINE Small Ery/uL (NEGATIVE); COLOR,URINE Dark (YELLOW); KETONES,URINE 15 (NEGATIVE); LEUKOCYTE ESTERASE ,URINE Trace (NEGATIVE); NITRITE, URINE Negative (NEGATIVE); PROTEIN,URINE 100 mg/dl (NEGATIVE); UGLUCOSE Negative (NEGATIVE)
[2019-01-21] MEDS ORDERED: FLUO20CA40 PO (18:32)
[2019-01-21] MEDS ORDERED: POTA-10 PO (18:32)
[2019-01-21] MEDS ORDERED: TRAZ-252 PO (18:32)
[2019-01-21] MEDS ORDERED: FLUT1BLS INH (18:32)
--- NOTE | 2019-01-21 18:34 | NUR ---
CALLED FOR MS BED AND TURNED IN MOVE SHEET
[2019-01-21 18:54] LABS: BACTERIA,URINE 1+ /HPF (None Seen)
[2019-01-21] MEDS ORDERED: TRAMADOL HCL 50 MG TABLET PO PRN (19:00)
[2019-01-21] MEDS ORDERED: Z GUARD REMEDY 2 OZ OINT TP PRN (19:00)
[2019-01-21] MEDS ORDERED: MAG HYDROX/AL HYDROX/SIMETH 30 ML UDC PO PRN (19:00)
[2019-01-21] MEDS ORDERED: ONDANSETRON HCL/PF 4 MG/2 ML VIAL IVP PRN (19:00)
[2019-01-21] MEDS ORDERED: MAGNESIUM HYDROXIDE 30 ML UDC PO PRN (19:00)
[2019-01-21] MEDS ORDERED: HYDROCODONE/APAP 5/325MG 1 EACH TABLET PO PRN (19:00)
[2019-01-21] MEDS ORDERED: busPIRone 5 MG TABLET PO PRN (19:00)
[2019-01-21] MEDS ORDERED: SODIUM POLYSTYRENE SULFONATE 15 G/60 ML BOTTLE RC ONE (19:30)
--- NOTE | 2019-01-21 19:31 | NUR ---
GRAND-DAUGHTER BARRY [phone]
--- NOTE | 2019-01-21 20:15 | NUR ---
RECIEVED BED 113-2
--- NOTE | 2019-01-21 20:50 | NUR ---
BED CHANGED 307-2
--- NOTE | 2019-01-21 20:58 | NUR ---
REPORT GIVEN TO BLANCA MOYA.
--- NOTE | 2019-01-21 21:13 | NUR ---
PT TRANSPORTED TO [address] [place] [address]
[2019-01-21 21:15] VITALS: BP 106/43
--- NOTE | 2019-01-21 21:15 | NUR ---
MS FERMENTER NOTE RECEIVED PATIENT VIA GURNEY BY LUMBER MATERIAL HANDLER. PATIENT TRANSFERRED TO BED. A/O X2-3. ON OXYGEN 2L/MIN VIA NASAL CANNULA. RESPIRATIONS ARE EVEN AND UNLABORED. NO S/S SOB NOTED. DENIES PAIN AT THIS TIME. IN NO APPARENT DISTRESS. IV ACCESS IN RFA #20 PATENT AND SALINE LOCKED. VS, AND BELONGINGS LIST COMPLETED BY NET SOFTWARE DEVELOPER. INITIAL PHYSICAL ASSESSMENT COMPLETED AT THIS TIME. SKIN ASSESSMENT DONE, PICTURES TAKEN AND PLACED IN CHART. BED IS LOW AND LOCKED, HOB SEMI FOWLERS, SIDE RAILS UP X2, BED ALARM ON. CALL LIGHT WITHIN REACH. FAMILY AT BEDSIDE. WILL CONTINUE TO MONITOR.
[2019-01-21 22:00] VITALS: BP 106/43
[2019-01-21] MEDS ORDERED: TRAZODONE 50 MG TABLET PO PRN (22:00)
[2019-01-21] MEDS: IV NS 0.9% 1,000 ML IV PRN (22:21)
[2019-01-22] MEDS ORDERED: SODIUM POLYSTYRENE SULFONATE 15 G/60 ML BOTTLE ONE (04:29)
--- NOTE | 2019-01-22 04:34 | NUR ---
MS RN NOTE CALLED NURSING SUPP TO SUPPLY KAYEXALATE 15MG/60ML D/T NOT IN STOCK IN [facility] ON 3RD FLOOR.AND ER DID NOT ADMINISTER. K IS 5.4. WILL CONTINUE TO MONITOR.
[2019-01-22 06:39] LABS: BASOPHILS % (AUTO) 0.1 % (0.0-2.0); EOSINOPHILS % (AUTO) 0.1 % (0.0-6.0); HEMATOCRIT 34 % (33-45); HEMOGLOBIN 11.1 g/dL (11.5-14.8); LYMPHOCYTES # (AUTO) 0.8 /CMM (0.8-4.8); LYMPHOCYTES % (AUTO) 11.3 % (20.0-44.0); MEAN CORPUSCULAR HGB CONC 32 g/dl (31.0-36.0); MEAN CORPUSCULAR VOLUME 103 fL (82-100); MONOCYTES # (AUTO) 0.4 /CMM (0.1-1.30); MONOCYTES % (AUTO) 5.8 % (2.0-12.0); NEUTROPHILS # (AUTO) 6.1 /CMM (1.8-8.9); NEUTROPHILS % (AUTO) 82.7 % (43.0-81.0); PLATELET COUNT (AUTO) 171 /CMM (150-450); RED BLOOD CELL COUNT(AUTO) 3.33 MIL/uL (4.0-5.2); WHITE BLOOD COUNT (AUTO) 7.4 K/uL (4.3-11.0)
[2019-01-22] MEDS: IV NS 0.9% 1,000 ML IV PRN ×2 (06:40→17:55)
--- NOTE | 2019-01-22 06:46 | NUR ---
MS RN CLOSING NOTE PT IN BED. A/O X2-3. ON OXYGEN 2L/MIN VIA NASAL CANNULA. RESPIRATIONS ARE EVEN AND UNLABORED. NO EPISODES OF SOB NOTED. NO C/O PAIN. NO DISTRESS NOTED. IV ACCESS MAINTAINED IN RFA #20 RUNNING NS@100. BED REMAINS LOW AND LOCKED, HOB SEMI FOWLERS, SIDE RAILS UP X2, BED ALARM ON. CALL LIGHT WITHIN REACH. WILL ENDORSE TO NEXT SHIFT.
--- NOTE | 2019-01-22 07:15 | NUR ---
MS RN OPENING NOTES RECEIVED PT IN BED, ASLEEP, EASILY AROUSED. A/O X3. PT ON SUPPLEMENTARY OXYGEN AT 2LPM VIA NC, WITH NO ACUTE RESPIRATORY DISTRESS NOTED. PT DENIES ANY PAIN OR DISCOMFORT AT THIS TIME. ALSO DENIES, CONCERNS OR QUESTIONS. IVF NS AT 100ML/HR TO RFA G20, INTACT AND FLUID INFUSING WELL. PT KEPT COMFORTABLE. CALL LIGHT KEPT WITHIN REACH. PT'S BED IN LOWEST, LOCKED POSITION WITH SRX3. WILL CONTINUE PLAN OF CARE.
[2019-01-22 07:51] LABS: CALCIUM, SERUM 8.4 mg/dL (8.5-10.1); CREATININE 1.3 mg/dL (0.6-1.3); POTASSIUM 4.3 mmol/L (3.5-5.1)
[2019-01-22] MEDS: PANTOPRAZOLE 40 MG TABLET.DR PO SCH (07:59)
[2019-01-22 08:00] VITALS: BP 111/50
[2019-01-22 08:00] LABS: MAGNESIUM 2.2 mg/dL (1.8-2.4); PHOSPHORUS 3.4 mg/dL (2.5-4.9)
[2019-01-22] MEDS: FLUTICASONE/VILANTEROL 1 EACH BLST.W.DEV IH SCH (08:28)
[2019-01-22] MEDS: METOPROLOL TARTRATE 50 MG TABLET PO SCH ×2 (08:28→16:40)
[2019-01-22] MEDS: ACETAMINOPHEN 325 MG TABLET PO PRN ×2 (08:29→19:45)
[2019-01-22] MEDS: FLUOXETINE HCL 20 MG CAPSULE PO SCH (08:29)
[2019-01-22] MEDS: ESCITALOPRAM OXALATE (10 MG) 10 MG TABLET PO SCH (08:29)
[2019-01-22] MEDS: APIXABAN 5 MG TABLET PO SCH ×2 (08:31→16:38)
[2019-01-22] MEDS: DILTIAZEM HCL CD 240 MG PO SCH (08:47)
--- NOTE | 2019-01-22 09:30 | NUR ---
MS RN NOTES SEEN AND EVALUATED BY NEPHRO/DF, NO NEW ORDERS NOTED AT THIS TIME. JUST CONTINUE HYDRATION.
[2019-01-22] MEDS: LEVOFLOXACIN 500 MG /D5W 100ML 500 MG in PREMIX 1 EA IV SCH (11:18)
[2019-01-22 16:00] VITALS: BP 100/50
--- NOTE | 2019-01-22 18:35 | NUR ---
MS RN CLOSING NOTES PT IN BED, AWAKE. A/O X3. PT ON SUPPLEMENTARY OXYGEN AT 2LPM VIA NC, WITH NO ACUTE RESPIRATORY DISTRESS NOTED. PT DENIES ANY PAIN OR DISCOMFORT AT THIS TIME. IVF NS AT 100ML/HR TO RFA G20, INTACT AND FLUID INFUSING WELL. PT KEPT COMFORTABLE. ALL NEEDS AND CARE ATTENDED. CALL LIGHT KEPT WITHIN REACH. PT'S BED IN LOWEST, LOCKED POSITION WITH SRX3. WILL ENDORSE TO INCOMING NIGHT NURSE FOR AYE.
--- NOTE | 2019-01-22 19:15 | NUR ---
MS RN OPENING NOTES Received patient A/O x4, awake on bed. On RA, no SOB/respiratory distress noted. No complaints made at this time. Discussed to patient the POC, patient verbalized understanding. Kept on bed clean, dry and comfortable. Call light within easy reach. On fall and aspiration precautions. Will continue to monitor accordingly.
[2019-01-22 20:00] VITALS: BP 113/43
[2019-01-23] MEDS: IV NS 0.9% 1,000 ML IV PRN ×3 (03:41→17:23)
--- NOTE | 2019-01-23 06:18 | NUR ---
MS RN CLOSING NOTES Patient on bed, on O2 inhalation. No new complaints made within the shift. All nursing needs attended. Kept on bed clean, dry and comfortable. On fall and aspiration precautions. Call light within easy reach. Endorsed to the next shift.
[2019-01-23] MEDS: PANTOPRAZOLE 40 MG TABLET.DR PO SCH (07:54)
[2019-01-23 08:00] VITALS: BP 124/50
[2019-01-23] MEDS: APIXABAN 5 MG TABLET PO SCH ×2 (08:00→16:43)
[2019-01-23] MEDS: ESCITALOPRAM OXALATE (10 MG) 10 MG TABLET PO SCH (08:01)
[2019-01-23] MEDS: FLUOXETINE HCL 20 MG CAPSULE PO SCH (08:01)
[2019-01-23] MEDS: FLUTICASONE/VILANTEROL 1 EACH BLST.W.DEV IH SCH (08:13)
[2019-01-23] MEDS: ACETAMINOPHEN 325 MG TABLET PO PRN ×2 (08:13→15:38)
[2019-01-23] MEDS: METOPROLOL TARTRATE 50 MG TABLET PO SCH ×2 (08:15→16:44)
[2019-01-23] MEDS: DILTIAZEM HCL CD 240 MG PO SCH (08:16)
[2019-01-23] MEDS: LEVOFLOXACIN 500 MG /D5W 100ML 500 MG in PREMIX 1 EA IV SCH (10:03)
[2019-01-23 11:39] LABS: BASOPHILS % (AUTO) 0.6 % (0.0-2.0); HEMATOCRIT 31 % (33-45); HEMOGLOBIN 9.9 g/dL (11.5-14.8); LYMPHOCYTES # (AUTO) 0.8 /CMM (0.8-4.8); LYMPHOCYTES % (AUTO) 22.5 % (20.0-44.0); MEAN CORPUSCULAR HGB CONC 32 g/dl (31.0-36.0); MEAN CORPUSCULAR VOLUME 103 fL (82-100); MONOCYTES # (AUTO) 0.3 /CMM (0.1-1.30); MONOCYTES % (AUTO) 6.8 % (2.0-12.0); NEUTROPHILS # (AUTO) 2.6 /CMM (1.8-8.9); NEUTROPHILS % (AUTO) 69.1 % (43.0-81.0); PLATELET COUNT (AUTO) 112 /CMM (150-450); WHITE BLOOD COUNT (AUTO) 3.7 K/uL (4.3-11.0)
[2019-01-23 11:50] LABS: CALCIUM, SERUM 8.2 mg/dL (8.5-10.1); CREATININE 0.8 mg/dL (0.6-1.3); MAGNESIUM 1.7 mg/dL (1.8-2.4); PHOSPHORUS 2.4 mg/dL (2.5-4.9); POTASSIUM 3.5 mmol/L (3.5-5.1)
[2019-01-23 16:00] VITALS: BP 107/57
[2019-01-23] MEDS ORDERED: Magnesium 1GM/D5W 100ML PREMIX PIGGYBACK IV ONE (17:00)
[2019-01-23] MEDS: Magnesium 1GM/D5W 100ML PREMIX 100 ML IV SCH ×2 (17:19→18:28)
--- NOTE | 2019-01-23 17:48 | NUR ---
MS RN NOTES MD/YURIDIA MADE AWARE OF PH AND MG LEVELS, NEW ORDER TO REPLACE MG BUT NOT PHOS. VERIFIED AGAIN WITH /YURIDIA, NO RESPONSE UP TO THIS MOMENT REGARDING PHOS REPLACEMENT. AWAITING FOR RESPONSE.
--- NOTE | 2019-01-23 18:31 | NUR ---
MS RN CLOSING NOTES PT IN BED, INTERMITTENTLY DOZING OFF, EASILY AROUSED. A/O X4. PT ON SUPPLEMENTARY OXYGEN AT 2LPM VIA NC, WITH NO ACUTE RESPIRATORY DISTRESS NOTED. PT DENIES ANY PAIN OR DISCOMFORT AT THIS TIME. IVF NS AT 75ML/HR TO RFA G20, INTACT AND FLUID INFUSING WELL. PT KEPT COMFORTABLE. ALL NEEDS AND CARE ATTENDED AND PROVIDED. CALL LIGHT KEPT WITHIN REACH. PT'S BED IN LOWEST, LOCKED POSITION WITH SRX3. WILL ENDORSE TO INCOMING TETRYL DISSOLVER OPERATOR NURSE FOR AYE.
[2019-01-23 20:00] VITALS: BP 103/49
--- NOTE | 2019-01-24 06:42 | NUR ---
MS RN CLOSING NOTES Patient asleep, easily awaken. On O2 inhalation, no SOB/respiratory distress noted. Able to use bedside commode, tolerated well. No new complaints made. Afebrile. All nursing needs attended. Kept on bed clean, dry and comfortable. Call light within easy reach. On fall and aspiration precautions. Endorsed to the next shift.
[2019-01-24 06:57] LABS: BASOPHILS % (AUTO) 0.4 % (0.0-2.0); HEMATOCRIT 31 % (33-45); HEMOGLOBIN 10.1 g/dL (11.5-14.8); LYMPHOCYTES # (AUTO) 0.7 /CMM (0.8-4.8); LYMPHOCYTES % (AUTO) 22.8 % (20.0-44.0); MEAN CORPUSCULAR HGB CONC 32 g/dl (31.0-36.0); MEAN CORPUSCULAR VOLUME 103 fL (82-100); MONOCYTES # (AUTO) 0.3 /CMM (0.1-1.30); MONOCYTES % (AUTO) 8.2 % (2.0-12.0); NEUTROPHILS # (AUTO) 2.2 /CMM (1.8-8.9); NEUTROPHILS % (AUTO) 67.6 % (43.0-81.0); PLATELET COUNT (AUTO) 122 /CMM (150-450); RED BLOOD CELL COUNT(AUTO) 3.03 MIL/uL (4.0-5.2); WHITE BLOOD COUNT (AUTO) 3.2 K/uL (4.3-11.0)
[2019-01-24 07:14] LABS: CALCIUM, SERUM 7.9 mg/dL (8.5-10.1); CREATININE 0.7 mg/dL (0.6-1.3); MAGNESIUM 2.1 mg/dL (1.8-2.4); PHOSPHORUS 2.4 mg/dL (2.5-4.9); POTASSIUM 3.3 mmol/L (3.5-5.1)
--- NOTE | 2019-01-24 07:39 | NUR ---
MS RN OPENING NOTES Patient received on 2L nasal cannula, no sob noted, patient shows no s/s of pain at this time. Sleeping comfortably in her bed. Patient remains with RFA #20 with NS @ 75 ml per hour. Bed at the lowest setting, call light within reach, side rails up x2.
[2019-01-24] MEDS ORDERED: IV D5W 1,000 ML IV PRN (08:30)
[2019-01-24] MEDS ORDERED: POTASSIUM CHLORIDE 20 MEQ TAB.PRT.SR PO ONE (08:30)
[2019-01-24] MEDS: ESCITALOPRAM OXALATE (10 MG) 10 MG TABLET PO SCH (08:46)
[2019-01-24] MEDS: FLUTICASONE/VILANTEROL 1 EACH BLST.W.DEV IH SCH (08:47)
[2019-01-24] MEDS: APIXABAN 5 MG TABLET PO SCH (08:51)
[2019-01-24] MEDS: PANTOPRAZOLE 40 MG TABLET.DR PO SCH (08:55)
[2019-01-24] MEDS: DILTIAZEM HCL CD 240 MG PO SCH (08:56)
[2019-01-24] MEDS: METOPROLOL TARTRATE 50 MG TABLET PO SCH (08:57)
[2019-01-24 09:27] VITALS: BP 106/67
[2019-01-24] MEDS: LEVOFLOXACIN 500 MG /D5W 100ML 500 MG in PREMIX 1 EA IV SCH (11:09)
[2019-01-24] MEDS ORDERED: LEVO500T75 PO (12:05)
[2019-01-24] MEDS: ACETAMINOPHEN 325 MG TABLET PO PRN (14:22)
[2019-01-24 16:35] VITALS: BP 121/58
--- NOTE | 2019-01-24 17:11 | NUR ---
RN ABE NOTES Patient discharged at this time. Paramedics has all the paperworks, patient has no questions or concerns about the discharge orders. Patient signed all paper work necessary for discharge. Photos taken for her wounds, placed in the chart. Patient stated that she is not missing anything from her personal belongings.
[2019-01-25] MEDS ORDERED: LEVOFLOXACIN (500MG) 500 MG TABLET PO SCH (09:00)
[2019-01-27] MEDS ORDERED: ERGOCALCIFEROL (VITAMIN D 2) 50,000 UNIT CAPSULE PO SCH (09:00)
== END 2019-01-24 17:01 | DRG 682 ==
LOC: ER 16:19 → MEDSG1 20:30 → MED 21:25
PROVIDERS: ADMIT Internal Medicine; ATTEND Internal Medicine
DX: N17.0 Acute kidney failure with tubular necrosis (principal); E43 Unspecified severe protein-calorie malnutrition; N39.0 Urinary tract infection, site not specified; E87.0 Hyperosmolality and hypernatremia; J98.11 Atelectasis; F41.9 Anxiety disorder, unspecified; I11.0 Hypertensive heart disease with heart failure; I48.91 Unspecified atrial fibrillation; I50.9 Heart failure, unspecified; F32.9 Major depressive disorder, single episode, unspecified; E86.0 Dehydration; Z87.11 Personal history of peptic ulcer disease; Z87.891 Personal history of nicotine dependence; Z79.899 Other long term (current) drug therapy; Z79.51 Long term (current) use of inhaled steroids; Z79.01 Long term (current) use of anticoagulants; J44.9 Chronic obstructive pulmonary disease, unspecified; E86.1 Hypovolemia; E87.5 Hyperkalemia; I70.0 Atherosclerosis of aorta; Z90.49 Acquired absence of other specified parts of digestive tract; Z88.1 Allergy status to other antibiotic agents; Z88.0 Allergy status to penicillin; Z88.2 Allergy status to sulfonamides; Z88.8 Allergy status to other drugs, medicaments and biological substances; M19.90 Unspecified osteoarthritis, unspecified site; G47.9 Sleep disorder, unspecified; K52.9 Noninfective gastroenteritis and colitis, unspecified; K21.9 Gastro-esophageal reflux disease without esophagitis; F39 Unspecified mood [affective] disorder
CPT/HCPCS: 36415; 71045-TC; 80048-TC; 80076-TC; 81000-TC; 83735-TC; 84100-TC; 84484-TC; 85025-TC; 87081-TC; 87086-TC; 97116-TC; 97530-TC; A4216; G0378; J1956; J2405; J3475; J7030

== ENCOUNTER 2021-01-05 12:10 | Inpatient (IN) | payer MEDICARE, OTHER ==
[~2021-01-05] VITALS: Ht 175.3 cm; Wt 63.0 kg
[~2021-01-05 12:10] MED LIST changes: +FLUT1BLS INH; -FURO-145 PO; +LEVO500T23 PO; -LOSA50TA39 PO; +TRAZ-252 PO
--- NOTE | 2021-01-05 12:10 | NUR ---
PT BIB DAUGHTER SENT BY FOR WEAKNESS AND LOW H&H. PT IS AAOX4, NOT IN RESPIRATORY DISTRESS, HOOKED TO CHART WRITER, KEPT RESTED AND COMFORTABLE. WILL CONTINUE TO MONITOR.
--- NOTE | 2021-01-05 12:17 | NUR ---
SEEN AND EXAMINED BY .
--- NOTE | 2021-01-05 12:25 | NUR ---
IV LINE ESTABLISHED BLOOD DRAWN AND SENT TO LAB.
[2021-01-05 12:36] LABS: BASOPHILS % (AUTO) 0.7 % (0.0-2.0); EOSINOPHILS % (AUTO) 0.7 % (0.0-6.0); HEMATOCRIT 27 % (33-45); LYMPHOCYTES # (AUTO) 1.2 K/uL (0.8-4.8); LYMPHOCYTES % (AUTO) 21.9 % (20.0-44.0); MEAN CORPUSCULAR HGB CONC 29 g/dl (31.0-36.0); MEAN CORPUSCULAR VOLUME 77 fL (82-100); MONOCYTES # (AUTO) 0.4 K/uL (0.1-1.30); MONOCYTES % (AUTO) 6.5 % (2.0-12.0); NEUTROPHILS # (AUTO) 3.9 K/uL (1.8-8.9); NEUTROPHILS % (AUTO) 70.2 % (43.0-81.0); PLATELET COUNT (AUTO) 232 K/uL (150-450); RED BLOOD CELL COUNT(AUTO) 3.54 MIL/uL (4.0-5.2); WHITE BLOOD COUNT (AUTO) 5.5 K/uL (4.3-11.0)
[2021-01-05 12:42] LABS: CALCIUM, SERUM 8.8 mg/dL (8.5-10.1); CREATININE 1.1 mg/dL (0.6-1.3); POTASSIUM 3.9 mmol/L (3.5-5.1)
[2021-01-05 12:48] LABS: ALBUMIN 3.5 g/dL (3.4-5.0); BILIRUBIN,DIRECT 0.1 mg/dL (0.0-0.2); BILIRUBIN,TOTAL 0.3 mg/dL (0.2-1.0)
--- NOTE | 2021-01-05 12:55 | NUR ---
RECORD TESTER AT BEDSIDE FOR XRAY.
[2021-01-05] MEDS ORDERED: PANTOPRAZOLE 40 MG VIAL ONE (13:21)
--- NOTE | 2021-01-05 13:27 | NUR ---
MOVE SHEET SUBMITTED.
--- NOTE | 2021-01-05 13:28 | NUR ---
CALLED MADELAINE FOR READ
[2021-01-05] MEDS ORDERED: PANTOPRAZOLE 40 MG VIAL IV ONE (13:30)
--- NOTE | 2021-01-05 13:50 | NUR ---
GOT BED 119-2
--- NOTE | 2021-01-05 14:00 | NUR ---
NURSING SUPV WANTS COVID PCR TEST BECAUSE PATIENT IS NOT VACCINATED
--- NOTE | 2021-01-05 14:08 | NUR ---
COVID SWAB DONE AND SENT TO THE LAB
--- NOTE | 2021-01-05 14:38 | NUR ---
REPORT GIVEN TO GRIFFIN RAY FOR AYE.
--- NOTE | 2021-01-05 14:40 | NUR ---
RECEIVED ORDERS FROM DR ANTON. THE ORDERS ARE READ BACK, VERIFIED. NOTED AND CARRIED OUT.
--- NOTE | 2021-01-05 14:45 | NUR ---
RN NOTE RECEIVED PT FROM ER VIA GURNEY TRANSFERED TO BED WITH MINIMAL ASSIST BY SELF AMBULATION. LAC 18G PATENT AND FLUSHING, STARTED D5 NS ORDERED 50 ML/HR, PT ALERT AND ORIENTED, BODY SKIN ASSESSMENT DONE, WILL CARRY OUT ADMISSION ORDERS, ALL SAFETY MEASURES ARE IN PLACE, BED LOCKED AND IN LOWEST POSITION X2 BED RAILS UP, CALL LIGHT WITHIN REACH, PT IS COMFORTABLE, WILL CONTINUE TO MONITOR THIS SHIFT.
[2021-01-05] MEDS: IV D5/ 0.9% NACL 1,000 ML IV PRN (14:58)
[2021-01-05] MEDS ORDERED: ONDANSETRON HCL/PF 4 MG/2 ML VIAL IV PRN (15:00)
[2021-01-05 16:17] VITALS: BP 101/40
[2021-01-05 16:37] VITALS: BP 100/59
[2021-01-05 17:17] VITALS: BP 117/45
[2021-01-05] MEDS ORDERED: TRAMADOL HCL 50 MG TABLET PO PRN (17:30)
[2021-01-05] MEDS ORDERED: busPIRone 5 MG TABLET PO PRN (18:00)
--- NOTE | 2021-01-05 19:08 | NUR ---
RN CLOSING NOTE PT IS AWAKE AND SITTING UP IN BED, A/OX4, ABLE TO VERBALIZE NEEDS, RA O2 SAT 96%, NO SIGNS OF DISTRESS OR LABORED BREATHING, ON TELE MONITOR AFIB WITH OCC PVCS, L AC 18G PATENT AND FLUSHING WELL, RECEIVED 1 UNIT PRBC THIS SHIFT TOLERATED WELL, AMBULATES WITH ASSISTANCE TO BATHROOM, ON CLEAR LIQUID DIET DUE TO POSSIBLE GI BLEED, WILL ENDORSE TO BUSINESS FUNCTIONAL ANALYST NURSE FOR AYE.
[2021-01-05 20:00] VITALS: BP 100/42
[2021-01-05] MEDS: ACETAMINOPHEN 325 MG TABLET PO PRN (21:18)
[2021-01-06] VITALS: BP 95/51
[2021-01-06] MEDS: PANTOPRAZOLE 40 MG VIAL IV SCH ×2 (01:50→12:57)
[2021-01-06 04:00] VITALS: BP 95/70
[2021-01-06] MEDS: IV D5/ 0.9% NACL 1,000 ML IV PRN (05:40)
[2021-01-06 06:46] LABS: BASOPHILS % (AUTO) 0.9 % (0.0-2.0); HEMATOCRIT 28 % (33-45); HEMOGLOBIN 8.6 g/dL (11.5-14.8); LYMPHOCYTES # (AUTO) 0.7 K/uL (0.8-4.8); LYMPHOCYTES % (AUTO) 22.8 % (20.0-44.0); MEAN CORPUSCULAR HGB CONC 31 g/dl (31.0-36.0); MEAN CORPUSCULAR VOLUME 78 fL (82-100); MONOCYTES # (AUTO) 0.3 K/uL (0.1-1.30); MONOCYTES % (AUTO) 9.1 % (2.0-12.0); NEUTROPHILS % (AUTO) 64.2 % (43.0-81.0); PLATELET COUNT (AUTO) 166 K/uL (150-450); WHITE BLOOD COUNT (AUTO) 3.1 K/uL (4.3-11.0)
--- NOTE | 2021-01-06 06:48 | NUR ---
RN notes Alert and oriented, able to verbally communicate needs. In bed watching TV with no distress noted. Breathing even and unlabored. On room air tolerating well. Complaint of mild headache, requested for tylenol. Tylenol 650mg given with relif. Vital signs within normal limits. No significant change of condition. Kept clean and dry. Will endorse to next shift for continuity of care.
[2021-01-06 07:04] LABS: CALCIUM, SERUM 7.9 mg/dL (8.5-10.1); CREATININE 0.8 mg/dL (0.6-1.3); POTASSIUM 4.1 mmol/L (3.5-5.1)
--- NOTE | 2021-01-06 07:43 | NUR ---
DETAIL MANAGER OPENING NOTE RECEIVED PT AWAKE/ALERT ON RA WITH NO S/SX OF RESPIRATORY DISTRESS OR COMPLAINTS OF PAIN AT THIS TIME.PT HAS A L AC 18G RUNNING D5 NS @50ML/HR. REINFORCED DRESSING WITH CLEAR TAPE. ASSISTED PT TO RESTROOM, AMBULATING WELL WITH MINIMAL ASSISTANCE. PT BACK IN BED RESTING COMFORTABLY IN SEMI-FOWLERS POSITION. SEEN BY DETECTIVE AND INTELLIGENCE ANALYST. SAFETY MEASURES IN PLACE WITH BED IN LOWEST LOCKED POSITION, CALL LIGHT WITHIN REACH AND BED ALARM ON.
[2021-01-06 08:00] VITALS: BP 123/53
[2021-01-06] MEDS: FLUTICASONE/VILANTEROL 1 EACH BLST.W.DEV IH SCH (08:45)
[2021-01-06] MEDS: METOPROLOL TARTRATE 50 MG TABLET PO SCH ×2 (08:46→17:34)
[2021-01-06] MEDS: DILTIAZEM HCL CD 240 MG PO SCH (08:46)
[2021-01-06] MEDS: ESCITALOPRAM OXALATE (10 MG) 10 MG TABLET PO SCH (08:47)
[2021-01-06 12:00] VITALS: BP 89/49
[2021-01-06 16:00] VITALS: BP 131/38
[2021-01-06 16:23] LABS: IRON, SERUM 26 ug/dl (50-175); TOTAL IRON BINDING CAPACITY 293 ug/dl (250-450)
[2021-01-06 18:29] LABS: FERRITIN 8 ng/mL (8-388)
[2021-01-06] MEDS: ACETAMINOPHEN 325 MG TABLET PO PRN (18:48)
--- NOTE | 2021-01-06 19:00 | NUR ---
AIRLINE RESERVATION AGENT CLOSING NOTE PT RESTING COMFORTABLY IN SEMI-FOWLERS POSITION. PT COMPLAINED OF HEADACHE AND LOW BACK PAIN. MEDICATED WITH PRN TYLENOL. PT IS ON CLEAR LIQUID DIET, AWAITING GI CONSULT. SAFETY MEASURES IN PLACE WITH BED IN LOWEST LOCKED POSITION CALL LIGHT WITHIN REACH AND ALL NEEDS ATTENDED AT THIS TIME.
--- NOTE | 2021-01-06 19:49 | NUR ---
RECEIVED PATIENT IN HER BED ALERT AND ORIENTATED X4 NOTED 02 SAT 90% PATIENT STATES SHE IS NOT SOB AND FEELS GOOD. SMILING AND TALKING NO NOTED SON NO INDICATION OF PAIN
[2021-01-06 20:00] VITALS: BP 103/80
[2021-01-06] MEDS: TRAZODONE 50 MG TABLET PO PRN (23:59)
[2021-01-07] VITALS (7 sets, daily range): BP systolic 105–124; BP diastolic 50–78
[2021-01-07] MEDS: PANTOPRAZOLE 40 MG VIAL IV SCH ×2 (00:33→13:01)
[2021-01-07] MEDS: IV D5/ 0.9% NACL 1,000 ML IV PRN (02:59)
--- NOTE | 2021-01-07 03:56 | NUR ---
ENDING NOTES: ALERT AND ORIENTATED X4 EYEGLASSES ON SMILING ANF FRIENDLY 02 SATS EOOM AIR 92% AMBULATED TO THE BATHROOM WITH 1 NURSE ASSIST NO SOB INCONTINENT OF URINE AT TIMES CALL LIGHT WITH HER REACH AND SHE IS GOOD ABOUT CALLING FOR ASSIST
[2021-01-07 06:41] LABS: BASOPHILS % (AUTO) 0.8 % (0.0-2.0); EOSINOPHILS % (AUTO) 2.2 % (0.0-6.0); HEMATOCRIT 28 % (33-45); HEMOGLOBIN 8.6 g/dL (11.5-14.8); LYMPHOCYTES # (AUTO) 0.9 K/uL (0.8-4.8); LYMPHOCYTES % (AUTO) 21.5 % (20.0-44.0); MEAN CORPUSCULAR HGB CONC 31 g/dl (31.0-36.0); MEAN CORPUSCULAR VOLUME 80 fL (82-100); MONOCYTES # (AUTO) 0.4 K/uL (0.1-1.30); MONOCYTES % (AUTO) 9.2 % (2.0-12.0); NEUTROPHILS # (AUTO) 2.7 K/uL (1.8-8.9); NEUTROPHILS % (AUTO) 66.3 % (43.0-81.0); PLATELET COUNT (AUTO) 172 K/uL (150-450)
--- NOTE | 2021-01-07 07:27 | NUR ---
RN OPENING NOTES; RECEIVED PT R SIDE LYING POS. PT IS A/OX4, INDEPENDENT. IS ABLE TO AMBULATE TO RESTROOM WITH ASSISTANCE. NO SOB NOTED, NO C/O PAIN AT THIS TIME. ALL SAFETY MEASURES RENDERED, BED LOCKED, IN LOWEST POS. WITH CALL LIGHT WITHIN REACH.
[2021-01-07] MEDS: METOPROLOL TARTRATE 50 MG TABLET PO SCH ×2 (08:29→16:20)
[2021-01-07] MEDS: ESCITALOPRAM OXALATE (10 MG) 10 MG TABLET PO SCH (08:29)
[2021-01-07] MEDS: FLUTICASONE/VILANTEROL 1 EACH BLST.W.DEV IH SCH (08:30)
[2021-01-07] MEDS: DILTIAZEM HCL CD 240 MG PO SCH (08:30)
[2021-01-07] MEDS: ACETAMINOPHEN 325 MG TABLET PO PRN (13:01)
[2021-01-07] MEDS ORDERED: PNEUMOCOCCAL 23-VAL P-SAC VAC 0.5 ML VIAL SQ ONE (14:00)
[2021-01-07] MEDS: SOD FERRIC GLUC 125 MG in IV NS 0.9% 100 ML IV SCH (14:28)
--- NOTE | 2021-01-07 16:21 | NUR ---
RN NOTES; METOPROLOL NOT GIVEN, PT BP 105/58, HR 58. WILL CONTINUE TO MONITOR.
--- NOTE | 2021-01-07 18:29 | NUR ---
RN CLOSING NOTES; PT IN BED, A/OX4, AMBULATORY TO THE RESTROOM WITH ASSISTANCE. PT SEEN BY DR. TEE. AND SPOKE TO DR. NOBLES. SCHEDULED FOR EGD TOMORROW. PT NPO AFTER MIDNIGHT. ALL CONSENTS SIGNED AND LOCATED IN FRONT OF PT CHART. NO SIGNIFICANT CHANGES IN PT HEALTH STATUS. ALL SAFETY MEASURES RENDERED, BED LOCKED, IN LOWEST POS. WITH CALL LIGHT WITHIN REACH. ENDORSED TO WANIGAN CLERK IN STABLE CONDITION.
--- NOTE | 2021-01-07 19:30 | NUR ---
RN NOTE PATIENT ALERT AND ORIENTED X4, ABLE TO MAKE NEEDS KNOWN. ON ROOM AIR, NO S/S OF RESPIRATORY DISTRESS. PATIENT FOR EGD IN AM, NPO POST MIDNIGHT. DENIES ANY PAIN AT THIS TIME. IV ACCESS ON DELON RUNNING NS @ 50ML/HR. BED LOCKED AND IN LOWEST POSITION. CALL LIGHT WITHIN REACH. ALL NEEDS ANTICIPATED.
[2021-01-07] MEDS: TRAZODONE 50 MG TABLET PO PRN (22:10)
[2021-01-08] VITALS: BP 102/48
[2021-01-08] MEDS: IV D5/ 0.9% NACL 1,000 ML IV PRN (01:03)
[2021-01-08] MEDS: PANTOPRAZOLE 40 MG VIAL IV SCH ×2 (01:11→13:00)
[2021-01-08 04:00] VITALS: BP 114/64
[2021-01-08 06:33] LABS: BASOPHILS % (AUTO) 0.8 % (0.0-2.0); EOSINOPHILS % (AUTO) 1.8 % (0.0-6.0); HEMATOCRIT 28 % (33-45); HEMOGLOBIN 8.4 g/dL (11.5-14.8); LYMPHOCYTES # (AUTO) 0.9 K/uL (0.8-4.8); LYMPHOCYTES % (AUTO) 21.7 % (20.0-44.0); MEAN CORPUSCULAR HGB CONC 31 g/dl (31.0-36.0); MEAN CORPUSCULAR VOLUME 81 fL (82-100); MONOCYTES # (AUTO) 0.4 K/uL (0.1-1.30); MONOCYTES % (AUTO) 9.6 % (2.0-12.0); NEUTROPHILS # (AUTO) 2.7 K/uL (1.8-8.9); NEUTROPHILS % (AUTO) 66.1 % (43.0-81.0); PLATELET COUNT (AUTO) 159 K/uL (150-450); RED BLOOD CELL COUNT(AUTO) 3.41 MIL/uL (4.0-5.2)
--- NOTE | 2021-01-08 07:03 | NUR ---
RN NOTE PATIENT ALERT AND ORIENTED X4. ON ROOM AIR, NO S/S OF RESPIRATORY DISTRESS. REMAINED NPO POST MIDNIGHT. IV ACCESS ON DELON RUNNING NS @ 50ML/HR. NO SIGNIFICANT CHANGES DURING THIS SHIFT. BED LOCKED AND IN LOWEST POSITION. CALL LIGHT WITHIN REACH. WILL ENDORSE TO AM SHIFT.
--- NOTE | 2021-01-08 07:39 | NUR ---
RN OPENING NOTES; RECEIVED PT SUPINE POS. PT IS A/OX4, INDEPENDENT. IS ABLE TO AMBULATE TO RESTROOM WITH ASSISTANCE. NO SOB NOTED, NO C/O PAIN AT THIS TIME. PT IS SCHEDULED FOR EGD TODAY. ALL LABS DRAWN AND WNL. ALL CONSENTS SIGNED. PT IS AWARE. PT REFUSES TO TAKE OFF JEWELRY. RN WILL CONTINUE TO EDUCATE REGARDING RISKS. ALL SAFETY MEASURES RENDERED, BED LOCKED, IN LOWEST POS. WITH CALL LIGHT WITHIN REACH.
[2021-01-08 08:00] VITALS: BP 124/93
[2021-01-08] MEDS: DILTIAZEM HCL CD 240 MG PO SCH (08:28)
[2021-01-08] MEDS: ESCITALOPRAM OXALATE (10 MG) 10 MG TABLET PO SCH (08:29)
[2021-01-08] MEDS: METOPROLOL TARTRATE 50 MG TABLET PO SCH (08:29)
[2021-01-08] MEDS: FLUTICASONE/VILANTEROL 1 EACH BLST.W.DEV IH SCH (09:04)
--- NOTE | 2021-01-08 10:17 | NUR ---
RN NOTES; PT A/OX4, PT IN STABLE CONDITION. REPORT GIVEN TO OR NURSES. PT LEFT WITH VITALS WNL.
[2021-01-08 12:00] VITALS: BP 131/65
--- NOTE | 2021-01-08 12:20 | NUR ---
RN Notes Held Nitroglycerin and Hydralazine due to pt low BP at 104/53 and HR at 86. Notified .
--- NOTE | 2021-01-08 12:44 | NUR ---
RN NOTES; RECEIVED PT FROM OR AT APPROXIMATELY 1200. VS TAKEN 98.1, 97, 18, 123/63. PT A/OX4. PT IN STABLE CONDITION. RESULTS OF EGD REPORTED TO DR. ANTON.
[2021-01-08] MEDS: SOD FERRIC GLUC 125 MG in IV NS 0.9% 100 ML IV SCH (14:08)
[2021-01-08] MEDS: ACETAMINOPHEN 325 MG TABLET PO PRN (14:25)
--- NOTE | 2021-01-08 16:25 | NUR ---
RN D/C NOTES; PT D/C TO HOME IN STABLE CONDITION. DC INSTRUCTIONS GIVEN AND EXPLAINED TO PT. PT VERBALIZED UNDERSTANDING. ALL PAPERWORK SIGNED AND COMPLETED. ALL BELONGINGS SENT. PT VERBALIZED SHE HAS O2 AT HOME. PT LEFT VIA PRIVATE VEHICLE ESCORTED BY RN TO [facility]. DRIVEN HOME BY GRANDDAUGHTER.
== END 2021-01-08 16:17 | disposition home health service (06) | DRG 391 ==
LOC: ER 12:10 → TELE1 14:23 → MEDSG1 01-08 08:15
PROVIDERS: ADMIT Legal Medicine; ATTEND Legal Medicine
PROC: 30233N1 Transfusion of Nonautologous Red Blood Cells into Peripheral Vein, Percutaneous Approach (ICD-10-PCS; 2021-01-05)
PROC: 0DJ08ZZ Inspection of Upper Intestinal Tract, Via Natural or Artificial Opening Endoscopic (ICD-10-PCS; principal; 2021-01-08)
DX: K29.70 Gastritis, unspecified, without bleeding (principal); E43 Unspecified severe protein-calorie malnutrition; D62 Acute posthemorrhagic anemia; I50.22 Chronic systolic (congestive) heart failure; I48.20 Chronic atrial fibrillation, unspecified; J98.11 Atelectasis; F41.9 Anxiety disorder, unspecified; I11.0 Hypertensive heart disease with heart failure; J44.9 Chronic obstructive pulmonary disease, unspecified; K44.9 Diaphragmatic hernia without obstruction or gangrene; Z87.891 Personal history of nicotine dependence; Z20.822 Contact with and (suspected) exposure to COVID-19; Z87.11 Personal history of peptic ulcer disease; Z79.899 Other long term (current) drug therapy; Z79.01 Long term (current) use of anticoagulants; Z88.1 Allergy status to other antibiotic agents; Z90.49 Acquired absence of other specified parts of digestive tract; Z88.0 Allergy status to penicillin; Z88.2 Allergy status to sulfonamides; Z88.8 Allergy status to other drugs, medicaments and biological substances; I70.0 Atherosclerosis of aorta; G20 Parkinson's disease; Z79.51 Long term (current) use of inhaled steroids
CPT/HCPCS: 36415; 71045-TC; 80048-TC; 80076-TC; 82728-TC; 83540-TC; 83690-TC; 83735-TC; 84484-TC; 85025-TC; 85610-TC; 85730-TC; 86850-TC; 87081-TC; 90732; 93307-TC; 97116-TC; 97530-TC; C9113; C9803; G0378; J2704; J2916; J3490; J7030; J7040; J7042; P9016; U0003

== ENCOUNTER 2021-01-18 13:00 | Inpatient (IN) | payer MEDICARE, OTHER ==
[~2021-01-18] VITALS: Ht 175.3 cm; Wt 59.9 kg
[~2021-01-18 13:00] MED LIST changes: -LEVO500T23 PO
--- NOTE | 2021-01-18 13:16 | NUR ---
BIB DAUGHTER FOR WEAKNESS AND SOB SINCE 01/08/21. RESPIRATION REGULAR AND UNLABORED. ATTACHED TO THE MONITOR. WILL CONTINUE TO MONITOR THE PATIENT.
--- NOTE | 2021-01-18 13:20 | NUR ---
DR LIAO AT THE BEDSIDE
--- NOTE | 2021-01-18 13:28 | NUR ---
IV LINE IS ESTABLISHED, BLOOD SPECIMEN COLLECTED AND SENT TO THE LAB. THE LINE IS SALINE LOCKED.
[2021-01-18] MEDS ORDERED: IV NS 0.9% 500 ML BAG IV ONE (13:30)
[2021-01-18 13:49] LABS: BASOPHILS # (AUTO) 0.1 K/uL (0.0-0.2); BASOPHILS % (AUTO) 1.6 % (0.0-2.0); EOSINOPHILS % (AUTO) 1.1 % (0.0-6.0); HEMATOCRIT 33 % (33-45); HEMOGLOBIN 9.7 g/dL (11.5-14.8); LYMPHOCYTES # (AUTO) 0.7 K/uL (0.8-4.8); LYMPHOCYTES % (AUTO) 12.4 % (20.0-44.0); MEAN CORPUSCULAR HGB CONC 29 g/dl (31.0-36.0); MEAN CORPUSCULAR VOLUME 86 fL (82-100); MONOCYTES # (AUTO) 0.4 K/uL (0.1-1.30); MONOCYTES % (AUTO) 6.9 % (2.0-12.0); NEUTROPHILS # (AUTO) 4.2 K/uL (1.8-8.9); PLATELET COUNT (AUTO) 269 K/uL (150-450); RED BLOOD CELL COUNT(AUTO) 3.87 MIL/uL (4.0-5.2); WHITE BLOOD COUNT (AUTO) 5.3 K/uL (4.3-11.0)
[2021-01-18 14:05] LABS: CALCIUM, SERUM 8.3 mg/dL (8.5-10.1); CARBON DIOXIDE 26 mmol/L (21-32); CHLORIDE 108 mmol/L (98-107); GLUCOSE 126 mg/dL (74-106); POTASSIUM 3.3 mmol/L (3.5-5.1); SODIUM SERUM 143 mmol/L (136-145); UREA NITROGEN, BLOOD 17 mg/dL (7-18)
[2021-01-18 14:17] LABS: ALANINE AMINOTRANSFERASE 20 U/L (12-78); ALBUMIN 3.4 g/dL (3.4-5.0); ALKALINE PHOSPHATASE 80 U/L (46-116); ASPARTATE AMINOTRANSFERASE 17 U/L (15-37); BILIRUBIN,DIRECT 0.2 mg/dL (0.0-0.2); BILIRUBIN,TOTAL 0.5 mg/dL (0.2-1.0); TOTAL PROTEIN, SERUM 6.9 g/dL (6.4-8.2)
--- NOTE | 2021-01-18 14:23 | NUR ---
COVID SWAB DONE AND SENT TO THE LAB
[2021-01-18] MEDS ORDERED: IPRATROPIUM NEB FS 0.5 MG/2.5 ML AMPUL.NEB NEB PRN (14:30)
[2021-01-18] MEDS ORDERED: LABETALOL 20 MG/4 ML VIAL IV PRN (14:30)
[2021-01-18] MEDS ORDERED: MORPHINE SULFATE INJ 2 MG/ML DISP.SYRIN IV PRN (14:30)
[2021-01-18] MEDS ORDERED: ONDANSETRON HCL/PF 4 MG/2 ML VIAL IVP PRN (14:30)
[2021-01-18] MEDS ORDERED: hydrALAZINE HCL IV 20 MG VIAL IV PRN (14:30)
[2021-01-18] MEDS ORDERED: FUROSEMIDE 40 MG/4 ML VIAL IV ONE (15:00)
[2021-01-18] MEDS ORDERED: FUROSEMIDE 40 MG/4 ML VIAL ONE (15:16)
[2021-01-18 16:00] VITALS: BP 148/65
--- NOTE | 2021-01-18 16:02 | NUR ---
ROOM 310-2
--- NOTE | 2021-01-18 16:05 | NUR ---
REPORT GIVEN TO NURSE WALLACE
--- NOTE | 2021-01-18 16:43 | NUR ---
.THE PATIENT IS TRANSFERED TO [facility] PER [facility] POLICY
[2021-01-18] MEDS ORDERED: busPIRone 5 MG TABLET PO PRN (17:00)
[2021-01-18] MEDS: APIXABAN 5 MG TABLET PO SCH (17:00)
--- NOTE | 2021-01-18 17:45 | NUR ---
BPM ANALYST NOTE- PT IS A 71 TY/O FEMALE W SOB AND GENERAL WEAKNESS. PT BIB AMBULANCE FROM HOME. ON FACE TO FACE ASSESSMENT , SHE IS ALERT ORIENTED TO PERSON PLACE PURPOSE. INTERACTIVE AND CALM. PT IS A BIT WITHDRAWN. ANSWERS QUESTIONS EASILY. DENIES PAIN N&V OR DIZZINESS. CHEST W DIMINISHED BREATH SOUNDS ON AUSCULTATION, BS + AND HYPOACTIVE THROUGHOUT. SKIN INTACT. TELE - PT IS AFIB AT 89/M VS- BP- 148/65, RR- 18, O2 SATS 93% ON 3LPM VIA NC. ORIENTED TO UNIT, ORDERS RECEIVED AND CARRIED OUT. PT MADE COMFORTABLE. SIDE RAILS UP, BED LOCKED, CALL LIGHT IN REACH. MONITOR AND ASSIST.
[2021-01-18] MEDS: METOPROLOL TARTRATE 50 MG TABLET PO SCH (18:03)
--- NOTE | 2021-01-18 19:20 | NUR ---
TELE/RN OPENING NOTE RECEIVED PATIENT RESTING IN BED. AWAKE, ALERT AND ORIENTED X 3. ABLE TO MAKE NEEDS KNOWN. DENIES PAIN AT THIS TIME. CONTINUES ON 3L O2 VIA NC WITH NO S/SX OF RESPIRATORY DISTRESS NOTED. IV ACCESS TO LEFT AC #20G INTACT, PATENT AND SALINE LOCKED. CONTINUES ON TELE MONITOR WITH CURRENT READING AFIB CONTROLLED. CALL LIGHT WITHIN REACH. ASPIRATION, FALL AND SAFETY PRECAUTIONS MAINTAINED. WILL CONTINUE TO MONITOR.
[2021-01-18] MEDS ORDERED: FUROSEMIDE 20 MG/2 ML VIAL IV SCH (21:00)
[2021-01-18] MEDS: ACETAMINOPHEN 325 MG TABLET PO PRN (21:20)
[2021-01-18] MEDS: TRAZODONE 50 MG TABLET PO PRN (21:20)
[2021-01-19] VITALS: BP 118/60
[2021-01-19 04:00] VITALS: BP 122/63
--- NOTE | 2021-01-19 06:30 | NUR ---
TELE/RN CLOSING NOTE PATIENT CURRENTLY SLEEPING IN BED. ALERT AND ORIENTED X 3. ABLE TO MAKE NEEDS KNOWN. DENIES PAIN AT THIS TIME. CONTINUES ON 4L O2 VIA NC WITH NO S/SX OF RESPIRATORY DISTRESS NOTED. IV ACCESS TO LEFT AC #20G INTACT, PATENT AND SALINE LOCKED. CONTINUES ON TELE MONITOR WITH CURRENT READING AFIB CONTROLLED HR 72. CALL LIGHT WITHIN REACH. ASPIRATION, FALL AND SAFETY PRECAUTIONS MAINTAINED. WILL ENDORSE PLAN OF CARE TO ONCOMING SHIFT.
[2021-01-19 06:55] LABS: BASOPHILS % (AUTO) 0.7 % (0.0-2.0); HEMATOCRIT 32 % (33-45); HEMOGLOBIN 9.7 g/dL (11.5-14.8); LYMPHOCYTES # (AUTO) 0.7 K/uL (0.8-4.8); LYMPHOCYTES % (AUTO) 14.8 % (20.0-44.0); MEAN CORPUSCULAR HGB CONC 30 g/dl (31.0-36.0); MEAN CORPUSCULAR VOLUME 84 fL (82-100); MONOCYTES # (AUTO) 0.4 K/uL (0.1-1.30); MONOCYTES % (AUTO) 7.9 % (2.0-12.0); NEUTROPHILS # (AUTO) 3.3 K/uL (1.8-8.9); NEUTROPHILS % (AUTO) 74.6 % (43.0-81.0); PLATELET COUNT (AUTO) 214 K/uL (150-450); RED BLOOD CELL COUNT(AUTO) 3.81 MIL/uL (4.0-5.2); WHITE BLOOD COUNT (AUTO) 4.5 K/uL (4.3-11.0)
--- NOTE | 2021-01-19 07:15 | NUR ---
COMBINATION WELDER OPENING NOTE RECEIVED PATIENT ON BED AWAKE, ALERT AND ORIENTED X 4. ABLE TO MAKE NEEDS KNOWN. DENIES PAIN AT THIS TIME. CONTINUES ON 4L O2 VIA NC WITH NO S/SX OF RESPIRATORY DISTRESS NOTED. IV ACCESS TO LEFT AC #20G ON SALINE LOCK, INTACT AND PATENT. CONTINUES ON TELE MONITOR WITH CURRENT READING AFIB CONTROLLED. CALL LIGHT WITHIN REACH. SAFETY MEASURE ENSURED WITH BED LOCKED AND AT LOWEST POSITION. WILL CONTINUE TO MONITOR.
[2021-01-19 07:24] LABS: ALBUMIN 3.1 g/dL (3.4-5.0); BILIRUBIN,TOTAL 0.6 mg/dL (0.2-1.0); CALCIUM, SERUM 7.9 mg/dL (8.5-10.1); CREATININE 0.9 mg/dL (0.6-1.3); MAGNESIUM 1.8 mg/dL (1.8-2.4); PHOSPHORUS 3.9 mg/dL (2.5-4.9); POTASSIUM 3.1 mmol/L (3.5-5.1); TOTAL PROTEIN, SERUM 6.2 g/dL (6.4-8.2)
[2021-01-19] MEDS: PANTOPRAZOLE 40 MG TABLET.DR PO SCH (07:52)
[2021-01-19 08:00] VITALS: BP 132/75
[2021-01-19] MEDS: POTASSIUM CHLORIDE 20 MEQ TAB.PRT.SR PO SCH ×2 (08:52→09:07)
[2021-01-19] MEDS ORDERED: DILTIAZEM HCL CD 180 MG PO SCH (09:00)
[2021-01-19] MEDS: METOPROLOL TARTRATE 50 MG TABLET PO SCH ×2 (09:06→17:18)
[2021-01-19] MEDS: ESCITALOPRAM OXALATE (10 MG) 10 MG TABLET PO SCH (09:08)
[2021-01-19] MEDS ORDERED: FUROSEMIDE 20 MG/2 ML VIAL IV ONE (09:30)
[2021-01-19] MEDS: APIXABAN 5 MG TABLET PO SCH ×2 (09:31→17:23)
[2021-01-19] MEDS: FLUTICASONE/VILANTEROL 1 EACH BLST.W.DEV IH SCH (10:13)
[2021-01-19] MEDS: FUROSEMIDE 40 MG/4 ML VIAL IV SCH ×3 (10:13→17:17)
[2021-01-19 16:00] VITALS: BP 127/70
--- NOTE | 2021-01-19 19:13 | NUR ---
ROTARY DRILLER HELPER CLOSING NOTE PATIENT ON BED AWAKE, ALERT AND ORIENTED X 4. ABLE TO MAKE NEEDS KNOWN. DENIES PAIN AT THIS TIME. CONTINUES ON 4L O2 VIA NC WITH NO S/SX OF RESPIRATORY DISTRESS NOTED. IV ACCESS TO LEFT AC #20G ON SALINE LOCK, INTACT AND PATENT. CONTINUES ON TELE MONITOR WITH CURRENT READING AFIB CONTROLLED. CALL LIGHT WITHIN REACH. SAFETY MEASURE ENSURED WITH BED LOCKED AND AT LOWEST POSITION. WILL ENDORSE PATIENT FOR CONTINUITY OF CARE.
[2021-01-19 19:29] LABS: CALCIUM, SERUM 8.1 mg/dL (8.5-10.1); CARBON DIOXIDE 32 mmol/L (21-32); CHLORIDE 105 mmol/L (98-107); CREATININE 1.4 mg/dL (0.6-1.3); GLUCOSE 117 mg/dL (74-106); POTASSIUM 3.2 mmol/L (3.5-5.1); SODIUM SERUM 147 mmol/L (136-145); UREA NITROGEN, BLOOD 19 mg/dL (7-18)
[2021-01-19 19:30] LABS: ALANINE AMINOTRANSFERASE 18 U/L (12-78); ALBUMIN 3.3 g/dL (3.4-5.0); ALKALINE PHOSPHATASE 91 U/L (46-116); ASPARTATE AMINOTRANSFERASE 11 U/L (15-37); BILIRUBIN,TOTAL 0.4 mg/dL (0.2-1.0); TOTAL PROTEIN, SERUM 6.6 g/dL (6.4-8.2)
--- NOTE | 2021-01-19 19:35 | NUR ---
BILLING AND QUALITY TECHNICIAN OPENING NOTES RECEIVED PATIENT AWAKE LAYING IN BED. A/OX4. PATIENT WITH REGULAR AND UNLABORED BREATHING ON NASAL CANULA 4L O2 97% TOLERATED WELL. NO SIGNS AND SYMPTOMS OF DISTRESS NOTED. NO COMPLAIN OF PAIN OR DISCOMFORT AT THIS TIME. CONTROLLED AFIB @ 87 BPM IV ACCESS LAC G #20 SL. ACCESS PATENT AND INTACT. SAFETY PRECAUTIONS ENFORCED WITH BED LOCKED AND AT LOWEST POSITION SIDERAILS UP X2. CALL LIGHT WITHIN REACH AT ALL TIMES WILL CONTINUE TO MONITOR PATIENT.
[2021-01-19 20:00] VITALS: BP 102/56
[2021-01-19] MEDS: TRAZODONE 50 MG TABLET PO PRN (20:50)
--- NOTE | 2021-01-19 21:15 | NUR ---
RN NOTES INFORMED DR. SON REGARDING PATIENT'S POTASSIUM LEVEL OF 3.2- NO ORDER WAS GIVEN
[2021-01-20] VITALS: BP 100/54
[2021-01-20 05:00] VITALS: BP 103/57
--- NOTE | 2021-01-20 05:30 | NUR ---
RN NOTES CAUGHT PATIENT TAKING HER OWN ACETAMINOPHEN, TALKED TO THE PATIENT REGARDING THE RISK OF TAKING THEIR OWN MEDICATION, TOOK HER OWN PILL AND WILL BRING IT DOWN TO THE PHARMACY
--- NOTE | 2021-01-20 06:23 | NUR ---
PEDIATRIC HOSPITALIST CLOSING NOTES PATIENT STILL AWAKE LAYING IN BED. A/OX4. PATIENT STILL WITH REGULAR AND UNLABORED BREATHING ON NASAL CANULA 4L O2 97% TOLERATED WELL. NO SIGNS AND SYMPTOMS OF DISTRESS NOTED. NO COMPLAIN OF PAIN OR DISCOMFORT AT THIS TIME. CONTROLLED AFIB @ 87 BPM IV ACCESS LAC G #20 SL. ACCESS PATENT AND INTACT. SAFETY PRECAUTIONS ENFORCED WITH BED LOCKED AND AT LOWEST POSITION SIDERAILS UP X2. CALL LIGHT WITHIN REACH AT ALL TIMES. WILL ENDORSE CONTINUITY OF CARE TO DAY SHIFT NURSE.
[2021-01-20 06:37] LABS: CALCIUM, SERUM 8.3 mg/dL (8.5-10.1); CREATININE 1.1 mg/dL (0.6-1.3); POTASSIUM 3.1 mmol/L (3.5-5.1)
[2021-01-20 08:00] VITALS: BP 131/108
--- NOTE | 2021-01-20 08:04 | NUR ---
CABLE ENGINEER OPENING NOTES RECEIVED Pt AWAKE AND LAYING IN BED. A/OX4. PATIENT WITH REGULAR AND UNLABORED BREATHING ON NASAL CANULA 4L AND TOLERATING WELL. NO SIGNS OR SYMPTOMS OF PAIN OR DISTRESS NOTED AT THIS TIME. Pt HAS AN IV ACCESS LAC 20G SL. CURRENTLY PATENT AND INTACT. SAFETY PRECAUTIONS ARE IN PLACE: BED IS LOCKED AND IN LOWEST POSITION, SIDE RAILS UP X2. CALL LIGHT AND BED SIDE TABLE WITHIN REACH. WILL CONTINUE TO MONITOR PATIENT THROUGHOUT SHIFT.
[2021-01-20] MEDS: ESCITALOPRAM OXALATE (10 MG) 10 MG TABLET PO SCH (08:34)
[2021-01-20] MEDS: FUROSEMIDE 20 MG/2 ML VIAL IV SCH ×2 (08:34→16:40)
[2021-01-20] MEDS: POTASSIUM CHLORIDE 20 MEQ TAB.PRT.SR PO SCH ×2 (08:34→16:40)
[2021-01-20] MEDS: PANTOPRAZOLE 40 MG TABLET.DR PO SCH (08:35)
[2021-01-20] MEDS: DILTIAZEM HCL CD 120 MG PO SCH (08:35)
[2021-01-20] MEDS: METOPROLOL TARTRATE 50 MG TABLET PO SCH ×2 (08:36→16:48)
[2021-01-20] MEDS: APIXABAN 5 MG TABLET PO SCH ×2 (08:38→17:02)
[2021-01-20] MEDS: FLUTICASONE/VILANTEROL 1 EACH BLST.W.DEV IH SCH (08:42)
[2021-01-20] MEDS ORDERED: POTASSIUM CHLORIDE 20 MEQ TAB.PRT.SR PO SCH (09:00)
[2021-01-20] MEDS: diphenhydrAMINE HCL 25 MG CAPSULE PO PRN (11:47)
[2021-01-20 16:00] VITALS: BP 104/62
--- NOTE | 2021-01-20 19:35 | NUR ---
DESK EDITOR CLOSING NOTES PT. AWAKE AND LAYING IN BED. A/OX4. PATIENT WITH REGULAR AND UNLABORED BREATHING ON NASAL CANULA 4L AND TOLERATING WELL. NO SIGNS OR SYMPTOMS OF PAIN OR DISTRESS NOTED AT THIS TIME. Pt HAS AN IV ACCESS LAC 20G SL. CURRENTLY PATENT AND INTACT. ALL NEEDS MET. SAFETY PRECAUTIONS ARE IN PLACE: BED IS LOCKED AND IN LOWEST POSITION, SIDE RAILS UP X2. CALL LIGHT AND BED SIDE TABLE WITHIN REACH. WILL ENDORSE TO THE NEXT SHIFT FOR AYE.
--- NOTE | 2021-01-20 19:45 | NUR ---
COOK BOX FILLER OPENING NOTES RECEIVED PATIENT AWAKE LAYING IN BED. A/OX4. PATIENT WITH REGULAR AND UNLABORED BREATHING ON NASAL CANULA 4L O2 100% TOLERATED WELL. NO SIGNS AND SYMPTOMS OF DISTRESS NOTED. NO COMPLAIN OF PAIN OR DISCOMFORT AT THIS TIME. CONTROLLED AFIB @ 106 BPM IV ACCESS LAC G #20 SL. ACCESS PATENT AND INTACT. SAFETY PRECAUTIONS ENFORCED WITH BED LOCKED AND AT LOWEST POSITION SIDERAILS UP X2. CALL LIGHT WITHIN REACH AT ALL TIMES WILL CONTINUE TO MONITOR PATIENT.
[2021-01-20 20:00] VITALS: BP 100/63
[2021-01-20] MEDS: ACETAMINOPHEN 325 MG TABLET PO PRN (20:38)
--- NOTE | 2021-01-20 20:39 | NUR ---
SIGN PAINTER HELPER NOTE PATIENT COMPLAINED OF PAIN. ADMINISTERED ACETAMINOPHEN 650 MG PO Q6H PRN FOR PAIN ORDERED BY THE HOSPITALIST.
[2021-01-20] MEDS: TRAZODONE 50 MG TABLET PO PRN (21:57)
[2021-01-21] VITALS (8 sets, daily range): BP systolic 99–131; BP diastolic 40–90
[2021-01-21] MEDS: ACETAMINOPHEN 325 MG TABLET PO PRN ×2 (05:59→12:32)
--- NOTE | 2021-01-21 06:00 | NUR ---
BEHAVIORAL HEALTH ASSISTANT NOTE PATIENT COMPLAINED OF PAIN. ADMINISTERED ACETAMINOPHEN 650 MG PO Q6H PRN FOR PAIN ORDERED BY THE HOSPITALIST.
--- NOTE | 2021-01-21 06:45 | NUR ---
AUTO PARTS SALESPERSON CLOSING NOTES PATIENT STILL AWAKE LAYING IN BED. A/OX4. PATIENT STILL WITH REGULAR AND UNLABORED BREATHING ON NASAL CANULA 4L O2 99% TOLERATED WELL. NO SIGNS AND SYMPTOMS OF DISTRESS NOTED. NO COMPLAIN OF PAIN OR DISCOMFORT AT THIS TIME. CONTROLLED AFIB @ 92 BPM IV ACCESS LAC G #20 SL. ACCESS PATENT AND INTACT. SAFETY PRECAUTIONS ENFORCED WITH BED LOCKED AND AT LOWEST POSITION SIDERAILS UP X2. CALL LIGHT WITHIN REACH AT ALL TIMES. WILL ENDORSE CONTINUITY OF CARE TO DAY SHIFT NURSE.
[2021-01-21] MEDS: ESCITALOPRAM OXALATE (10 MG) 10 MG TABLET PO SCH (08:34)
[2021-01-21] MEDS: PANTOPRAZOLE 40 MG TABLET.DR PO SCH (08:34)
[2021-01-21] MEDS: METOPROLOL TARTRATE 50 MG TABLET PO SCH ×2 (08:34→16:45)
[2021-01-21] MEDS: POTASSIUM CHLORIDE 20 MEQ TAB.PRT.SR PO SCH ×2 (08:35→16:44)
[2021-01-21] MEDS: DILTIAZEM HCL CD 120 MG PO SCH (08:35)
[2021-01-21] MEDS: APIXABAN 5 MG TABLET PO SCH ×2 (08:36→16:47)
[2021-01-21] MEDS: FUROSEMIDE 20 MG/2 ML VIAL IV SCH ×2 (08:38→16:45)
[2021-01-21] MEDS: diphenhydrAMINE HCL 25 MG CAPSULE PO PRN (09:27)
[2021-01-21] MEDS: FLUTICASONE/VILANTEROL 1 EACH BLST.W.DEV IH SCH (09:29)
--- NOTE | 2021-01-21 09:44 | NUR ---
WINDOWS SERVER SPECIALIST OPENING NOTE Patient in bed, awake. A/O x 4, able to make needs known. On O2 at 4 LPM via NC, breathing evenly and unlabored. No SOB or s/s of distress noted. IV access on LAC #20G SL, intact and patent. On tele monitoring showing controlled AFib, HR on the 90's. Safety precautions in place: bed in low, locked position; siderails up x 2; call light within reach. Will continue to monitor.
[2021-01-21 09:55] LABS: ABG BASE EXCESS 6.4 mmol/L; ABG OXYGEN SATURATION 93.7 % (92.0-98.5); ABG PCO2 45.3 mmHg (35.0-45.0); ABG PH 7.454 (7.350-7.450); ABG PO2 70.2 mmHg (75.0-100.0); AaDO2 133.9 mmHg; COHb 0.7 % (0.5-1.5); MetHb 0.3 % (0.0-1.5); O2Hb 92.8 % (94.0-97.0); SITE, ABG Right Brachial; VENT MODE, BG nasal cannula
[2021-01-21] MEDS: acetaZOLAMIDE 250 MG TABLET PO SCH (11:11)
[2021-01-21] MEDS ORDERED: METO50TA16 PO (11:57)
[2021-01-21] MEDS ORDERED: FURO-145 PO (11:57)
[2021-01-21] MEDS ORDERED: POTA20TA83 PO (11:57)
[2021-01-21] MEDS: TRAMADOL HCL 50 MG TABLET PO PRN ×2 (14:19→20:42)
--- NOTE | 2021-01-21 18:41 | NUR ---
BUFFING WHEEL OPERATOR CLOSING NOTE Patient in bed, resting. A/O x 4, able to make needs known. Stable on O2 at 3 LPM via NC. No SOB or s/s of distress noted. IV access on LAC #20G SL, intact, patent, and flushes well. On tele monitoring showing controlled AFib, HR on the 80's. All needs attended to. Due meds given. Safety precautions maintained: bed in low, locked position; siderails up x 2; call light within reach. Will endorse to retail shift leader nurse for AYE.
--- NOTE | 2021-01-21 19:30 | NUR ---
patternmaker all around opening notes Received Pt from morning nurse. Pt is alert and orientedX4. Pt is laying in bed comfortably watching TV. Respiration is normal in 3 L NC. No SOB. No S/S of distress noted. Tele monitor showed afib controlled HR at 74. IV sites at LAc# 20 is clean, intact and SL. Safety precautions is maintained. Bed at low position, brakes locked, side rails upX2, bed alarm is on and call light is within reach. Will continue to monitor.
--- NOTE | 2021-01-21 20:42 | NUR ---
nail feeder notes Pt is complaining of back pain and requesting tramadol. administered tramadol 50 mg/1 tab/po/prn as ordered for pain. VS is stable. Safety precautions is maintained. Will continue to monitor.
[2021-01-22] VITALS (7 sets, daily range): BP systolic 96–113; BP diastolic 44–67
[2021-01-22] MEDS: TRAZODONE 50 MG TABLET PO PRN (01:07)
--- NOTE | 2021-01-22 01:08 | NUR ---
pet feeder notes Pt is having insomnia and requesting a sleeping pill. Administered trazadone 50 mg/1 tab/po/prn for sleeping. Safety precautions is maintained. Will continue to monitor.
[2021-01-22 06:28] LABS: BASOPHILS % (AUTO) 0.5 % (0.0-2.0); MEAN CORPUSCULAR HGB CONC 30 g/dl (31.0-36.0); MEAN CORPUSCULAR VOLUME 84 fL (82-100); MONOCYTES # (AUTO) 0.5 K/uL (0.1-1.30); WHITE BLOOD COUNT (AUTO) 5.6 K/uL (4.3-11.0)
--- NOTE | 2021-01-22 06:30 | NUR ---
cement rubber closing notes Pt is resting in bed comfortably. Pt is alert and orientedX4. Respiration is normal in 3 L NC. No SOB. No S/S of distress noted. Tele monitor showed afib controlled HR at 86. VS is stable. Routine meds were given as ordered. IV sites at LAc# 20 is clean, intact and SL. Kept Pt clean, dry and comfortable. All needs met and attended. Safety precautions is maintained. Bed at low position, brakes locked, side rails upX2, bed alarm is on and call light is within reach. Will endorse to am nurse for AYE.
[2021-01-22 06:40] LABS: EOSINOPHILS % (AUTO) 1.8 % (0.0-6.0); HEMATOCRIT 36 % (33-45); HEMOGLOBIN 10.8 g/dL (11.5-14.8); LYMPHOCYTES # (AUTO) 1.3 K/uL (0.8-4.8); LYMPHOCYTES % (AUTO) 22.9 % (20.0-44.0); MONOCYTES % (AUTO) 9.2 % (2.0-12.0); NEUTROPHILS # (AUTO) 3.7 K/uL (1.8-8.9); NEUTROPHILS % (AUTO) 65.6 % (43.0-81.0); PLATELET COUNT (AUTO) 268 K/uL (150-450); RED BLOOD CELL COUNT(AUTO) 4.34 MIL/uL (4.0-5.2)
[2021-01-22 07:01] LABS: CREATININE 1.3 mg/dL (0.6-1.3); MAGNESIUM 2.1 mg/dL (1.8-2.4); PHOSPHORUS 3.5 mg/dL (2.5-4.9); POTASSIUM 4.9 mmol/L (3.5-5.1)
--- NOTE | 2021-01-22 07:46 | NUR ---
manual control auger press operator opening notes Pt is alert and orientedX4. No SOB. No S/S of RR distress noted. IV sites at LAC # 20 is clean, intact and SL. Pt clean, dry and comfortable. All needs met and attended. Safety precautions is maintained. Bed at low position, brakes locked, side rails upX2, bed alarm is on and call light is within reach.
[2021-01-22] MEDS: METOPROLOL TARTRATE 50 MG TABLET PO SCH ×2 (09:00→16:17)
[2021-01-22] MEDS: DILTIAZEM HCL CD 120 MG PO SCH (09:00)
[2021-01-22] MEDS: acetaZOLAMIDE 250 MG TABLET PO SCH (09:00)
[2021-01-22] MEDS: ESCITALOPRAM OXALATE (10 MG) 10 MG TABLET PO SCH (09:31)
[2021-01-22] MEDS: POTASSIUM CHLORIDE 20 MEQ TAB.PRT.SR PO SCH ×2 (09:31→16:31)
[2021-01-22] MEDS: APIXABAN 5 MG TABLET PO SCH ×2 (09:31→16:31)
[2021-01-22] MEDS: TRAMADOL HCL 50 MG TABLET PO PRN ×2 (09:33→21:16)
[2021-01-22] MEDS: FUROSEMIDE 20 MG/2 ML VIAL IV SCH ×2 (09:35→16:16)
[2021-01-22] MEDS: FLUTICASONE/VILANTEROL 1 EACH BLST.W.DEV IH SCH (09:49)
[2021-01-22] MEDS: PANTOPRAZOLE 40 MG TABLET.DR PO SCH (09:52)
[2021-01-22] MEDS: diphenhydrAMINE HCL 25 MG CAPSULE PO PRN (11:28)
--- NOTE | 2021-01-22 19:01 | NUR ---
RN CLOSING NOTES Pt is resting in bed comfortably. Pt is alert and orientedX4. Respiration is normal in 3 L NC. No SOB. No S/S of distress noted. Routine meds were given as ordered. IV sites at LAC# 20 is clean, and intact. All needs met and attended. Safety precautions is maintained. Bed at low position, brakes locked, side rails upX2, bed alarm is on and call light is within reach. Will endorse to am nurse for AYE.
--- NOTE | 2021-01-22 19:30 | NUR ---
RN OPENING NOTE PATIENT IN BED AWAKE, A/O X 4. PATIENT CURRENTLY ON 3L OF O2 SUPPLEMENTATION, SATTING AT 94%. PATIENT IS ABLE TO MAKE NEEDS KNOWN. LAC 20 G SALINE LOCKED, PATENT AND INTACT. NO REPORTS OF PAIN AT THIS TIME. SAFETY MEASURES IN PLACE: BED LOCKED AND IN LOWEST POSITION, CALL LIGHT WITHIN REACH, SIDE RAILS UP, BED ALARM ON. WILL MONITOR PATIENT CLOSELY.
--- NOTE | 2021-01-22 21:16 | NUR ---
TRAMADOL 50 MG GIVEN FOR HEADACHE 5/10 ON PAIN SCALE. WILL REASSESS AT A LATER TIME
--- NOTE | 2021-01-23 06:47 | NUR ---
RN CLOSING NOTE PATIENT IN BED EYES CLOSED, A/O X 4. PATIENT CURRENTLY ON 3L OF O2 SUPPLEMENTATION, SATTING AT 94%, NO SOB NOTED. PATIENT IS ABLE TO MAKE NEEDS KNOWN. LAC 20 G SALINE LOCKED, PATENT AND INTACT. SAFETY MEASURES IN PLACE: BED LOCKED AND IN LOWEST POSITION, CALL LIGHT WITHIN REACH, SIDE RAILS UP, BED ALARM ON. ALL NEEDS MET AND ATTENDED. ALL ORDERS CARRIED OUT. WILL ENDORSE TO DAY SHIFT NURSE FOR AYE.
--- NOTE | 2021-01-23 07:39 | NUR ---
RN OPENING NOTE PT SLEEPING IN BED, PT CURRENTLY ON 3L OF O2 NC, LAC 20 G SALINE LOCKED, PATENT AND INTACT. NO SOB, NO RR DISTRESS, SAFETY MEASURES IN PLACE, BED LOCKED AND IN LOWEST POSITION, CALL LIGHT WITHIN REACH, SIDE RAILS UP, BED ALARM ON. Addendum: 01/23/21 at 0751 by WILLIAM FERNANDEZ RN PLS DISREGARD ABOVE NOTES, USER ERROR
--- NOTE | 2021-01-23 07:52 | NUR ---
RN OPENING NOTE PT SLEEPING IN BED, PT CURRENTLY ON 3L OF O2 NC, LAC 20 G SALINE LOCKED, PATENT AND INTACT. NO SOB, NO RR DISTRESS, SAFETY MEASURES IN PLACE, BED LOCKED AND IN LOWEST POSITION, CALL LIGHT WITHIN REACH, SIDE RAILS UP, BED ALARM ON.
[2021-01-23 08:00] VITALS: BP 105/57
[2021-01-23 08:20] LABS: CALCIUM, SERUM 8.9 mg/dL (8.5-10.1); CREATININE 1.1 mg/dL (0.6-1.3); POTASSIUM 4.7 mmol/L (3.5-5.1)
[2021-01-23] MEDS: POTASSIUM CHLORIDE 20 MEQ TAB.PRT.SR PO SCH (08:56)
[2021-01-23] MEDS: ESCITALOPRAM OXALATE (10 MG) 10 MG TABLET PO SCH (08:56)
[2021-01-23] MEDS: acetaZOLAMIDE 250 MG TABLET PO SCH (09:00)
[2021-01-23] MEDS ORDERED: ERGOCALCIFEROL (VITAMIN D 2) 50,000 UNIT CAPSULE PO SCH (09:00)
[2021-01-23] MEDS: DILTIAZEM HCL CD 120 MG PO SCH (09:00)
[2021-01-23 09:02] VITALS: BP 105/57
[2021-01-23] MEDS: METOPROLOL TARTRATE 50 MG TABLET PO SCH (09:02)
[2021-01-23] MEDS: APIXABAN 5 MG TABLET PO SCH (09:02)
[2021-01-23] MEDS: PANTOPRAZOLE 40 MG TABLET.DR PO SCH (09:02)
[2021-01-23] MEDS: FUROSEMIDE 20 MG/2 ML VIAL IV SCH (09:03)
[2021-01-23] MEDS: FLUTICASONE/VILANTEROL 1 EACH BLST.W.DEV IH SCH (09:50)
[2021-01-23] MEDS: TRAMADOL HCL 50 MG TABLET PO PRN (12:12)
--- NOTE | 2021-01-23 14:07 | NUR ---
CERTIFIED TECHNICIAN SPECIALIST NOTES PT IN BED, NO SOB, NO RR DISTRESS, NO COMPLAINTS OF PAIN, IN STABLE CONDITION, RESPONSIVE AND COOPERATIVE. PT SEEN AND EXAMINED BY DR. MARTINEZ, D/C ORDER GIVEN, D/C ORDER AND MED INSTRUCTIONS GIVEN, VERBALIZED UNDERSTANDING, SENT PT NEW MEDS TO HOME PHARMACY, BELONGINGS ACCOUNTED FOR, HOME MEDS PICKED UP AT HOSPITAL PHARMAC[facility], PT SIGNED D/C PAPERS, IV LINE REMOVED, ASSISTED TO LOBBY BY WHEELCHAIR, EXITED AT 1400, PICKED UP BY A GRANDDAUGHTER.
== END 2021-01-23 15:00 | disposition home or self-care (01) | DRG 291 ==
LOC: ER 13:04 → TELE 16:03 → MED 01-22 08:39
PROVIDERS: ADMIT Internal Medicine; ATTEND Nurse Practitioner Acute Care
DX: I11.0 Hypertensive heart disease with heart failure (principal); J96.20 Acute and chronic respiratory failure, unspecified whether with hypoxia or hypercapnia; I50.33 Acute on chronic diastolic (congestive) heart failure; E87.1 Hypo-osmolality and hyponatremia; J90 Pleural effusion, not elsewhere classified; E87.3 Alkalosis; J98.11 Atelectasis; Z20.822 Contact with and (suspected) exposure to COVID-19; Z87.11 Personal history of peptic ulcer disease; F41.9 Anxiety disorder, unspecified; Z90.49 Acquired absence of other specified parts of digestive tract; Z88.1 Allergy status to other antibiotic agents; Z88.0 Allergy status to penicillin; Z88.2 Allergy status to sulfonamides; Z91.09 Other allergy status, other than to drugs and biological substances; Z79.01 Long term (current) use of anticoagulants; Z79.899 Other long term (current) drug therapy; E87.6 Hypokalemia; D64.9 Anemia, unspecified; Z87.891 Personal history of nicotine dependence; J44.9 Chronic obstructive pulmonary disease, unspecified; I05.2 Rheumatic mitral stenosis with insufficiency; K29.70 Gastritis, unspecified, without bleeding; G20 Parkinson's disease; Z79.51 Long term (current) use of inhaled steroids; Z86.19 Personal history of other infectious and parasitic diseases; F39 Unspecified mood [affective] disorder; I27.20 Pulmonary hypertension, unspecified; F32.A Depression, unspecified; K44.9 Diaphragmatic hernia without obstruction or gangrene; I48.91 Unspecified atrial fibrillation
CPT/HCPCS: 36415; 36600; 71045-TC; 71250-TC; 80048-TC; 80053-TC; 80076-TC; 82803-TC; 83605-TC; 83735-TC; 83880; 84100-TC; 84132-TC; 84484-TC; 85025-TC; 85730-TC; 87040-TC; 87081-TC; 97110-TC; 97116-TC; 97530-TC; C9803; G0378; J1940; J2270; J3490; J7040; Q0163

== ENCOUNTER 2022-01-24 02:05 | Inpatient (IN) | payer MEDICARE, OTHER ==
[~2022-01-24] VITALS: Ht 175.3 cm; Wt 49.0 kg
[~2022-01-24 02:05] MED LIST changes: +FURO-145 PO; +POTA20TA83 PO
--- NOTE | 2022-01-24 02:30 | NUR ---
BIBFAMILY FOR SOB X8 DAYS. HX OF COPD W CANNULA USE AT HOME 5LPM AND CONTINUED TO HAVE SOB. PT AWAKE AND ALERT CHANGED INTO GOWN AND PLACED ON MONITOR AND NOTED HR IN 170S. MD SOLIS AT BEDSIDE FOR EVAL.
--- NOTE | 2022-01-24 02:39 | NUR ---
DR. IRMA SCHREIBER AT PT'S BEDSIDE FOR EVAL
[2022-01-24 02:56] LABS: BASOPHILS % (AUTO) 0.4 % (0.0-2.0); EOSINOPHILS % (AUTO) 0.3 % (0.0-6.0); HEMATOCRIT 30 % (33-45); LYMPHOCYTES # (AUTO) 1.1 K/uL (0.8-4.8); MEAN CORPUSCULAR HGB CONC 30 g/dl (31.0-36.0); MEAN CORPUSCULAR VOLUME 87 fL (82-100); MONOCYTES % (AUTO) 13.3 % (2.0-12.0); NEUTROPHILS # (AUTO) 5.5 K/uL (1.8-8.9); PLATELET COUNT (AUTO) 284 K/uL (150-450); RED BLOOD CELL COUNT(AUTO) 3.49 MIL/uL (4.0-5.2); WHITE BLOOD COUNT (AUTO) 7.6 K/uL (4.3-11.0)
[2022-01-24] MEDS ORDERED: DILTIAZEM HCL 25 MG IV ONE ×2 (02:56→03:19)
[2022-01-24] MEDS ORDERED: DILTIAZEM HCL IV 125 MG in IV NS 0.9% 100 ML IV PRN ×2 (03:00→06:00)
[2022-01-24] MEDS ORDERED: IV NS 0.9% 500 ML BAG IV ONE (03:00)
[2022-01-24] MEDS ORDERED: DILTIAZEM HCL 50 MG IV IV ONE (03:00)
[2022-01-24 03:02] LABS: CALCIUM, SERUM 8.8 mg/dL (8.5-10.1); CARBON DIOXIDE 21 mmol/L (21-32); CHLORIDE 103 mmol/L (98-107); CREATININE 1.3 mg/dL (0.6-1.3); GLUCOSE 110 mg/dL (74-106); POTASSIUM 5.5 mmol/L (3.5-5.1); SODIUM SERUM 136 mmol/L (136-145); UREA NITROGEN, BLOOD 38 mg/dL (7-18)
--- NOTE | 2022-01-24 03:04 | NUR ---
COVID SWAB SENT TO LAB
--- NOTE | 2022-01-24 03:04 | NUR ---
20G IV STARTED AT . BLOOD DRAWN AND SENT TO LAB
[2022-01-24 03:14] LABS: ALANINE AMINOTRANSFERASE 245 U/L (12-78); ALBUMIN 3.5 g/dL (3.4-5.0); ALKALINE PHOSPHATASE 116 U/L (46-116); ASPARTATE AMINOTRANSFERASE 312 U/L (15-37); BILIRUBIN,DIRECT 0.5 mg/dL (0.0-0.2); BILIRUBIN,TOTAL 1.2 mg/dL (0.2-1.0); TOTAL PROTEIN, SERUM 6.7 g/dL (6.4-8.2)
[2022-01-24] MEDS ORDERED: DILTIAZEM HCL 50 MG IV ONE (03:19)
--- NOTE | 2022-01-24 03:28 | NUR ---
CARDIZEM INITIATED AT 5MG/HR PER PROTOCOL FOR ABIF WITH RVR
[2022-01-24] MEDS ORDERED: ALBUTEROL FS 2.5 MG/3 ML VIAL.NEB NEB ONE (03:30)
[2022-01-24] MEDS ORDERED: SODIUM BICARBONATE SYR 50 MEQ/50 ML DISP.SYRIN IV ONE (03:30)
[2022-01-24] MEDS ORDERED: CALCIUM CHLORIDE 1,000 MG/10 ML DISP.SYRIN IV ONE (03:30)
[2022-01-24] MEDS ORDERED: FUROSEMIDE 20 MG/2 ML VIAL IV ONE (03:30)
[2022-01-24] MEDS ORDERED: ASPIRIN 325 MG TABLET PO ONE (03:30)
[2022-01-24] MEDS ORDERED: methylPREDNISolone SOD SUCC 125 MG/2ML VIAL IV ONE (03:30)
--- NOTE | 2022-01-24 03:30 | NUR ---
CALLED DR. ANTON FOR ADMISSION. NO ANSWER, MESSAGE LEFT
--- NOTE | 2022-01-24 03:33 | NUR ---
CONTACTED DR. ANTNO. MESSAGE LEFT TO CALL BACK
[2022-01-24] MEDS ORDERED: FUROSEMIDE 20 MG/2 ML VIAL ONE (03:38)
[2022-01-24] MEDS ORDERED: CALCIUM CHLORIDE 1,000 MG/10 ML DISP.SYRIN ONE (03:38)
[2022-01-24] MEDS ORDERED: methylPREDNISolone SOD SUCC 125 MG/2ML VIAL ONE (03:38)
[2022-01-24] MEDS ORDERED: SODIUM BICARBONATE 5 MEQ/10 ML DISP.SYRIN IV ONE (03:38)
[2022-01-24] MEDS ORDERED: ASPIRIN 325 MG TABLET ONE ×2 (03:39→10:14)
--- NOTE | 2022-01-24 03:52 | NUR ---
CARDIZEM DRIP TITRATED UP TO 10MG/HR DUE TO IRREGULAR RATE
--- NOTE | 2022-01-24 03:53 | NUR ---
RT PAGED FOR BREATHING TREATMENT
--- NOTE | 2022-01-24 04:00 | NUR ---
CALLED DR. ANTON, AWAITING CALL BACK
[2022-01-24] MEDS ORDERED: ALBUTEROL FS 2.5 MG/3 ML VIAL.NEB ONE (04:25)
[2022-01-24] MEDS ORDERED: IBUPROFEN 600 MG TABLET ONE (04:27)
--- NOTE | 2022-01-24 04:28 | NUR ---
RT AT BEDSIDE FOR BREATHING TREATMENT
--- NOTE | 2022-01-24 04:29 | NUR ---
CALLED ANTONY AND SPOKE TO POOJA MONTERO TO BE READ APPROXIMATELY IN 2 HOURS.
[2022-01-24] MEDS ORDERED: IBUPROFEN 600 MG TABLET PO ONE (04:30)
--- NOTE | 2022-01-24 04:52 | NUR ---
Note melidaone in EDM - 01/24/22 at 0503 by ANISHA BIBFAMILY FOR SOB X8 DAYS. HX OF COPD W CANNULA USE AT HOME 5LPM AND CONTINUED TO HAVE SOB. PT AWAKE AND ALERT CHANGED INTO GOWN AND PLACED ON MONITOR AND NOTED HR IN 170S. MD SOLIS AT BEDSIDE FOR EVAL.
--- NOTE | 2022-01-24 05:09 | NUR ---
called dr. camacho, still no answer
--- NOTE | 2022-01-24 05:26 | NUR ---
called Dr. Sanon, still no answer.
--- NOTE | 2022-01-24 05:28 | NUR ---
epic panel called for admission.
[2022-01-24] MEDS ORDERED: MAGNESIUM HYDROXIDE 30 ML UDC PO PRN (06:00)
[2022-01-24] MEDS ORDERED: Z GUARD REMEDY 4 OZ OINT TP PRN (06:00)
[2022-01-24] MEDS ORDERED: ZOLPIDEM TARTRATE 5 MG TABLET PO PRN (06:00)
[2022-01-24] MEDS ORDERED: ALBUTEROL FS 2.5 MG/3 ML VIAL.NEB NEB SCH (06:00)
[2022-01-24] MEDS ORDERED: ONDANSETRON HCL/PF 4 MG/2 ML VIAL IVP PRN (06:00)
[2022-01-24] MEDS ORDERED: ACETAMINOPHEN 325 MG TABLET PO PRN (06:00)
[2022-01-24] MEDS ORDERED: busPIRone 5 MG TABLET PO PRN (06:00)
[2022-01-24] MEDS ORDERED: MAG HYDROX/AL HYDROX/SIMETH 30 ML UDC PO PRN (06:00)
--- NOTE | 2022-01-24 06:40 | NUR ---
DR AU AT BEDSIDE
--- NOTE | 2022-01-24 06:54 | NUR ---
CALLED ANTONY AND SPOKE TO POOJA CXR REPORT TO BE READ APPROXIMATELY WITHIN THE HOUR.
--- NOTE | 2022-01-24 08:10 | NUR ---
TITATE CARDIZEM TO 10MG, PULSE OF 94
--- NOTE | 2022-01-24 08:38 | NUR ---
ARMOND MILIAN [phone]
[2022-01-24] MEDS ORDERED: FLUTICASONE/VILANTEROL 1 EACH BLST.W.DEV IH SCH (09:00)
[2022-01-24] MEDS ORDERED: FUROSEMIDE 20 MG/2 ML VIAL IV SCH (09:00)
[2022-01-24] MEDS: BUDESONIDE RESPULE INH 0.5 MG/2 ML AMPUL.NEB NEB SCH ×2 (09:00→16:49)
--- NOTE | 2022-01-24 09:00 | NUR ---
CARDIZEM DRIP DISCONTINUED PER LEILA MARTINEZ
[2022-01-24 09:08] LABS: ABG BASE EXCESS -7.3 mmol/L; ABG PCO2 28.8 mmHg (35.0-45.0); ABG PH 7.382 (7.350-7.450); ABG PO2 67.6 mmHg (75.0-100.0); COHb 0.3 % (0.5-1.5); MetHb 0.6 % (0.0-1.5); O2Hb 90.2 % (94.0-97.0); SITE, ABG Right Radial; VENT MODE, BG Nasal Cannula
[2022-01-24] MEDS ORDERED: SODIUM POLYSTYRENE SULF. PWD 15 GM UDC PO ONE (10:00)
[2022-01-24] MEDS ORDERED: FUROSEMIDE 40 MG/4 ML VIAL ONE (10:13)
[2022-01-24] MEDS ORDERED: APIXABAN 5 MG TABLET ONE (10:13)
[2022-01-24] MEDS ORDERED: ESCITALOPRAM OXALATE (10 MG) 10 MG TABLET ONE (10:14)
[2022-01-24] MEDS ORDERED: ASPIRIN 81 MG TAB.CHEW ONE (10:20)
[2022-01-24] MEDS: FUROSEMIDE 40 MG/4 ML VIAL IV SCH ×3 (10:26→16:22)
[2022-01-24] MEDS: ASPIRIN 81 MG TAB.CHEW PO SCH (10:26)
[2022-01-24] MEDS: PANTOPRAZOLE 40 MG VIAL IV SCH (10:26)
[2022-01-24] MEDS: ESCITALOPRAM OXALATE (10 MG) 10 MG TABLET PO SCH (10:26)
[2022-01-24] MEDS: APIXABAN 5 MG TABLET PO SCH ×2 (10:26→16:24)
[2022-01-24] MEDS: DILTIAZEM HCL CD 240 MG PO SCH (10:26)
--- NOTE | 2022-01-24 11:53 | NUR ---
REPORT GIVEN TO RUBI MOYA FOR AYE
[2022-01-24] MEDS: IPRATROPIUM NEB FS 0.5 MG/2.5 ML AMPUL.NEB NEB SCH ×3 (12:00→19:15)
[2022-01-24 12:33] LABS: THYROID STIMULATING HORMONE 10.353 uIU/mL (0.358-3.74)
[2022-01-24 12:45] VITALS: BP 109/61
[2022-01-24] MEDS ORDERED: methylPREDNISolone SOD SUCC 40 MG/ML VIAL IV SCH ×2 (13:00→14:00)
[2022-01-24] MEDS ORDERED: ALBUTEROL FS 2.5 MG/0.5 ML VIAL.NEB NEB SCH (13:30)
--- NOTE | 2022-01-24 13:35 | NUR ---
RN NOTES RECEIVED CALL FROM LAB THAT PT HAD CRITICAL HIGH TROPONIN 107 FROM [address] MARTINEZ MADE AWARE AND WILL PUT ORDERS IN.
--- NOTE | 2022-01-24 14:02 | NUR ---
WOOD TANK ERECTORCERTIFIED MASTER SAFECRACKER NOTES PT ADMITTED TO UNIT VIA [facility] AT 1235 ACCOMPANIED BY E.R RN RACIEL DOMINGUEZ WITH DIAGNOSIS OF A-FIB WITH RVR. PT IS A/O X3/4, ABLE TO MAKE NEEDS KNOWN, NO C/O PAIN OR DISCOMFORTS AT THIS TIME. PT ORIENTED TO STAFF AND ROOM. V/S TAKEN AND RECORDED. PT ON 02 VIA N/C AT 2LPM AT THIS TIME, TOLERATING WELL, BREATHING EVEN AND UNLABORED, NO ACUTE RESPIRATORY DISTRESS NOTED. PHOTOS OF SKIN ISSUES TAKEN AND FILED ON HER CHART. IV ACCESS ON LEFT FA #20G INTACT, PATENT AND FLUSHES WELL. LUNGS CLEAR ON AUSCULTATION. ABDOMEN SOFT, FIRM AND NON-DISTENDED WITH POSITIVE BOWEL SOUNDS PRESENTS. PT PLACED ON EXTERNAL PELT GRADER WITH CURRENT READING SHOWING A-FIB, HR 100-140 BPM, NO C/O CARDIAC DISTRESS VOICED. SAFETY PRECAUTIONS IMPLEMENTED: BED IN LOWEST LOCKED POSITION, SIDE RAILS UP X2, CALL LIGHT AND TRAY TABLE PLACED W/I EASY REACH OF PT. WILL CONTINUE TO MONITOR PT.
--- NOTE | 2022-01-24 14:35 | NUR ---
RN DISCHARGED NOTES PT DISCHARGED HOME IN STABLE CONDITION. A/O X4. ALGERIAN BOTSWANAN SPEAKING. ALL BELONGINGS ACCOUNTED FOR AND PT'S DAUGHTER SIGNED BELONGINGS LIST. IV ACCESS ON LAC G#2O REMOVED WITH NO ACTIVE BLEEDING NOTED, DRY PRESSURE DRESSING APPLIED AT SITE. HEALTH TEACHINGS/DISCHARGE INSTRUCTIONS GIVEN TO PT AND HER DAUGHTER RAKEL, BOTH VERBALIZED UNDERSTANDING. EXIT FOLDER HANDED TO PT'S DAUGHTER. NAME ARMBAND REMOVED. PT LEFT UNIT @ 1420 VIA AMBULATORY WITH FAMILY. MD AND CHARGE NURSE AWARE OF DISCHARGE. Addendum: 01/24/22 at 1559 by BRODY BERMUDEZ RN Corrections: wrong patient
--- NOTE | 2022-01-24 18:43 | NUR ---
OPHTHALMIC MEDICAL ASSISTANT CLOSING NOTES PATIENT IN BED AWAKE AND RESTING AT SEMI-HOLGUIN'S POSITION. PT IS A/OX4 AND ABLE TO MAKE NEEDS KNOWN. ON 2L OF OXYGEN N/C, TOLERATING WELL, NO SOB NOTED AT THIS TIME. PT ON TELE-MONITOR WITH READING OF A-FIB WITH HR AT 100-120 AT THIS TIME, NO COMPLAIN OF CARDIAC DISTRESS VOICED. IV ACCESS ON RIGHT FOREARM #20 INTACT, PATENT AND FLUSHES WELL, NO SIGNS OF INFILTRATION NOTED. ALL NEEDS MET AT THIS TIME. SAFETY MEASURES IN PLACE: BED IN LOWEST LOCKED POSITION, SIDE RAILS UP X2. CALL LIGHT AND TRAY WITHIN REACH OF PT. WILL ENDORSE AYE TO BORING MACHINE OPERATOR HELPER NURSE.
[2022-01-24] MEDS: ALBUTEROL HALF STRENGTH 1.25 MG/3 ML VIAL.NEB NEB SCH (19:15)
--- NOTE | 2022-01-24 21:29 | NUR ---
WEB MERCHANDISER OPENING NOTES RECEIVED PATIENT LYING ASLEEP IN BED. PT IS A/OX4 AND ABLE TO MAKE NEEDS KNOWN. ON 2L OF OXYGEN VIA NASAL CANNULA, TOLERATING WELL, NO SOB NOTED AT THIS TIME. PT ON TELE-MONITOR WITH READING A-FIB WITH HR AT 120 AT THIS TIME, NO COMPLAIN OF CARDIAC DISTRESS VOICED. IV ACCESS ON RIGHT FOREARM #20 INTACT, PATENT AND FLUSHES WELL, NO SIGNS OF INFILTRATION NOTED. ALL NEEDS MET AT THIS TIME. SAFETY MEASURES IN PLACE: BED IN LOWEST LOCKED POSITION, SIDE RAILS UP X2. CALL LIGHT AND TRAY WITHIN REACH OF PT. WILL CONTINUE TO MONITOR.
[2022-01-25] MEDS: ALBUTEROL HALF STRENGTH 1.25 MG/3 ML VIAL.NEB NEB SCH ×4 (00:50→19:30)
[2022-01-25] MEDS: IPRATROPIUM NEB FS 0.5 MG/2.5 ML AMPUL.NEB NEB SCH ×5 (00:50→19:30)
[2022-01-25 05:15] LABS: ABG BASE EXCESS 3.8 mmol/L; ABG PCO2 34.3 mmHg (35.0-45.0); ABG PH 7.511 (7.350-7.450); ABG PO2 66.4 mmHg (75.0-100.0); COHb 0.3 % (0.5-1.5); MetHb 0.2 % (0.0-1.5); O2Hb 92.5 % (94.0-97.0); SITE, ABG Right Brachial
--- NOTE | 2022-01-25 07:01 | NUR ---
MEDICAL TECHNOLOGIST PRN CLOSING NOTES PATIENT IN BED AWAKE AND RESTING. A/OX4 AND ABLE TO MAKE NEEDS KNOWN. ON 2L OF OXYGEN N/C, TOLERATING WELL, NO SOB NOTED AT THIS TIME. PT ON TELE-MONITOR WITH READING OF A-FIB UNCONTROLLED HR OF 129. NO COMPLAIN OF CARDIAC DISTRESS VOICED. IV ACCESS ON RIGHT FOREARM #20 INTACT, PATENT AND FLUSHES WELL, NO SIGNS OF INFILTRATION NOTED. ALL NEEDS MET AT THIS TIME. SAFETY MEASURES IN PLACE: BED IN LOWEST LOCKED POSITION, SIDE RAILS UP X2. CALL LIGHT AND TRAY WITHIN REACH OF PT. WILL ENDORSE AYE TO DAY SHIFT NURSE.
[2022-01-25 07:21] LABS: BASOPHILS % (AUTO) 0.1 % (0.0-2.0); HEMATOCRIT 29 % (33-45); HEMOGLOBIN 9.1 g/dL (11.5-14.8); LYMPHOCYTES # (AUTO) 0.2 K/uL (0.8-4.8); LYMPHOCYTES % (AUTO) 5.2 % (20.0-44.0); MEAN CORPUSCULAR HGB CONC 31 g/dl (31.0-36.0); MEAN CORPUSCULAR VOLUME 83 fL (82-100); MONOCYTES # (AUTO) 0.3 K/uL (0.1-1.30); MONOCYTES % (AUTO) 8.1 % (2.0-12.0); NEUTROPHILS # (AUTO) 3.6 K/uL (1.8-8.9); NEUTROPHILS % (AUTO) 86.6 % (43.0-81.0); PLATELET COUNT (AUTO) 276 K/uL (150-450); WHITE BLOOD COUNT (AUTO) 4.2 K/uL (4.3-11.0)
--- NOTE | 2022-01-25 07:30 | NUR ---
ANIMAL SCIENTIST AM NOTES PT IN BED, AWAKE, A/OX4 AND ABLE TO MAKE NEEDS KNOWN. ON 2L OF OXYGEN VIA NASAL CANNULA, TOLERATING WELL, NO SOB NOTED AT THIS TIME. O2 SAT 94%. A-FIB UNCONTROLLED HE 126 ON MONITOR. DENIES PAIN/DISCOMFORT. MD AWARE. IV ACCESS ON RIGHT FOREARM #20 FLUSHES WELL SITE CLEAR. AMB WITH ASSIST. BED REST FOR NOW CARDIAC DIET. WITH SKIN DISCOLORATIONS BUE. INDEPENDENT OF BED MOBILITY. STRICT I/O. SAFETY MEASURES IN PLACE: BED IN LOWEST LOCKED POSITION, SIDE RAILS UP X2. CALL LIGHT AND TRAY WITHIN REACH OF PT. WILL CONT TO MONITOR.
[2022-01-25 07:54] LABS: ALBUMIN 3.4 g/dL (3.4-5.0); BILIRUBIN,DIRECT 0.5 mg/dL (0.0-0.2); BILIRUBIN,TOTAL 0.9 mg/dL (0.2-1.0); CALCIUM, SERUM 8.2 mg/dL (8.5-10.1); CREATININE 1.2 mg/dL (0.6-1.3); MAGNESIUM 2.1 mg/dL (1.8-2.4); PHOSPHORUS 4.8 mg/dL (2.5-4.9); TOTAL PROTEIN, SERUM 6.6 g/dL (6.4-8.2)
[2022-01-25 08:00] VITALS: BP 100/70
[2022-01-25 08:08] LABS: THYROID STIMULATING HORMONE 1.53 uIU/mL (0.358-3.74)
[2022-01-25 08:14] LABS: POTASSIUM 2.6 mmol/L (3.5-5.1)
--- NOTE | 2022-01-25 08:15 | NUR ---
RN NOTES DR. WILLIAM MARTINEZ, NOTIFIED, POTASSIUM 2.6.
[2022-01-25] MEDS: BUDESONIDE RESPULE INH 0.5 MG/2 ML AMPUL.NEB NEB SCH ×2 (08:25→16:17)
[2022-01-25] MEDS: PANTOPRAZOLE 40 MG VIAL IV SCH (09:22)
[2022-01-25] MEDS: ASPIRIN 81 MG TAB.CHEW PO SCH (09:22)
[2022-01-25] MEDS: methylPREDNISolone SOD SUCC 40 MG/ML VIAL IV SCH (09:22)
[2022-01-25] MEDS: ESCITALOPRAM OXALATE (10 MG) 10 MG TABLET PO SCH (09:24)
[2022-01-25] MEDS: DILTIAZEM HCL CD 240 MG PO SCH (09:24)
[2022-01-25] MEDS: APIXABAN 5 MG TABLET PO SCH ×2 (09:25→17:37)
[2022-01-25] MEDS: POTASSIUM CHLORIDE 20 MEQ TAB.PRT.SR PO SCH ×5 (09:27→14:54)
--- NOTE | 2022-01-25 09:30 | NUR ---
RN NOTES DUE MEDS GIVEN
[2022-01-25] MEDS: DIGOXIN INJ 0.5 MG/2 ML AMPUL IV SCH ×2 (11:35→17:38)
[2022-01-25 12:00] VITALS: BP 120/55
[2022-01-25] MEDS ORDERED: IRON SUCROSE COMPLEX 200 MG in IV NS 0.9% 100 ML IV SCH (14:00)
--- NOTE | 2022-01-25 14:30 | NUR ---
RN NOTES ELECTROLYTES REPLETED
[2022-01-25 16:00] VITALS: BP_SYST 113; BP_DIAS 51; BP_DIAS 56
[2022-01-25] MEDS: FERROUS SULFATE (325 MG) 325 MG/TAB TABLET PO SCH (17:37)
[2022-01-25] MEDS ORDERED: IPRATROPIUM NEB FS 0.5 MG/2.5 ML AMPUL.NEB NEB SCH (18:57)
--- NOTE | 2022-01-25 19:36 | NUR ---
ORGANIZATIONAL DEVELOPMENT SPECIALIST CLOSING NOTES PT RESTING IN BED, AWAKE, A/OX4 AND ABLE TO MAKE NEEDS KNOWN. ON 2L OF OXYGEN VIA NASAL CANNULA, TOLERATING WELL, NO SOB NOTED AT THIS TIME. O2 SAT 94%. A-FIB UNCONTROLLED HR 114 ON MONITOR. DENIES PAIN/DISCOMFORT. MD AWARE. IV ACCESS ON RIGHT FOREARM #20 FLUSHES WELL SITE CLEAR. AMB WITH ASSIST. BED REST FOR NOW CARDIAC DIET. WITH SKIN DISCOLORATIONS BUE. INDEPENDENT OF BED MOBILITY. STRICT I/O. SAFETY MEASURES IN PLACE: BED IN LOWEST LOCKED POSITION, SIDE RAILS UP X2. CALL LIGHT AND TRAY WITHIN REACH OF PT. ALL NEEDS MET THIS TIME. WILL ENDORSE TO NEXT SHIFT FOR AYE.
[2022-01-25 20:00] VITALS: BP 124/56
--- NOTE | 2022-01-25 20:17 | NUR ---
CORE CHECKER OPENING NOTES RECEIVED PATIENT LYING ASLEEP IN BED. PT IS A/OX4 AND ABLE TO MAKE NEEDS KNOWN. ON 2L OF OXYGEN VIA NASAL CANNULA, TOLERATING WELL, NO SOB NOTED AT THIS TIME. PT ON TELE-MONITOR WITH READING A-FIB WITH HR AT 114 AT THIS TIME, NO COMPLAIN OF CARDIAC DISTRESS VOICED. IV ACCESS ON RIGHT FOREARM #20 INTACT, PATENT AND FLUSHES WELL, NO SIGNS OF INFILTRATION NOTED. SAFETY MEASURES IN PLACE: BED IN LOWEST LOCKED POSITION, SIDE RAILS UP X2. CALL LIGHT AND TRAY WITHIN REACH OF PT. WILL CONTINUE TO MONITOR.
--- NOTE | 2022-01-25 20:35 | NUR ---
Meds clicked in. Scanner not working.
--- NOTE | 2022-01-25 21:43 | NUR ---
RN NOTES - REQUESTED FOR A SLEEPING PILL. INFORMED DRILLER BRAKE LINING DOCTOR. PHONE ORDERED RESTORIL 15MG PO QHS PRN.
[2022-01-25] MEDS: TEMAZEPAM 15 MG CAPSULE PO PRN (21:47)
[2022-01-26] VITALS: BP 127/62
[2022-01-26] MEDS: DIGOXIN INJ 0.5 MG/2 ML AMPUL IV SCH (00:31)
[2022-01-26] MEDS: ALBUTEROL HALF STRENGTH 1.25 MG/3 ML VIAL.NEB NEB SCH ×4 (01:39→19:40)
[2022-01-26] MEDS: IPRATROPIUM NEB FS 0.5 MG/2.5 ML AMPUL.NEB NEB SCH ×4 (01:40→19:40)
[2022-01-26 04:00] VITALS: BP 113/44
--- NOTE | 2022-01-26 07:02 | NUR ---
HEALTH ADMINISTRATOR CLOSING NOTES PT SLEEPING IN BED, AWAKE, A/OX4 AND ABLE TO MAKE NEEDS KNOWN. ON 2L OF OXYGEN VIA NASAL CANNULA, TOLERATING WELL, NO SOB NOTED AT THIS TIME. O2 SAT 94%. A-FIB HR 83 ON MONITOR. DENIES PAIN/DISCOMFORT. MD AWARE. IV ACCESS ON RIGHT FOREARM #20 FLUSHES WELL SITE CLEAR. AMB WITH ASSIST. STRICT I/O. WEIGHT 113 LBS. SAFETY MEASURES IN PLACE: BED IN LOWEST LOCKED POSITION, SIDE RAILS UP X2. CALL LIGHT AND TRAY WITHIN REACH OF PT. ALL NEEDS MET THIS TIME. WILL ENDORSE TO NEXT SHIFT FOR AYE.
[2022-01-26 07:22] LABS: HEMATOCRIT 28 % (33-45); HEMOGLOBIN 8.7 g/dL (11.5-14.8); LYMPHOCYTES # (AUTO) 0.3 K/uL (0.8-4.8); LYMPHOCYTES % (AUTO) 3.7 % (20.0-44.0); MEAN CORPUSCULAR HGB CONC 31 g/dl (31.0-36.0); MEAN CORPUSCULAR VOLUME 84 fL (82-100); MONOCYTES # (AUTO) 0.5 K/uL (0.1-1.30); MONOCYTES % (AUTO) 6.5 % (2.0-12.0); NEUTROPHILS % (AUTO) 89.8 % (43.0-81.0); PLATELET COUNT (AUTO) 280 K/uL (150-450); RED BLOOD CELL COUNT(AUTO) 3.39 MIL/uL (4.0-5.2); WHITE BLOOD COUNT (AUTO) 7.8 K/uL (4.3-11.0)
--- NOTE | 2022-01-26 07:30 | NUR ---
SHADOW GRAPH WEIGHT OPERATOR OPENING NOTES RECEIVED PATIENT AWAKE ON BED AND A/O X4. ON O2 AT 2LPM VIA NASAL CANNULA TOLERATING WELL. NO SOB NOTED. NOT IN DISTRESS. WITH NO COMPLAINTS OF PAIN AT THIS TIME. ON TELE MONITOR CURRENTLY READING CONTROLLED A-FIB AT 94BPM. WITH IV ACCESS AT THE LEFT FOREARM G20 SALINE LOCKED, PATENT AND INTACT. SAFETY MEASURES IN PLACED. CALL LIGHT WITHIN REACH. BED ON LOWEST LOCKED POSITION, SIDE RAILS UP X2. WILL CONTINUE TO MONITOR.
[2022-01-26 07:48] LABS: ALBUMIN 3.1 g/dL (3.4-5.0); BILIRUBIN,DIRECT 0.3 mg/dL (0.0-0.2); BILIRUBIN,TOTAL 0.6 mg/dL (0.2-1.0); MAGNESIUM 2.3 mg/dL (1.8-2.4); PHOSPHORUS 2.2 mg/dL (2.5-4.9); POTASSIUM 4.5 mmol/L (3.5-5.1); TOTAL PROTEIN, SERUM 6.1 g/dL (6.4-8.2)
[2022-01-26 08:00] VITALS: BP 125/43
[2022-01-26] MEDS: FERROUS SULFATE (325 MG) 325 MG/TAB TABLET PO SCH ×2 (08:16→17:25)
[2022-01-26] MEDS: ESCITALOPRAM OXALATE (10 MG) 10 MG TABLET PO SCH (08:16)
[2022-01-26] MEDS: PANTOPRAZOLE 40 MG VIAL IV SCH (08:16)
[2022-01-26] MEDS: methylPREDNISolone SOD SUCC 40 MG/ML VIAL IV SCH (08:16)
[2022-01-26] MEDS: ASPIRIN 81 MG TAB.CHEW PO SCH (08:16)
[2022-01-26] MEDS: DILTIAZEM HCL CD 240 MG PO SCH (08:16)
--- NOTE | 2022-01-26 08:16 | NUR ---
GRIFFIN NOTE PATIENT WAS COMPLAINING OF HEADACHE AT THE SCALE OF 07/11 Addendum: 01/26/22 at 1422 by MARY BASILIO RN ERROR.
--- NOTE | 2022-01-26 08:16 | NUR ---
RN NOTE PATIENT WAS COMPLAINING OF HEADACHE AT THE SCALE OF 5/10. TYLENOL WAS GIVEN MEDICATION PRN FOR PAIN.
[2022-01-26] MEDS: APIXABAN 5 MG TABLET PO SCH ×2 (08:27→17:27)
[2022-01-26] MEDS: NEUTRA PHOS 1 POWD.PACKET PO SCH ×2 (10:58→18:07)
[2022-01-26] MEDS: BUDESONIDE RESPULE INH 0.5 MG/2 ML AMPUL.NEB NEB SCH ×2 (11:48→16:15)
[2022-01-26 12:00] VITALS: BP 105/45
[2022-01-26] MEDS: DIGOXIN 0.25 MG TABLET PO SCH (12:18)
[2022-01-26 16:00] VITALS: BP 101/44
--- NOTE | 2022-01-26 18:28 | NUR ---
DETONATOR MAKER CLOSING NOTES PATIENT AWAKE ON BED AND A/O X4. ON O2 AT 2LPM VIA NASAL CANNULA TOLERATING WELL. NO SOB NOTED. NOT IN DISTRESS. WITH NO COMPLAINTS OF PAIN AT THIS TIME. ON TELE MONITOR CURRENTLY READING CONTROLLED A-FIB AT 80BPM. WITH IV ACCESS AT THE LEFT FOREARM G20 SALINE LOCKED, PATENT AND INTACT. DUE MEDS GIVEN. SAFETY MEASURES IN PLACED. CALL LIGHT WITHIN REACH. BED ON LOWEST LOCKED POSITION, SIDE RAILS UP X2. WILL ENDORSE TO NEXT SHIFT FOR AYE.
--- NOTE | 2022-01-26 19:30 | NUR ---
FISHERIES OFFICER OPENING NOTE RECEIVED PT AWAKE IN BED. A/O X4 AND ABLE TO MAKE NEEDS KNOWN. PT ON O2 @ 2LPM VIA NC. NO SOB OR S/S OF RESPIRATORY DISTRESS. BREATHING EVEN AND UNLABORED. ON EXTERNAL GENETICIST READING CONTROLLED A FIB 80 BPM. IV ACCESS LFA 20 G SL, INTACT AND PATENT. SAFETY PRECAUTIONS IN PLACE. BED IN LOWEST LOCKED POSITION, HOB ELEVATED, SIDE RAILS UP X2, AND CALL LIGHT AND TABLE WITHIN REACH. ALL NEEDS MET AT THIS TIME.
[2022-01-26] MEDS: TEMAZEPAM 15 MG CAPSULE PO PRN (20:44)
--- NOTE | 2022-01-26 20:45 | NUR ---
RN NOTE PT REQUESTED SLEEPING PILL. ADMINISTERED RESTORIL 15 MG FOR INSOMNIA ORDERED. MADE COMFORTABLE IN BED. ALL NEEDS MET AT THIS TIME.
[2022-01-26 21:32] VITALS: BP 124/60
[2022-01-27 00:12] VITALS: BP 121/53
--- NOTE | 2022-01-27 01:12 | NUR ---
RN NOTE PT COMPLAINED OF DYSPEPSIA. ADMINISTERED MAALOX 30 ML FOR DYSPEPSIA ORDERED. MADE COMFORTABLE IN BED. ALL NEEDS MET AT THIS TIME.
[2022-01-27] MEDS: IPRATROPIUM NEB FS 0.5 MG/2.5 ML AMPUL.NEB NEB SCH ×3 (01:42→12:59)
[2022-01-27] MEDS: ALBUTEROL HALF STRENGTH 1.25 MG/3 ML VIAL.NEB NEB SCH ×3 (01:42→12:59)
[2022-01-27 04:52] VITALS: BP 122/51
[2022-01-27 06:36] LABS: HEMATOCRIT 28 % (33-45); HEMOGLOBIN 8.8 g/dL (11.5-14.8); LYMPHOCYTES # (AUTO) 0.3 K/uL (0.8-4.8); LYMPHOCYTES % (AUTO) 3.9 % (20.0-44.0); MEAN CORPUSCULAR HGB CONC 32 g/dl (31.0-36.0); MEAN CORPUSCULAR VOLUME 85 fL (82-100); MONOCYTES # (AUTO) 0.5 K/uL (0.1-1.30); MONOCYTES % (AUTO) 5.7 % (2.0-12.0); NEUTROPHILS # (AUTO) 7.1 K/uL (1.8-8.9); NEUTROPHILS % (AUTO) 90.4 % (43.0-81.0); PLATELET COUNT (AUTO) 246 K/uL (150-450); RED BLOOD CELL COUNT(AUTO) 3.29 MIL/uL (4.0-5.2); WHITE BLOOD COUNT (AUTO) 7.9 K/uL (4.3-11.0)
--- NOTE | 2022-01-27 06:44 | NUR ---
MECHANICAL INSULATOR CLOSING NOTE PT AWAKE IN BED. A/O X4 AND ABLE TO MAKE NEEDS KNOWN. PT ON O2 @ 2LPM VIA NC. NO SOB OR S/S OF RESPIRATORY DISTRESS. BREATHING EVEN AND UNLABORED. ON EXTERNAL HUMAN RESOURCES SERVICES SPECIALIST READING CONTROLLED A FIB 86 BPM. IV ACCESS LFA 20 G SL, INTACT AND PATENT. ALL DUE MEDS GIVEN ORDERED. KEPT CLEAN AND DRY. STRICT I&O MAINTAINED, INTAKE 560 ML AND OUTPUT 2 VOIDS. SAFETY PRECAUTIONS IN PLACE AT ALL TIMES. BED IN LOWEST LOCKED POSITION, HOB ELEVATED, SIDE RAILS UP X2, AND CALL LIGHT AND TABLE WITHIN REACH. ALL NEEDS MET AT THIS TIME AND WILL ENDORSE TO ONCOMING NURSE FOR AYE.
[2022-01-27 07:04] LABS: CALCIUM, SERUM 8.2 mg/dL (8.5-10.1); CREATININE 0.8 mg/dL (0.6-1.3); MAGNESIUM 2.4 mg/dL (1.8-2.4); POTASSIUM 4.3 mmol/L (3.5-5.1)
[2022-01-27] MEDS ORDERED: PANTOPRAZOLE 40 MG TABLET.DR PO SCH (07:30)
--- NOTE | 2022-01-27 07:35 | NUR ---
ANIMAL HUSBANDRY MANAGER OPENING NOTES RECEIVED PATIENT AWAKE IN BED, A/O X4. ON O2 AT 2LPM VIA NC TOLERATING WELL. NO SOB/DISTRESS NOTED AT THIS TIME. WITH NO COMPLAINTS OF PAIN AT THIS TIME. ON TELE MONITOR CURRENTLY READING CONTROLLED A-FIB AT 80 BPM. WITH IV ACCESS AT THE LEFT FOREARM G20 SALINE LOCKED, PATENT AND INTACT. SAFETY PRECAUTIONS IN PLACE. BED IN LOWEST LOCKED POSITION, HOB ELEVATED, SIDE RAILS UP X3, AND CALL LIGHT AND TABLE WITHIN REACH. ALL NEEDS MET AT THIS TIME. WILL CONTINUE TO MONITOR AND ASSIST.
[2022-01-27 08:00] VITALS: BP 137/56
[2022-01-27] MEDS: ESCITALOPRAM OXALATE (10 MG) 10 MG TABLET PO SCH (08:19)
[2022-01-27] MEDS: FERROUS SULFATE (325 MG) 325 MG/TAB TABLET PO SCH (08:19)
[2022-01-27] MEDS: ASPIRIN 81 MG TAB.CHEW PO SCH (08:19)
[2022-01-27 08:20] VITALS: BP 137/56
[2022-01-27] MEDS: DILTIAZEM HCL CD 240 MG PO SCH (08:20)
[2022-01-27] MEDS: APIXABAN 5 MG TABLET PO SCH (08:21)
[2022-01-27] MEDS: BUDESONIDE RESPULE INH 0.5 MG/2 ML AMPUL.NEB NEB SCH (08:24)
[2022-01-27] MEDS ORDERED: predniSONE 20 MG TABLET PO SCH (09:00)
[2022-01-27] MEDS ORDERED: DIGO250T16 PO (10:29)
[2022-01-27] MEDS: DIGOXIN 0.25 MG TABLET PO SCH (12:52)
--- NOTE | 2022-01-27 14:55 | NUR ---
SUPERVISOR PASTE PLANT NOTE PATIENT DISCHARGE IN STABLE MEDICAL CONDITION. A/O X4. VS TAKEN, STABLE AND RECORDED. NO IV ACCESS. NAME ARM BAND REMOVED. SUPERVISOR URANIUM PROCESSING REMOVED AND RETURNED TO TELE DESK. SKIN ASSESSMENT DONE. ALL BELONGINGS CHECKED AND SIGNED. HEALTH TEACHING AND DISCHARGE INSTRUCTIONS GIVEN TO PATIENT, VERBALIZED UNDERSTANDING. NO SIGN OF DISTRESS NOTED AT THE TIME OF DISCHARGE. PATIENT LEFT WITH HER GRAND DAUGHTER VIA PRIVATE CAR. ESCORTED PATIENT TO EXIT WITH WHEELCHAIR.
== END 2022-01-27 14:55 | disposition home health service (06) | DRG 280 ==
LOC: ER 02:07 → TRANSITION 07:01 → TELE 12:10
PROVIDERS: ADMIT Nurse Practitioner Acute Care; ATTEND Nurse Practitioner Acute Care
DX: I48.91 Unspecified atrial fibrillation (principal); I21.A1 Myocardial infarction type 2; I50.33 Acute on chronic diastolic (congestive) heart failure; J44.1 Chronic obstructive pulmonary disease with (acute) exacerbation; J98.11 Atelectasis; J90 Pleural effusion, not elsewhere classified; I11.0 Hypertensive heart disease with heart failure; Z20.822 Contact with and (suspected) exposure to COVID-19; Z99.81 Dependence on supplemental oxygen; Z87.11 Personal history of peptic ulcer disease; Z28.310 Unvaccinated for COVID-19; Z79.899 Other long term (current) drug therapy; F41.9 Anxiety disorder, unspecified; Z90.49 Acquired absence of other specified parts of digestive tract; Z87.81 Personal history of (healed) traumatic fracture; Z88.0 Allergy status to penicillin; Z88.2 Allergy status to sulfonamides; Z88.1 Allergy status to other antibiotic agents; Z79.01 Long term (current) use of anticoagulants; Z88.8 Allergy status to other drugs, medicaments and biological substances; Z79.51 Long term (current) use of inhaled steroids; R79.89 Other specified abnormal findings of blood chemistry; I27.20 Pulmonary hypertension, unspecified; K44.9 Diaphragmatic hernia without obstruction or gangrene; I08.0 Rheumatic disorders of both mitral and aortic valves; F32.A Depression, unspecified; E87.5 Hyperkalemia; E87.6 Hypokalemia; K76.0 Fatty (change of) liver, not elsewhere classified; R09.02 Hypoxemia; Z87.891 Personal history of nicotine dependence; G20 Parkinson's disease; R74.01 Elevation of levels of liver transaminase levels
CPT/HCPCS: 36415; 36600; 71045-TC; 76700-TC; 80048-TC; 80053-TC; 80061-TC; 80076-TC; 82728-TC; 82803-TC; 83540-TC; 83735-TC; 83880; 84100-TC; 84443-TC; 84484-TC; 85025-TC; 85730-TC; 87081-TC; 93307-TC; 93970-TC; 94799-TC; A6253; A6403; C9113; C9803; G0378; J1160; J1756; J1940; J2920; J2930; J3490; J7030; J7040

== ENCOUNTER 2022-02-11 11:06 | Emergency (ER) | payer MEDICARE, OTHER ==
[~2022-02-11] VITALS: Ht 175.3 cm; Wt 47.2 kg
[~2022-02-11 11:06] MED LIST changes: +DIGO250T16 PO; -FURO-145 PO; -METO50TA16 PO; -POTA20TA83 PO
--- NOTE | 2022-02-11 11:20 | NUR ---
RECEIVED PT 72 YRS FEMALE CAME FROM HOME ACCOMPANY BY GRAZYNA C/O BACK PAIN HX AF HERE HERE FAST NOW
--- NOTE | 2022-02-11 11:30 | NUR ---
SEEN BY DR. JAMES
--- NOTE | 2022-02-11 11:45 | NUR ---
X -RAY DONE AT BED SIDE
[2022-02-11 12:09] LABS: BASOPHILS % (AUTO) 0.1 % (0.0-2.0); EOSINOPHILS % (AUTO) 0.1 % (0.0-6.0); HEMATOCRIT 32 % (33-45); HEMOGLOBIN 9.7 g/dL (11.5-14.8); LYMPHOCYTES # (AUTO) 0.4 K/uL (0.8-4.8); LYMPHOCYTES % (AUTO) 5.1 % (20.0-44.0); MEAN CORPUSCULAR HGB CONC 30 g/dl (31.0-36.0); MEAN CORPUSCULAR VOLUME 86 fL (82-100); MONOCYTES # (AUTO) 0.6 K/uL (0.1-1.30); MONOCYTES % (AUTO) 7.6 % (2.0-12.0); NEUTROPHILS % (AUTO) 87.1 % (43.0-81.0); PLATELET COUNT (AUTO) 181 K/uL (150-450); RED BLOOD CELL COUNT(AUTO) 3.72 MIL/uL (4.0-5.2)
[2022-02-11 12:19] LABS: CALCIUM, SERUM 8.8 mg/dL (8.5-10.1); CREATININE 0.9 mg/dL (0.6-1.3); POTASSIUM 3.1 mmol/L (3.5-5.1)
--- NOTE | 2022-02-11 13:14 | NUR ---
Patient discharged to home in stable condition. Written and verbal after care instructions given. Patient verbalizes understanding of instruction.
[2022-02-11 13:28] VITALS: BP 132/71
== END 2022-02-11 13:29 | disposition home or self-care (01) ==
LOC: ER 11:09
DX: M54.6 Pain in thoracic spine (principal); F41.9 Anxiety disorder, unspecified; I11.0 Hypertensive heart disease with heart failure; I50.9 Heart failure, unspecified; I48.91 Unspecified atrial fibrillation; Z88.1 Allergy status to other antibiotic agents; Z90.49 Acquired absence of other specified parts of digestive tract; Z88.0 Allergy status to penicillin; Z88.2 Allergy status to sulfonamides
CPT/HCPCS: 36415; 71045-TC; 80048-TC; 83880; 84484-TC; 85025-TC

== ENCOUNTER 2022-02-23 09:34 | Inpatient (IN) | payer MEDICARE, OTHER ==
[~2022-02-23] VITALS: Ht 175.3 cm; Wt 41.4 kg
--- NOTE | 2022-02-23 09:40 | NUR ---
[id number] HOME C/O GENERALIZED WEAKNESS SINCE 02/16 S/P FALL NOTED AFIB ON TELE, DENIES CHEST PAIN HEAD OF QUALITY.
[2022-02-23 10:32] LABS: BASOPHILS % (AUTO) 0.3 % (0.0-2.0); EOSINOPHILS % (AUTO) 0.3 % (0.0-6.0); HEMATOCRIT 35 % (33-45); HEMOGLOBIN 10.2 g/dL (11.5-14.8); LYMPHOCYTES # (AUTO) 0.8 K/uL (0.8-4.8); LYMPHOCYTES % (AUTO) 21.1 % (20.0-44.0); MEAN CORPUSCULAR HGB CONC 29 g/dl (31.0-36.0); MEAN CORPUSCULAR VOLUME 91 fL (82-100); MONOCYTES # (AUTO) 0.5 K/uL (0.1-1.30); MONOCYTES % (AUTO) 13.1 % (2.0-12.0); NEUTROPHILS # (AUTO) 2.3 K/uL (1.8-8.9); NEUTROPHILS % (AUTO) 65.2 % (43.0-81.0); PLATELET COUNT (AUTO) 289 K/uL (150-450); RED BLOOD CELL COUNT(AUTO) 3.83 MIL/uL (4.0-5.2); WHITE BLOOD COUNT (AUTO) 3.6 K/uL (4.3-11.0)
[2022-02-23] MEDS ORDERED: DILTIAZEM HCL 50 MG IV ONE ×3 (10:43→10:49)
[2022-02-23] MEDS ORDERED: IV NS 0.9% 500 ML BAG IV ONE (11:00)
[2022-02-23] MEDS ORDERED: DILTIAZEM HCL 50 MG IV IV ONE (11:00)
[2022-02-23 11:06] LABS: CALCIUM, SERUM 8.7 mg/dL (8.5-10.1); CARBON DIOXIDE 23 mmol/L (21-32); CHLORIDE 102 mmol/L (98-107); CREATININE 1.2 mg/dL (0.6-1.3); GLUCOSE 112 mg/dL (74-106); POTASSIUM 4.1 mmol/L (3.5-5.1); SODIUM SERUM 137 mmol/L (136-145); UREA NITROGEN, BLOOD 21 mg/dL (7-18)
[2022-02-23] MEDS ORDERED: ACETAMINOPHEN 650 MG/20.3 ML UDC ONE (11:10)
[2022-02-23 11:18] LABS: ALANINE AMINOTRANSFERASE 15 U/L (12-78); ALBUMIN 2.8 g/dL (3.4-5.0); ALKALINE PHOSPHATASE 113 U/L (46-116); ASPARTATE AMINOTRANSFERASE 28 U/L (15-37); BILIRUBIN,DIRECT 0.3 mg/dL (0.0-0.2); BILIRUBIN,TOTAL 0.6 mg/dL (0.2-1.0); TOTAL PROTEIN, SERUM 6.3 g/dL (6.4-8.2)
[2022-02-23] MEDS ORDERED: ACETAMINOPHEN 650 MG/20.3 ML UDC PO ONE (11:30)
[2022-02-23] MEDS ORDERED: busPIRone 5 MG TABLET PO PRN (11:30)
--- NOTE | 2022-02-23 11:51 | NUR ---
COVID SWAB OBTAINED
[2022-02-23] MEDS ORDERED: AZITHROMYCIN 500 MG in IV D5W 250 ML IV ONE (12:00)
[2022-02-23] MEDS ORDERED: VENL37.591 PO (12:10)
--- NOTE | 2022-02-23 12:12 | NUR ---
rapid swab taken
--- NOTE | 2022-02-23 12:52 | NUR ---
room [id number]
--- NOTE | 2022-02-23 13:13 | NUR ---
REPORT GIVEN TO GRIFFIN GRIER
--- NOTE | 2022-02-23 14:00 | NUR ---
SINGLE ENDING MACHINE OPERATOR NOTE ADMITTED THIS 72 Y/O FEMALE PATIENT FROM E.R. @1335, TRANSPORTED VIA GURNEY, ACCOMPANIED BY 2 ER STAFF. WITH ADMITTING DIAGNOSIS OF ATRIAL FIBRILLATION WITH RVR. PATIENT IS AWAKE, ALERT AND ORIENTED X4, VERBALLY RESPONSIVE. NO SIGNS OF ACUTE DISTRESS NOTED. ON O2 INHALATION @3LPM VIA N/C, NO DYSPNEA NOTED, BREATHING EVEN AND UNLABORED. NO C/O PAIN AT TIS TIME. NOTED WITH PERIPHERAL LINE ON RIGHT FOREARM #20G, INTACT AND PATENT., FLUSHES WELL. PLACED PATIENT ON STONECUTTER ASSISTANT, SHOWING A.FIB, HR @139. NO S/SX OF CARDIAC DISTRESS. SKIN ASSESSMENT DONE. NOTED WITH SKIN TEAR ON LEFT ARM, TREATMENT PROVIDED, WOUND CARE CONSULT ORDERED. ALSO NOTED WITH MULTIPLE BRUISE ON RIGHT AND LEFT ARM, AND BILATERAL KNEES. PHOTOS OF SKIN ISSUES TAKEN, PLACED IN CHART. ALL BELONGINGS ACCOUNTED FOR. VITAL SIGNS TAKEN FOLLOWS: 98.2, 139, 19, 118/56, 99% ON 3 LPM VIA N/C, 0/10 PS. ORIENTED PATIENT TO STAFF AND ROOM. ROUTINE ADMISSION CARE PROVIDED. SAFETY MEASURE IN PLACE. BED IN LOWEST AND LOCKED POSITION, SIDE RAILS UP X2, CALL LIGHT AND TABLE PLACED WITHIN EASY REACH. WILL CONTINUE TO MONITOR PATIENT.
[2022-02-23] MEDS ORDERED: MAG HYDROX/AL HYDROX/SIMETH 30 ML UDC PO PRN (15:00)
[2022-02-23] MEDS ORDERED: ZOLPIDEM TARTRATE 5 MG TABLET PO PRN (15:00)
[2022-02-23] MEDS ORDERED: ERGOCALCIFEROL (VITAMIN D 2) 50,000 UNIT CAPSULE PO SCH (15:00)
[2022-02-23] MEDS ORDERED: ONDANSETRON HCL/PF 4 MG/2 ML VIAL IVP PRN (15:00)
[2022-02-23] MEDS ORDERED: Z GUARD REMEDY 4 OZ OINT TP PRN (15:00)
[2022-02-23] MEDS ORDERED: MAGNESIUM HYDROXIDE 30 ML UDC PO PRN (15:00)
[2022-02-23] MEDS: DILTIAZEM HCL CD 180 MG PO SCH (15:31)
[2022-02-23] MEDS: PANTOPRAZOLE 40 MG/PACK PACK PO SCH (15:32)
[2022-02-23] MEDS: ESCITALOPRAM OXALATE (10 MG) 10 MG TABLET PO SCH (15:32)
[2022-02-23 16:00] VITALS: BP 94/54
[2022-02-23] MEDS: LEVOFLOXACIN 500 MG /D5W 100ML 500 MG in PREMIX 1 EA IV SCH (16:00)
[2022-02-23] MEDS: ENOXAPARIN SODIUM 40 MG/0.4 ML DISP.SYRIN SQ SCH (16:02)
[2022-02-23] MEDS: ASPIRIN 81 MG TAB.CHEW PO SCH (16:17)
--- NOTE | 2022-02-23 16:51 | NUR ---
RN NOTE SERVANDO ALVARADO DNP HERE IN THE STATION, MADE AWARE REGARDING PATIENT'S TROPONIN LEVEL OF 182, PER BAIL BOND AGENT, NNO AT THIS TIME. PATIENT BEING FOLLOWED BY DR. AU. REPEAT TROPONIN LEVEL ORDERED.
[2022-02-23] MEDS: ACETAMINOPHEN 325 MG TABLET PO PRN ×2 (17:31→21:49)
--- NOTE | 2022-02-23 18:43 | NUR ---
RN CLOSING NOTE PATIENT RESTING IN BED, NO SIGNS OF ACUTE DISTRESS NOTED. REMAINS ON O2 INHALATION AT 3LPM VIA N/C, BREATHING EVEN AND UNLABORED, DENIES SOB. PERIPHERAL LINE ON RIGHT FOREARM #20G, INTACT AND PATENT, WITH NS @ 40ML/HR INFUSING WELL. ON TELE MONITOR SHOWING A-FIB HR 130-160'S. DENIES ANY CHEST PAIN, NO S/SX OF CARDIAC DISTRESS NOTED. DUE MEDS GIVEN, TOLERATED WELL. WILL ENDORSE TO NEXT SHIFT FOR CONTINUITY OF CARE.
[2022-02-23 20:00] VITALS: BP 90/48
--- NOTE | 2022-02-23 20:42 | NUR ---
TELE INTEGRATED CAMPAIGN MANAGER INITIAL NOTES Received pt in bed awake and alert resting , denies any pain or any discomfort. Heplock on both arm, right AC and Left AC both patent and intact. She's on tele SR heart rate 68 per monitor. Re-orient where she at and how to used the call light system and she understood well. Kept her warm and comfortable at all times. will continue monitoring. Bed alarm set for pt safety . Addendum: 02/23/22 at 2047 by CHRISTINA WEIR LVN cancelled , this notes belongs to diff patient.
--- NOTE | 2022-02-23 20:48 | NUR ---
TELE PROGRAM MANAGEMENT MANAGER INITIAL NOTES Received pt in bed awake and alert , resting at this time , denies any pain or any discomfort > She's on tele A-fib heart rate 103 . Pt aware where she at . Re-orient how to used the call light system and encourage her to used it if she needs some help or assistance. Bed in low and lock in position and side rails x2 up and low and lock in position. Kept her warm and comfortable at all times. will continue monitoring.
[2022-02-23] MEDS: TRAZODONE 50 MG TABLET PO PRN (21:40)
--- NOTE | 2022-02-23 21:49 | NUR ---
tele bar captain notes Pt complaining of mild pain , tylenol po given as ordered as well her routine meds. Snacks also served. will continue monitoring.
--- NOTE | 2022-02-23 22:27 | NUR ---
TELE MEN'S GARMENT FITTER NOTES RE-CHECKED THE BLOOD PRESSURE OF THE PATIENT CAME OUT BP 96/60, HEART RATE 112 . NO SIGNS OF ANY DISTRESS NOTED . KEPT HER WARM AND COMFORTABLE AT ALL TIMES. WILL CONTINUE MONITORING.
[2022-02-24] VITALS: BP 103/49
[2022-02-24 04:00] VITALS: BP 100/60
[2022-02-24 06:50] LABS: BASOPHILS % (AUTO) 0.3 % (0.0-2.0); EOSINOPHILS % (AUTO) 1.7 % (0.0-6.0); HEMATOCRIT 27 % (33-45); HEMOGLOBIN 8.1 g/dL (11.5-14.8); LYMPHOCYTES # (AUTO) 0.9 K/uL (0.8-4.8); LYMPHOCYTES % (AUTO) 37.6 % (20.0-44.0); MEAN CORPUSCULAR HGB CONC 30 g/dl (31.0-36.0); MEAN CORPUSCULAR VOLUME 89 fL (82-100); MONOCYTES # (AUTO) 0.3 K/uL (0.1-1.30); MONOCYTES % (AUTO) 14.7 % (2.0-12.0); NEUTROPHILS % (AUTO) 45.7 % (43.0-81.0); PLATELET COUNT (AUTO) 222 K/uL (150-450); RED BLOOD CELL COUNT(AUTO) 3.05 MIL/uL (4.0-5.2); WHITE BLOOD COUNT (AUTO) 2.3 K/uL (4.3-11.0)
--- NOTE | 2022-02-24 06:53 | NUR ---
TELE TUBE AND ROD STRAIGHTENER CLOSING NOTES PT BACK TO REST AFTER MORNING CARE RENDERED . STABLE THROUGHOUT THE NIGHT . ATE WELL NO ASPIRATION NOTED. TELE A-FIB HEART RATE 88 . DENIES ANY CHEST PAIN . KEPT HER WARM AND COMFORTABLE AT ALL TIMES. BED IN LOW AND LOCK IN POSITION WITH SIDE RAILS X2 UP. BED ALARM SET FOR PATIENT SAFETY. WILL ENDORSE TO AM NURSE FOR CONTINUITY OF CARE.
[2022-02-24 07:18] LABS: ALANINE AMINOTRANSFERASE 13 U/L (12-78); ALBUMIN 2.1 g/dL (3.4-5.0); ALKALINE PHOSPHATASE 93 U/L (46-116); ASPARTATE AMINOTRANSFERASE 19 U/L (15-37); BILIRUBIN,TOTAL 0.3 mg/dL (0.2-1.0); CALCIUM, SERUM 7.6 mg/dL (8.5-10.1); CARBON DIOXIDE 28 mmol/L (21-32); CHLORIDE 108 mmol/L (98-107); GLUCOSE 94 mg/dL (74-106); MAGNESIUM 1.7 mg/dL (1.8-2.4); PHOSPHORUS 3.3 mg/dL (2.5-4.9); POTASSIUM 3.7 mmol/L (3.5-5.1); SODIUM SERUM 141 mmol/L (136-145); TOTAL PROTEIN, SERUM 4.8 g/dL (6.4-8.2); UREA NITROGEN, BLOOD 15 mg/dL (7-18)
[2022-02-24 07:24] LABS: CHOLESTEROL 103 mg/dL (<200); HDL CHOLESTEROL 37 mg/dL (40-60); LDL 56 mg/dL (0-99); THYROID STIMULATING HORMONE 7.551 uIU/mL (0.358-3.74); TRIGLYCERIDES 73 mg/dL (30-150)
[2022-02-24] MEDS ORDERED: PANTOPRAZOLE 40 MG TABLET.DR PO SCH (07:30)
--- NOTE | 2022-02-24 07:30 | NUR ---
RN Opening Note PT AOx4 able to express her own concerns. Patient in bed, made aware of plan of care, verbalized understanding. Patient with no signs of distress or discomfort, IV site with no signs of infiltration. Helped patient change her diaper, she has diapers from home and would like to continue using them through hospital stay. All safety precautions taken, call light and table within reach, bed at lowest position.
[2022-02-24 08:00] VITALS: BP 86/50
[2022-02-24] MEDS: PANTOPRAZOLE 40 MG/PACK PACK PO SCH (08:30)
[2022-02-24] MEDS: ASPIRIN 81 MG TAB.CHEW PO SCH (08:32)
[2022-02-24] MEDS: ESCITALOPRAM OXALATE (10 MG) 10 MG TABLET PO SCH (08:32)
[2022-02-24] MEDS ORDERED: DIGOXIN 0.25 MG TABLET PO SCH (09:00)
[2022-02-24] MEDS: ACETAMINOPHEN 325 MG TABLET PO PRN ×2 (09:42→18:47)
[2022-02-24] MEDS: DILTIAZEM HCL CD 180 MG PO SCH (09:43)
[2022-02-24] MEDS ORDERED: Magnesium 1GM/D5W 100ML PREMIX 100 ML IV SCH (10:30)
[2022-02-24] MEDS: Magnesium 1GM/D5W 100ML PREMIX 100 ML IV SCH ×2 (11:49→12:33)
[2022-02-24 12:00] VITALS: BP 102/71
[2022-02-24] MEDS: IPRATROPIUM NEB FS 0.5 MG/2.5 ML AMPUL.NEB NEB SCH ×2 (12:55→19:56)
[2022-02-24 16:00] VITALS: BP 94/60
[2022-02-24] MEDS: ENOXAPARIN SODIUM 40 MG/0.4 ML DISP.SYRIN SQ SCH (16:00)
[2022-02-24] MEDS: LEVOFLOXACIN 500 MG /D5W 100ML 500 MG in PREMIX 1 EA IV SCH (16:52)
--- NOTE | 2022-02-24 18:38 | NUR ---
RN Closing Note PT AOx4 able to express her own concerns. Pt remained safe throughout shift, all medications administered as prescribed and care provided as needed. Patient with no signs of distress or discomfort, IV site with no signs of infiltration. All safety precautions taken, call light and table within reach, bed at lowest position. Will endorse to night nurse for continuity of care.
--- NOTE | 2022-02-24 19:13 | NUR ---
[id number] Per MD, notes, non admin Anticoagulants. Pending confirmation
[2022-02-24 20:00] VITALS: BP 101/44
[2022-02-24] MEDS: IV NS 0.9% 1,000 ML IV PRN (20:09)
[2022-02-24] MEDS: TRAZODONE 50 MG TABLET PO PRN (21:12)
--- NOTE | 2022-02-25 00:25 | NUR ---
REFUSED V/S Patient refused v/s check, education given. Denies any discomfort. Afib controlled in the Tele monitor HR 103. Will cont to monitor.
[2022-02-25] MEDS: IPRATROPIUM NEB FS 0.5 MG/2.5 ML AMPUL.NEB NEB SCH ×4 (01:57→19:52)
--- NOTE | 2022-02-25 06:20 | NUR ---
END OF SHIFT REPORT Patient in bed, Alert Oriented x4. Afib controlled HR 100's in the Tele monitor. RFA IV line intact, IVF infusing. On IV abx. Afebrile. On Oxygen support 2L NC, observed no SOB with exertion. Denies chest pain. Turned and repositioned, offload heels at all times. Patient refused 12:00am and 04:00 v/s, declined education. LFA skin tear, awaits wound consult.
[2022-02-25 06:52] LABS: CALCIUM, SERUM 7.6 mg/dL (8.5-10.1); CARBON DIOXIDE 26 mmol/L (21-32); CHLORIDE 110 mmol/L (98-107); GLUCOSE 106 mg/dL (74-106); MAGNESIUM 2.2 mg/dL (1.8-2.4); PHOSPHORUS 2.5 mg/dL (2.5-4.9); POTASSIUM 4.3 mmol/L (3.5-5.1); SODIUM SERUM 141 mmol/L (136-145); UREA NITROGEN, BLOOD 11 mg/dL (7-18)
[2022-02-25 07:00] VITALS: BP 103/60
[2022-02-25 07:34] LABS: BASOPHILS % (AUTO) 0.3 % (0.0-2.0); EOSINOPHILS % (AUTO) 1.7 % (0.0-6.0); HEMATOCRIT 29 % (33-45); HEMOGLOBIN 8.5 g/dL (11.5-14.8); LYMPHOCYTES # (AUTO) 0.8 K/uL (0.8-4.8); LYMPHOCYTES % (AUTO) 31.4 % (20.0-44.0); MEAN CORPUSCULAR HGB CONC 30 g/dl (31.0-36.0); MEAN CORPUSCULAR VOLUME 91 fL (82-100); MONOCYTES # (AUTO) 0.4 K/uL (0.1-1.30); MONOCYTES % (AUTO) 17.7 % (2.0-12.0); NEUTROPHILS # (AUTO) 1.2 K/uL (1.8-8.9); NEUTROPHILS % (AUTO) 48.9 % (43.0-81.0); PLATELET COUNT (AUTO) 212 K/uL (150-450); RED BLOOD CELL COUNT(AUTO) 3.17 MIL/uL (4.0-5.2); WHITE BLOOD COUNT (AUTO) 2.5 K/uL (4.3-11.0)
--- NOTE | 2022-02-25 07:35 | NUR ---
RN Opening Note Received PT AOx4 able to make need known . On 02 @2 liters /minute , with no SOB or distress noted AT this time , no c/o pain and discomfort , IV site on LFA with NS @40 ml /hr , with no signs of infiltration. . S afety precautions provided , Call light within reach , SR up x two will continue to monitor for any changes .
[2022-02-25] MEDS: PANTOPRAZOLE 40 MG/PACK PACK PO SCH (08:32)
[2022-02-25] MEDS: ASPIRIN 81 MG TAB.CHEW PO SCH (09:19)
[2022-02-25] MEDS: ESCITALOPRAM OXALATE (10 MG) 10 MG TABLET PO SCH (09:19)
[2022-02-25] MEDS: DILTIAZEM HCL CD 180 MG PO SCH (09:21)
[2022-02-25] MEDS: ENOXAPARIN SODIUM 40 MG/0.4 ML DISP.SYRIN SQ SCH (09:29)
--- NOTE | 2022-02-25 09:47 | NUR ---
WOUND CARE CONSULT: PT PRESENTS WITH AREAS OF DISCOLORATION TO HEELS AND COCCYX AREA, LEFT ARM SKIN TEAR/AVULSION AND RAISED TENDER AREA TO OCCIPITAL REGION, ALL PRESENT ON ADMISSION. PT STATES THAT SHE FELL AT HOME AND HIT HER HEAD, LEFT ARM AND HER BUTTOCKS. DR STEVENSON CALLED FOR SURGICAL CONSULT. DISCUSSED SKIN PROTECTION AND WOUND CARE WITH NURSING STAFF. IN AGREEMENT WITH PLAN OF CARE. Addendum: 02/25/22 at 0948 by JUAN ANTONIO LANGFORD WNDNU Amended: Links added.
[2022-02-25] MEDS: DIGOXIN INJ 0.5 MG/2 ML AMPUL IV SCH ×3 (11:57→23:52)
[2022-02-25 12:00] VITALS: BP 97/60
[2022-02-25] MEDS: LEVOTHYROXINE SODIUM 50 MCG TABLET PO SCH (12:31)
[2022-02-25 15:04] LABS: BILIRUBIN,URINE NEGATIVE (NEGATIVE); COLOR,URINE YELLOW (YELLOW); LEUKOCYTE ESTERASE ,URINE NEGATIVE (NEGATIVE); NITRITE, URINE NEGATIVE (NEGATIVE); PH,URINE 5.5 (5.0-8.0); PROTEIN,URINE TRACE mg/dl (NEGATIVE); UGLUCOSE NEGATIVE (NEGATIVE); UROBILINOGEN,URINE 0.2 EU/dL (0.2)
[2022-02-25] MEDS: ACETAMINOPHEN 325 MG TABLET PO PRN (15:20)
[2022-02-25 16:00] VITALS: BP 131/65
[2022-02-25] MEDS: LEVOFLOXACIN 500 MG /D5W 100ML 500 MG in PREMIX 1 EA IV SCH (16:07)
[2022-02-25 16:29] LABS: BACTERIA,URINE Few /HPF (None Seen); CALCIUM OXALATE CRYSTALS,UR Many /HPF (None Seen); RBC,URINE NONE SEEN /HPF (0-2); WBC,URINE NONE SEEN /HPF (0-3)
[2022-02-25 16:42] LABS: EOSINOPHILS % (MANUAL) 1 % (0-4); LYMPHOCYTES % (MANUAL) 27 % (16-48); MONOCYTES % (MANUAL) 10 % (0-11.0); NEUTROPHILS % (MANUAL) 62 (42-76)
[2022-02-25] MEDS: IV NS 0.9% 1,000 ML IV PRN (18:27)
--- NOTE | 2022-02-25 18:38 | NUR ---
RN Closing Note Received PT AOx4 able to make need known . On 02 @2 liters /minute , with no SOB or distress noted AT this time , no c/o pain and discomfort , IV site on LFA with NS @40 ml /hr , with no signs of infiltration. . All due meds given as ordered , noted with Afib with RVR of [address] Braun with order of Digoxin .25mg IV , patient HR Afib controlled HR 1110 Safety precautions provided , Call light within reach , SR up x two will continue to monitor for any changes .
--- NOTE | 2022-02-25 19:30 | NUR ---
LAWNMOWER MECHANIC OPENING NOTES - RECEIVED PATIENT LAYING IN BED AWAKE, A/O X4. BREATHING EVEN AND NON-LABORED, ON O2 AT 2LPM VIA NASAL CANULA. NOT IN APPARENT DISTRESS. C/O LEFT FOREARM BURNING-LIKE PAIN 10/02. WOUND DRESSING INTACT. ON TELE MONITOR READING CONTROLLED A-FIB AT 87 BPM. HAS RIGHT FOREARM IV ACCESS #20G WITH NS RUNNING AT 40 ML/HR. NO S/S OF INFILTRATION NOTED. SAFETY PRECAUTIONS IN PLACE: BED LOCKED AND IN LOWEST POSITION, SIDE RAILS UP X2, CALL LIGHT WITHIN REACH. WILL CONTINUE POC.
[2022-02-25] MEDS: TRAMADOL HCL 50 MG TABLET PO PRN (19:59)
[2022-02-25 20:00] VITALS: BP 100/49
[2022-02-25] MEDS: TRAZODONE 50 MG TABLET PO PRN (21:20)
[2022-02-26] MEDS: IPRATROPIUM NEB FS 0.5 MG/2.5 ML AMPUL.NEB NEB SCH ×4 (01:57→19:33)
[2022-02-26 04:00] VITALS: BP 110/42
--- NOTE | 2022-02-26 06:39 | NUR ---
NET SOFTWARE ARCHITECT CLOSING NOTES - PATIENT IN BED AWAKE, ABLE TO VERBALIZE NEEDS. NO ACUTE EVENTS THROUGHOUT THE NIGHT. SATURATING AT 94% ON O2 AT 2LPM. NO SOB OR NOTED. AFEBRILE. DENIES PAIN AT THIS TIME. ON TELE MONITOR READING CONTROLLED A-FIB AT 77 BPM. RIGHT FOREARM IV ACCESS #20G INTACT, PATENT AND FLUSHING. WOUND DRESSING C/D/I. PERINEAL CARE RENDERED. ALL DUE MEDS GIVEN AND NEEDS ATTENDED. SAFETY PRECAUTIONS MAINTAINED. WILL ENDORSE TO NEXT SHIFT FOR AYE.
[2022-02-26 06:48] LABS: BASOPHILS % (AUTO) 0.3 % (0.0-2.0); EOSINOPHILS % (AUTO) 2.3 % (0.0-6.0); HEMATOCRIT 29 % (33-45); HEMOGLOBIN 8.8 g/dL (11.5-14.8); LYMPHOCYTES # (AUTO) 0.6 K/uL (0.8-4.8); LYMPHOCYTES % (AUTO) 24.6 % (20.0-44.0); MEAN CORPUSCULAR HGB CONC 30 g/dl (31.0-36.0); MEAN CORPUSCULAR VOLUME 89 fL (82-100); MONOCYTES # (AUTO) 0.4 K/uL (0.1-1.30); MONOCYTES % (AUTO) 14.7 % (2.0-12.0); NEUTROPHILS # (AUTO) 1.4 K/uL (1.8-8.9); NEUTROPHILS % (AUTO) 58.1 % (43.0-81.0); PLATELET COUNT (AUTO) 203 K/uL (150-450); RED BLOOD CELL COUNT(AUTO) 3.26 MIL/uL (4.0-5.2); WHITE BLOOD COUNT (AUTO) 2.4 K/uL (4.3-11.0)
[2022-02-26 07:13] LABS: CALCIUM, SERUM 7.6 mg/dL (8.5-10.1); CREATININE 0.8 mg/dL (0.6-1.3); PHOSPHORUS 2.8 mg/dL (2.5-4.9); POTASSIUM 4.1 mmol/L (3.5-5.1)
--- NOTE | 2022-02-26 07:45 | NUR ---
RETAIL MARKETING EXECUTIVE OPENING NOTE Patient in bed, awake. A/O x 4, able to make needs known. On O2 at 2 LPM via NC. No SOB or s/s of distress noted. IV access on RFA #20 infusing NS at 40 ml/hr. On tele monitoring showing Controlled Afib, HR on the 70's. Safety precautions in place: bed in low, locked position; siderails up x 2; call light within reach. Will continue to monitor.
[2022-02-26 08:00] VITALS: BP 123/56
[2022-02-26] MEDS: ASPIRIN 81 MG TAB.CHEW PO SCH (08:11)
[2022-02-26] MEDS: PANTOPRAZOLE 40 MG/PACK PACK PO SCH (08:11)
[2022-02-26] MEDS: ESCITALOPRAM OXALATE (10 MG) 10 MG TABLET PO SCH (08:11)
[2022-02-26] MEDS: LEVOTHYROXINE SODIUM 50 MCG TABLET PO SCH (08:11)
[2022-02-26] MEDS: PANTOPRAZOLE 40 MG TABLET.DR PO SCH (09:02)
[2022-02-26] MEDS: DILTIAZEM HCL CD 240 MG PO SCH (09:03)
[2022-02-26 12:00] VITALS: BP 128/58
[2022-02-26] MEDS ORDERED: DIGOXIN 0.125 MG TABLET PO SCH (13:00)
[2022-02-26] MEDS: ENOXAPARIN SODIUM 40 MG/0.4 ML DISP.SYRIN SQ SCH (15:38)
[2022-02-26 15:58] VITALS: BP 103/53
[2022-02-26] MEDS ORDERED: LEVOFLOXACIN (250MG) 250 MG TABLET PO SCH (16:00)
[2022-02-26] MEDS ORDERED: LEVO50TA PO (16:21)
[2022-02-26] MEDS ORDERED: LEVO250T59 PO (16:21)
[2022-02-26] MEDS ORDERED: DIGO125T PO (16:21)
[2022-02-26] MEDS ORDERED: ASPI-1169 PO (16:21)
--- NOTE | 2022-02-26 17:23 | NUR ---
RN NOTE Spoke to patient's daughter, Cassidy and informed about patient discharge. Per daughter, they cannot tile picker patient today because they're out of town. They will be able to tile picker patient tomorrow AM. Navid, turf manager notified.
--- NOTE | 2022-02-26 18:55 | NUR ---
NUTRITION AND DIETETICS INSTRUCTOR CLOSING NOTES PATIENT IS AWAKE AND COHERENT. A/O X4. WITH OXYGEN AT 2LPM VIA NC. TELE READING CONTROLLED A-FIB AT 78. WITH LEFT SKIN TEAR, WOUND CARE DONE ORDERED AND RIGHT HAND ABRUISE. WITH IVF AT RIGHT FA #20G NS @ 40ML/HR.PATIENT IS STABLE AND ALL NEEDS ATTENDED. ALL MEDICATIONS GIVEN. SAFETY PRECAUTIONS MAINTAINED. WILL ENDORSED TO RECEIVING AND PROCESSING SUPERVISOR FOR AYE.
--- NOTE | 2022-02-26 19:00 | NUR ---
RN opening notes Pt is laying in bed watching TV comfortably. Pt is alert and orientedX4. On 2 L NC. No SOB. No S/S of distress noted. Tele monitor showed controlled afib hr at 78. IV site at RFa# 20 is clean, intact and infusing well NS@ 40 ml/hr. Safety precautions is maintained. bed at low position, brakes locked, side rails upX2, hob elevated, bed alarm is on and call light is within reach. Will continue to monitor.
[2022-02-26] MEDS: TRAMADOL HCL 50 MG TABLET PO PRN (19:15)
--- NOTE | 2022-02-26 19:15 | NUR ---
RN notes Pt is complaining of pain on L arm and requesting tramadol. administered tramadol 50 mg/po/prn as ordered for pain. safety precautions is maintained. will continue to monitor.
[2022-02-26 20:00] VITALS: BP 105/58
[2022-02-26] MEDS: TRAZODONE 50 MG TABLET PO PRN (20:57)
[2022-02-27] VITALS: BP 115/58
[2022-02-27] MEDS: IPRATROPIUM NEB FS 0.5 MG/2.5 ML AMPUL.NEB NEB SCH ×3 (01:43→13:22)
[2022-02-27 04:00] VITALS: BP 102/60
--- NOTE | 2022-02-27 06:30 | NUR ---
RN closing notes Pt is resting in bed comfortbaly. Pt is alert and orientedX4. On 2 L NC. No SOB. No S/S of distress noted. Vs is stable. Tele monitor showed controlled afib hr at 80. IV site at RFa# 20 is clean, intact and infusing well NS@ 40 ml/hr. Kept Pt clean, dry and comfortable. all needs met and attended. Safety precautions is maintained. bed at low position, brakes locked, side rails upX2, hob elevated, bed alarm is on and call light is within reach. Will endorse to am nurse for AYE.
--- NOTE | 2022-02-27 07:20 | NUR ---
RN OPENING NOTE PT AWAKE IN BED, RESTING. A/OX4 AND ABLE TO MAKE HER NEEDS KNOWN. ON NC 2L OF , NO SOB NOTED. BREATHING EVEN AND NONLABORED. PT ON EXTERNAL TELE MONITOR READING AT CONTROLLED AFIB, HR 81. NO COMPLAINTS OF CARDIAC DISTRESS. NO COMPLAINTS OF PAIN AT THIS TIME. SAFETY MEASURES IN PLACE. BED IN LOWEST LOCKED POSITION, CALL LIGHT AND TRAY WITHIN REACH. ALL NEEDS MET AT THIS TIME, WILL CONTINUE TO MONITOR.
[2022-02-27] MEDS: ESCITALOPRAM OXALATE (10 MG) 10 MG TABLET PO SCH (08:01)
[2022-02-27] MEDS: LEVOTHYROXINE SODIUM 50 MCG TABLET PO SCH (08:02)
[2022-02-27] MEDS: PANTOPRAZOLE 40 MG TABLET.DR PO SCH (08:02)
[2022-02-27] MEDS: DILTIAZEM HCL CD 240 MG PO SCH (08:02)
[2022-02-27] MEDS: ASPIRIN 81 MG TAB.CHEW PO SCH (08:02)
[2022-02-27 08:17] VITALS: BP 120/58
[2022-02-27 13:02] VITALS: BP 127/68
--- NOTE | 2022-02-27 15:21 | NUR ---
RN DISCHARGED NOTES PT DISCHARGED HOME IN STABLE CONDITION. A/O X4 AND ABLE TO MAKE NEEDS KNOWN. V/S TAKEN, STABLE AND RECORDED. PHOTOS OF SKIN ISSUES TAKEN AND FILED ON HER CHART. ALL BELONGINGS ACCOUNTED FOR AND PT SIGNED BELONGINGS LIST. IV ACCESS ON RFA G# 20 REMOVED WITH NO ACTIVE BLEEDING NOTED, DRY PRESSURE DRESSING APPLIED AT SITE. HEALTH TEACHINGS/ DISCHARGE INSTRUCTIONS GIVEN TO PT AND VERBALIZED UNDERSTANDING. TELE-BOX REMOVED AND HANDED TO DIRECTOR OF SPA AND GUEST EXPERIENCE TODD. NAME ARMBAND REMOVED. PT LEFT UNIT @ 1515 VIA WHEELCHAIR ACCOMPANIED BY RADHA AMBROCIO TO [facility], PT'S GRAND DAUGHTER RENEE WAITED AT THE [facility]. MD AND CHARGE NURSE AWARE OF DISCHARGE.
== END 2022-02-27 15:15 | disposition home health service (06) | DRG 308 ==
LOC: ER 09:44 → TELE 12:58
PROVIDERS: ADMIT Student in an Organized Health Care Education/Training Program; ATTEND Nurse Practitioner Acute Care
DX: I48.91 Unspecified atrial fibrillation (principal); J15.9 Unspecified bacterial pneumonia; J44.0 Chronic obstructive pulmonary disease with (acute) lower respiratory infection; J90 Pleural effusion, not elsewhere classified; K56.7 Ileus, unspecified; M48.54XA Collapsed vertebra, not elsewhere classified, thoracic region, initial encounter for fracture; J96.11 Chronic respiratory failure with hypoxia; J98.11 Atelectasis; I50.9 Heart failure, unspecified; Z20.822 Contact with and (suspected) exposure to COVID-19; I11.0 Hypertensive heart disease with heart failure; F41.9 Anxiety disorder, unspecified; Z90.49 Acquired absence of other specified parts of digestive tract; Z98.890 Other specified postprocedural states; Z88.2 Allergy status to sulfonamides; Z88.0 Allergy status to penicillin; Z88.1 Allergy status to other antibiotic agents; Z88.8 Allergy status to other drugs, medicaments and biological substances; Z79.51 Long term (current) use of inhaled steroids; Z79.01 Long term (current) use of anticoagulants; Z79.899 Other long term (current) drug therapy; Z87.891 Personal history of nicotine dependence; I71.40 Abdominal aortic aneurysm, without rupture, unspecified; I72.3 Aneurysm of iliac artery; I05.0 Rheumatic mitral stenosis; K27.9 Peptic ulcer, site unspecified, unspecified as acute or chronic, without hemorrhage or perforation; G20 Parkinson's disease; M19.90 Unspecified osteoarthritis, unspecified site; Z86.19 Personal history of other infectious and parasitic diseases; R29.6 Repeated falls; Z91.81 History of falling; Z99.81 Dependence on supplemental oxygen; D64.9 Anemia, unspecified; F32.9 Major depressive disorder, single episode, unspecified; K21.9 Gastro-esophageal reflux disease without esophagitis; E03.9 Hypothyroidism, unspecified; I25.2 Old myocardial infarction; S51.812A Laceration without foreign body of left forearm, initial encounter; X58.XXXA Exposure to other specified factors, initial encounter; Y92.9 Unspecified place or not applicable
CPT/HCPCS: 36415; 70450-TC; 71045-TC; 72128-TC; 80048-TC; 80053-TC; 80061-TC; 80076-TC; 80162-TC; 81001; 82962-TC; 83605-TC; 83735-TC; 84100-TC; 84439-TC; 84443-TC; 84484-TC; 85025-TC; 85730-TC; 87040-TC; 87081-TC; 87086-TC; 94799-TC; 97116-TC; 97530-TC; A4216; A6253; A6403; C9803; G0378; J0456; J1160; J1650; J1956; J3475; J3490; J7030; J7040; J7060

== ENCOUNTER 2022-04-01 15:01 | Inpatient (IN) | payer MEDICARE, OTHER ==
[~2022-04-01] VITALS: Ht 175.3 cm; Wt 45.6 kg
[~2022-04-01 15:01] MED LIST changes: -APIX5TAB PO; +ASPI-1169 PO; +DIGO125T PO; -DIGO250T16 PO; +LEVO250T59 PO; +LEVO50TA PO; +VENL37.591 PO
[2022-04-01 15:52] LABS: BASOPHILS % (AUTO) 0.4 % (0.0-2.0); EOSINOPHILS % (AUTO) 0.6 % (0.0-6.0); HEMATOCRIT 36 % (33-45); HEMOGLOBIN 10.6 g/dL (11.5-14.8); LYMPHOCYTES # (AUTO) 1.2 K/uL (0.8-4.8); LYMPHOCYTES % (AUTO) 21.5 % (20.0-44.0); MEAN CORPUSCULAR HGB CONC 29 g/dl (31.0-36.0); MEAN CORPUSCULAR VOLUME 89 fL (82-100); MONOCYTES # (AUTO) 0.5 K/uL (0.1-1.30); MONOCYTES % (AUTO) 8.3 % (2.0-12.0); NEUTROPHILS # (AUTO) 3.8 K/uL (1.8-8.9); NEUTROPHILS % (AUTO) 69.2 % (43.0-81.0); PLATELET COUNT (AUTO) 252 K/uL (150-450); RED BLOOD CELL COUNT(AUTO) 4.08 MIL/uL (4.0-5.2); WHITE BLOOD COUNT (AUTO) 5.5 K/uL (4.3-11.0)
[2022-04-01 16:05] LABS: CARBON DIOXIDE 27 mmol/L (21-32); CHLORIDE 102 mmol/L (98-107); CREATININE 0.8 mg/dL (0.6-1.3); GLUCOSE 111 mg/dL (74-106); POTASSIUM 4.1 mmol/L (3.5-5.1); SODIUM SERUM 136 mmol/L (136-145); UREA NITROGEN, BLOOD 17 mg/dL (7-18)
[2022-04-01 16:14] LABS: ALANINE AMINOTRANSFERASE 9 U/L (12-78); ALBUMIN 2.8 g/dL (3.4-5.0); ALKALINE PHOSPHATASE 85 U/L (46-116); ASPARTATE AMINOTRANSFERASE 19 U/L (15-37); BILIRUBIN,DIRECT 0.2 mg/dL (0.0-0.2); BILIRUBIN,TOTAL 0.6 mg/dL (0.2-1.0); TOTAL PROTEIN, SERUM 6.6 g/dL (6.4-8.2)
[2022-04-01] MEDS ORDERED: ACETAMINOPHEN 325 MG TABLET PO ONE (17:00)
--- NOTE | 2022-04-01 17:07 | NUR ---
phleb at bedside
--- NOTE | 2022-04-01 18:23 | NUR ---
BED 322-1
[2022-04-01] MEDS ORDERED: IOHEXOL-350 100 ML VIAL IV ONE (18:28)
--- NOTE | 2022-04-01 18:35 | NUR ---
PT GOING TO CT
--- NOTE | 2022-04-01 18:52 | NUR ---
PT RETURNED FROM CT
[2022-04-01] MEDS ORDERED: MAG HYDROX/AL HYDROX/SIMETH 30 ML UDC PO PRN ×2 (19:30→20:30)
[2022-04-01] MEDS ORDERED: MAGNESIUM HYDROXIDE 30 ML UDC PO PRN ×2 (19:30→20:30)
[2022-04-01] MEDS ORDERED: ONDANSETRON HCL/PF 4 MG/2 ML VIAL IVP PRN ×2 (19:30→20:30)
[2022-04-01] MEDS ORDERED: Z GUARD REMEDY 4 OZ OINT TP PRN ×2 (19:30→20:30)
[2022-04-01] MEDS ORDERED: busPIRone 5 MG TABLET PO PRN (19:30)
[2022-04-01] MEDS ORDERED: ZOLPIDEM TARTRATE 5 MG TABLET PO PRN (19:30)
[2022-04-01] MEDS ORDERED: ACETAMINOPHEN 325 MG TABLET PO PRN ×2 (19:30→20:30)
[2022-04-01] MEDS ORDERED: HYDROCODONE/APAP 5/325MG TABLET PO PRN (19:30)
--- NOTE | 2022-04-01 19:45 | NUR ---
PAGED DR ANTON
[2022-04-01 20:00] VITALS: BP 119/56
--- NOTE | 2022-04-01 20:50 | NUR ---
EVENT EXECUTIVEICT PROJECT MANAGER NOTE RECEIVED PATIENT FROM ER VIA [facility]. PATIENT IS BEING ADMITTED IN ROOM 322-2 FOR RAPID HR, A-FIB. PATIENT IS A/O X 4, ABLE TO VERBALIZE NEEDS. NO C/O OF PAIN OR DISCOMFORT THIS TIME. PATIENT ON RA, BREATHING EVEN AND UNLABORED, NO DISTRESS OR SHORTNESS OF BREATH. IV ACCESS TO RIGHT AC #20G, SALINE LOCKED, INTACT, PATENT, AND FLUSHING WELL. PT'S BELONGINGS CHECKED, BELONGING LIST COMPLETED, AND PLACED IN CHART. SKIN ASSESSMENT COMPLETED. PT HAS ABRASION TO LEFT FA, RED SPOTS/DISCOLORATIONS TO RIGHT ARM, SCAB, AND REDNESS TO SACRAL AREA. FALL AND SAFETY MEASURES IN PLACE WITH BED ON LOWEST AND LOCKED POSITION. BED ALARM ON. SIDE RAILS UP X 2. TRAY AND CALL LIGHT WITHIN EASY REACH. WILL CONTINUE TO MONITOR PT.
[2022-04-01] MEDS: ENOXAPARIN SODIUM 40 MG/0.4 ML DISP.SYRIN SQ SCH (21:11)
[2022-04-01] MEDS: TRAZODONE 50 MG TABLET PO PRN (21:34)
[2022-04-02] VITALS: BP 101/49
[2022-04-02 05:52] LABS: BASOPHILS % (AUTO) 0.5 % (0.0-2.0); EOSINOPHILS % (AUTO) 1.6 % (0.0-6.0); HEMATOCRIT 29 % (33-45); LYMPHOCYTES # (AUTO) 1.4 K/uL (0.8-4.8); LYMPHOCYTES % (AUTO) 43.9 % (20.0-44.0); MEAN CORPUSCULAR HGB CONC 31 g/dl (31.0-36.0); MEAN CORPUSCULAR VOLUME 88 fL (82-100); MONOCYTES # (AUTO) 0.3 K/uL (0.1-1.30); MONOCYTES % (AUTO) 11.1 % (2.0-12.0); NEUTROPHILS # (AUTO) 1.3 K/uL (1.8-8.9); NEUTROPHILS % (AUTO) 42.9 % (43.0-81.0); PLATELET COUNT (AUTO) 184 K/uL (150-450); RED BLOOD CELL COUNT(AUTO) 3.35 MIL/uL (4.0-5.2); WHITE BLOOD COUNT (AUTO) 3.1 K/uL (4.3-11.0)
[2022-04-02 06:10] LABS: CALCIUM, SERUM 8.7 mg/dL (8.5-10.1); CREATININE 0.6 mg/dL (0.6-1.3); MAGNESIUM 2.1 mg/dL (1.8-2.4); PHOSPHORUS 3.2 mg/dL (2.5-4.9); POTASSIUM 3.8 mmol/L (3.5-5.1)
--- NOTE | 2022-04-02 06:45 | NUR ---
SCHOOL LIBRARIAN CLOSING NOTE LEFT PT SLEEPING IN BED. PT ALERT AND ORIENTED X 4. NO C/O OF PAIN OR DISCOMFORT AT THIS TIME. ON ROOM AIR, BREATHING EVEN AND UNLABORED. NO RESPIRATORY DISTRESS OR SHORTNESS OF BREATH NOTED. SAFETY MEASURES IMPLEMENTED: BED ON LOWEST AND LOCKED POSITION. CALL LIGHT AND TRAY WITHIN REACH, SR UP X2. WILL ENDORSE PT TO AM SHIFT RN FOR AYE.
--- NOTE | 2022-04-02 07:25 | NUR ---
RN OPENING NOTE RECEIVED PATIENT IN BED ASLEEP, EASILY AROUSED. NO SIGNS OF ACUTE DISTRESS NOTED. STABLE ON ROOM AIR, BREATHING EVEN AND UNLABORED. NO C/O PAIN AT THIS TIME. ON TELE MONITORING SHOWING AFIB, HR @57. NO SIGNS OF CARDIAC DISTRESS NOTED. NOTED WITH IV ACCESS ON RIGHT ANTECUBITAL AREA #20G, INTACT AND PATENT, SALINE LOCKED. SAFETY MEASURE IN PLACE. BED IN LOW AND LOCKED POSITION, SIDE RAILS UP X2, CALL LIGHT PLACED WITHIN EASY REACH. WILL CONTINUE TO MONITOR PATIENT.
[2022-04-02] MEDS ORDERED: PANTOPRAZOLE 40 MG TABLET.DR PO SCH (07:30)
[2022-04-02 08:00] VITALS: BP 111/64
[2022-04-02] MEDS: LEVOTHYROXINE SODIUM 50 MCG TABLET PO SCH (08:26)
[2022-04-02] MEDS: VENLAFAXINE XR 37.5 MG CAP.SR.24H PO SCH (08:26)
[2022-04-02] MEDS: DILTIAZEM HCL CD 240 MG PO SCH (08:27)
[2022-04-02] MEDS: PANTOPRAZOLE 40 MG TABLET.DR PO SCH (08:27)
[2022-04-02] MEDS: ESCITALOPRAM OXALATE (10 MG) 10 MG TABLET PO SCH (08:27)
[2022-04-02] MEDS ORDERED: ASPIRIN 81 MG TAB.CHEW PO SCH (09:00)
[2022-04-02] MEDS ORDERED: FLUTICASONE/VILANTEROL 1 EACH BLST.W.DEV IH SCH (09:00)
--- NOTE | 2022-04-02 11:19 | NUR ---
WOUND CARE CONSULT: PT PRESENTS WITH DRY LESION/SCAR TO LEFT ARM AND SACRAL INTACT DEEP TISSUE INJURY, PRESENT ON ADMISSION. DISCUSSED SKIN PROTECTION WITH NURSING STAFF. PT IS VERY THIN AND BONY. MD IN AGREEMENT WITH PLAN OF CARE.
[2022-04-02 12:00] VITALS: BP 107/57
[2022-04-02 16:00] VITALS: BP 116/53
--- NOTE | 2022-04-02 18:50 | NUR ---
RN CLOSING NOTE PATIENT IN BED AWAKE. NO SIGNS OF ACUTE DISTRESS NOTED. REMAINS STABLE ON ROOM AIR, BREATHING EVEN AND UNLABORED. NO C/O PAIN AT THIS TIME. CONTINUE ON TELE MONITORING SHOWING AFIB, HR @69. NO SIGNS OF CARDIAC DISTRESS NOTED. IV ACCESS ON RIGHT ANTECUBITAL AREA #20G, INTACT AND PATENT, SALINE LOCKED. SAFETY MEASURE IN PLACE. BED IN LOW AND LOCKED POSITION, SIDE RAILS UP X2, CALL LIGHT PLACED WITHIN EASY REACH. WILL ENDORSE TO NEXT SHIFT FOR CONTINUITY OF CARE.
[2022-04-02 20:00] VITALS: BP 111/45
--- NOTE | 2022-04-02 20:00 | NUR ---
TELE VENETIAN BLIND ASSEMBLER INITIAL NOTEES, Received report from am nurse and checked the patient, saw her lying in bed in semi fowlers position with side rails x2 up watching TV at this time. She's alert oriented x3 , complaining of back pain. asking for Tylenol. no signs of any acute distress noted. She mentioned to me that I looked familiar to her . i told her because the last time your here I'm one of your nurse the she smiled. Re-orient how to use the call light and I encourage her to use it if she needs some help or needs the nurse. She also on tele A-fib heart rate 69 per monitor. Kept her warm and comfortable at all times. Place call light at reach. will continue monitoring.
[2022-04-02] MEDS: ENOXAPARIN SODIUM 40 MG/0.4 ML DISP.SYRIN SQ SCH (20:42)
[2022-04-02] MEDS: TRAZODONE 50 MG TABLET PO PRN (21:37)
[2022-04-03] VITALS: BP 92/46
--- NOTE | 2022-04-03 00:25 | NUR ---
tele tone regulator notes Patient sleeping at this time, breathing even and non-labored, not in any discomfort. kept her warm and comfortable at all times. Tele Sinus Rhythm per monitor. will continue monitoring.
[2022-04-03 04:00] VITALS: BP 126/51
--- NOTE | 2022-04-03 07:15 | NUR ---
DIRECTOR SOFTWARE DEVELOPMENT OPENING NOTE RECEIVED PATIENT IN BED ASLEEP, EASILY AROUSED. NO SIGNS OF ACUTE DISTRESS NOTED. PATIENT IS A/0X4. STABLE ON ROOM AIR, BREATHING EVEN AND UNLABORED. NO C/O PAIN AT THIS TIME. ON TELE MONITORING SHOWING AFIB, HR @68. NO SIGNS OF CARDIAC DISTRESS NOTED. NOTED WITH IV ACCESS ON RIGHT ANTECUBITAL AREA #20G, INTACT AND PATENT, SALINE LOCK. SAFETY MEASURE IN PLACE. BED IN LOW AND LOCKED POSITION, SIDE RAILS UP X2, CALL LIGHT PLACED WITHIN EASY REACH. WILL CONTINUE WITH PLAN OF CARE.
--- NOTE | 2022-04-03 07:37 | NUR ---
tele substation supervisor closing notes pt awake and alert watching TV at this time. Slept well and stable throughout the night. Tele A-fib per monitor. kept her warm and comfortable at all times. endorse to am nurse for continuity of care. place call light at reach.
[2022-04-03 08:31] VITALS: BP 118/48
[2022-04-03 08:54] LABS: BASOPHILS % (AUTO) 0.5 % (0.0-2.0); EOSINOPHILS % (AUTO) 1.9 % (0.0-6.0); HEMATOCRIT 30 % (33-45); LYMPHOCYTES # (AUTO) 1.2 K/uL (0.8-4.8); LYMPHOCYTES % (AUTO) 38.2 % (20.0-44.0); MEAN CORPUSCULAR HGB CONC 30 g/dl (31.0-36.0); MEAN CORPUSCULAR VOLUME 89 fL (82-100); MONOCYTES # (AUTO) 0.3 K/uL (0.1-1.30); MONOCYTES % (AUTO) 10.1 % (2.0-12.0); NEUTROPHILS # (AUTO) 1.5 K/uL (1.8-8.9); NEUTROPHILS % (AUTO) 49.3 % (43.0-81.0); PLATELET COUNT (AUTO) 181 K/uL (150-450); RED BLOOD CELL COUNT(AUTO) 3.39 MIL/uL (4.0-5.2); WHITE BLOOD COUNT (AUTO) 3.1 K/uL (4.3-11.0)
[2022-04-03] MEDS ORDERED: APIXABAN 5 MG TABLET PO SCH (09:00)
[2022-04-03 09:04] LABS: CALCIUM, SERUM 8.3 mg/dL (8.5-10.1); CARBON DIOXIDE 29 mmol/L (21-32); CHLORIDE 110 mmol/L (98-107); CREATININE 0.8 mg/dL (0.6-1.3); GLUCOSE 95 mg/dL (74-106); POTASSIUM 3.9 mmol/L (3.5-5.1); SODIUM SERUM 143 mmol/L (136-145); UREA NITROGEN, BLOOD 15 mg/dL (7-18)
[2022-04-03 09:25] LABS: DIGOXIN 0.89 ng/mL (0.90-2.00)
[2022-04-03] MEDS: LEVOTHYROXINE SODIUM 50 MCG TABLET PO SCH (09:29)
[2022-04-03] MEDS: VENLAFAXINE XR 37.5 MG CAP.SR.24H PO SCH (09:29)
[2022-04-03] MEDS: DILTIAZEM HCL CD 240 MG PO SCH (09:29)
[2022-04-03] MEDS: PANTOPRAZOLE 40 MG TABLET.DR PO SCH (09:30)
[2022-04-03] MEDS: ESCITALOPRAM OXALATE (10 MG) 10 MG TABLET PO SCH (09:30)
--- NOTE | 2022-04-03 10:35 | NUR ---
DENTAL LABORATORY MANAGER NOTE SEEN BY DR. ANTON, AND DISCUSSED CONDITION. PATIENT FOR DISCHARGE MENTIONED BY MD. HEALTH TEACHING DONE REGARDING DISCHARGE AND DISCHARGE ORDERS. VERBALIZED UNDERSTANDING AND APPRECIATION. COMFORT MEASURES PROVIDED. IN STABLE CONDITION. AWAITING MD ORDER.
[2022-04-03 12:00] VITALS: BP 114/55
--- NOTE | 2022-04-03 14:35 | NUR ---
PRESSURISED CONTAINER FILLER NOTE PATIENT DISCHARGED ORDERED BY MD. IN STABLE CONDITION. IV ACCESS REMOVED AND COVERED WITH DRY DRESSING, TOLERATED WELL. WOUND CARE DONE AND PICTURE TAKEN ON THE LEFT ARM BUT REFUSED TO HAVE PICTURE TAKEN ON THE RIGHT ARM AND SACRUM. PATIENT ACCOMPANIED TO LOBBY ON A WHEELCHAIR BY THIS NURSE AND PATIENT WAS PICKED UP BY GRAND DAUGHTER AND DAUGHTER. IN STABLE CONDITION.
[2022-04-03 16:34] LABS: LYMPHOCYTES % (MANUAL) 40 % (16-48); MONOCYTES % (MANUAL) 14 % (0-11.0); NEUTROPHILS % (MANUAL) 46 (42-76)
[2022-04-04] MEDS ORDERED: ERGOCALCIFEROL (VITAMIN D 2) 50,000 UNIT CAPSULE PO SCH (09:00)
== END 2022-04-03 14:30 | disposition home health service (06) | DRG 308 ==
LOC: ER 15:07 → TELE 18:25
PROVIDERS: ADMIT Legal Medicine; ATTEND Legal Medicine
DX: I48.91 Unspecified atrial fibrillation (principal); E43 Unspecified severe protein-calorie malnutrition; I50.23 Acute on chronic systolic (congestive) heart failure; G92.8 Other toxic encephalopathy; N17.0 Acute kidney failure with tubular necrosis; I27.82 Chronic pulmonary embolism; J98.11 Atelectasis; J90 Pleural effusion, not elsewhere classified; Z68.1 Body mass index [BMI] 19.9 or less, adult; T46.0X5A Adverse effect of cardiac-stimulant glycosides and drugs of similar action, initial encounter; Z20.822 Contact with and (suspected) exposure to COVID-19; Z79.899 Other long term (current) drug therapy; Z79.01 Long term (current) use of anticoagulants; I11.0 Hypertensive heart disease with heart failure; Z87.11 Personal history of peptic ulcer disease; Z90.49 Acquired absence of other specified parts of digestive tract; F41.9 Anxiety disorder, unspecified; Z98.890 Other specified postprocedural states; Z88.0 Allergy status to penicillin; Z88.1 Allergy status to other antibiotic agents; Z88.2 Allergy status to sulfonamides; Z87.891 Personal history of nicotine dependence; Z88.8 Allergy status to other drugs, medicaments and biological substances; Z79.82 Long term (current) use of aspirin; Z79.51 Long term (current) use of inhaled steroids; Y92.009 Unspecified place in unspecified non-institutional (private) residence as the place of occurrence of the external cause; J44.9 Chronic obstructive pulmonary disease, unspecified; F32.9 Major depressive disorder, single episode, unspecified; M19.90 Unspecified osteoarthritis, unspecified site; Z86.19 Personal history of other infectious and parasitic diseases; G47.9 Sleep disorder, unspecified; I27.21 Secondary pulmonary arterial hypertension; Z87.19 Personal history of other diseases of the digestive system; G20 Parkinson's disease; I08.3 Combined rheumatic disorders of mitral, aortic and tricuspid valves; K44.9 Diaphragmatic hernia without obstruction or gangrene
CPT/HCPCS: 36415; 71045-TC; 80048-TC; 80076-TC; 80162-TC; 83735-TC; 83880; 84100-TC; 84484-TC; 85025-TC; 85378-TC; 87081-TC; 97112-TC; 97116-TC; 97530-TC; A6403; C9803; G0378; J1650; Q9967

== ENCOUNTER 2022-11-06 15:47 | Inpatient (IN) | payer MEDICARE, OTHER ==
[~2022-11-06] VITALS: Ht 175.3 cm; Wt 51.7 kg
[~2022-11-06 15:47] MED LIST changes: -LEVO250T59 PO
[2022-11-06] MEDS ORDERED: IV NS 0.9% 1,000 ML BAG IV ONE (16:30)
[2022-11-06 16:42] LABS: BASOPHILS % (AUTO) 0.4 % (0.0-2.0); EOSINOPHILS % (AUTO) 0.4 % (0.0-6.0); HEMATOCRIT 43 % (33-45); HEMOGLOBIN 13.2 g/dL (11.5-14.8); LYMPHOCYTES # (AUTO) 0.8 K/uL (0.8-4.8); LYMPHOCYTES % (AUTO) 10.6 % (20.0-44.0); MEAN CORPUSCULAR HEMOGLOBIN 31 PG (26.0-33.0); MEAN CORPUSCULAR HGB CONC 31 g/dl (31.0-36.0); MEAN CORPUSCULAR VOLUME 100 fL (82-100); MONOCYTES # (AUTO) 0.9 K/uL (0.1-1.30); MONOCYTES % (AUTO) 11.8 % (2.0-12.0); NEUTROPHILS # (AUTO) 5.8 K/uL (1.8-8.9); NEUTROPHILS % (AUTO) 76.8 % (43.0-81.0); PLATELET COUNT (AUTO) 175 K/uL (150-450); RED BLOOD CELL COUNT(AUTO) 4.25 MIL/uL (4.0-5.2); RED CELL DISTRIBUTION WIDTH 17.8 % (11.5-15.0); WHITE BLOOD COUNT (AUTO) 7.6 K/uL (4.3-11.0)
[2022-11-06] MEDS ORDERED: APIX5TAB PO (16:53)
[2022-11-06] MEDS ORDERED: METO-357 PO (16:53)
[2022-11-06 16:55] LABS: CHLORIDE 102 mmol/L (98-107); POTASSIUM 4.4 mmol/L (3.5-5.1); SODIUM SERUM 134 mmol/L (136-145)
[2022-11-06] MEDS ORDERED: ATOR40TA PO (16:55)
[2022-11-06] MEDS ORDERED: TRAZ-252 PO (16:55)
[2022-11-06] MEDS ORDERED: SENN-261 PO (16:56)
[2022-11-06] MEDS ORDERED: CHOL100043 PO (16:58)
[2022-11-06] MEDS ORDERED: VITA1TAB56 PO (16:58)
[2022-11-06 17:01] LABS: LACTIC ACID 1.8 mmol/L (0.4-2.0)
[2022-11-06 17:05] LABS: INR 1.27 (0.91-1.10); PARTIAL THROMBOPLASTIN TIME 27.7 SEC (24.3-34.3); PROTHROMBIN TIME 13.2 SECS (9.2-11.1)
[2022-11-06 17:20] LABS: ALANINE AMINOTRANSFERASE 211 U/L (12-78); ALBUMIN 3.3 g/dL (3.4-5.0); ALKALINE PHOSPHATASE 113 U/L (46-116); ASPARTATE AMINOTRANSFERASE 131 U/L (15-37); BILIRUBIN,DIRECT 0.3 mg/dL (0.0-0.2); BILIRUBIN,TOTAL 0.5 mg/dL (0.2-1.0); CALCIUM, SERUM 9.1 mg/dL (8.5-10.1); TOTAL PROTEIN, SERUM 6.9 g/dL (6.4-8.2)
[2022-11-06 17:23] LABS: CARBON DIOXIDE 22 mmol/L (21-32); CREATININE 0.9 mg/dL (0.6-1.3); GLUCOSE 136 mg/dL (74-106); UREA NITROGEN, BLOOD 38 mg/dL (7-18)
[2022-11-06] MEDS ORDERED: ACETAMINOPHEN ES 500 MG TABLET ONE (18:21)
[2022-11-06] MEDS ORDERED: SENNOSIDES 8.6 MG TABLET PO PRN (18:30)
[2022-11-06] MEDS ORDERED: MAG HYDROX/AL HYDROX/SIMETH 30 ML UDC PO PRN (18:30)
[2022-11-06] MEDS ORDERED: Z GUARD REMEDY 4 OZ OINT TP PRN (18:30)
[2022-11-06] MEDS ORDERED: ALBUTEROL FS 2.5 MG/0.5 ML VIAL.NEB NEB PRN (18:30)
[2022-11-06] MEDS ORDERED: ACETAMINOPHEN ES 500 MG TABLET PO ONE (18:30)
[2022-11-06] MEDS ORDERED: ONDANSETRON HCL/PF 4 MG/2 ML VIAL IVP PRN (18:30)
[2022-11-06] MEDS ORDERED: MAGNESIUM HYDROXIDE 30 ML UDC PO PRN (18:30)
[2022-11-06] MEDS: ALBUTEROL FS 2.5 MG/3 ML VIAL.NEB NEB SCH (20:30)
[2022-11-06 21:30] VITALS: BP 98/52; TEMP 97.5; O2SAT 94; O2SAT 98
[2022-11-06] MEDS: METOPROLOL SUCCINATE 50 MG TAB.SR.24H PO SCH (22:00)
[2022-11-06 22:30] VITALS: BP 100/67
[2022-11-06] MEDS: TRAZODONE 50 MG TABLET PO SCH (23:11)
[2022-11-07] VITALS (18 sets, daily range): BP systolic 91–110; BP diastolic 48–87; TEMP 89–98.1; O2SAT 89–97
[2022-11-07] MEDS: ALBUTEROL FS 2.5 MG/3 ML VIAL.NEB NEB SCH ×2 (01:55→08:07)
[2022-11-07 03:04] LABS: BASOPHILS % (AUTO) 0.7 % (0.0-2.0); EOSINOPHILS % (AUTO) 1.1 % (0.0-6.0); HEMATOCRIT 37 % (33-45); HEMOGLOBIN 11.6 g/dL (11.5-14.8); LYMPHOCYTES # (AUTO) 1.1 K/uL (0.8-4.8); LYMPHOCYTES % (AUTO) 23.9 % (20.0-44.0); MEAN CORPUSCULAR HEMOGLOBIN 31 PG (26.0-33.0); MEAN CORPUSCULAR HGB CONC 31 g/dl (31.0-36.0); MEAN CORPUSCULAR VOLUME 99 fL (82-100); MONOCYTES # (AUTO) 0.6 K/uL (0.1-1.30); MONOCYTES % (AUTO) 12.5 % (2.0-12.0); NEUTROPHILS # (AUTO) 2.8 K/uL (1.8-8.9); NEUTROPHILS % (AUTO) 61.8 % (43.0-81.0); PLATELET COUNT (AUTO) 135 K/uL (150-450); RED BLOOD CELL COUNT(AUTO) 3.75 MIL/uL (4.0-5.2); RED CELL DISTRIBUTION WIDTH 17.8 % (11.5-15.0); WHITE BLOOD COUNT (AUTO) 4.5 K/uL (4.3-11.0)
[2022-11-07 06:55] LABS: CALCIUM, SERUM 8.5 mg/dL (8.5-10.1); CARBON DIOXIDE 21 mmol/L (21-32); CHLORIDE 111 mmol/L (98-107); CREATININE 0.8 mg/dL (0.6-1.3); GLUCOSE 88 mg/dL (74-106); MAGNESIUM 2.2 mg/dL (1.8-2.4); PHOSPHORUS 3.1 mg/dL (2.5-4.9); POTASSIUM 3.9 mmol/L (3.5-5.1); SODIUM SERUM 142 mmol/L (136-145); UREA NITROGEN, BLOOD 31 mg/dL (7-18)
[2022-11-07] MEDS: BUDESONIDE RESPULE INH 0.5 MG/2 ML AMPUL.NEB NEB SCH ×2 (08:07→15:25)
[2022-11-07 08:11] LABS: CHOLESTEROL 111 mg/dL (<200); HDL CHOLESTEROL 31 mg/dL (40-60); LDL 73 mg/dL (0-99); TRIGLYCERIDES 75 mg/dL (30-150)
[2022-11-07] MEDS: PANTOPRAZOLE 40 MG TABLET.DR PO SCH (08:13)
[2022-11-07] MEDS: ATORVASTATIN 40 MG TABLET PO SCH (08:27)
[2022-11-07] MEDS: busPIRone 5 MG TABLET PO SCH ×2 (08:27→17:40)
[2022-11-07] MEDS: VENLAFAXINE XR 37.5 MG CAP.SR.24H PO SCH (08:27)
[2022-11-07] MEDS: ESCITALOPRAM OXALATE (10 MG) 10 MG TABLET PO SCH (08:28)
[2022-11-07] MEDS: APIXABAN 5 MG TABLET PO SCH ×2 (08:30→17:41)
[2022-11-07] MEDS: DILTIAZEM HCL CD 240 MG PO SCH (08:50)
[2022-11-07] MEDS: FUROSEMIDE 20 MG/2 ML VIAL IV SCH ×2 (08:51→17:00)
[2022-11-07] MEDS ORDERED: FLUTICASONE/SALMETEROL DISKUS IH SCH (09:00)
[2022-11-07] MEDS: PROSOURCE / PROSTAT (PYXIS) 30 ML UDC PO SCH ×2 (12:12→17:34)
[2022-11-07] MEDS ORDERED: ALBUTEROL FS 2.5 MG/0.5 ML VIAL.NEB NEB PRN (12:30)
[2022-11-07] MEDS: IPRATROPIUM NEB FS 0.5 MG/2.5 ML AMPUL.NEB NEB SCH ×2 (13:20→19:43)
[2022-11-07] MEDS: CEFTRIAXONE 1 G in IV D5W 50 ML IV SCH (13:31)
[2022-11-07] MEDS: TRAZODONE 50 MG TABLET PO SCH (21:14)
[2022-11-07] MEDS: METOPROLOL SUCCINATE 50 MG TAB.SR.24H PO SCH (21:15)
[2022-11-08] VITALS (13 sets, daily range): BP systolic 89–127; BP diastolic 68–95; TEMP 97.3–98.2; O2SAT 91–99
[2022-11-08] MEDS: IPRATROPIUM NEB FS 0.5 MG/2.5 ML AMPUL.NEB NEB SCH ×4 (01:46→19:54)
[2022-11-08 05:58] LABS: BASOPHILS % (AUTO) 0.4 % (0.0-2.0); EOSINOPHILS # (AUTO) 0.1 K/uL (0.0-0.7); HEMATOCRIT 40 % (33-45); HEMOGLOBIN 12.3 g/dL (11.5-14.8); LYMPHOCYTES # (AUTO) 0.7 K/uL (0.8-4.8); MEAN CORPUSCULAR HEMOGLOBIN 31 PG (26.0-33.0); MEAN CORPUSCULAR HGB CONC 31 g/dl (31.0-36.0); MEAN CORPUSCULAR VOLUME 100 fL (82-100); MONOCYTES # (AUTO) 0.5 K/uL (0.1-1.30); MONOCYTES % (AUTO) 10.3 % (2.0-12.0); NEUTROPHILS # (AUTO) 3.5 K/uL (1.8-8.9); NEUTROPHILS % (AUTO) 71.3 % (43.0-81.0); PLATELET COUNT (AUTO) 133 K/uL (150-450); RED BLOOD CELL COUNT(AUTO) 3.97 MIL/uL (4.0-5.2); RED CELL DISTRIBUTION WIDTH 18.4 % (11.5-15.0); WHITE BLOOD COUNT (AUTO) 4.9 K/uL (4.3-11.0)
[2022-11-08 06:18] LABS: CALCIUM, SERUM 8.4 mg/dL (8.5-10.1); CREATININE 0.7 mg/dL (0.6-1.3); MAGNESIUM 2.1 mg/dL (1.8-2.4); POTASSIUM 3.9 mmol/L (3.5-5.1)
[2022-11-08] MEDS: PANTOPRAZOLE 40 MG TABLET.DR PO SCH (07:18)
[2022-11-08] MEDS: FUROSEMIDE 20 MG/2 ML VIAL IV SCH ×2 (08:16→16:00)
[2022-11-08] MEDS: DILTIAZEM HCL CD 240 MG PO SCH (08:18)
[2022-11-08] MEDS: BUDESONIDE RESPULE INH 0.5 MG/2 ML AMPUL.NEB NEB SCH ×2 (08:21→14:15)
[2022-11-08] MEDS: busPIRone 5 MG TABLET PO SCH ×2 (08:21→16:00)
[2022-11-08] MEDS: ESCITALOPRAM OXALATE (10 MG) 10 MG TABLET PO SCH (08:21)
[2022-11-08] MEDS: ATORVASTATIN 40 MG TABLET PO SCH (08:21)
[2022-11-08] MEDS: APIXABAN 5 MG TABLET PO SCH ×2 (08:23→16:38)
[2022-11-08] MEDS: VENLAFAXINE XR 37.5 MG CAP.SR.24H PO SCH (08:26)
[2022-11-08] MEDS: PROSOURCE / PROSTAT (PYXIS) 30 ML UDC PO SCH ×3 (08:26→16:10)
[2022-11-08] MEDS: ACETAMINOPHEN 325 MG TABLET PO PRN ×2 (13:02→20:47)
[2022-11-08] MEDS: CEFTRIAXONE 1 G in IV D5W 50 ML IV SCH (13:17)
[2022-11-08] MEDS ORDERED: IV NS 0.9% 1,000 ML IV ONE (19:30)
[2022-11-08] MEDS: TRAZODONE 50 MG TABLET PO SCH (21:47)
[2022-11-08] MEDS: METOPROLOL SUCCINATE 50 MG TAB.SR.24H PO SCH (22:08)
[2022-11-09] VITALS (15 sets, daily range): BP systolic 104–130; BP diastolic 73–98; TEMP 97.3–97.9; O2SAT 91–96
[2022-11-09] MEDS: IPRATROPIUM NEB FS 0.5 MG/2.5 ML AMPUL.NEB NEB SCH ×4 (01:58→20:11)
[2022-11-09] MEDS ORDERED: DIGOXIN INJ 0.5 MG/2 ML AMPUL IV ONE (02:00)
[2022-11-09] MEDS ORDERED: DIGOXIN INJ 0.5 MG/2 ML AMPUL IV SCH ×2 (06:00→08:00)
[2022-11-09 06:37] LABS: BASOPHILS % (AUTO) 0.6 % (0.0-2.0); EOSINOPHILS # (AUTO) 0.1 K/uL (0.0-0.7); EOSINOPHILS % (AUTO) 2.1 % (0.0-6.0); HEMATOCRIT 39 % (33-45); HEMOGLOBIN 12.4 g/dL (11.5-14.8); LYMPHOCYTES % (AUTO) 18.4 % (20.0-44.0); MEAN CORPUSCULAR HEMOGLOBIN 32 PG (26.0-33.0); MEAN CORPUSCULAR HGB CONC 32 g/dl (31.0-36.0); MEAN CORPUSCULAR VOLUME 100 fL (82-100); MONOCYTES # (AUTO) 0.5 K/uL (0.1-1.30); MONOCYTES % (AUTO) 9.2 % (2.0-12.0); NEUTROPHILS # (AUTO) 3.8 K/uL (1.8-8.9); NEUTROPHILS % (AUTO) 69.7 % (43.0-81.0); PLATELET COUNT (AUTO) 148 K/uL (150-450); RED BLOOD CELL COUNT(AUTO) 3.92 MIL/uL (4.0-5.2); RED CELL DISTRIBUTION WIDTH 17.9 % (11.5-15.0); WHITE BLOOD COUNT (AUTO) 5.4 K/uL (4.3-11.0)
[2022-11-09 06:56] LABS: CALCIUM, SERUM 8.6 mg/dL (8.5-10.1); CREATININE 0.8 mg/dL (0.6-1.3); POTASSIUM 4.6 mmol/L (3.5-5.1)
[2022-11-09] MEDS: BUDESONIDE RESPULE INH 0.5 MG/2 ML AMPUL.NEB NEB SCH ×2 (07:55→15:46)
[2022-11-09] MEDS: DILTIAZEM HCL CD 240 MG PO SCH (09:00)
[2022-11-09] MEDS: FUROSEMIDE 20 MG/2 ML VIAL IV SCH (09:27)
[2022-11-09] MEDS: ATORVASTATIN 40 MG TABLET PO SCH (09:27)
[2022-11-09] MEDS: VENLAFAXINE XR 37.5 MG CAP.SR.24H PO SCH (09:27)
[2022-11-09] MEDS: PANTOPRAZOLE 40 MG TABLET.DR PO SCH (09:27)
[2022-11-09] MEDS: busPIRone 5 MG TABLET PO SCH ×2 (09:28→16:45)
[2022-11-09] MEDS: ESCITALOPRAM OXALATE (10 MG) 10 MG TABLET PO SCH (09:28)
[2022-11-09] MEDS: APIXABAN 5 MG TABLET PO SCH ×2 (09:29→16:46)
[2022-11-09] MEDS: PROSOURCE / PROSTAT (PYXIS) 30 ML UDC PO SCH ×3 (09:30→16:45)
[2022-11-09] MEDS: CEFTRIAXONE 1 G in IV D5W 50 ML IV SCH (13:42)
[2022-11-09] MEDS: TRAZODONE 50 MG TABLET PO SCH (21:35)
[2022-11-09] MEDS: METOPROLOL SUCCINATE 50 MG TAB.SR.24H PO SCH (21:35)
[2022-11-09] MEDS: ACETAMINOPHEN 325 MG TABLET PO PRN (21:43)
[2022-11-10] VITALS (16 sets, daily range): BP systolic 99–149; BP diastolic 60–85; TEMP 97.2–98.6; O2SAT 93–98
[2022-11-10] MEDS: IPRATROPIUM NEB FS 0.5 MG/2.5 ML AMPUL.NEB NEB SCH ×4 (02:06→19:48)
[2022-11-10 05:46] LABS: BASOPHILS % (AUTO) 0.4 % (0.0-2.0); EOSINOPHILS # (AUTO) 0.2 K/uL (0.0-0.7); EOSINOPHILS % (AUTO) 4.1 % (0.0-6.0); HEMATOCRIT 40 % (33-45); HEMOGLOBIN 12.5 g/dL (11.5-14.8); LYMPHOCYTES # (AUTO) 0.8 K/uL (0.8-4.8); LYMPHOCYTES % (AUTO) 18.8 % (20.0-44.0); MEAN CORPUSCULAR HEMOGLOBIN 31 PG (26.0-33.0); MEAN CORPUSCULAR HGB CONC 31 g/dl (31.0-36.0); MEAN CORPUSCULAR VOLUME 100 fL (82-100); MONOCYTES # (AUTO) 0.5 K/uL (0.1-1.30); MONOCYTES % (AUTO) 10.8 % (2.0-12.0); NEUTROPHILS # (AUTO) 2.8 K/uL (1.8-8.9); NEUTROPHILS % (AUTO) 65.9 % (43.0-81.0); PLATELET COUNT (AUTO) 138 K/uL (150-450); RED BLOOD CELL COUNT(AUTO) 4.02 MIL/uL (4.0-5.2); RED CELL DISTRIBUTION WIDTH 17.6 % (11.5-15.0); WHITE BLOOD COUNT (AUTO) 4.2 K/uL (4.3-11.0)
[2022-11-10 06:15] LABS: CALCIUM, SERUM 8.1 mg/dL (8.5-10.1); CREATININE 0.8 mg/dL (0.6-1.3); POTASSIUM 3.6 mmol/L (3.5-5.1)
[2022-11-10] MEDS: BUDESONIDE RESPULE INH 0.5 MG/2 ML AMPUL.NEB NEB SCH ×2 (07:39→17:23)
[2022-11-10] MEDS: PANTOPRAZOLE 40 MG TABLET.DR PO SCH (08:31)
[2022-11-10] MEDS: VENLAFAXINE XR 37.5 MG CAP.SR.24H PO SCH (08:38)
[2022-11-10] MEDS: busPIRone 5 MG TABLET PO SCH ×2 (08:39→16:51)
[2022-11-10] MEDS: ESCITALOPRAM OXALATE (10 MG) 10 MG TABLET PO SCH (08:39)
[2022-11-10] MEDS: ATORVASTATIN 40 MG TABLET PO SCH (08:39)
[2022-11-10] MEDS: DILTIAZEM HCL CD 240 MG PO SCH (08:40)
[2022-11-10] MEDS: APIXABAN 5 MG TABLET PO SCH ×2 (08:43→16:52)
[2022-11-10] MEDS: PROSOURCE / PROSTAT (PYXIS) 30 ML UDC PO SCH ×3 (08:44→16:59)
[2022-11-10] MEDS: FUROSEMIDE 40 MG/4 ML VIAL IV SCH ×3 (10:16→17:30)
[2022-11-10] MEDS: POTASSIUM CHLORIDE 20 MEQ TAB.PRT.SR PO SCH ×3 (10:16→12:00)
[2022-11-10] MEDS: ACETAMINOPHEN 325 MG TABLET PO PRN ×2 (13:41→20:13)
[2022-11-10] MEDS: CEFTRIAXONE 1 G in IV D5W 50 ML IV SCH (13:58)
[2022-11-10] MEDS: METOPROLOL SUCCINATE 50 MG TAB.SR.24H PO SCH (21:32)
[2022-11-10] MEDS: TRAZODONE 50 MG TABLET PO SCH (21:33)
[2022-11-11] VITALS (13 sets, daily range): BP systolic 94–108; BP diastolic 57–71; TEMP 97–97.9; O2SAT 92–97
[2022-11-11] MEDS: IPRATROPIUM NEB FS 0.5 MG/2.5 ML AMPUL.NEB NEB SCH ×4 (01:56→19:57)
[2022-11-11 05:44] LABS: BASOPHILS % (AUTO) 0.6 % (0.0-2.0); EOSINOPHILS # (AUTO) 0.1 K/uL (0.0-0.7); EOSINOPHILS % (AUTO) 3.3 % (0.0-6.0); HEMATOCRIT 42 % (33-45); HEMOGLOBIN 13.1 g/dL (11.5-14.8); LYMPHOCYTES # (AUTO) 0.7 K/uL (0.8-4.8); LYMPHOCYTES % (AUTO) 15.1 % (20.0-44.0); MEAN CORPUSCULAR HEMOGLOBIN 32 PG (26.0-33.0); MEAN CORPUSCULAR HGB CONC 32 g/dl (31.0-36.0); MEAN CORPUSCULAR VOLUME 100 fL (82-100); MONOCYTES # (AUTO) 0.5 K/uL (0.1-1.30); MONOCYTES % (AUTO) 10.9 % (2.0-12.0); NEUTROPHILS # (AUTO) 3.1 K/uL (1.8-8.9); NEUTROPHILS % (AUTO) 70.1 % (43.0-81.0); PLATELET COUNT (AUTO) 137 K/uL (150-450); RED BLOOD CELL COUNT(AUTO) 4.17 MIL/uL (4.0-5.2); RED CELL DISTRIBUTION WIDTH 17.4 % (11.5-15.0); WHITE BLOOD COUNT (AUTO) 4.4 K/uL (4.3-11.0)
[2022-11-11 06:20] LABS: ALANINE AMINOTRANSFERASE 69 U/L (12-78); ALBUMIN 2.4 g/dL (3.4-5.0); ALKALINE PHOSPHATASE 106 U/L (46-116); ASPARTATE AMINOTRANSFERASE 25 U/L (15-37); BILIRUBIN,TOTAL 0.3 mg/dL (0.2-1.0); CALCIUM, SERUM 8.4 mg/dL (8.5-10.1); CARBON DIOXIDE 30 mmol/L (21-32); CHLORIDE 108 mmol/L (98-107); CREATININE 0.9 mg/dL (0.6-1.3); GLUCOSE 105 mg/dL (74-106); MAGNESIUM 1.8 mg/dL (1.8-2.4); PHOSPHORUS 3.8 mg/dL (2.5-4.9); POTASSIUM 3.5 mmol/L (3.5-5.1); SODIUM SERUM 143 mmol/L (136-145); TOTAL PROTEIN, SERUM 5.6 g/dL (6.4-8.2); UREA NITROGEN, BLOOD 35 mg/dL (7-18)
[2022-11-11] MEDS: BUDESONIDE RESPULE INH 0.5 MG/2 ML AMPUL.NEB NEB SCH ×2 (07:50→15:53)
[2022-11-11] MEDS: PANTOPRAZOLE 40 MG TABLET.DR PO SCH (07:55)
[2022-11-11] MEDS: ATORVASTATIN 40 MG TABLET PO SCH (08:29)
[2022-11-11] MEDS: VENLAFAXINE XR 37.5 MG CAP.SR.24H PO SCH (08:29)
[2022-11-11] MEDS: busPIRone 5 MG TABLET PO SCH ×2 (08:29→16:51)
[2022-11-11] MEDS: DILTIAZEM HCL CD 240 MG PO SCH (08:30)
[2022-11-11] MEDS: ESCITALOPRAM OXALATE (10 MG) 10 MG TABLET PO SCH (08:30)
[2022-11-11] MEDS: PROSOURCE / PROSTAT (PYXIS) 30 ML UDC PO SCH ×3 (08:32→16:51)
[2022-11-11] MEDS: APIXABAN 5 MG TABLET PO SCH (08:32)
[2022-11-11] MEDS: POTASSIUM CHLORIDE 20 MEQ TAB.PRT.SR PO SCH ×3 (10:19→11:02)
[2022-11-11] MEDS: CEFTRIAXONE 1 G in IV D5W 50 ML IV SCH (15:00)
[2022-11-11] MEDS: ACETAMINOPHEN 325 MG TABLET PO PRN (15:00)
[2022-11-11] MEDS: METOPROLOL SUCCINATE 50 MG TAB.SR.24H PO SCH (21:43)
[2022-11-11] MEDS: TRAZODONE 50 MG TABLET PO SCH (21:44)
[2022-11-12] VITALS (12 sets, daily range): BP systolic 102–121; BP diastolic 63–81; TEMP 98–98.2; O2SAT 90–97
[2022-11-12] MEDS: IPRATROPIUM NEB FS 0.5 MG/2.5 ML AMPUL.NEB NEB SCH ×4 (01:39→20:21)
[2022-11-12 05:56] LABS: BASOPHILS % (AUTO) 0.5 % (0.0-2.0); EOSINOPHILS # (AUTO) 0.1 K/uL (0.0-0.7); EOSINOPHILS % (AUTO) 2.8 % (0.0-6.0); HEMATOCRIT 40 % (33-45); HEMOGLOBIN 12.5 g/dL (11.5-14.8); LYMPHOCYTES # (AUTO) 0.6 K/uL (0.8-4.8); MEAN CORPUSCULAR HEMOGLOBIN 31 PG (26.0-33.0); MEAN CORPUSCULAR HGB CONC 32 g/dl (31.0-36.0); MEAN CORPUSCULAR VOLUME 99 fL (82-100); MONOCYTES # (AUTO) 0.5 K/uL (0.1-1.30); MONOCYTES % (AUTO) 12.7 % (2.0-12.0); PLATELET COUNT (AUTO) 131 K/uL (150-450); RED BLOOD CELL COUNT(AUTO) 3.99 MIL/uL (4.0-5.2); RED CELL DISTRIBUTION WIDTH 17.4 % (11.5-15.0); WHITE BLOOD COUNT (AUTO) 4.3 K/uL (4.3-11.0)
[2022-11-12 06:15] LABS: ALANINE AMINOTRANSFERASE 51 U/L (12-78); ALBUMIN 2.4 g/dL (3.4-5.0); ALKALINE PHOSPHATASE 93 U/L (46-116); ASPARTATE AMINOTRANSFERASE 19 U/L (15-37); BILIRUBIN,TOTAL 0.2 mg/dL (0.2-1.0); CALCIUM, SERUM 8.6 mg/dL (8.5-10.1); CARBON DIOXIDE 32 mmol/L (21-32); CHLORIDE 109 mmol/L (98-107); CREATININE 0.7 mg/dL (0.6-1.3); GLUCOSE 103 mg/dL (74-106); PHOSPHORUS 2.5 mg/dL (2.5-4.9); POTASSIUM 4.2 mmol/L (3.5-5.1); SODIUM SERUM 141 mmol/L (136-145); TOTAL PROTEIN, SERUM 5.5 g/dL (6.4-8.2); UREA NITROGEN, BLOOD 32 mg/dL (7-18)
[2022-11-12] MEDS: ACETAMINOPHEN 325 MG TABLET PO PRN ×2 (06:15→16:42)
[2022-11-12] MEDS: PANTOPRAZOLE 40 MG TABLET.DR PO SCH (07:43)
[2022-11-12] MEDS: BUDESONIDE RESPULE INH 0.5 MG/2 ML AMPUL.NEB NEB SCH ×2 (08:04→16:04)
[2022-11-12] MEDS: DILTIAZEM HCL CD 240 MG PO SCH (09:00)
[2022-11-12] MEDS: busPIRone 5 MG TABLET PO SCH ×2 (09:07→16:33)
[2022-11-12] MEDS: ESCITALOPRAM OXALATE (10 MG) 10 MG TABLET PO SCH (09:08)
[2022-11-12] MEDS: ATORVASTATIN 40 MG TABLET PO SCH (09:08)
[2022-11-12] MEDS: VENLAFAXINE XR 37.5 MG CAP.SR.24H PO SCH (09:09)
[2022-11-12] MEDS: PROSOURCE / PROSTAT (PYXIS) 30 ML UDC PO SCH ×3 (09:15→16:33)
[2022-11-12] MEDS: CEFTRIAXONE 1 G in IV D5W 50 ML IV SCH (14:10)
[2022-11-12] MEDS: TRAZODONE 50 MG TABLET PO SCH (21:38)
[2022-11-12] MEDS: METOPROLOL SUCCINATE 50 MG TAB.SR.24H PO SCH (21:39)
[2022-11-13] VITALS (18 sets, daily range): BP systolic 92–125; BP diastolic 67–75; TEMP 97.3–98.1; O2SAT 91–98
[2022-11-13] MEDS: IPRATROPIUM NEB FS 0.5 MG/2.5 ML AMPUL.NEB NEB SCH ×4 (00:55→20:32)
[2022-11-13] MEDS: BUDESONIDE RESPULE INH 0.5 MG/2 ML AMPUL.NEB NEB SCH ×2 (07:46→14:28)
[2022-11-13] MEDS: PANTOPRAZOLE 40 MG TABLET.DR PO SCH (08:12)
[2022-11-13] MEDS: DILTIAZEM HCL CD 240 MG PO SCH (08:41)
[2022-11-13] MEDS: ESCITALOPRAM OXALATE (10 MG) 10 MG TABLET PO SCH (08:41)
[2022-11-13] MEDS: busPIRone 5 MG TABLET PO SCH ×2 (08:42→16:28)
[2022-11-13] MEDS: VENLAFAXINE XR 37.5 MG CAP.SR.24H PO SCH (08:42)
[2022-11-13] MEDS: ATORVASTATIN 40 MG TABLET PO SCH (08:42)
[2022-11-13] MEDS: PROSOURCE / PROSTAT (PYXIS) 30 ML UDC PO SCH ×3 (08:44→16:28)
[2022-11-13 13:31] LABS: PROTEIN, BODY FLUID 1.5 G/DL
[2022-11-13 13:38] LABS: WBC, BODY FLUID 940 /cu. mm. (0-200)
[2022-11-13] MEDS: CEFTRIAXONE 1 G in IV D5W 50 ML IV SCH (13:57)
[2022-11-13 14:03] LABS: APPEARANCE,SPUN,BODY FLUID CLEAR (CLEAR)
[2022-11-13 14:04] LABS: TOTAL VOLUME,BODY FLUID 800 mL
[2022-11-13 17:46] LABS: MACROPHAGES, BODY FLUID 8; POLYNUCLEAR, BODY FLUID 1 % (0-25)
[2022-11-13] MEDS: TRAZODONE 50 MG TABLET PO SCH (21:45)
[2022-11-13] MEDS: METOPROLOL SUCCINATE 50 MG TAB.SR.24H PO SCH (21:45)
[2022-11-14] VITALS (14 sets, daily range): BP systolic 95–126; BP diastolic 60–71; TEMP 97.5–98.8; O2SAT 90–97
[2022-11-14] MEDS: IPRATROPIUM NEB FS 0.5 MG/2.5 ML AMPUL.NEB NEB SCH ×4 (02:26→20:26)
[2022-11-14] MEDS: BUDESONIDE RESPULE INH 0.5 MG/2 ML AMPUL.NEB NEB SCH ×2 (07:51→14:30)
[2022-11-14] MEDS: PROSOURCE / PROSTAT (PYXIS) 30 ML UDC PO SCH ×4 (09:00→16:26)
[2022-11-14] MEDS: VENLAFAXINE XR 37.5 MG CAP.SR.24H PO SCH (09:03)
[2022-11-14] MEDS: ATORVASTATIN 40 MG TABLET PO SCH (09:03)
[2022-11-14] MEDS: ESCITALOPRAM OXALATE (10 MG) 10 MG TABLET PO SCH (09:03)
[2022-11-14] MEDS: PANTOPRAZOLE 40 MG TABLET.DR PO SCH (09:04)
[2022-11-14] MEDS: busPIRone 5 MG TABLET PO SCH ×2 (09:04→16:26)
[2022-11-14] MEDS: DILTIAZEM HCL CD 240 MG PO SCH (09:04)
[2022-11-14] MEDS: CEFTRIAXONE 1 G in IV D5W 50 ML IV SCH (14:43)
[2022-11-14] MEDS: ACETAMINOPHEN 325 MG TABLET PO PRN (14:53)
[2022-11-14] MEDS: TRAZODONE 50 MG TABLET PO SCH (21:21)
[2022-11-14] MEDS: METOPROLOL SUCCINATE 50 MG TAB.SR.24H PO SCH (21:21)
[2022-11-15] VITALS (13 sets, daily range): BP systolic 110–122; BP diastolic 57–75; TEMP 97.2–98.1; O2SAT 90–97
[2022-11-15] MEDS: IPRATROPIUM NEB FS 0.5 MG/2.5 ML AMPUL.NEB NEB SCH ×4 (01:14→19:06)
[2022-11-15] MEDS: ACETAMINOPHEN 325 MG TABLET PO PRN ×2 (04:39→17:03)
[2022-11-15] MEDS: BUDESONIDE RESPULE INH 0.5 MG/2 ML AMPUL.NEB NEB SCH ×2 (07:59→14:34)
[2022-11-15] MEDS: ATORVASTATIN 40 MG TABLET PO SCH (08:19)
[2022-11-15] MEDS: PANTOPRAZOLE 40 MG TABLET.DR PO SCH (08:19)
[2022-11-15] MEDS: VENLAFAXINE XR 37.5 MG CAP.SR.24H PO SCH (08:19)
[2022-11-15] MEDS: PROSOURCE / PROSTAT (PYXIS) 30 ML UDC PO SCH ×3 (08:19→16:20)
[2022-11-15] MEDS: DILTIAZEM HCL CD 240 MG PO SCH (08:19)
[2022-11-15] MEDS: busPIRone 5 MG TABLET PO SCH ×2 (08:19→16:12)
[2022-11-15] MEDS: ESCITALOPRAM OXALATE (10 MG) 10 MG TABLET PO SCH (08:19)
[2022-11-15 09:26] LABS: BASOPHILS % (AUTO) 0.5 % (0.0-2.0); EOSINOPHILS # (AUTO) 0.1 K/uL (0.0-0.7); EOSINOPHILS % (AUTO) 1.7 % (0.0-6.0); HEMATOCRIT 39 % (33-45); HEMOGLOBIN 12.3 g/dL (11.5-14.8); LYMPHOCYTES # (AUTO) 0.6 K/uL (0.8-4.8); LYMPHOCYTES % (AUTO) 14.5 % (20.0-44.0); MEAN CORPUSCULAR HEMOGLOBIN 31 PG (26.0-33.0); MEAN CORPUSCULAR HGB CONC 32 g/dl (31.0-36.0); MEAN CORPUSCULAR VOLUME 99 fL (82-100); MONOCYTES # (AUTO) 0.5 K/uL (0.1-1.30); MONOCYTES % (AUTO) 10.5 % (2.0-12.0); NEUTROPHILS # (AUTO) 3.3 K/uL (1.8-8.9); NEUTROPHILS % (AUTO) 72.8 % (43.0-81.0); PLATELET COUNT (AUTO) 136 K/uL (150-450); RED BLOOD CELL COUNT(AUTO) 3.96 MIL/uL (4.0-5.2); RED CELL DISTRIBUTION WIDTH 17.3 % (11.5-15.0); WHITE BLOOD COUNT (AUTO) 4.5 K/uL (4.3-11.0)
[2022-11-15 09:50] LABS: INR 1.08 (0.91-1.10); PROTHROMBIN TIME 11.3 SECS (9.2-11.1)
[2022-11-15] MEDS: METOPROLOL SUCCINATE 50 MG TAB.SR.24H PO SCH (22:05)
[2022-11-15] MEDS: TRAZODONE 50 MG TABLET PO SCH (22:05)
[2022-11-16] VITALS (12 sets, daily range): BP systolic 107–131; BP diastolic 58–78; TEMP 97.3–98.4; O2SAT 91–99
[2022-11-16] MEDS: IPRATROPIUM NEB FS 0.5 MG/2.5 ML AMPUL.NEB NEB SCH ×4 (01:52→20:22)
[2022-11-16 05:42] LABS: BASOPHILS % (AUTO) 0.5 % (0.0-2.0); EOSINOPHILS # (AUTO) 0.1 K/uL (0.0-0.7); EOSINOPHILS % (AUTO) 2.1 % (0.0-6.0); HEMATOCRIT 40 % (33-45); HEMOGLOBIN 12.5 g/dL (11.5-14.8); LYMPHOCYTES # (AUTO) 0.8 K/uL (0.8-4.8); LYMPHOCYTES % (AUTO) 19.6 % (20.0-44.0); MEAN CORPUSCULAR HEMOGLOBIN 31 PG (26.0-33.0); MEAN CORPUSCULAR HGB CONC 31 g/dl (31.0-36.0); MEAN CORPUSCULAR VOLUME 98 fL (82-100); MONOCYTES # (AUTO) 0.5 K/uL (0.1-1.30); MONOCYTES % (AUTO) 12.9 % (2.0-12.0); NEUTROPHILS # (AUTO) 2.6 K/uL (1.8-8.9); NEUTROPHILS % (AUTO) 64.9 % (43.0-81.0); PLATELET COUNT (AUTO) 143 K/uL (150-450); RED BLOOD CELL COUNT(AUTO) 4.07 MIL/uL (4.0-5.2); RED CELL DISTRIBUTION WIDTH 17.1 % (11.5-15.0)
[2022-11-16 05:58] LABS: CALCIUM, SERUM 8.5 mg/dL (8.5-10.1); CARBON DIOXIDE 32 mmol/L (21-32); CHLORIDE 107 mmol/L (98-107); CREATININE 0.7 mg/dL (0.6-1.3); GLUCOSE 101 mg/dL (74-106); MAGNESIUM 2.2 mg/dL (1.8-2.4); PHOSPHORUS 4.2 mg/dL (2.5-4.9); POTASSIUM 4.1 mmol/L (3.5-5.1); SODIUM SERUM 143 mmol/L (136-145); UREA NITROGEN, BLOOD 22 mg/dL (7-18)
[2022-11-16] MEDS: PANTOPRAZOLE 40 MG TABLET.DR PO SCH (07:19)
[2022-11-16] MEDS: BUDESONIDE RESPULE INH 0.5 MG/2 ML AMPUL.NEB NEB SCH ×2 (07:54→14:19)
[2022-11-16] MEDS: PROSOURCE / PROSTAT (PYXIS) 30 ML UDC PO SCH ×3 (08:08→16:23)
[2022-11-16] MEDS: ESCITALOPRAM OXALATE (10 MG) 10 MG TABLET PO SCH (08:12)
[2022-11-16] MEDS: busPIRone 5 MG TABLET PO SCH ×2 (08:12→16:23)
[2022-11-16] MEDS: ATORVASTATIN 40 MG TABLET PO SCH (08:12)
[2022-11-16] MEDS: DILTIAZEM HCL CD 240 MG PO SCH (08:13)
[2022-11-16] MEDS: VENLAFAXINE XR 37.5 MG CAP.SR.24H PO SCH (08:13)
[2022-11-16] MEDS: ACETAMINOPHEN 325 MG TABLET PO PRN (14:10)
[2022-11-16] MEDS: METOPROLOL SUCCINATE 50 MG TAB.SR.24H PO SCH (21:24)
[2022-11-16] MEDS: TRAZODONE 50 MG TABLET PO SCH (21:24)
[2022-11-17] VITALS (10 sets, daily range): BP systolic 115–125; BP diastolic 71–94; TEMP 97.5–98.2; O2SAT 94–98
[2022-11-17] MEDS: IPRATROPIUM NEB FS 0.5 MG/2.5 ML AMPUL.NEB NEB SCH ×3 (02:02→12:33)
[2022-11-17 06:21] LABS: BASOPHILS % (AUTO) 0.4 % (0.0-2.0); EOSINOPHILS # (AUTO) 0.1 K/uL (0.0-0.7); HEMATOCRIT 38 % (33-45); HEMOGLOBIN 12.3 g/dL (11.5-14.8); LYMPHOCYTES # (AUTO) 0.8 K/uL (0.8-4.8); LYMPHOCYTES % (AUTO) 17.1 % (20.0-44.0); MEAN CORPUSCULAR HEMOGLOBIN 32 PG (26.0-33.0); MEAN CORPUSCULAR HGB CONC 32 g/dl (31.0-36.0); MEAN CORPUSCULAR VOLUME 99 fL (82-100); MONOCYTES # (AUTO) 0.5 K/uL (0.1-1.30); MONOCYTES % (AUTO) 11.2 % (2.0-12.0); NEUTROPHILS # (AUTO) 3.1 K/uL (1.8-8.9); NEUTROPHILS % (AUTO) 69.3 % (43.0-81.0); PLATELET COUNT (AUTO) 155 K/uL (150-450); RED CELL DISTRIBUTION WIDTH 16.7 % (11.5-15.0); WHITE BLOOD COUNT (AUTO) 4.4 K/uL (4.3-11.0)
[2022-11-17 07:14] LABS: CALCIUM, SERUM 8.6 mg/dL (8.5-10.1); CREATININE 0.7 mg/dL (0.6-1.3); MAGNESIUM 2.1 mg/dL (1.8-2.4); PHOSPHORUS 3.6 mg/dL (2.5-4.9); POTASSIUM 4.2 mmol/L (3.5-5.1)
[2022-11-17] MEDS: PANTOPRAZOLE 40 MG TABLET.DR PO SCH (07:44)
[2022-11-17] MEDS: BUDESONIDE RESPULE INH 0.5 MG/2 ML AMPUL.NEB NEB SCH ×2 (07:53→15:53)
[2022-11-17] MEDS: busPIRone 5 MG TABLET PO SCH ×2 (08:43→16:31)
[2022-11-17] MEDS: ATORVASTATIN 40 MG TABLET PO SCH (08:43)
[2022-11-17] MEDS: ESCITALOPRAM OXALATE (10 MG) 10 MG TABLET PO SCH (08:45)
[2022-11-17] MEDS: PROSOURCE / PROSTAT (PYXIS) 30 ML UDC PO SCH ×3 (08:45→16:29)
[2022-11-17] MEDS: VENLAFAXINE XR 37.5 MG CAP.SR.24H PO SCH (08:45)
[2022-11-17] MEDS: DILTIAZEM HCL CD 240 MG PO SCH (08:45)
[2022-11-17] MEDS: ACETAMINOPHEN 325 MG TABLET PO PRN (14:00)
== END 2022-11-17 16:45 | disposition home health service (06) | DRG 193 ==
LOC: ER 15:50 → TELE 18:39
PROVIDERS: ADMIT Legal Medicine; ATTEND Legal Medicine
PROC: 0W9B3ZX Drainage of Left Pleural Cavity, Percutaneous Approach, Diagnostic (ICD-10-PCS; principal; 2022-11-13)
DX: J15.9 Unspecified bacterial pneumonia (principal); E43 Unspecified severe protein-calorie malnutrition; I50.23 Acute on chronic systolic (congestive) heart failure; J96.01 Acute respiratory failure with hypoxia; J96.02 Acute respiratory failure with hypercapnia; J44.1 Chronic obstructive pulmonary disease with (acute) exacerbation; R64 Cachexia; J93.9 Pneumothorax, unspecified; I48.20 Chronic atrial fibrillation, unspecified; J98.11 Atelectasis; J90 Pleural effusion, not elsewhere classified; I11.0 Hypertensive heart disease with heart failure; Z95.2 Presence of prosthetic heart valve; M19.90 Unspecified osteoarthritis, unspecified site; Z90.49 Acquired absence of other specified parts of digestive tract; Z98.890 Other specified postprocedural states; Z98.891 History of uterine scar from previous surgery; Z88.0 Allergy status to penicillin; Z88.1 Allergy status to other antibiotic agents; Z88.2 Allergy status to sulfonamides; Z88.8 Allergy status to other drugs, medicaments and biological substances; Z79.01 Long term (current) use of anticoagulants; Z79.899 Other long term (current) drug therapy; Z87.11 Personal history of peptic ulcer disease; F41.9 Anxiety disorder, unspecified; F32.9 Major depressive disorder, single episode, unspecified; Z87.891 Personal history of nicotine dependence; Z99.81 Dependence on supplemental oxygen; I35.0 Nonrheumatic aortic (valve) stenosis; G20 Parkinson's disease; K76.1 Chronic passive congestion of liver; M85.80 Other specified disorders of bone density and structure, unspecified site
CPT/HCPCS: 36415; 71045-TC; 71250-TC; 76604-TC; 80048-TC; 80053-TC; 80061-TC; 80076-TC; 82962-TC; 83605-TC; 83735-TC; 84100-TC; 84484-TC; 85025-TC; 85610-TC; 85730-TC; 87040-TC; 87102-TC; 88305-TC; 88311-TC; 89051-TC; 94799-TC; 97110-TC; 97112-TC; 97116-TC; 97530-TC; A4223; G0378; J0696; J1160; J1940; J7030; J7050; J7060

== ENCOUNTER 2022-11-24 12:51 | Inpatient (IN) | payer MEDICARE, OTHER ==
[2022-11-24] VITALS (27 sets, daily range): BP systolic 86–120; BP diastolic 50–96; TEMP 97.9–98.3; O2SAT 88–95
[~2022-11-24] VITALS: Ht 175.3 cm; Wt 53.7 kg
[~2022-11-24 12:51] MED LIST changes: +APIX5TAB PO; -ASPI-1169 PO; +ATOR40TA PO; +CHOL100043 PO; -DIGO125T PO; -ERGO500014 PO; -FLUT1BLS INH; -LEVO50TA PO; +METO-357 PO; +SENN-261 PO; -TRAM50TA2 PO; +VITA1TAB56 PO
[2022-11-24] MEDS ORDERED: DILTIAZEM HCL 50 MG IV ONE (13:25)
[2022-11-24] MEDS ORDERED: DILT-4 PO (13:29)
[2022-11-24] MEDS ORDERED: DILTIAZEM HCL 50 MG IV IV ONE (13:30)
[2022-11-24 13:38] LABS: BASOPHILS % (AUTO) 0.4 % (0.0-2.0); EOSINOPHILS % (AUTO) 0.3 % (0.0-6.0); HEMATOCRIT 45 % (33-45); HEMOGLOBIN 14.2 g/dL (11.5-14.8); LYMPHOCYTES # (AUTO) 0.5 K/uL (0.8-4.8); LYMPHOCYTES % (AUTO) 10.1 % (20.0-44.0); MEAN CORPUSCULAR HEMOGLOBIN 31 PG (26.0-33.0); MEAN CORPUSCULAR HGB CONC 31 g/dl (31.0-36.0); MEAN CORPUSCULAR VOLUME 100 fL (82-100); MONOCYTES # (AUTO) 0.3 K/uL (0.1-1.30); MONOCYTES % (AUTO) 5.1 % (2.0-12.0); NEUTROPHILS # (AUTO) 4.3 K/uL (1.8-8.9); NEUTROPHILS % (AUTO) 84.1 % (43.0-81.0); PLATELET COUNT (AUTO) 240 K/uL (150-450); RED BLOOD CELL COUNT(AUTO) 4.55 MIL/uL (4.0-5.2); RED CELL DISTRIBUTION WIDTH 16.5 % (11.5-15.0); WHITE BLOOD COUNT (AUTO) 5.1 K/uL (4.3-11.0)
[2022-11-24] MEDS ORDERED: FUROSEMIDE 20 MG/2 ML VIAL ONE (13:43)
[2022-11-24 13:50] LABS: INR 1.15 (0.91-1.10); PARTIAL THROMBOPLASTIN TIME 27.4 SEC (24.3-34.3); PROTHROMBIN TIME 12.1 SECS (9.2-11.1)
[2022-11-24] MEDS ORDERED: ONDANSETRON HCL/PF 4 MG/2 ML VIAL IVP PRN (14:00)
[2022-11-24] MEDS ORDERED: DILTIAZEM HCL IV 125 MG in IV NS 0.9% 100 ML IV PRN (14:00)
[2022-11-24] MEDS ORDERED: FUROSEMIDE 20 MG/2 ML VIAL IV ONE (14:00)
[2022-11-24 14:06] LABS: LACTIC ACID 3.6 mmol/L (0.4-2.0)
[2022-11-24 14:14] LABS: CALCIUM, SERUM 9.2 mg/dL (8.5-10.1); CARBON DIOXIDE 27 mmol/L (21-32); CHLORIDE 102 mmol/L (98-107); CREATININE 1.3 mg/dL (0.6-1.3); GLUCOSE 196 mg/dL (74-106); POTASSIUM 4.9 mmol/L (3.5-5.1); SODIUM SERUM 139 mmol/L (136-145); UREA NITROGEN, BLOOD 26 mg/dL (7-18)
[2022-11-24 14:21] LABS: ALANINE AMINOTRANSFERASE 31 U/L (12-78); ALBUMIN 3.3 g/dL (3.4-5.0); ALKALINE PHOSPHATASE 117 U/L (46-116); ASPARTATE AMINOTRANSFERASE 26 U/L (15-37); BILIRUBIN,DIRECT 0.2 mg/dL (0.0-0.2); BILIRUBIN,TOTAL 0.6 mg/dL (0.2-1.0); TOTAL PROTEIN, SERUM 8.2 g/dL (6.4-8.2)
[2022-11-24] MEDS ORDERED: LEVOFLOXACIN 500 MG /D5W 100ML 500 MG/100 ML PIGGYBACK IV SCH ×2 (15:00→17:00)
[2022-11-24] MEDS ORDERED: ACETAMINOPHEN 325 MG TABLET ONE (15:11)
[2022-11-24] MEDS: ACETAMINOPHEN 325 MG TABLET PO PRN (15:14)
[2022-11-24] MEDS: FUROSEMIDE 20 MG/2 ML VIAL IV SCH (17:27)
[2022-11-24] MEDS: busPIRone 5 MG TABLET PO SCH (17:28)
[2022-11-24] MEDS: APIXABAN 5 MG TABLET PO SCH (17:28)
[2022-11-24] MEDS: LEVOFLOXACIN 500 MG /D5W 100ML 500 MG in PREMIX 1 EA IV SCH (17:30)
[2022-11-24] MEDS: DILTIAZEM HCL IV 125 MG in IV NS 0.9% 100 ML IV PRN (19:01)
[2022-11-24] MEDS ORDERED: MAG HYDROX/AL HYDROX/SIMETH 30 ML UDC PO PRN (20:30)
[2022-11-24] MEDS: TRAZODONE 50 MG TABLET PO SCH (20:49)
[2022-11-24] MEDS: METOPROLOL SUCCINATE 50 MG TAB.SR.24H PO SCH (22:00)
[2022-11-25] VITALS (58 sets, daily range): BP systolic 80–158; BP diastolic 50–144; TEMP 98–98.6; O2SAT 89–96
[2022-11-25 04:11] LABS: BASOPHILS % (AUTO) 0.4 % (0.0-2.0); EOSINOPHILS # (AUTO) 0.1 K/uL (0.0-0.7); EOSINOPHILS % (AUTO) 2.8 % (0.0-6.0); HEMATOCRIT 39 % (33-45); HEMOGLOBIN 12.1 g/dL (11.5-14.8); LYMPHOCYTES # (AUTO) 0.7 K/uL (0.8-4.8); LYMPHOCYTES % (AUTO) 20.4 % (20.0-44.0); MEAN CORPUSCULAR HEMOGLOBIN 31 PG (26.0-33.0); MEAN CORPUSCULAR HGB CONC 31 g/dl (31.0-36.0); MEAN CORPUSCULAR VOLUME 99 fL (82-100); MONOCYTES # (AUTO) 0.4 K/uL (0.1-1.30); MONOCYTES % (AUTO) 11.8 % (2.0-12.0); NEUTROPHILS # (AUTO) 2.2 K/uL (1.8-8.9); NEUTROPHILS % (AUTO) 64.6 % (43.0-81.0); PLATELET COUNT (AUTO) 173 K/uL (150-450); RED BLOOD CELL COUNT(AUTO) 3.91 MIL/uL (4.0-5.2); WHITE BLOOD COUNT (AUTO) 3.4 K/uL (4.3-11.0)
[2022-11-25 04:23] LABS: CALCIUM, SERUM 8.5 mg/dL (8.5-10.1); CREATININE 1.1 mg/dL (0.6-1.3); MAGNESIUM 2.4 mg/dL (1.8-2.4); POTASSIUM 3.9 mmol/L (3.5-5.1)
[2022-11-25] MEDS: DILTIAZEM HCL IV 125 MG in IV NS 0.9% 100 ML IV PRN (06:41)
[2022-11-25] MEDS: ESCITALOPRAM OXALATE (10 MG) 10 MG TABLET PO SCH (08:13)
[2022-11-25] MEDS: ATORVASTATIN 40 MG TABLET PO SCH (08:13)
[2022-11-25] MEDS: busPIRone 5 MG TABLET PO SCH ×2 (08:13→16:35)
[2022-11-25] MEDS: FUROSEMIDE 20 MG/2 ML VIAL IV SCH (08:13)
[2022-11-25] MEDS: APIXABAN 5 MG TABLET PO SCH (08:14)
[2022-11-25] MEDS: PANTOPRAZOLE 40 MG TABLET.DR PO SCH (08:15)
[2022-11-25] MEDS: VENLAFAXINE XR 37.5 MG CAP.SR.24H PO SCH (08:17)
[2022-11-25] MEDS: ACETAMINOPHEN 325 MG TABLET PO PRN ×2 (08:51→15:24)
[2022-11-25] MEDS ORDERED: DILTIAZEM HCL CD 240 MG PO SCH ×2 (09:00)
[2022-11-25] MEDS ORDERED: IV 1/2NS 1000 ML 1,000 ML IV PRN (09:30)
[2022-11-25] MEDS: DIGOXIN INJ 0.5 MG/2 ML AMPUL IV SCH ×3 (12:08→23:30)
[2022-11-25] MEDS: ENSURE ENLIVE 237 ML LIQUID (VANILLA) PO SCH ×2 (12:16→17:51)
[2022-11-25] MEDS: LEVOFLOXACIN 500 MG /D5W 100ML 500 MG in PREMIX 1 EA IV SCH (16:38)
[2022-11-25] MEDS: TRAZODONE 50 MG TABLET PO SCH (21:21)
[2022-11-25] MEDS: METOPROLOL SUCCINATE 50 MG TAB.SR.24H PO SCH (21:38)
[2022-11-26] VITALS (16 sets, daily range): BP systolic 101–140; BP diastolic 54–79; TEMP 97.5–98.8; O2SAT 89–96
[2022-11-26] MEDS: IPRATROPIUM NEB FS 0.5 MG/2.5 ML AMPUL.NEB NEB SCH ×3 (07:35→20:21)
[2022-11-26] MEDS: PANTOPRAZOLE 40 MG TABLET.DR PO SCH (07:50)
[2022-11-26] MEDS: ATORVASTATIN 40 MG TABLET PO SCH (08:43)
[2022-11-26] MEDS: VENLAFAXINE XR 37.5 MG CAP.SR.24H PO SCH (08:43)
[2022-11-26] MEDS: ESCITALOPRAM OXALATE (10 MG) 10 MG TABLET PO SCH (08:43)
[2022-11-26] MEDS: busPIRone 5 MG TABLET PO SCH ×2 (08:43→16:52)
[2022-11-26] MEDS: ENSURE ENLIVE 237 ML LIQUID (VANILLA) PO SCH ×3 (08:44→16:53)
[2022-11-26] MEDS: ACETAMINOPHEN 325 MG TABLET PO PRN ×2 (10:09→21:00)
[2022-11-26] MEDS ORDERED: MAGNESIUM HYDROXIDE 30 ML UDC PO PRN (11:30)
[2022-11-26] MEDS: DOCUSATE SODIUM 100 MG CAPSULE PO SCH ×2 (12:16→16:52)
[2022-11-26] MEDS: LEVOFLOXACIN 500 MG /D5W 100ML 500 MG in PREMIX 1 EA IV SCH (16:52)
[2022-11-26] MEDS: TRAZODONE 50 MG TABLET PO SCH (21:01)
[2022-11-26] MEDS: METOPROLOL SUCCINATE 50 MG TAB.SR.24H PO SCH (22:13)
[2022-11-27] VITALS (11 sets, daily range): BP systolic 90–112; BP diastolic 55–67; TEMP 97.3–97.9; O2SAT 92–97
[2022-11-27] MEDS: IPRATROPIUM NEB FS 0.5 MG/2.5 ML AMPUL.NEB NEB SCH ×4 (01:45→20:04)
[2022-11-27] MEDS: ACETAMINOPHEN 325 MG TABLET PO PRN ×4 (03:56→20:39)
[2022-11-27] MEDS: PANTOPRAZOLE 40 MG TABLET.DR PO SCH (08:21)
[2022-11-27] MEDS: ATORVASTATIN 40 MG TABLET PO SCH (08:21)
[2022-11-27] MEDS: VENLAFAXINE XR 37.5 MG CAP.SR.24H PO SCH (08:21)
[2022-11-27] MEDS: ESCITALOPRAM OXALATE (10 MG) 10 MG TABLET PO SCH (08:22)
[2022-11-27] MEDS: DOCUSATE SODIUM 100 MG CAPSULE PO SCH ×2 (08:22→17:11)
[2022-11-27] MEDS: busPIRone 5 MG TABLET PO SCH ×2 (08:22→17:11)
[2022-11-27] MEDS: ENSURE ENLIVE 237 ML LIQUID (VANILLA) PO SCH ×3 (08:22→17:12)
[2022-11-27] MEDS ORDERED: IOHEXOL 0 ML IV ONE (10:44)
[2022-11-27] MEDS ORDERED: ANESTHESIA TRAY IN PYXIS 1 EA TRAY MC ONE (10:44)
[2022-11-27] MEDS ORDERED: LIDOCAINE HCL/MPF 1% 30 ML VIAL IJ ONE (10:45)
[2022-11-27] MEDS ORDERED: CELLULOSE,OXIDIZED 1 EA PACK MC ONE (12:50)
[2022-11-27] MEDS ORDERED: TRAMADOL HCL 50 MG TABLET PO SCH (17:00)
[2022-11-27] MEDS: TRAMADOL HCL 50 MG TABLET PO PRN (17:12)
[2022-11-27] MEDS: LEVOFLOXACIN (250MG) 250 MG TABLET PO SCH (17:45)
[2022-11-27] MEDS: TRAZODONE 50 MG TABLET PO SCH (21:24)
[2022-11-27] MEDS: METOPROLOL SUCCINATE 50 MG TAB.SR.24H PO SCH (21:24)
[2022-11-28] VITALS (13 sets, daily range): BP systolic 97–113; BP diastolic 61–74; TEMP 97.7–97.9; O2SAT 91–99
[2022-11-28] MEDS: IPRATROPIUM NEB FS 0.5 MG/2.5 ML AMPUL.NEB NEB SCH ×4 (01:47→19:55)
[2022-11-28] MEDS: TRAMADOL HCL 50 MG TABLET PO PRN ×3 (02:40→18:01)
[2022-11-28] MEDS: VENLAFAXINE XR 37.5 MG CAP.SR.24H PO SCH (08:06)
[2022-11-28] MEDS: PANTOPRAZOLE 40 MG TABLET.DR PO SCH (08:06)
[2022-11-28] MEDS: ATORVASTATIN 40 MG TABLET PO SCH (08:07)
[2022-11-28] MEDS: busPIRone 5 MG TABLET PO SCH ×2 (08:07→16:52)
[2022-11-28] MEDS: ESCITALOPRAM OXALATE (10 MG) 10 MG TABLET PO SCH (08:07)
[2022-11-28] MEDS: ENSURE ENLIVE 237 ML LIQUID (VANILLA) PO SCH ×3 (08:07→16:52)
[2022-11-28] MEDS: DOCUSATE SODIUM 100 MG CAPSULE PO SCH ×2 (08:07→16:52)
[2022-11-28] MEDS: APIXABAN 5 MG TABLET PO SCH ×2 (08:09→16:53)
[2022-11-28] MEDS: METOPROLOL TARTRATE 25 MG TABLET PO SCH ×3 (12:03→23:49)
[2022-11-28] MEDS: ACETAMINOPHEN 325 MG TABLET PO PRN ×2 (15:28→23:46)
[2022-11-28] MEDS: LEVOFLOXACIN (250MG) 250 MG TABLET PO SCH (17:58)
[2022-11-28] MEDS: TRAZODONE 50 MG TABLET PO SCH (20:35)
[2022-11-29] VITALS (15 sets, daily range): BP systolic 105–126; BP diastolic 50–80; TEMP 97.3–97.9; O2SAT 90–100
[2022-11-29] MEDS: IPRATROPIUM NEB FS 0.5 MG/2.5 ML AMPUL.NEB NEB SCH ×5 (01:49→19:57)
[2022-11-29] MEDS: TRAMADOL HCL 50 MG TABLET PO PRN ×4 (04:09→23:25)
[2022-11-29] MEDS: METOPROLOL TARTRATE 25 MG TABLET PO SCH ×4 (05:09→23:26)
[2022-11-29 06:17] LABS: BASOPHILS % (AUTO) 0.5 % (0.0-2.0); EOSINOPHILS # (AUTO) 0.1 K/uL (0.0-0.7); EOSINOPHILS % (AUTO) 3.1 % (0.0-6.0); HEMATOCRIT 37 % (33-45); HEMOGLOBIN 11.6 g/dL (11.5-14.8); LYMPHOCYTES # (AUTO) 0.6 K/uL (0.8-4.8); LYMPHOCYTES % (AUTO) 20.7 % (20.0-44.0); MEAN CORPUSCULAR HEMOGLOBIN 31 PG (26.0-33.0); MEAN CORPUSCULAR HGB CONC 32 g/dl (31.0-36.0); MEAN CORPUSCULAR VOLUME 99 fL (82-100); MONOCYTES # (AUTO) 0.4 K/uL (0.1-1.30); MONOCYTES % (AUTO) 12.6 % (2.0-12.0); NEUTROPHILS # (AUTO) 1.9 K/uL (1.8-8.9); NEUTROPHILS % (AUTO) 63.1 % (43.0-81.0); PLATELET COUNT (AUTO) 137 K/uL (150-450); RED BLOOD CELL COUNT(AUTO) 3.73 MIL/uL (4.0-5.2); RED CELL DISTRIBUTION WIDTH 16.1 % (11.5-15.0); WHITE BLOOD COUNT (AUTO) 3.1 K/uL (4.3-11.0)
[2022-11-29 06:39] LABS: CALCIUM, SERUM 8.2 mg/dL (8.5-10.1); CARBON DIOXIDE 34 mmol/L (21-32); CHLORIDE 104 mmol/L (98-107); CREATININE 0.8 mg/dL (0.6-1.3); GLUCOSE 90 mg/dL (74-106); MAGNESIUM 2.2 mg/dL (1.8-2.4); POTASSIUM 4.5 mmol/L (3.5-5.1); SODIUM SERUM 141 mmol/L (136-145); UREA NITROGEN, BLOOD 27 mg/dL (7-18)
[2022-11-29] MEDS: PANTOPRAZOLE 40 MG TABLET.DR PO SCH (07:40)
[2022-11-29] MEDS: ESCITALOPRAM OXALATE (10 MG) 10 MG TABLET PO SCH (08:19)
[2022-11-29] MEDS: ATORVASTATIN 40 MG TABLET PO SCH (08:19)
[2022-11-29] MEDS: DOCUSATE SODIUM 100 MG CAPSULE PO SCH ×2 (08:19→17:24)
[2022-11-29] MEDS: VENLAFAXINE XR 37.5 MG CAP.SR.24H PO SCH (08:19)
[2022-11-29] MEDS: busPIRone 5 MG TABLET PO SCH ×2 (08:19→17:24)
[2022-11-29] MEDS: ENSURE ENLIVE 237 ML LIQUID (VANILLA) PO SCH ×3 (08:21→17:35)
[2022-11-29] MEDS: APIXABAN 5 MG TABLET PO SCH ×2 (08:21→17:35)
[2022-11-29] MEDS: LEVOFLOXACIN (250MG) 250 MG TABLET PO SCH (17:36)
[2022-11-29] MEDS: TRAZODONE 50 MG TABLET PO SCH (21:06)
[2022-11-29] MEDS: ACETAMINOPHEN 325 MG TABLET PO PRN (21:15)
[2022-11-30] VITALS (14 sets, daily range): BP systolic 96–125; BP diastolic 47–71; TEMP 97.5–98.4; O2SAT 90–100
[2022-11-30] MEDS: IPRATROPIUM NEB FS 0.5 MG/2.5 ML AMPUL.NEB NEB SCH ×4 (01:47→19:50)
[2022-11-30] MEDS: METOPROLOL TARTRATE 25 MG TABLET PO SCH ×3 (06:30→17:22)
[2022-11-30 08:07] LABS: CALCIUM, SERUM 8.8 mg/dL (8.5-10.1); CARBON DIOXIDE 32 mmol/L (21-32); CHLORIDE 104 mmol/L (98-107); CREATININE 0.9 mg/dL (0.6-1.3); GLUCOSE 84 mg/dL (74-106); PHOSPHORUS 3.2 mg/dL (2.5-4.9); POTASSIUM 4.6 mmol/L (3.5-5.1); SODIUM SERUM 139 mmol/L (136-145); UREA NITROGEN, BLOOD 30 mg/dL (7-18)
[2022-11-30] MEDS: TRAMADOL HCL 50 MG TABLET PO PRN ×3 (08:27→20:38)
[2022-11-30] MEDS: PANTOPRAZOLE 40 MG TABLET.DR PO SCH (08:27)
[2022-11-30] MEDS: ATORVASTATIN 40 MG TABLET PO SCH (08:28)
[2022-11-30] MEDS: VENLAFAXINE XR 37.5 MG CAP.SR.24H PO SCH (08:28)
[2022-11-30] MEDS: DOCUSATE SODIUM 100 MG CAPSULE PO SCH ×2 (08:28→17:18)
[2022-11-30 08:29] LABS: BASOPHILS % (AUTO) 0.6 % (0.0-2.0); EOSINOPHILS # (AUTO) 0.1 K/uL (0.0-0.7); EOSINOPHILS % (AUTO) 2.5 % (0.0-6.0); HEMATOCRIT 37 % (33-45); HEMOGLOBIN 11.7 g/dL (11.5-14.8); LYMPHOCYTES # (AUTO) 0.7 K/uL (0.8-4.8); LYMPHOCYTES % (AUTO) 20.7 % (20.0-44.0); MEAN CORPUSCULAR HEMOGLOBIN 32 PG (26.0-33.0); MEAN CORPUSCULAR HGB CONC 32 g/dl (31.0-36.0); MEAN CORPUSCULAR VOLUME 99 fL (82-100); MONOCYTES # (AUTO) 0.4 K/uL (0.1-1.30); MONOCYTES % (AUTO) 12.3 % (2.0-12.0); NEUTROPHILS # (AUTO) 2.2 K/uL (1.8-8.9); NEUTROPHILS % (AUTO) 63.9 % (43.0-81.0); PLATELET COUNT (AUTO) 126 K/uL (150-450); RED BLOOD CELL COUNT(AUTO) 3.72 MIL/uL (4.0-5.2); RED CELL DISTRIBUTION WIDTH 15.9 % (11.5-15.0); WHITE BLOOD COUNT (AUTO) 3.4 K/uL (4.3-11.0)
[2022-11-30] MEDS: busPIRone 5 MG TABLET PO SCH ×2 (08:29→17:23)
[2022-11-30] MEDS: APIXABAN 5 MG TABLET PO SCH ×2 (08:29→17:28)
[2022-11-30] MEDS: ENSURE ENLIVE 237 ML LIQUID (VANILLA) PO SCH ×3 (08:29→17:26)
[2022-11-30] MEDS: ESCITALOPRAM OXALATE (10 MG) 10 MG TABLET PO SCH (08:29)
[2022-11-30] MEDS: LEVOFLOXACIN (250MG) 250 MG TABLET PO SCH (17:29)
[2022-11-30] MEDS: TRAZODONE 50 MG TABLET PO SCH (20:38)
[2022-12-01] VITALS (12 sets, daily range): BP systolic 104–116; BP diastolic 65–88; TEMP 97.4–98.4; O2SAT 90–99
[2022-12-01] MEDS: IPRATROPIUM NEB FS 0.5 MG/2.5 ML AMPUL.NEB NEB SCH ×3 (01:34→13:54)
[2022-12-01 07:12] LABS: BASOPHILS % (AUTO) 0.5 % (0.0-2.0); EOSINOPHILS # (AUTO) 0.1 K/uL (0.0-0.7); EOSINOPHILS % (AUTO) 2.2 % (0.0-6.0); HEMATOCRIT 39 % (33-45); HEMOGLOBIN 12.3 g/dL (11.5-14.8); LYMPHOCYTES # (AUTO) 0.7 K/uL (0.8-4.8); LYMPHOCYTES % (AUTO) 18.2 % (20.0-44.0); MEAN CORPUSCULAR HEMOGLOBIN 31 PG (26.0-33.0); MEAN CORPUSCULAR HGB CONC 32 g/dl (31.0-36.0); MEAN CORPUSCULAR VOLUME 97 fL (82-100); MONOCYTES # (AUTO) 0.5 K/uL (0.1-1.30); MONOCYTES % (AUTO) 12.8 % (2.0-12.0); NEUTROPHILS # (AUTO) 2.6 K/uL (1.8-8.9); NEUTROPHILS % (AUTO) 66.3 % (43.0-81.0); PLATELET COUNT (AUTO) 135 K/uL (150-450); RED BLOOD CELL COUNT(AUTO) 3.97 MIL/uL (4.0-5.2); RED CELL DISTRIBUTION WIDTH 16.1 % (11.5-15.0); WHITE BLOOD COUNT (AUTO) 3.9 K/uL (4.3-11.0)
[2022-12-01 07:37] LABS: CALCIUM, SERUM 8.8 mg/dL (8.5-10.1); CREATININE 0.8 mg/dL (0.6-1.3); MAGNESIUM 2.1 mg/dL (1.8-2.4); PHOSPHORUS 3.5 mg/dL (2.5-4.9); POTASSIUM 4.1 mmol/L (3.5-5.1)
[2022-12-01] MEDS: busPIRone 5 MG TABLET PO SCH ×2 (08:23→17:36)
[2022-12-01] MEDS: PANTOPRAZOLE 40 MG TABLET.DR PO SCH (08:23)
[2022-12-01] MEDS: DOCUSATE SODIUM 100 MG CAPSULE PO SCH ×2 (08:23→17:36)
[2022-12-01] MEDS: ESCITALOPRAM OXALATE (10 MG) 10 MG TABLET PO SCH (08:24)
[2022-12-01] MEDS: VENLAFAXINE XR 37.5 MG CAP.SR.24H PO SCH (08:24)
[2022-12-01] MEDS: ATORVASTATIN 40 MG TABLET PO SCH (08:24)
[2022-12-01] MEDS: METOPROLOL TARTRATE 25 MG TABLET PO SCH ×2 (08:25→17:37)
[2022-12-01] MEDS: ENSURE ENLIVE 237 ML LIQUID (VANILLA) PO SCH ×3 (08:25→17:38)
[2022-12-01] MEDS: APIXABAN 5 MG TABLET PO SCH ×2 (08:28→17:37)
[2022-12-01] MEDS: TRAMADOL HCL 50 MG TABLET PO PRN ×2 (08:42→14:53)
[2022-12-01] MEDS ORDERED: TRAM50TA2 PO (12:27)
[2022-12-01] MEDS: LEVOFLOXACIN (250MG) 250 MG TABLET PO SCH (17:39)
== END 2022-12-01 18:05 | disposition home health service (06) | DRG 242 ==
LOC: ER 12:59 → ICU 16:15 → TELE 11-26 06:10
PROVIDERS: ADMIT Legal Medicine; ATTEND Legal Medicine
PROC: 0JH606Z Insertion of Pacemaker, Dual Chamber into Chest Subcutaneous Tissue and Fascia, Open Approach (ICD-10-PCS; principal; 2022-11-27)
PROC: 02H63JZ Insertion of Pacemaker Lead into Right Atrium, Percutaneous Approach (ICD-10-PCS; 2022-11-27)
PROC: 02HK3JZ Insertion of Pacemaker Lead into Right Ventricle, Percutaneous Approach (ICD-10-PCS; 2022-11-27)
DX: I48.91 Unspecified atrial fibrillation (principal); I50.23 Acute on chronic systolic (congestive) heart failure; J96.01 Acute respiratory failure with hypoxia; J44.0 Chronic obstructive pulmonary disease with (acute) lower respiratory infection; J90 Pleural effusion, not elsewhere classified; J98.11 Atelectasis; I11.0 Hypertensive heart disease with heart failure; I49.5 Sick sinus syndrome; Z95.2 Presence of prosthetic heart valve; M19.90 Unspecified osteoarthritis, unspecified site; Z87.11 Personal history of peptic ulcer disease; F41.9 Anxiety disorder, unspecified; Z90.49 Acquired absence of other specified parts of digestive tract; Z98.890 Other specified postprocedural states; Z98.891 History of uterine scar from previous surgery; Z88.0 Allergy status to penicillin; Z88.1 Allergy status to other antibiotic agents; Z87.891 Personal history of nicotine dependence; Z79.899 Other long term (current) drug therapy; Z79.01 Long term (current) use of anticoagulants; Z88.8 Allergy status to other drugs, medicaments and biological substances; Z88.2 Allergy status to sulfonamides; Z86.79 Personal history of other diseases of the circulatory system; I44.7 Left bundle-branch block, unspecified; K21.9 Gastro-esophageal reflux disease without esophagitis; S30.820A Blister (nonthermal) of lower back and pelvis, initial encounter; X58.XXXA Exposure to other specified factors, initial encounter; Y92.9 Unspecified place or not applicable; I95.9 Hypotension, unspecified; I08.0 Rheumatic disorders of both mitral and aortic valves; R32 Unspecified urinary incontinence; G20.A1 Parkinson's disease without dyskinesia, without mention of fluctuations
CPT/HCPCS: 36415; 71045-TC; 80048-TC; 80076-TC; 83605-TC; 83735-TC; 84100-TC; 84484-TC; 85025-TC; 85730-TC; 87040-TC; 94799-TC; 97112-TC; 97116-TC; 97530-TC; A4216; A4223; C1785; G0378; J1160; J1940; J1956; J2405; J2704; J3490; J7030; J7050; Q9967

== ENCOUNTER 2023-10-30 16:28 | Inpatient (IN) | payer MEDICARE, OTHER ==
[~2023-10-30] VITALS: Ht 175.3 cm; Wt 46.3 kg
[~2023-10-30 16:28] MED LIST changes: +DILT-4 PO; -DILT180C66 PO
[2023-10-30] MEDS ORDERED: MORPHINE SULFATE INJ 2 MG/ML DISP.SYRIN ONE (17:22)
[2023-10-30 17:31] LABS: BASOPHILS % (AUTO) 0.4 % (0.0-2.0); HEMATOCRIT 49 % (33-45); HEMOGLOBIN 15.6 g/dL (11.5-14.8); LYMPHOCYTES # (AUTO) 0.6 K/uL (0.8-4.8); MEAN CORPUSCULAR HEMOGLOBIN 35 PG (26.0-33.0); MEAN CORPUSCULAR HGB CONC 32 g/dl (31.0-36.0); MEAN CORPUSCULAR VOLUME 110 fL (82-100); MONOCYTES # (AUTO) 0.5 K/uL (0.1-1.30); MONOCYTES % (AUTO) 4.8 % (2.0-12.0); NEUTROPHILS # (AUTO) 8.5 K/uL (1.8-8.9); NEUTROPHILS % (AUTO) 88.8 % (43.0-81.0); PLATELET COUNT (AUTO) 178 K/uL (150-450); RED BLOOD CELL COUNT(AUTO) 4.47 MIL/uL (4.0-5.2); RED CELL DISTRIBUTION WIDTH 14.5 % (11.5-15.0); WHITE BLOOD COUNT (AUTO) 9.6 K/uL (4.3-11.0)
[2023-10-30] MEDS: MORPHINE SULFATE INJ 2 MG/ML DISP.SYRIN IV ONE (17:33)
[2023-10-30 17:48] LABS: CALCIUM, SERUM 9.9 mg/dL (8.5-10.1); CARBON DIOXIDE 18 mmol/L (21-32); CHLORIDE 111 mmol/L (98-107); CREATININE 1.8 mg/dL (0.6-1.3); GLUCOSE 302 mg/dL (74-106); SODIUM SERUM 144 mmol/L (136-145); UREA NITROGEN, BLOOD 42 mg/dL (7-18)
[2023-10-30] MEDS ORDERED: BACL5TAB PO (18:07)
[2023-10-30] MEDS ORDERED: BREYNA IH (18:07)
[2023-10-30] MEDS ORDERED: DIGO125T PO (18:07)
[2023-10-30] MEDS ORDERED: DILTIAZEM HCL 25 MG IV ONE (19:25)
[2023-10-30] MEDS: DILTIAZEM HCL 50 MG IV IV ONE (19:27)
[2023-10-30] MEDS ORDERED: DILTIAZEM HCL CD 120 MG ONE (19:38)
[2023-10-30] MEDS: DILTIAZEM HCL CD 120 MG PO ONE (19:50)
[2023-10-30] MEDS ORDERED: oxyCODONE/APAP (5/325 MG) 1 UDTAB TABLET ONE (20:02)
[2023-10-30] MEDS: oxyCODONE/APAP (5/325 MG) 1 UDTAB TABLET PO ONE (20:03)
[2023-10-30 21:30] VITALS: BP 120/90; TEMP 97.3; O2SAT 95
[2023-10-30 21:40] VITALS: BP 120/90; TEMP 97.3; O2SAT 95
[2023-10-30] MEDS ORDERED: MAGNESIUM HYDROXIDE 30 ML UDC PO PRN (23:00)
[2023-10-30] MEDS ORDERED: ZOLPIDEM TARTRATE 5 MG TABLET PO PRN (23:00)
[2023-10-30] MEDS ORDERED: Z GUARD REMEDY 4 OZ OINT TP PRN (23:00)
[2023-10-30] MEDS: MORPHINE SULFATE INJ 2 MG/ML DISP.SYRIN IV PRN (23:09)
[2023-10-30] MEDS: ENOXAPARIN SODIUM 30 MG/0.3 ML DISP.SYRIN SQ SCH (23:12)
[2023-10-31] VITALS (22 sets, daily range): BP systolic 90–134; BP diastolic 49–112; TEMP 97.5–97.9; O2SAT 90–97
[2023-10-31] MEDS ORDERED: DEXTROSE 50%-WATER 50 ML DISP.SYRIN IV PRN (00:30)
[2023-10-31] MEDS ORDERED: DILTIAZEM HCL 50 MG IV IV ONE (00:30)
[2023-10-31] MEDS: DILTIAZEM HCL 25 MG IV IV ONE (00:47)
[2023-10-31] MEDS: MAG HYDROX/AL HYDROX/SIMETH 30 ML UDC PO PRN (05:24)
[2023-10-31 06:08] LABS: BASOPHILS % (AUTO) 0.3 % (0.0-2.0); EOSINOPHILS # (AUTO) 0.1 K/uL (0.0-0.7); EOSINOPHILS % (AUTO) 1.3 % (0.0-6.0); HEMATOCRIT 40 % (33-45); HEMOGLOBIN 12.8 g/dL (11.5-14.8); LYMPHOCYTES # (AUTO) 1.5 K/uL (0.8-4.8); LYMPHOCYTES % (AUTO) 22.9 % (20.0-44.0); MEAN CORPUSCULAR HEMOGLOBIN 34 PG (26.0-33.0); MEAN CORPUSCULAR HGB CONC 32 g/dl (31.0-36.0); MEAN CORPUSCULAR VOLUME 106 fL (82-100); MONOCYTES # (AUTO) 0.6 K/uL (0.1-1.30); MONOCYTES % (AUTO) 10.1 % (2.0-12.0); NEUTROPHILS # (AUTO) 4.2 K/uL (1.8-8.9); NEUTROPHILS % (AUTO) 65.4 % (43.0-81.0); PLATELET COUNT (AUTO) 146 K/uL (150-450); RED BLOOD CELL COUNT(AUTO) 3.75 MIL/uL (4.0-5.2); RED CELL DISTRIBUTION WIDTH 13.7 % (11.5-15.0); WHITE BLOOD COUNT (AUTO) 6.4 K/uL (4.3-11.0)
[2023-10-31] MEDS: INSULIN REGULAR, HUMAN 100 UNIT/ML 3 ML VIAL SQ PRN (06:10)
[2023-10-31] MEDS: BLOOD SUGAR DIAGNOSTIC 1 EACH STRIP IN SCH (06:33)
[2023-10-31 06:38] LABS: CHOLESTEROL 112 mg/dL (<200); HDL CHOLESTEROL 43 mg/dL (40-60); LDL 59 mg/dL (0-99); TRIGLYCERIDES 109 mg/dL (30-150)
[2023-10-31 06:52] LABS: ALANINE AMINOTRANSFERASE 32 U/L (12-78); ALKALINE PHOSPHATASE 96 U/L (46-116); ASPARTATE AMINOTRANSFERASE 27 U/L (15-37); BILIRUBIN,DIRECT 0.2 mg/dL (0.0-0.2); BILIRUBIN,TOTAL 0.8 mg/dL (0.2-1.0); CALCIUM, SERUM 8.8 mg/dL (8.5-10.1); CARBON DIOXIDE 25 mmol/L (21-32); CHLORIDE 107 mmol/L (98-107); GLUCOSE 109 mg/dL (74-106); MAGNESIUM 2.2 mg/dL (1.8-2.4); NT-PRO BNP 6489 pg/mL (0-125); PHOSPHORUS 3.6 mg/dL (2.5-4.9); POTASSIUM 4.4 mmol/L (3.5-5.1); SODIUM SERUM 140 mmol/L (136-145); TOTAL PROTEIN, SERUM 6.4 g/dL (6.4-8.2); UREA NITROGEN, BLOOD 34 mg/dL (7-18)
[2023-10-31] MEDS ORDERED: INSULIN REGULAR, HUMAN 100 UNIT/ML 10 ML VIAL SQ SCH (07:30)
[2023-10-31] MEDS ORDERED: BLOOD SUGAR DIAGNOSTIC 1 EACH STRIP IN SCH (07:30)
[2023-10-31 07:48] LABS: ANISOCYTOSIS 1+; PLATELET ESTIMATE DECREASED
[2023-10-31] MEDS ORDERED: SENNOSIDES 8.6 MG TABLET PO PRN (08:00)
[2023-10-31] MEDS: busPIRone 5 MG TABLET PO SCH (08:13)
[2023-10-31] MEDS: METOPROLOL SUCCINATE 50 MG TAB.SR.24H PO SCH (08:13)
[2023-10-31] MEDS: VITAMIN B COMP W-C 1 TAB TABLET PO SCH (08:13)
[2023-10-31] MEDS: ESCITALOPRAM OXALATE (10 MG) 10 MG TABLET PO SCH (08:14)
[2023-10-31] MEDS: VENLAFAXINE XR 37.5 MG CAP.SR.24H PO SCH (08:14)
[2023-10-31] MEDS: DILTIAZEM HCL CD 240 MG PO SCH (08:14)
[2023-10-31] MEDS: CHOLECALCIFEROL 1,000 UNIT TABLET (VIT D3) PO SCH (08:14)
[2023-10-31] MEDS: APIXABAN 5 MG TABLET PO SCH (08:14)
[2023-10-31] MEDS: ATORVASTATIN 40 MG TABLET PO SCH (08:14)
[2023-10-31] MEDS: BACLOFEN (10 MG) 10 MG TABLET PO SCH ×2 (08:15→14:28)
[2023-10-31] MEDS: LIDOCAINE 5% (PATCH) 1 EA PATCH TP SCH (09:20)
[2023-10-31] MEDS: DIGOXIN 0.125 MG TABLET PO SCH (13:02)
[2023-10-31] MEDS: DILTIAZEM HCL IV 125 MG in IV NS 0.9% 100 ML IV PRN (13:51)
[2023-10-31] MEDS: ENSURE ENLIVE 237 ML LIQUID (VANILLA) PO SCH (17:07)
[2023-10-31] MEDS: DILTIAZEM HCL 30 MG TABLET PO SCH (17:08)
[2023-10-31] MEDS: TRAZODONE 50 MG TABLET PO SCH (21:24)
[2023-10-31] MEDS: ACETAMINOPHEN 325 MG TABLET PO PRN (23:55)
[2023-11-01] VITALS (72 sets, daily range): BP systolic 74–134; BP diastolic 40–103; TEMP 97.5–97.9; O2SAT 92–100
[2023-11-01] MEDS: NOREPINEPHRINE 8 MG in IV D5W 242 ML IV PRN (04:03)
[2023-11-01] MEDS: NOREPINEPHRINE 8MG/250ML RTU 250 ML IV ONE (04:04)
[2023-11-01] MEDS: PANTOPRAZOLE 40 MG TABLET.DR PO SCH (07:53)
[2023-11-01 10:35] LABS: BASOPHILS % (AUTO) 0.2 % (0.0-2.0); EOSINOPHILS # (AUTO) 0.2 K/uL (0.0-0.7); EOSINOPHILS % (AUTO) 2.2 % (0.0-6.0); HEMATOCRIT 42 % (33-45); HEMOGLOBIN 13.4 g/dL (11.5-14.8); LYMPHOCYTES # (AUTO) 0.8 K/uL (0.8-4.8); LYMPHOCYTES % (AUTO) 10.5 % (20.0-44.0); MEAN CORPUSCULAR HEMOGLOBIN 34 PG (26.0-33.0); MEAN CORPUSCULAR HGB CONC 32 g/dl (31.0-36.0); MEAN CORPUSCULAR VOLUME 106 fL (82-100); MONOCYTES # (AUTO) 0.7 K/uL (0.1-1.30); MONOCYTES % (AUTO) 9.7 % (2.0-12.0); NEUTROPHILS # (AUTO) 5.9 K/uL (1.8-8.9); NEUTROPHILS % (AUTO) 77.4 % (43.0-81.0); PLATELET COUNT (AUTO) 173 K/uL (150-450); RED BLOOD CELL COUNT(AUTO) 3.91 MIL/uL (4.0-5.2); RED CELL DISTRIBUTION WIDTH 13.5 % (11.5-15.0); WHITE BLOOD COUNT (AUTO) 7.6 K/uL (4.3-11.0)
[2023-11-01 10:58] LABS: CARBON DIOXIDE 24 mmol/L (21-32); CHLORIDE 102 mmol/L (98-107); CREATININE 1.1 mg/dL (0.6-1.3); GLUCOSE 249 mg/dL (74-106); POTASSIUM 5.3 mmol/L (3.5-5.1); SODIUM SERUM 134 mmol/L (136-145); UREA NITROGEN, BLOOD 31 mg/dL (7-18)
[2023-11-01 11:00] LABS: PLATELET ESTIMATE ADEQUATE
[2023-11-01 11:01] LABS: ANISOCYTOSIS 1+
[2023-11-01] MEDS: DILTIAZEM HCL 30 MG TABLET PO SCH (12:00)
[2023-11-02] VITALS (29 sets, daily range): BP systolic 81–147; BP diastolic 49–133; TEMP 97.6–97.7; O2SAT 81–100
[2023-11-02 09:06] LABS: BASOPHILS % (AUTO) 0.4 % (0.0-2.0); EOSINOPHILS # (AUTO) 0.1 K/uL (0.0-0.7); HEMATOCRIT 39 % (33-45); HEMOGLOBIN 12.8 g/dL (11.5-14.8); LYMPHOCYTES # (AUTO) 0.8 K/uL (0.8-4.8); LYMPHOCYTES % (AUTO) 16.1 % (20.0-44.0); MEAN CORPUSCULAR HEMOGLOBIN 34 PG (26.0-33.0); MEAN CORPUSCULAR HGB CONC 33 g/dl (31.0-36.0); MEAN CORPUSCULAR VOLUME 104 fL (82-100); MONOCYTES # (AUTO) 0.5 K/uL (0.1-1.30); MONOCYTES % (AUTO) 9.9 % (2.0-12.0); NEUTROPHILS # (AUTO) 3.7 K/uL (1.8-8.9); NEUTROPHILS % (AUTO) 71.6 % (43.0-81.0); PLATELET COUNT (AUTO) 120 K/uL (150-450); RED BLOOD CELL COUNT(AUTO) 3.71 MIL/uL (4.0-5.2); RED CELL DISTRIBUTION WIDTH 13.2 % (11.5-15.0); WHITE BLOOD COUNT (AUTO) 5.1 K/uL (4.3-11.0)
[2023-11-02 09:15] LABS: CALCIUM, SERUM 8.9 mg/dL (8.5-10.1); CARBON DIOXIDE 29 mmol/L (21-32); CHLORIDE 110 mmol/L (98-107); CREATININE 1.1 mg/dL (0.6-1.3); GLUCOSE 101 mg/dL (74-106); POTASSIUM 4.6 mmol/L (3.5-5.1); SODIUM SERUM 142 mmol/L (136-145); UREA NITROGEN, BLOOD 30 mg/dL (7-18)
[2023-11-02] MEDS: BACLOFEN (10 MG) 10 MG TABLET PO SCH (10:05)
[2023-11-02] MEDS: METOPROLOL SUCCINATE 50 MG TAB.SR.24H PO SCH (22:28)
[2023-11-03] VITALS (7 sets, daily range): BP systolic 77–116; BP diastolic 54–78; TEMP 97.4–98.1; O2SAT 96–98
[2023-11-03] MEDS ORDERED: METO50TA7 PO (11:24)
[2023-11-03] MEDS ORDERED: METOPROLOL SUCCINATE 50 MG TAB.SR.24H PO SCH (22:00)
== END 2023-11-03 19:16 | DRG 542 ==
LOC: ER 16:35 → MED 20:58 → TELE 21:12 → ICU 10-31 13:40 → TELE1 11-02 18:29
PROVIDERS: ADMIT Nurse Practitioner Family; ATTEND Internal Medicine
DX: M48.55XA Collapsed vertebra, not elsewhere classified, thoracolumbar region, initial encounter for fracture (principal); N17.0 Acute kidney failure with tubular necrosis; D68.59 Other primary thrombophilia; I50.32 Chronic diastolic (congestive) heart failure; I48.91 Unspecified atrial fibrillation; I11.0 Hypertensive heart disease with heart failure; I35.0 Nonrheumatic aortic (valve) stenosis; Z95.2 Presence of prosthetic heart valve; J44.9 Chronic obstructive pulmonary disease, unspecified; M19.90 Unspecified osteoarthritis, unspecified site; Z87.11 Personal history of peptic ulcer disease; F41.9 Anxiety disorder, unspecified; Z98.890 Other specified postprocedural states; Z90.49 Acquired absence of other specified parts of digestive tract; Z88.0 Allergy status to penicillin; Z88.1 Allergy status to other antibiotic agents; Z88.2 Allergy status to sulfonamides; Z88.8 Allergy status to other drugs, medicaments and biological substances; Z79.899 Other long term (current) drug therapy; G89.29 Other chronic pain; R26.9 Unspecified abnormalities of gait and mobility; R79.89 Other specified abnormal findings of blood chemistry; R53.1 Weakness; F32.A Depression, unspecified; E87.5 Hyperkalemia; G20.A1 Parkinson's disease without dyskinesia, without mention of fluctuations; Z79.01 Long term (current) use of anticoagulants; Z87.891 Personal history of nicotine dependence
CPT/HCPCS: 36415; 71045-TC; 72131-TC; 80048-TC; 80061-TC; 80076-TC; 82962-TC; 83735-TC; 83880; 84100-TC; 84443-TC; 84484-TC; 85025-TC; 93307-TC; 94799-TC; 97110-TC; 97116-TC; 97530-TC; A4223; G0378; J1650; J1815; J2270; J3490; J7030; J7050; J7060

== ENCOUNTER 2023-11-18 14:22 | Inpatient (IN) | payer MEDICARE, OTHER ==
[~2023-11-18] VITALS: Ht 175.3 cm; Wt 52.6 kg
[~2023-11-18 14:22] MED LIST changes: +BACL5TAB PO; +BREYNA IH; +DIGO125T PO; +METO50TA7 PO
[2023-11-18 15:22] LABS: BASOPHILS % (AUTO) 0.2 % (0.0-2.0); EOSINOPHILS % (AUTO) 0.3 % (0.0-6.0); HEMATOCRIT 37 % (33-45); HEMOGLOBIN 11.8 g/dL (11.5-14.8); LYMPHOCYTES # (AUTO) 0.4 K/uL (0.8-4.8); MEAN CORPUSCULAR HEMOGLOBIN 34 PG (26.0-33.0); MEAN CORPUSCULAR HGB CONC 32 g/dl (31.0-36.0); MEAN CORPUSCULAR VOLUME 107 fL (82-100); MONOCYTES # (AUTO) 0.7 K/uL (0.1-1.30); MONOCYTES % (AUTO) 7.4 % (2.0-12.0); NEUTROPHILS # (AUTO) 8.6 K/uL (1.8-8.9); NEUTROPHILS % (AUTO) 88.1 % (43.0-81.0); PLATELET COUNT (AUTO) 261 K/uL (150-450); RED BLOOD CELL COUNT(AUTO) 3.45 MIL/uL (4.0-5.2); RED CELL DISTRIBUTION WIDTH 14.5 % (11.5-15.0); WHITE BLOOD COUNT (AUTO) 9.8 K/uL (4.3-11.0)
[2023-11-18 15:31] LABS: INR 1.4 (0.91-1.10); PARTIAL THROMBOPLASTIN TIME 29.3 SEC (24.3-34.3); PROTHROMBIN TIME 14.5 SECS (9.2-11.1)
[2023-11-18 15:48] LABS: ALANINE AMINOTRANSFERASE 39 U/L (12-78); ALBUMIN 2.7 g/dL (3.4-5.0); ALKALINE PHOSPHATASE 170 U/L (46-116); ASPARTATE AMINOTRANSFERASE 44 U/L (15-37); BILIRUBIN,DIRECT 0.3 mg/dL (0.0-0.2); BILIRUBIN,TOTAL 0.9 mg/dL (0.2-1.0); CALCIUM, SERUM 8.2 mg/dL (8.5-10.1); CARBON DIOXIDE 21 mmol/L (21-32); CREATININE 1.4 mg/dL (0.6-1.3); GLUCOSE 302 mg/dL (74-106); TOTAL PROTEIN, SERUM 6.6 g/dL (6.4-8.2); UREA NITROGEN, BLOOD 31 mg/dL (7-18)
[2023-11-18 15:57] LABS: LACTIC ACID 7.8 mmol/L (0.4-2.0)
[2023-11-18 16:09] LABS: CHLORIDE 100 mmol/L (98-107); NT-PRO BNP 17243 pg/mL (0-125); POTASSIUM 3.8 mmol/L (3.5-5.1); SODIUM SERUM 138 mmol/L (136-145)
[2023-11-18] MEDS ORDERED: IOHEXOL-350 100 ML VIAL IV ONE (16:25)
[2023-11-18] MEDS ORDERED: IV NS 0.9% 250 ML IV ONE (16:26)
[2023-11-18] MEDS ORDERED: ACETYLCYSTEINE IV 6,000 MG/30 ML VIAL IV ONE (16:42)
[2023-11-18] MEDS ORDERED: LEVOFLOXACIN 500 MG /D5W 100ML 100 ML IV ONE (16:42)
[2023-11-18] MEDS ORDERED: METRONIDAZOLE 500MG/ NS 100ML 100 ML IV ONE (16:42)
[2023-11-18] MEDS: FLAGYL/NS RTU 500 MG/100 ML PIGGYBACK IV ONE (16:49)
[2023-11-18] MEDS: LEVOFLOXACIN 500 MG /D5W 100ML 500 MG/100 ML PIGGYBACK IV ONE (18:28)
[2023-11-18] MEDS: ACETYLCYSTEINE IV 6,000 MG/30 ML VIAL IV ONE (18:29)
[2023-11-18] MEDS: ACETYLCYSTEINE 10% SOLN 400 MG/4 ML VIAL PO ONE (18:29)
[2023-11-18] MEDS ORDERED: FUROSEMIDE 20 MG/2 ML VIAL IV SCH (18:30)
[2023-11-18] MEDS ORDERED: Z GUARD REMEDY 4 OZ OINT TP PRN (18:30)
[2023-11-18] MEDS ORDERED: ONDANSETRON HCL/PF 4 MG/2 ML VIAL IVP PRN (18:30)
[2023-11-18] MEDS ORDERED: LEVOFLOXACIN 500 MG /D5W 100ML 500 MG in PREMIX 1 EA IV SCH (18:30)
[2023-11-18] MEDS ORDERED: SENNOSIDES 8.6 MG TABLET PO PRN (18:30)
[2023-11-18] MEDS ORDERED: MAG HYDROX/AL HYDROX/SIMETH 30 ML UDC PO PRN (18:30)
[2023-11-18] MEDS ORDERED: ZOLPIDEM TARTRATE 5 MG TABLET PO PRN (18:30)
[2023-11-18] MEDS ORDERED: MAGNESIUM HYDROXIDE 30 ML UDC PO PRN (18:30)
[2023-11-18 20:00] VITALS: BP 117/55; TEMP 97.5; O2SAT 92
[2023-11-18] MEDS: TOBRAMYCIN SULFATE OPHTH OINT 3.5 GM TUBE LEFTEYE SCH (20:13)
[2023-11-18] MEDS: IV NS 0.9% 1,000 ML IV PRN (20:31)
[2023-11-18] MEDS: TRAZODONE 50 MG TABLET PO SCH (22:37)
[2023-11-18] MEDS: METOPROLOL SUCCINATE 50 MG TAB.SR.24H PO SCH (22:37)
[2023-11-19] VITALS (8 sets, daily range): BP systolic 90–120; BP diastolic 47–61; TEMP 97.3–98.2; O2SAT 88–96
[2023-11-19 00:12] LABS: LACTIC ACID 1.2 mmol/L (0.4-2.0)
[2023-11-19] MEDS: METRONIDAZOLE 500MG/ NS 100ML 500 MG in PREMIX 1 EA IV SCH (00:51)
[2023-11-19] MEDS: VANCOMYCIN HCL 125 MG/2.5 ML ORAL.SUSP PO SCH (00:52)
[2023-11-19 07:11] LABS: BASOPHILS % (AUTO) 0.4 % (0.0-2.0); EOSINOPHILS # (AUTO) 0.1 K/uL (0.0-0.7); HEMATOCRIT 32 % (33-45); HEMOGLOBIN 10.8 g/dL (11.5-14.8); LYMPHOCYTES # (AUTO) 0.7 K/uL (0.8-4.8); LYMPHOCYTES % (AUTO) 13.6 % (20.0-44.0); MEAN CORPUSCULAR HEMOGLOBIN 34 PG (26.0-33.0); MEAN CORPUSCULAR HGB CONC 33 g/dl (31.0-36.0); MEAN CORPUSCULAR VOLUME 103 fL (82-100); MONOCYTES # (AUTO) 0.5 K/uL (0.1-1.30); MONOCYTES % (AUTO) 10.4 % (2.0-12.0); NEUTROPHILS # (AUTO) 3.9 K/uL (1.8-8.9); NEUTROPHILS % (AUTO) 73.6 % (43.0-81.0); PLATELET COUNT (AUTO) 207 K/uL (150-450); RED BLOOD CELL COUNT(AUTO) 3.14 MIL/uL (4.0-5.2); RED CELL DISTRIBUTION WIDTH 13.9 % (11.5-15.0); WHITE BLOOD COUNT (AUTO) 5.2 K/uL (4.3-11.0)
[2023-11-19 07:28] LABS: CALCIUM, SERUM 8.5 mg/dL (8.5-10.1); CARBON DIOXIDE 29 mmol/L (21-32); CHLORIDE 107 mmol/L (98-107); GLUCOSE 84 mg/dL (74-106); MAGNESIUM 2.2 mg/dL (1.8-2.4); PHOSPHORUS 3.8 mg/dL (2.5-4.9); SODIUM SERUM 143 mmol/L (136-145); UREA NITROGEN, BLOOD 24 mg/dL (7-18)
[2023-11-19] MEDS: PANTOPRAZOLE 40 MG TABLET.DR PO SCH (08:18)
[2023-11-19] MEDS: DIGOXIN 0.125 MG TABLET PO SCH (08:37)
[2023-11-19] MEDS: VITAMIN B COMP W-C 1 TAB TABLET PO SCH (08:37)
[2023-11-19] MEDS: busPIRone 5 MG TABLET PO SCH (08:37)
[2023-11-19] MEDS: VENLAFAXINE XR 37.5 MG CAP.SR.24H PO SCH (08:38)
[2023-11-19] MEDS: ATORVASTATIN 40 MG TABLET PO SCH (08:38)
[2023-11-19] MEDS: BACLOFEN (10 MG) 10 MG TABLET PO SCH (08:38)
[2023-11-19] MEDS: DILTIAZEM HCL CD 240 MG PO SCH (08:39)
[2023-11-19] MEDS: CHOLECALCIFEROL 1,000 UNIT TABLET (VIT D3) PO SCH (08:39)
[2023-11-19] MEDS: ESCITALOPRAM OXALATE (10 MG) 10 MG TABLET PO SCH (08:39)
[2023-11-19] MEDS: APIXABAN 5 MG TABLET PO SCH (08:41)
[2023-11-19] MEDS: FUROSEMIDE 40 MG/4 ML VIAL IV SCH (08:52)
[2023-11-19] MEDS: POTASSIUM CHLORIDE 20 MEQ TAB.PRT.SR PO SCH (08:52)
[2023-11-19] MEDS ORDERED: ENOXAPARIN SODIUM 60 MG/0.6 ML DISP.SYRIN SQ SCH (09:00)
[2023-11-19] MEDS ORDERED: BREYNA IH SCH (09:00)
[2023-11-19] MEDS: ACETAMINOPHEN 325 MG TABLET PO PRN (09:15)
[2023-11-19] MEDS: POLYETHYLENE GLYCOL 3350 17 GM POWD.PACK PO PRN (16:24)
[2023-11-19] MEDS: ALBUTEROL FS 2.5 MG/3 ML VIAL.NEB NEB SCH (20:32)
[2023-11-20] VITALS (17 sets, daily range): BP systolic 122–133; BP diastolic 49–60; TEMP 97.5–98.5; O2SAT 6–99
[2023-11-20] MEDS: BUDESONIDE RESPULE INH 0.5 MG/2 ML AMPUL.NEB NEB SCH (07:10)
[2023-11-20 07:49] LABS: BASOPHILS % (AUTO) 0.5 % (0.0-2.0); EOSINOPHILS # (AUTO) 0.2 K/uL (0.0-0.7); HEMATOCRIT 33 % (33-45); HEMOGLOBIN 10.7 g/dL (11.5-14.8); LYMPHOCYTES # (AUTO) 0.9 K/uL (0.8-4.8); LYMPHOCYTES % (AUTO) 17.1 % (20.0-44.0); MEAN CORPUSCULAR HEMOGLOBIN 34 PG (26.0-33.0); MEAN CORPUSCULAR HGB CONC 33 g/dl (31.0-36.0); MEAN CORPUSCULAR VOLUME 104 fL (82-100); MONOCYTES # (AUTO) 0.5 K/uL (0.1-1.30); MONOCYTES % (AUTO) 9.1 % (2.0-12.0); NEUTROPHILS # (AUTO) 3.8 K/uL (1.8-8.9); NEUTROPHILS % (AUTO) 70.3 % (43.0-81.0); PLATELET COUNT (AUTO) 189 K/uL (150-450); RED BLOOD CELL COUNT(AUTO) 3.14 MIL/uL (4.0-5.2); RED CELL DISTRIBUTION WIDTH 14.4 % (11.5-15.0); WHITE BLOOD COUNT (AUTO) 5.4 K/uL (4.3-11.0)
[2023-11-20 08:02] LABS: ALANINE AMINOTRANSFERASE 23 U/L (12-78); ALBUMIN 2.4 g/dL (3.4-5.0); ALKALINE PHOSPHATASE 125 U/L (46-116); ASPARTATE AMINOTRANSFERASE 19 U/L (15-37); BILIRUBIN,TOTAL 0.5 mg/dL (0.2-1.0); CALCIUM, SERUM 8.2 mg/dL (8.5-10.1); CHLORIDE 108 mmol/L (98-107); CREATININE 1.1 mg/dL (0.6-1.3); GLUCOSE 94 mg/dL (74-106); MAGNESIUM 2.1 mg/dL (1.8-2.4); PHOSPHORUS 3.8 mg/dL (2.5-4.9); POTASSIUM 3.9 mmol/L (3.5-5.1); SODIUM SERUM 142 mmol/L (136-145); TOTAL PROTEIN, SERUM 5.6 g/dL (6.4-8.2); UREA NITROGEN, BLOOD 19 mg/dL (7-18)
[2023-11-20 08:06] LABS: CARBON DIOXIDE 30 mmol/L (21-32)
[2023-11-21] VITALS (15 sets, daily range): BP systolic 114–132; BP diastolic 49–59; TEMP 97.5–98.4; O2SAT 90–99
[2023-11-21 08:37] LABS: ALANINE AMINOTRANSFERASE 18 U/L (12-78); ALBUMIN 2.4 g/dL (3.4-5.0); ALKALINE PHOSPHATASE 122 U/L (46-116); ASPARTATE AMINOTRANSFERASE 16 U/L (15-37); BASOPHILS % (AUTO) 0.4 % (0.0-2.0); BILIRUBIN,TOTAL 0.4 mg/dL (0.2-1.0); CALCIUM, SERUM 8.2 mg/dL (8.5-10.1); CARBON DIOXIDE 26 mmol/L (21-32); CHLORIDE 109 mmol/L (98-107); CREATININE 1.1 mg/dL (0.6-1.3); EOSINOPHILS # (AUTO) 0.2 K/uL (0.0-0.7); EOSINOPHILS % (AUTO) 2.7 % (0.0-6.0); GLUCOSE 100 mg/dL (74-106); HEMATOCRIT 32 % (33-45); HEMOGLOBIN 10.5 g/dL (11.5-14.8); LYMPHOCYTES # (AUTO) 0.9 K/uL (0.8-4.8); LYMPHOCYTES % (AUTO) 15.2 % (20.0-44.0); MAGNESIUM 2.1 mg/dL (1.8-2.4); MEAN CORPUSCULAR HEMOGLOBIN 34 PG (26.0-33.0); MEAN CORPUSCULAR HGB CONC 33 g/dl (31.0-36.0); MEAN CORPUSCULAR VOLUME 104 fL (82-100); MONOCYTES # (AUTO) 0.5 K/uL (0.1-1.30); MONOCYTES % (AUTO) 9.3 % (2.0-12.0); NEUTROPHILS # (AUTO) 4.1 K/uL (1.8-8.9); NEUTROPHILS % (AUTO) 72.4 % (43.0-81.0); PHOSPHORUS 3.6 mg/dL (2.5-4.9); PLATELET COUNT (AUTO) 183 K/uL (150-450); RED BLOOD CELL COUNT(AUTO) 3.07 MIL/uL (4.0-5.2); RED CELL DISTRIBUTION WIDTH 14.1 % (11.5-15.0); SODIUM SERUM 141 mmol/L (136-145); TOTAL PROTEIN, SERUM 5.6 g/dL (6.4-8.2); UREA NITROGEN, BLOOD 17 mg/dL (7-18); WHITE BLOOD COUNT (AUTO) 5.6 K/uL (4.3-11.0)
[2023-11-21] MEDS: IV NS 0.9% 250 ML IV PRN (11:25)
[2023-11-22] VITALS (13 sets, daily range): BP systolic 123–134; BP diastolic 49–74; TEMP 97.5–99.3; O2SAT 93–98
[2023-11-23] VITALS (9 sets, daily range): BP systolic 123–137; BP diastolic 67–74; TEMP 97.7–97.9; O2SAT 93–100
[2023-11-23] MEDS ORDERED: VANC125C11 PO (14:38)
[2023-11-23] MEDS ORDERED: ALBUT2 NEB (14:38)
[2023-11-23] MEDS ORDERED: BUSP5TAB3 PO (14:38)
[2023-11-23] MEDS ORDERED: BUDE0.5A NEB (14:38)
[2023-11-23] MEDS ORDERED: METR500P3 IV (14:38)
[2023-11-23] MEDS ORDERED: TOBR3.5O LEFTEYE (14:38)
== END 2023-11-23 18:31 | DRG 871 ==
LOC: ER 14:29 → TELE1 16:40 → MEDSG1 11-20 11:09
PROVIDERS: ADMIT Nurse Practitioner Acute Care; ATTEND Nurse Practitioner Acute Care
DX: A41.9 Sepsis, unspecified organism (principal); I21.A1 Myocardial infarction type 2; I50.43 Acute on chronic combined systolic (congestive) and diastolic (congestive) heart failure; J96.21 Acute and chronic respiratory failure with hypoxia; N17.0 Acute kidney failure with tubular necrosis; A09 Infectious gastroenteritis and colitis, unspecified; M48.56XA Collapsed vertebra, not elsewhere classified, lumbar region, initial encounter for fracture; I48.20 Chronic atrial fibrillation, unspecified; E87.20 Acidosis, unspecified; I11.0 Hypertensive heart disease with heart failure; Z95.2 Presence of prosthetic heart valve; K21.9 Gastro-esophageal reflux disease without esophagitis; Z90.49 Acquired absence of other specified parts of digestive tract; Z98.890 Other specified postprocedural states; Z98.891 History of uterine scar from previous surgery; Z87.11 Personal history of peptic ulcer disease; F41.9 Anxiety disorder, unspecified; Z88.2 Allergy status to sulfonamides; Z88.0 Allergy status to penicillin; Z88.1 Allergy status to other antibiotic agents; Z88.8 Allergy status to other drugs, medicaments and biological substances; Z79.01 Long term (current) use of anticoagulants; Z79.899 Other long term (current) drug therapy; M19.90 Unspecified osteoarthritis, unspecified site; Z86.19 Personal history of other infectious and parasitic diseases; F32.A Depression, unspecified; G47.9 Sleep disorder, unspecified; M89.8X9 Other specified disorders of bone, unspecified site; H10.9 Unspecified conjunctivitis; G20.A1 Parkinson's disease without dyskinesia, without mention of fluctuations; E86.9 Volume depletion, unspecified; D64.9 Anemia, unspecified; Z87.891 Personal history of nicotine dependence; Z95.0 Presence of cardiac pacemaker; Z99.81 Dependence on supplemental oxygen
CPT/HCPCS: 36415; 71045-TC; 80048-TC; 80053-TC; 80076-TC; 83605-TC; 83735-TC; 83880; 84100-TC; 84484-TC; 85025-TC; 85730-TC; 87040-TC; 94760-TC; 94799-TC; 97110-TC; 97116-TC; 97530-TC; A4216; A4223; G0378; J0132; J1940; J1956; J7030; J7050; Q9967

== ENCOUNTER 2023-12-18 15:08 | Inpatient (IN) | payer MEDICARE, OTHER ==
[~2023-12-18] VITALS: Ht 154.9 cm; Wt 49.0 kg
[~2023-12-18 15:08] MED LIST changes: +ALBUT2 NEB; +BUDE0.5A NEB; -METO50TA7 PO; +METR500P3 IV; -SENN-261 PO; +TOBR3.5O LEFTEYE; +VANC125C11 PO
[2023-12-18 15:52] LABS: BASOPHILS % (AUTO) 0.3 % (0.0-2.0); EOSINOPHILS % (AUTO) 0.2 % (0.0-6.0); HEMATOCRIT 37 % (33-45); HEMOGLOBIN 12.1 g/dL (11.5-14.8); LYMPHOCYTES # (AUTO) 1.2 K/uL (0.8-4.8); LYMPHOCYTES % (AUTO) 11.3 % (20.0-44.0); MEAN CORPUSCULAR HEMOGLOBIN 35 PG (26.0-33.0); MEAN CORPUSCULAR HGB CONC 33 g/dl (31.0-36.0); MEAN CORPUSCULAR VOLUME 105 fL (82-100); MONOCYTES % (AUTO) 8.8 % (2.0-12.0); NEUTROPHILS # (AUTO) 8.7 K/uL (1.8-8.9); NEUTROPHILS % (AUTO) 79.4 % (43.0-81.0); PLATELET COUNT (AUTO) 184 K/uL (150-450); RED BLOOD CELL COUNT(AUTO) 3.51 MIL/uL (4.0-5.2); RED CELL DISTRIBUTION WIDTH 14.6 % (11.5-15.0); WHITE BLOOD COUNT (AUTO) 10.9 K/uL (4.3-11.0)
[2023-12-18 16:04] LABS: CALCIUM, SERUM 8.9 mg/dL (8.5-10.1); CARBON DIOXIDE 27 mmol/L (21-32); CHLORIDE 103 mmol/L (98-107); CREATININE 1.6 mg/dL (0.6-1.3); GLUCOSE 208 mg/dL (74-106); POTASSIUM 3.6 mmol/L (3.5-5.1); SODIUM SERUM 139 mmol/L (136-145); UREA NITROGEN, BLOOD 33 mg/dL (7-18)
[2023-12-18 16:15] LABS: LACTIC ACID 4.5 mmol/L (0.4-2.0)
[2023-12-18 16:16] LABS: NT-PRO BNP 10755 pg/mL (0-125)
[2023-12-18] MEDS ORDERED: ALBU2.5V38 IH (16:39)
[2023-12-18] MEDS ORDERED: BUDE0.5A4 IH (16:39)
[2023-12-18] MEDS: FUROSEMIDE 20 MG/2 ML VIAL IV ONE (17:30)
[2023-12-18] MEDS ORDERED: LORAZEPAM INJ 2 MG/ML VIAL ONE (17:31)
[2023-12-18] MEDS ORDERED: LORAZEPAM 0.5 MG TABLET ONE (17:34)
[2023-12-18] MEDS: POTASSIUM CHLORIDE 20 MEQ TAB.PRT.SR PO ONE (17:44)
[2023-12-18] MEDS: LORAZEPAM 1 MG TABLET PO ONE (17:44)
[2023-12-18] MEDS ORDERED: MAGNESIUM HYDROXIDE 30 ML UDC PO PRN (18:00)
[2023-12-18] MEDS ORDERED: ACETAMINOPHEN 325 MG TABLET PO PRN (18:00)
[2023-12-18] MEDS ORDERED: MAG HYDROX/AL HYDROX/SIMETH 30 ML UDC PO PRN (18:00)
[2023-12-18] MEDS ORDERED: TRAZODONE 50 MG TABLET PO PRN (18:00)
[2023-12-18] MEDS ORDERED: ONDANSETRON HCL/PF 4 MG/2 ML VIAL IVP PRN (18:00)
[2023-12-18] MEDS ORDERED: Z GUARD REMEDY 4 OZ OINT TP PRN (18:00)
[2023-12-18 18:06] LABS: BILIRUBIN,DIRECT 0.2 mg/dL (0.0-0.2); BILIRUBIN,TOTAL 0.6 mg/dL (0.2-1.0)
[2023-12-18 20:00] VITALS: BP 132/59; TEMP 97.5; O2SAT 99
[2023-12-18] MEDS: ALBUTEROL FS 2.5 MG/3 ML VIAL.NEB NEB SCH (20:05)
[2023-12-18 20:06] VITALS: O2SAT 96
[2023-12-18 20:17] VITALS: O2SAT 99
[2023-12-18] MEDS ORDERED: ENOXAPARIN SODIUM 40 MG/0.4 ML DISP.SYRIN SQ SCH (21:00)
[2023-12-18] MEDS: METOPROLOL SUCCINATE 50 MG TAB.SR.24H PO SCH (22:00)
[2023-12-18 22:30] LABS: BASOPHILS % (MANUAL) 0 % (0.0-2.0); EOSINOPHILS % (MANUAL) 0 % (0-4); LYMPHOCYTES % (MANUAL) 10 % (16-48); MONOCYTES % (MANUAL) 9 % (0-11.0); NEUTROPHILS % (MANUAL) 81 (42-76); PLATELET ESTIMATE ADEQUATE
[2023-12-18] MEDS: ZOLPIDEM TARTRATE 5 MG TABLET PO PRN (23:19)
[2023-12-19] VITALS (18 sets, daily range): BP systolic 101–147; BP diastolic 52–87; TEMP 97.5–97.9; O2SAT 91–100
[2023-12-19 06:17] LABS: BASOPHILS % (AUTO) 0.1 % (0.0-2.0); EOSINOPHILS % (AUTO) 0.3 % (0.0-6.0); HEMATOCRIT 40 % (33-45); HEMOGLOBIN 12.9 g/dL (11.5-14.8); LYMPHOCYTES % (AUTO) 10.1 % (20.0-44.0); MEAN CORPUSCULAR HEMOGLOBIN 33 PG (26.0-33.0); MEAN CORPUSCULAR HGB CONC 32 g/dl (31.0-36.0); MEAN CORPUSCULAR VOLUME 103 fL (82-100); MONOCYTES # (AUTO) 0.7 K/uL (0.1-1.30); MONOCYTES % (AUTO) 7.2 % (2.0-12.0); NEUTROPHILS # (AUTO) 8.2 K/uL (1.8-8.9); NEUTROPHILS % (AUTO) 82.3 % (43.0-81.0); PLATELET COUNT (AUTO) 162 K/uL (150-450); RED BLOOD CELL COUNT(AUTO) 3.89 MIL/uL (4.0-5.2); RED CELL DISTRIBUTION WIDTH 14.6 % (11.5-15.0)
[2023-12-19 07:07] LABS: CALCIUM, SERUM 9.3 mg/dL (8.5-10.1); CARBON DIOXIDE 33 mmol/L (21-32); CHLORIDE 103 mmol/L (98-107); CREATININE 1.3 mg/dL (0.6-1.3); GLUCOSE 127 mg/dL (74-106); MAGNESIUM 2.4 mg/dL (1.8-2.4); PHOSPHORUS 4.1 mg/dL (2.5-4.9); POTASSIUM 3.6 mmol/L (3.5-5.1); SODIUM SERUM 145 mmol/L (136-145); UREA NITROGEN, BLOOD 32 mg/dL (7-18)
[2023-12-19] MEDS: BUDESONIDE RESPULE INH 0.5 MG/2 ML AMPUL.NEB NEB SCH (07:44)
[2023-12-19] MEDS: PANTOPRAZOLE 40 MG TABLET.DR PO SCH (08:00)
[2023-12-19] MEDS ORDERED: BUDESONIDE RESPULE INH 0.5 MG/2 ML AMPUL.NEB IH SCH (09:00)
[2023-12-19] MEDS: MULTIVITAMINS,THERAGRAN 1 UDTAB TABLET PO SCH (09:22)
[2023-12-19] MEDS: BACLOFEN (10 MG) 10 MG TABLET PO SCH (09:23)
[2023-12-19] MEDS: DILTIAZEM HCL CD 240 MG PO SCH (09:24)
[2023-12-19] MEDS: ATORVASTATIN 40 MG TABLET PO SCH (09:24)
[2023-12-19] MEDS: CHOLECALCIFEROL 1,000 UNIT TABLET (VIT D3) PO SCH (09:25)
[2023-12-19] MEDS: DIGOXIN 0.125 MG TABLET PO SCH (09:26)
[2023-12-19] MEDS: APIXABAN 2.5 MG TABLET PO SCH (09:27)
[2023-12-19] MEDS ORDERED: HYDROCODONE/APAP 5/325MG TABLET PO PRN ×2 (15:00→15:30)
[2023-12-19] MEDS: TRAMADOL HCL 50 MG TABLET PO PRN (15:48)
[2023-12-20] VITALS (14 sets, daily range): BP systolic 104–129; BP diastolic 49–64; TEMP 97.5–98.3; O2SAT 90–100
[2023-12-20 06:24] LABS: BASOPHILS % (AUTO) 0.3 % (0.0-2.0); EOSINOPHILS # (AUTO) 0.3 K/uL (0.0-0.7); EOSINOPHILS % (AUTO) 3.5 % (0.0-6.0); HEMATOCRIT 35 % (33-45); HEMOGLOBIN 11.8 g/dL (11.5-14.8); LYMPHOCYTES % (AUTO) 13.6 % (20.0-44.0); MEAN CORPUSCULAR HEMOGLOBIN 34 PG (26.0-33.0); MEAN CORPUSCULAR HGB CONC 34 g/dl (31.0-36.0); MEAN CORPUSCULAR VOLUME 103 fL (82-100); MONOCYTES # (AUTO) 0.8 K/uL (0.1-1.30); MONOCYTES % (AUTO) 10.7 % (2.0-12.0); NEUTROPHILS # (AUTO) 5.4 K/uL (1.8-8.9); NEUTROPHILS % (AUTO) 71.9 % (43.0-81.0); PLATELET COUNT (AUTO) 125 K/uL (150-450); RED BLOOD CELL COUNT(AUTO) 3.43 MIL/uL (4.0-5.2); RED CELL DISTRIBUTION WIDTH 14.3 % (11.5-15.0); WHITE BLOOD COUNT (AUTO) 7.6 K/uL (4.3-11.0)
[2023-12-20 06:53] LABS: CALCIUM, SERUM 8.9 mg/dL (8.5-10.1); CARBON DIOXIDE 32 mmol/L (21-32); CHLORIDE 100 mmol/L (98-107); CREATININE 1.1 mg/dL (0.6-1.3); GLUCOSE 109 mg/dL (74-106); MAGNESIUM 2.1 mg/dL (1.8-2.4); PHOSPHORUS 2.9 mg/dL (2.5-4.9); POTASSIUM 4.1 mmol/L (3.5-5.1); SODIUM SERUM 139 mmol/L (136-145); UREA NITROGEN, BLOOD 26 mg/dL (7-18)
[2023-12-20 10:39] LABS: LACTIC ACID 2.9 mmol/L (0.4-2.0)
[2023-12-20 12:53] LABS: APPEARANCE,URINE CLEAR (CLEAR); BILIRUBIN,URINE NEGATIVE (NEGATIVE); BLOOD, URINE NEGATIVE Ery/uL (NEGATIVE); COLOR,URINE YELLOW (YELLOW); KETONES,URINE NEGATIVE (NEGATIVE); LEUKOCYTE ESTERASE ,URINE NEGATIVE (NEGATIVE); NITRITE, URINE NEGATIVE (NEGATIVE); PROTEIN,URINE 1+ mg/dl (NEGATIVE); UGLUCOSE NEGATIVE (NEGATIVE); UROBILINOGEN,URINE 0.2 EU/dL (0.2)
[2023-12-20 13:03] LABS: BILIRUBIN,DIRECT 0.2 mg/dL (0.0-0.2); BILIRUBIN,TOTAL 0.5 mg/dL (0.2-1.0)
[2023-12-20 13:14] LABS: ADD URINE CULTURE YES; BACTERIA,URINE Few /HPF (None Seen)
[2023-12-20 13:20] LABS: LACTIC ACID REFLEX 2.4 mmol/L (0.4-1.9)
[2023-12-21] VITALS (13 sets, daily range): BP systolic 114–131; BP diastolic 51–69; TEMP 97.7–98.4; O2SAT 93–100
[2023-12-21 06:44] LABS: BASOPHILS % (AUTO) 0.3 % (0.0-2.0); EOSINOPHILS # (AUTO) 0.3 K/uL (0.0-0.7); EOSINOPHILS % (AUTO) 4.6 % (0.0-6.0); HEMATOCRIT 39 % (33-45); HEMOGLOBIN 12.6 g/dL (11.5-14.8); LYMPHOCYTES # (AUTO) 1.2 K/uL (0.8-4.8); LYMPHOCYTES % (AUTO) 17.5 % (20.0-44.0); MEAN CORPUSCULAR HEMOGLOBIN 34 PG (26.0-33.0); MEAN CORPUSCULAR HGB CONC 33 g/dl (31.0-36.0); MEAN CORPUSCULAR VOLUME 104 fL (82-100); MONOCYTES # (AUTO) 0.7 K/uL (0.1-1.30); MONOCYTES % (AUTO) 10.4 % (2.0-12.0); NEUTROPHILS # (AUTO) 4.4 K/uL (1.8-8.9); NEUTROPHILS % (AUTO) 67.2 % (43.0-81.0); PLATELET COUNT (AUTO) 130 K/uL (150-450); RED CELL DISTRIBUTION WIDTH 14.3 % (11.5-15.0); WHITE BLOOD COUNT (AUTO) 6.6 K/uL (4.3-11.0)
[2023-12-21 07:00] LABS: CALCIUM, SERUM 9.2 mg/dL (8.5-10.1); CARBON DIOXIDE 32 mmol/L (21-32); CHLORIDE 99 mmol/L (98-107); CREATININE 0.9 mg/dL (0.6-1.3); GLUCOSE 93 mg/dL (74-106); MAGNESIUM 2.3 mg/dL (1.8-2.4); PHOSPHORUS 2.8 mg/dL (2.5-4.9); SODIUM SERUM 137 mmol/L (136-145); UREA NITROGEN, BLOOD 23 mg/dL (7-18)
[2023-12-22] VITALS (13 sets, daily range): BP systolic 116–134; BP diastolic 60–70; TEMP 97.5–98.4; O2SAT 93–100
[2023-12-22 06:24] LABS: BASOPHILS % (AUTO) 0.4 % (0.0-2.0); EOSINOPHILS # (AUTO) 0.2 K/uL (0.0-0.7); EOSINOPHILS % (AUTO) 3.1 % (0.0-6.0); HEMATOCRIT 35 % (33-45); HEMOGLOBIN 11.6 g/dL (11.5-14.8); LYMPHOCYTES # (AUTO) 0.9 K/uL (0.8-4.8); LYMPHOCYTES % (AUTO) 13.3 % (20.0-44.0); MEAN CORPUSCULAR HEMOGLOBIN 34 PG (26.0-33.0); MEAN CORPUSCULAR HGB CONC 33 g/dl (31.0-36.0); MEAN CORPUSCULAR VOLUME 102 fL (82-100); MONOCYTES # (AUTO) 0.7 K/uL (0.1-1.30); MONOCYTES % (AUTO) 10.2 % (2.0-12.0); NEUTROPHILS # (AUTO) 5.2 K/uL (1.8-8.9); PLATELET COUNT (AUTO) 115 K/uL (150-450); RED BLOOD CELL COUNT(AUTO) 3.46 MIL/uL (4.0-5.2); RED CELL DISTRIBUTION WIDTH 13.8 % (11.5-15.0); WHITE BLOOD COUNT (AUTO) 7.1 K/uL (4.3-11.0)
[2023-12-22 06:39] LABS: CALCIUM, SERUM 9.3 mg/dL (8.5-10.1); CARBON DIOXIDE 32 mmol/L (21-32); CHLORIDE 102 mmol/L (98-107); CREATININE 0.9 mg/dL (0.6-1.3); GLUCOSE 121 mg/dL (74-106); MAGNESIUM 2.3 mg/dL (1.8-2.4); PHOSPHORUS 2.9 mg/dL (2.5-4.9); POTASSIUM 3.9 mmol/L (3.5-5.1); SODIUM SERUM 139 mmol/L (136-145); UREA NITROGEN, BLOOD 20 mg/dL (7-18)
[2023-12-23] VITALS (8 sets, daily range): BP systolic 114–130; BP diastolic 54–62; TEMP 97.3–97.8; O2SAT 87–100
[2023-12-23 07:20] LABS: CARBON DIOXIDE 32 mmol/L (21-32); CHLORIDE 97 mmol/L (98-107); CREATININE 0.8 mg/dL (0.6-1.3); GLUCOSE 112 mg/dL (74-106); POTASSIUM 3.8 mmol/L (3.5-5.1); SODIUM SERUM 133 mmol/L (136-145); UREA NITROGEN, BLOOD 17 mg/dL (7-18)
[2023-12-23 07:30] LABS: BASOPHILS % (AUTO) 0.4 % (0.0-2.0); EOSINOPHILS # (AUTO) 0.1 K/uL (0.0-0.7); EOSINOPHILS % (AUTO) 1.6 % (0.0-6.0); HEMATOCRIT 38 % (33-45); HEMOGLOBIN 12.3 g/dL (11.5-14.8); LYMPHOCYTES # (AUTO) 0.7 K/uL (0.8-4.8); LYMPHOCYTES % (AUTO) 10.7 % (20.0-44.0); MEAN CORPUSCULAR HEMOGLOBIN 34 PG (26.0-33.0); MEAN CORPUSCULAR HGB CONC 33 g/dl (31.0-36.0); MEAN CORPUSCULAR VOLUME 103 fL (82-100); MONOCYTES # (AUTO) 0.8 K/uL (0.1-1.30); MONOCYTES % (AUTO) 12.3 % (2.0-12.0); NEUTROPHILS # (AUTO) 5.1 K/uL (1.8-8.9); PLATELET COUNT (AUTO) 129 K/uL (150-450); RED BLOOD CELL COUNT(AUTO) 3.65 MIL/uL (4.0-5.2); RED CELL DISTRIBUTION WIDTH 13.8 % (11.5-15.0); WHITE BLOOD COUNT (AUTO) 6.8 K/uL (4.3-11.0)
== END 2023-12-23 16:40 | DRG 682 ==
LOC: ER 15:23 → TELE1 17:52 → MEDSG1 12-21 09:42
PROVIDERS: ADMIT Student in an Organized Health Care Education/Training Program; ATTEND Nurse Practitioner Family
DX: I12.9 Hypertensive chronic kidney disease with stage 1 through stage 4 chronic kidney disease, or unspecified chronic kidney disease (principal); I21.A1 Myocardial infarction type 2; N17.0 Acute kidney failure with tubular necrosis; J96.11 Chronic respiratory failure with hypoxia; I48.20 Chronic atrial fibrillation, unspecified; N18.9 Chronic kidney disease, unspecified; I25.10 Atherosclerotic heart disease of native coronary artery without angina pectoris; Z95.2 Presence of prosthetic heart valve; K21.9 Gastro-esophageal reflux disease without esophagitis; M19.90 Unspecified osteoarthritis, unspecified site; Z87.11 Personal history of peptic ulcer disease; F41.9 Anxiety disorder, unspecified; Z90.49 Acquired absence of other specified parts of digestive tract; Z98.890 Other specified postprocedural states; Z95.0 Presence of cardiac pacemaker; Z98.891 History of uterine scar from previous surgery; Z79.899 Other long term (current) drug therapy; Z88.2 Allergy status to sulfonamides; Z88.0 Allergy status to penicillin; Z88.1 Allergy status to other antibiotic agents; Z88.6 Allergy status to analgesic agent; Z88.5 Allergy status to narcotic agent; Z88.8 Allergy status to other drugs, medicaments and biological substances; Z79.51 Long term (current) use of inhaled steroids; Z79.01 Long term (current) use of anticoagulants; G20.A1 Parkinson's disease without dyskinesia, without mention of fluctuations; Z87.311 Personal history of (healed) other pathological fracture; I50.9 Heart failure, unspecified
CPT/HCPCS: 36415; 70450-TC; 71045-TC; 80048-TC; 81001; 82247-TC; 82248-TC; 83605-TC; 83735-TC; 83880; 84100-TC; 84484-TC; 85025-TC; 85378-TC; 87040-TC; 87086-TC; 93970-TC; 94760-TC; 94762-TC; 94799-TC; 97110-TC; 97112-TC; 97116-TC; 97530-TC; G0378; J1940; J2060

== ENCOUNTER 2024-01-20 19:48 | Inpatient (IN) | payer MEDICARE, OTHER ==
[~2024-01-20] VITALS: Ht 167.6 cm; Wt 45.4 kg
[~2024-01-20 19:48] MED LIST changes: +ALBU2.5V38 IH; -ALBUT2 NEB; -BUDE0.5A NEB; +BUDE0.5A4 IH; -BUSP5TAB3 PO; -ESCI10TA PO; -METR500P3 IV; -OMEP20CA15 PO; -TOBR3.5O LEFTEYE; -VANC125C11 PO; -VENL37.591 PO
[2024-01-20 21:00] LABS: BASOPHILS % (AUTO) 0.6 % (0.0-2.0); EOSINOPHILS # (AUTO) 0.3 K/uL (0.0-0.7); EOSINOPHILS % (AUTO) 5.1 % (0.0-6.0); HEMATOCRIT 29 % (33-45); HEMOGLOBIN 9.4 g/dL (11.5-14.8); LYMPHOCYTES # (AUTO) 0.9 K/uL (0.8-4.8); LYMPHOCYTES % (AUTO) 16.2 % (20.0-44.0); MEAN CORPUSCULAR HEMOGLOBIN 32 PG (26.0-33.0); MEAN CORPUSCULAR HGB CONC 32 g/dl (31.0-36.0); MEAN CORPUSCULAR VOLUME 100 fL (82-100); MONOCYTES # (AUTO) 0.5 K/uL (0.1-1.30); MONOCYTES % (AUTO) 9.2 % (2.0-12.0); NEUTROPHILS # (AUTO) 3.8 K/uL (1.8-8.9); NEUTROPHILS % (AUTO) 68.9 % (43.0-81.0); PLATELET COUNT (AUTO) 176 K/uL (150-450); RED BLOOD CELL COUNT(AUTO) 2.92 MIL/uL (4.0-5.2); RED CELL DISTRIBUTION WIDTH 14.8 % (11.5-15.0); WHITE BLOOD COUNT (AUTO) 5.6 K/uL (4.3-11.0)
[2024-01-20 21:05] LABS: CARBON DIOXIDE 32 mmol/L (21-32); CHLORIDE 107 mmol/L (98-107); CREATININE 0.9 mg/dL (0.6-1.3); GLUCOSE 100 mg/dL (74-106); POTASSIUM 4.2 mmol/L (3.5-5.1); SODIUM SERUM 142 mmol/L (136-145); UREA NITROGEN, BLOOD 22 mg/dL (7-18)
[2024-01-20] MEDS ORDERED: IPRATROPIUM NEB FS 0.5 MG/2.5 ML AMPUL.NEB ONE (21:07)
[2024-01-20] MEDS ORDERED: ALBUTEROL FS 2.5 MG/3 ML VIAL.NEB ONE (21:07)
[2024-01-20 21:12] VITALS: O2SAT 84
[2024-01-20] MEDS: IPRATROPIUM NEB FS 0.5 MG/2.5 ML AMPUL.NEB NEB ONE (21:12)
[2024-01-20] MEDS: ALBUTEROL FS 2.5 MG/3 ML VIAL.NEB NEB ONE (21:12)
[2024-01-20 21:15] LABS: LACTIC ACID 0.8 mmol/L (0.4-2.0)
[2024-01-20 21:18] LABS: ALANINE AMINOTRANSFERASE 10 U/L (12-78); ALKALINE PHOSPHATASE 119 U/L (46-116); ASPARTATE AMINOTRANSFERASE 23 U/L (15-37); BILIRUBIN,DIRECT 0.2 mg/dL (0.0-0.2); BILIRUBIN,TOTAL 0.5 mg/dL (0.2-1.0); NT-PRO BNP 23903 pg/mL (0-125)
[2024-01-20 21:27] VITALS: O2SAT 98
[2024-01-20] MEDS ORDERED: FUROSEMIDE 40 MG/4 ML VIAL ONE (21:42)
[2024-01-20] MEDS: FUROSEMIDE 40 MG/4 ML VIAL IV ONE (21:45)
[2024-01-20] MEDS ORDERED: LEVOFLOXACIN 750 MG /D5W 150ML 150 ML IV ONE (22:47)
[2024-01-20] MEDS: LEVOFLOXACIN 750 MG /D5W 150ML PIGGYBACK IV ONE (22:50)
[2024-01-20] MEDS ORDERED: ACETAMINOPHEN 325 MG TABLET PO PRN (23:30)
[2024-01-20] MEDS ORDERED: MAGNESIUM HYDROXIDE 30 ML UDC PO PRN (23:30)
[2024-01-20] MEDS ORDERED: Z GUARD REMEDY 4 OZ OINT TP PRN (23:30)
[2024-01-20] MEDS ORDERED: ONDANSETRON HCL/PF 4 MG/2 ML VIAL IVP PRN (23:30)
[2024-01-21] VITALS (13 sets, daily range): BP systolic 101–138; BP diastolic 51–68; TEMP 97–98.2; O2SAT 88–96
[2024-01-21 07:03] LABS: BASOPHILS % (AUTO) 0.4 % (0.0-2.0); EOSINOPHILS # (AUTO) 0.2 K/uL (0.0-0.7); EOSINOPHILS % (AUTO) 3.3 % (0.0-6.0); HEMATOCRIT 32 % (33-45); HEMOGLOBIN 10.5 g/dL (11.5-14.8); LYMPHOCYTES # (AUTO) 0.6 K/uL (0.8-4.8); LYMPHOCYTES % (AUTO) 11.1 % (20.0-44.0); MEAN CORPUSCULAR HEMOGLOBIN 33 PG (26.0-33.0); MEAN CORPUSCULAR HGB CONC 33 g/dl (31.0-36.0); MEAN CORPUSCULAR VOLUME 99 fL (82-100); MONOCYTES # (AUTO) 0.5 K/uL (0.1-1.30); MONOCYTES % (AUTO) 8.6 % (2.0-12.0); NEUTROPHILS # (AUTO) 4.2 K/uL (1.8-8.9); NEUTROPHILS % (AUTO) 76.6 % (43.0-81.0); PLATELET COUNT (AUTO) 168 K/uL (150-450); RED BLOOD CELL COUNT(AUTO) 3.22 MIL/uL (4.0-5.2); RED CELL DISTRIBUTION WIDTH 14.8 % (11.5-15.0); WHITE BLOOD COUNT (AUTO) 5.5 K/uL (4.3-11.0)
[2024-01-21 07:26] LABS: CALCIUM, SERUM 8.4 mg/dL (8.5-10.1); CARBON DIOXIDE 33 mmol/L (21-32); CHLORIDE 107 mmol/L (98-107); CREATININE 0.8 mg/dL (0.6-1.3); GLUCOSE 91 mg/dL (74-106); MAGNESIUM 2.2 mg/dL (1.8-2.4); PHOSPHORUS 3.8 mg/dL (2.5-4.9); SODIUM SERUM 143 mmol/L (136-145); UREA NITROGEN, BLOOD 18 mg/dL (7-18)
[2024-01-21] MEDS: PANTOPRAZOLE 40 MG TABLET.DR PO SCH (08:11)
[2024-01-21] MEDS: IPRATROPIUM NEB FS 0.5 MG/2.5 ML AMPUL.NEB NEB SCH (09:02)
[2024-01-21] MEDS: ALBUTEROL FS 2.5 MG/3 ML VIAL.NEB NEB SCH ×2 (09:02→13:30)
[2024-01-21] MEDS ORDERED: NA P133E RC (09:29)
[2024-01-21] MEDS ORDERED: MAGN400O6 PO (09:29)
[2024-01-21] MEDS ORDERED: IBUP-23 PO (09:29)
[2024-01-21] MEDS ORDERED: ALBU8.5H8 IH (09:29)
[2024-01-21] MEDS ORDERED: TRAM50TA2 PO (09:29)
[2024-01-21] MEDS ORDERED: DOCU100T2 PO (09:29)
[2024-01-21] MEDS ORDERED: MELA3TAB47 PO (09:29)
[2024-01-21] MEDS ORDERED: BUDE10.26 IH (09:29)
[2024-01-21] MEDS ORDERED: BISA10SU11 RC (09:29)
[2024-01-21 10:41] LABS: ABG BASE EXCESS 5.8 mmol/L (-2.0-3.0); ABG OXYGEN SATURATION 88.9 % (94.0-98.0); ABG PCO2 38.3 mmHg (32.0-45.0); ABG PH 7.501 (7.350-7.450); ABG PO2 56.7 mmHg (83.0-108.0); ABG TOTAL HEMOGLOBIN 10.7 G/dL (12.0-16.0); COHb 0.4 % (0.5-1.5); MetHb 0.2 % (0.0-1.5); O2Hb 88.4 % (94.0-97.0); SITE, ABG RIGHT RADIAL
[2024-01-21] MEDS: FUROSEMIDE 20 MG/2 ML VIAL IV ONE (11:28)
[2024-01-21] MEDS: APIXABAN 5 MG TABLET PO SCH (11:28)
[2024-01-21] MEDS: DIGOXIN 0.125 MG TABLET PO SCH (11:28)
[2024-01-21] MEDS: DILTIAZEM HCL CD 240 MG PO SCH (11:28)
[2024-01-21] MEDS ORDERED: ENOXAPARIN SODIUM 40 MG/0.4 ML DISP.SYRIN SQ SCH (11:30)
[2024-01-21] MEDS: IBUPROFEN 200 MG TABLET PO PRN (11:54)
[2024-01-21] MEDS: METOPROLOL SUCCINATE 50 MG TAB.SR.24H PO SCH (21:20)
[2024-01-21] MEDS: ATORVASTATIN 40 MG TABLET PO SCH (21:20)
[2024-01-22] VITALS (12 sets, daily range): BP systolic 104–119; BP diastolic 44–57; TEMP 97.2–98.2; O2SAT 92–96
[2024-01-22 07:36] LABS: BASOPHILS % (AUTO) 0.3 % (0.0-2.0); EOSINOPHILS # (AUTO) 0.2 K/uL (0.0-0.7); EOSINOPHILS % (AUTO) 4.5 % (0.0-6.0); HEMATOCRIT 32 % (33-45); HEMOGLOBIN 10.2 g/dL (11.5-14.8); LYMPHOCYTES # (AUTO) 0.8 K/uL (0.8-4.8); LYMPHOCYTES % (AUTO) 17.2 % (20.0-44.0); MEAN CORPUSCULAR HEMOGLOBIN 32 PG (26.0-33.0); MEAN CORPUSCULAR HGB CONC 32 g/dl (31.0-36.0); MEAN CORPUSCULAR VOLUME 98 fL (82-100); MONOCYTES # (AUTO) 0.5 K/uL (0.1-1.30); MONOCYTES % (AUTO) 10.1 % (2.0-12.0); NEUTROPHILS # (AUTO) 3.1 K/uL (1.8-8.9); NEUTROPHILS % (AUTO) 67.9 % (43.0-81.0); PLATELET COUNT (AUTO) 206 K/uL (150-450); RED BLOOD CELL COUNT(AUTO) 3.24 MIL/uL (4.0-5.2); RED CELL DISTRIBUTION WIDTH 15.4 % (11.5-15.0); WHITE BLOOD COUNT (AUTO) 4.6 K/uL (4.3-11.0)
[2024-01-22 07:41] LABS: ALANINE AMINOTRANSFERASE 12 U/L (12-78); ALBUMIN 2.1 g/dL (3.4-5.0); ALKALINE PHOSPHATASE 125 U/L (46-116); ASPARTATE AMINOTRANSFERASE 20 U/L (15-37); BILIRUBIN,TOTAL 0.5 mg/dL (0.2-1.0); CALCIUM, SERUM 8.3 mg/dL (8.5-10.1); CARBON DIOXIDE 36 mmol/L (21-32); CHLORIDE 105 mmol/L (98-107); GLUCOSE 96 mg/dL (74-106); MAGNESIUM 2.2 mg/dL (1.8-2.4); PHOSPHORUS 3.4 mg/dL (2.5-4.9); POTASSIUM 3.5 mmol/L (3.5-5.1); SODIUM SERUM 143 mmol/L (136-145); TOTAL PROTEIN, SERUM 6.3 g/dL (6.4-8.2); UREA NITROGEN, BLOOD 16 mg/dL (7-18)
[2024-01-22] MEDS: BACLOFEN (10 MG) 10 MG TABLET PO SCH (11:04)
[2024-01-22] MEDS: ENSURE ENLIVE 237 ML LIQUID (VANILLA) PO SCH (13:34)
[2024-01-22] MEDS: LEVOFLOXACIN 750 MG /D5W 150ML 750 MG in PREMIX 1 EA IV SCH (22:11)
[2024-01-23] VITALS (9 sets, daily range): BP systolic 115–126; BP diastolic 56–59; TEMP 98–98.2; O2SAT 94–98
[2024-01-23] MEDS: TEMAZEPAM 7.5 MG CAPSULE PO PRN (01:39)
== END 2024-01-23 15:30 | DRG 189 ==
LOC: ER 19:50 → TELE1 22:08 → MEDSG1 01-22 10:44
PROVIDERS: ADMIT Nurse Practitioner Family; ATTEND Nurse Practitioner Acute Care
DX: J96.21 Acute and chronic respiratory failure with hypoxia (principal); E43 Unspecified severe protein-calorie malnutrition; J44.1 Chronic obstructive pulmonary disease with (acute) exacerbation; I50.22 Chronic systolic (congestive) heart failure; I13.0 Hypertensive heart and chronic kidney disease with heart failure and stage 1 through stage 4 chronic kidney disease, or unspecified chronic kidney disease; R64 Cachexia; I25.2 Old myocardial infarction; I48.91 Unspecified atrial fibrillation; Z95.2 Presence of prosthetic heart valve; K21.9 Gastro-esophageal reflux disease without esophagitis; E78.5 Hyperlipidemia, unspecified; E88.09 Other disorders of plasma-protein metabolism, not elsewhere classified; F41.9 Anxiety disorder, unspecified; F32.A Depression, unspecified; Z95.0 Presence of cardiac pacemaker; Z90.49 Acquired absence of other specified parts of digestive tract; Z98.891 History of uterine scar from previous surgery; Z98.890 Other specified postprocedural states; Z88.6 Allergy status to analgesic agent; Z88.1 Allergy status to other antibiotic agents; Z88.5 Allergy status to narcotic agent; Z88.2 Allergy status to sulfonamides; Z88.0 Allergy status to penicillin; Z79.51 Long term (current) use of inhaled steroids; Z79.01 Long term (current) use of anticoagulants; Z79.899 Other long term (current) drug therapy; K27.9 Peptic ulcer, site unspecified, unspecified as acute or chronic, without hemorrhage or perforation; N18.9 Chronic kidney disease, unspecified; G20.A1 Parkinson's disease without dyskinesia, without mention of fluctuations; I25.10 Atherosclerotic heart disease of native coronary artery without angina pectoris; M81.0 Age-related osteoporosis without current pathological fracture; Z87.891 Personal history of nicotine dependence; Z99.81 Dependence on supplemental oxygen
CPT/HCPCS: 36415; 36600; 71045-TC; 71250-TC; 80048-TC; 80053-TC; 80076-TC; 82803-TC; 83605-TC; 83735-TC; 83880; 84100-TC; 84484-TC; 85025-TC; 85378-TC; 87040-TC; 93970-TC; 94799-TC; 97110-TC; 97116-TC; 97530-TC; A4216; A4223; G0378; J1940; J1956; J7050

== ENCOUNTER 2024-09-29 17:54 | Inpatient (IN) | payer MEDICARE, OTHER ==
[~2024-09-29] VITALS: Ht 175.3 cm; Wt 51.7 kg
[~2024-09-29 17:54] MED LIST changes: +ALBU8.5H8 IH; +BISA10SU11 RC; -BREYNA IH; +BUDE10.26 IH; +DOCU100T2 PO; +IBUP-23 PO; +MAGN400O6 PO; +MELA3TAB47 PO; +NA P133E RC; +TRAM50TA2 PO; -TRAZ-252 PO
[2024-09-29 18:38] LABS: PLATELET COUNT (AUTO) 150 K/uL (150-450); RED BLOOD CELL COUNT(AUTO) 4.62 MIL/uL (4.0-5.2); RED CELL DISTRIBUTION WIDTH 13.8 % (11.5-15.0); WHITE BLOOD COUNT (AUTO) 6.1 K/uL (4.3-11.0)
[2024-09-29 18:48] LABS: CALCIUM, SERUM 9.2 mg/dL (8.5-10.1); CREATININE 1.2 mg/dL (0.6-1.3); SODIUM SERUM 142 mmol/L (136-145); UREA NITROGEN, BLOOD 22 mg/dL (7-18)
[2024-09-29 18:49] LABS: SERUM AMMONIA 4 umol/L (11-32)
[2024-09-29 18:53] LABS: ASPARTATE AMINOTRANSFERASE 25 U/L (15-37); TOTAL PROTEIN, SERUM 7.5 g/dL (6.4-8.2)
[2024-09-29 18:57] LABS: ALCOHOL, BLOOD < 3 mg/dL (0-10)
[2024-09-29 20:26] LABS: APPEARANCE,URINE CLEAR (CLEAR); BLOOD, URINE NEGATIVE Ery/uL (NEGATIVE); LEUKOCYTE ESTERASE ,URINE NEGATIVE (NEGATIVE); NITRITE, URINE NEGATIVE (NEGATIVE); UGLUCOSE NEGATIVE (NEGATIVE)
[2024-09-29 20:32] LABS: AMPHETAMINE, URINE NEGATIVE (NEGATIVE); BARBITURATE, URINE NEGATIVE (NEGATIVE); BENZODIAZEPINE, URINE NEGATIVE (NEGATIVE); CANNABINOID, URINE NEGATIVE (NEGATIVE); COCCAINE, URINE NEGATIVE (NEGATIVE); OPIATE, URINE NEGATIVE (NEGATIVE)
[2024-09-30] VITALS (13 sets, daily range): BP systolic 114–118; BP diastolic 60–72; TEMP 97.3–98.4; O2SAT 92–99
[2024-09-30] MEDS ORDERED: MAGNESIUM HYDROXIDE 30 ML UDC PO PRN (00:30)
[2024-09-30] MEDS ORDERED: ONDANSETRON HCL/PF 4 MG/2 ML VIAL IVP PRN (00:30)
[2024-09-30] MEDS ORDERED: Z GUARD REMEDY 4 OZ OINT TP PRN (00:30)
[2024-09-30] MEDS ORDERED: MAG HYDROX/AL HYDROX/SIMETH 30 ML UDC PO PRN (00:30)
[2024-09-30] MEDS: IBUPROFEN 400 MG TABLET PO PRN (01:41)
[2024-09-30] MEDS ORDERED: ALBUTEROL SULFATE 8 GM HFA.AER.AD IH SCH (06:00)
[2024-09-30 06:48] LABS: PLATELET COUNT (AUTO) 141 K/uL (150-450); RED BLOOD CELL COUNT(AUTO) 4.30 MIL/uL (4.0-5.2); RED CELL DISTRIBUTION WIDTH 13.5 % (11.5-15.0); WHITE BLOOD COUNT (AUTO) 6.1 K/uL (4.3-11.0)
[2024-09-30 07:06] LABS: CALCIUM, SERUM 8.9 mg/dL (8.5-10.1); CREATININE 1.1 mg/dL (0.6-1.3); PHOSPHORUS 3.1 mg/dL (2.5-4.9); SODIUM SERUM 142.0 mmol/L (136-145); UREA NITROGEN, BLOOD 22.0 mg/dL (7-18)
[2024-09-30] MEDS: BUDESONIDE RESPULE INH 0.5 MG/2 ML AMPUL.NEB IH SCH (08:11)
[2024-09-30] MEDS ORDERED: BUSP5TAB3 PO (08:13)
[2024-09-30] MEDS ORDERED: ESCI5TAB PO (08:13)
[2024-09-30] MEDS ORDERED: FLUT1BLS6 IH (08:13)
[2024-09-30] MEDS ORDERED: FURO-145 PO (08:13)
[2024-09-30] MEDS: PANTOPRAZOLE 40 MG TABLET.DR PO SCH (08:14)
[2024-09-30] MEDS: BACLOFEN (10 MG) 10 MG TABLET PO SCH (08:14)
[2024-09-30] MEDS: DILTIAZEM HCL CD 240 MG PO SCH (08:14)
[2024-09-30] MEDS: FUROSEMIDE 20 MG TABLET PO SCH (08:14)
[2024-09-30] MEDS: VITAMIN B COMP W-C 1 TAB TABLET PO SCH (08:14)
[2024-09-30] MEDS: DOCUSATE SODIUM 100 MG CAPSULE PO SCH (08:14)
[2024-09-30] MEDS: CHOLECALCIFEROL 1,000 UNIT TABLET (VIT D3) PO SCH (08:14)
[2024-09-30] MEDS: DIGOXIN 0.125 MG TABLET PO SCH (08:14)
[2024-09-30] MEDS: APIXABAN 5 MG TABLET PO SCH (08:15)
[2024-09-30] MEDS: FLUTICASONE/VILANTEROL 1 EACH BLST.W.DEV IH SCH (08:16)
[2024-09-30] MEDS: VENLAFAXINE XR 37.5 MG CAP.SR.24H PO SCH (10:41)
[2024-09-30] MEDS: POTASSIUM CHLORIDE 20 MEQ TAB.PRT.SR PO ONE (10:43)
[2024-09-30] MEDS: ALBUTEROL FS 2.5 MG/0.5 ML VIAL.NEB NEB SCH (13:30)
[2024-09-30] MEDS: METOPROLOL SUCCINATE 50 MG TAB.SR.24H PO SCH (22:00)
[2024-09-30] MEDS ORDERED: MELATONIN 3 MG TABLET PO SCH (22:00)
[2024-09-30] MEDS: ZOLPIDEM TARTRATE 5 MG TABLET PO PRN (22:03)
[2024-09-30] MEDS: ATORVASTATIN 40 MG TABLET PO SCH (22:04)
[2024-10-01] VITALS (12 sets, daily range): BP systolic 117–134; BP diastolic 51–81; TEMP 97.9–98.5; O2SAT 92–99
[2024-10-01 07:47] LABS: CALCIUM, SERUM 8.8 mg/dL (8.5-10.1); CREATININE 0.9 mg/dL (0.6-1.3); SODIUM SERUM 141.0 mmol/L (136-145); UREA NITROGEN, BLOOD 19.0 mg/dL (7-18)
[2024-10-01] MEDS: POTASSIUM CHLORIDE 20 MEQ TAB.PRT.SR PO ONE (10:18)
[2024-10-01] MEDS: ENSURE ENLIVE CHOC 237 ML CAN PO SCH (17:37)
[2024-10-02 01:57] VITALS: O2SAT 95
[2024-10-02 02:12] VITALS: O2SAT 99
[2024-10-02 07:12] LABS: CALCIUM, SERUM 9.2 mg/dL (8.5-10.1); CREATININE 0.8 mg/dL (0.6-1.3); SODIUM SERUM 138.0 mmol/L (136-145)
[2024-10-02 07:54] LABS: UREA NITROGEN, BLOOD 15.0 mg/dL (7-18)
[2024-10-02 08:00] VITALS: BP 111/57; TEMP 97.9; O2SAT 95
[2024-10-02] MEDS ORDERED: VENL37.55 PO (10:33)
[2024-10-02 15:59] VITALS: BP 120/57; TEMP 97.5; O2SAT 96
[2024-10-02 16:00] VITALS: BP 120/57; TEMP 97.5; O2SAT 96
[2024-10-02] MEDS ORDERED: EFIN4SOL TP (17:15)
[2024-10-04 08:07] LABS: FOLIC ACID 8.5 ng/mL (>3.0)
== END 2024-10-02 17:29 | DRG 641 ==
LOC: ER 18:37 → MED 21:13
PROVIDERS: ADMIT Registered Nurse Psychiatric/Mental Health; ATTEND Nurse Practitioner Acute Care
DX: E86.0 Dehydration (principal); Z68.1 Body mass index [BMI] 19.9 or less, adult; I50.22 Chronic systolic (congestive) heart failure; I48.20 Chronic atrial fibrillation, unspecified; I13.0 Hypertensive heart and chronic kidney disease with heart failure and stage 1 through stage 4 chronic kidney disease, or unspecified chronic kidney disease; F33.2 Major depressive disorder, recurrent severe without psychotic features; J96.11 Chronic respiratory failure with hypoxia; R62.7 Adult failure to thrive; G20.A1 Parkinson's disease without dyskinesia, without mention of fluctuations; E78.5 Hyperlipidemia, unspecified; N18.1 Chronic kidney disease, stage 1; Z20.822 Contact with and (suspected) exposure to COVID-19; F41.9 Anxiety disorder, unspecified; I25.2 Old myocardial infarction; Z95.2 Presence of prosthetic heart valve; Z95.0 Presence of cardiac pacemaker; Z74.09 Other reduced mobility; J44.9 Chronic obstructive pulmonary disease, unspecified; K21.9 Gastro-esophageal reflux disease without esophagitis; M19.90 Unspecified osteoarthritis, unspecified site; Z87.11 Personal history of peptic ulcer disease; Z98.891 History of uterine scar from previous surgery; Z98.890 Other specified postprocedural states; Z88.0 Allergy status to penicillin; Z88.2 Allergy status to sulfonamides; Z88.1 Allergy status to other antibiotic agents; Z88.6 Allergy status to analgesic agent; Z88.5 Allergy status to narcotic agent; Z88.8 Allergy status to other drugs, medicaments and biological substances; Z79.51 Long term (current) use of inhaled steroids; Z79.01 Long term (current) use of anticoagulants; Z79.899 Other long term (current) drug therapy; Z87.891 Personal history of nicotine dependence; R79.89 Other specified abnormal findings of blood chemistry; M79.675 Pain in left toe(s); R26.9 Unspecified abnormalities of gait and mobility; I70.0 Atherosclerosis of aorta; E34.9 Endocrine disorder, unspecified
CPT/HCPCS: 36415; 71045-TC; 73660-TC; 80048-TC; 80076-TC; 82140-TC; 82607-TC; 83735-TC; 83921; 84100-TC; 84425; 84443-TC; 84484-TC; 85025-TC; 87081-TC; 87086-TC; 94760-TC; 94799-TC; 97110-TC; 97116-TC; 97530-TC; G0378; G0480